=== PATIENT | male | born 1980 | race Caucasian/White ===

== ENCOUNTER 2017-05-01 00:01 | Emergency (ER) | payer SELFPAY ==
[~2017-05-01] VITALS: Ht 170.2 cm; Wt 86.0 kg
[~2017-05-01 00:01] MED LIST: BUPR-175 PO
[2017-05-01 00:08] VITALS: BP 130/82; PULSE 123; RESP 16; TEMP 99.3; O2SAT 96
[2017-05-01 00:21] VITALS: BP 130/82; PULSE 102; RESP 16; O2SAT 98
[2017-05-01] MEDS ORDERED: GABA300C5 PO (00:25)
[2017-05-01] MEDS ORDERED: REME30TA PO (00:25)
[2017-05-01] MEDS ORDERED: IBUP-232 PO (00:25)
--- NOTE | 2017-05-01 01:43 | RADRPT ---
EXAM DATE/TIME: 05/01/2017 01:15 [facility] COMPARISON: No previous studies available for comparison. INDICATIONS : Left ankle pain. MEDICAL HISTORY : None. SURGICAL HISTORY : ORIF left ankle. ENCOUNTER: Initial ACUITY: 2 days PAIN SCORE: 8/10 LOCATION: Left ankle. FINDINGS: Screw and pin are present in the medial malleolus. Lateral fibular plate is in place. The hardware appears intact. Osseous structures are in normal alignment. Ankle mortise is intact. No significan t soft tissue swelling. CONCLUSION: No acute findings. No fracture seen. Westley Briones MD on May 01, 2017 at 1:40 Board Certified Radiologist. This report was verified electronically.
[2017-05-01] MEDS ORDERED: IBUP800T23 PO (01:45)
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
[2017-05-01] MEDS ORDERED: IBUPROFEN 600 MG TAB PO ONE (02:15)
[2017-05-01 02:21] VITALS: BP 147/77
== END 2017-05-01 02:23 | disposition home or self-care (01) ==
LOC: PHED 00:01 → PHEFT 02:23
DX: S93.402A Sprain of unspecified ligament of left ankle, initial encounter (principal); X50.0XXA Overexertion from strenuous movement or load, initial encounter; Y93.9 Activity, unspecified; Y92.9 Unspecified place or not applicable
CPT/HCPCS: 73610; 99283; E0113

== ENCOUNTER 2017-05-02 16:01 | Inpatient (IN) | payer SELFPAY ==
[~2017-05-02] VITALS: Ht 170.2 cm; Wt 76.2 kg
[~2017-05-02 16:01] MED LIST changes: -BUPR-175 PO; +GABA300C5 PO; +IBUP-232 PO; +IBUP800T23 PO; +REME30TA PO
[2017-05-02 16:02] VITALS: BP 155/86; PULSE 128; RESP 20; TEMP 98.3; O2SAT 98
--- NOTE | 2017-05-02 16:06 | PD ---
Physical Exam Date Seen by Provider: May 02, 2017 Time Seen by Provider: 16:05 Narrative 36 yo male that presents to the ED for evaluation of left ankle pain with swelling. Happened a few days ago. Was here for this. Pain is not improving and swelling worsening. Pain is 8/10. he is concerned about infection. No trauma. Vitals are stable in triage. Awaiting bed placement. Data Data Last Documented VS Vital Signs Date Time Temp Pulse Resp B/P Pulse Ox O2 Delivery O2 Flow Rate FiO2 05/02/17 16:02 98.3 128 20 155/86 98 Room Air [facility] Medical Record Reviewed: Yes Supervised Visit with JA: No Gurdeep Lopez May 02, 2017 16:06
[2017-05-02 16:13] VITALS: BP 137/83; PULSE 105; RESP 16; TEMP 98.5; O2SAT 97
--- NOTE | 2017-05-02 16:25 | PD ---
HPI Chief Complaint: Skin Problem Time Seen by Provider: 16:25 Travel History International Travel<30 days: No Contact w/Intl Traveler<30days: No Traveled to known affect area: No History of Present Illness HPI 36 year old male presents to the emergency department for evaluation of left ankle pain that started on Sunday, 4 days ago. Patient was seen in the emergency department yesterday is diagnosed ankle sprain. He states the symptoms and erythema have been worsening. Patient reports the home, no documented fevers. Patient at first he denies any IV drug use. However, upon further questioning, he does admit to injecting methamphetamine. He states the last time was 5 days ago. However, he does not state that he injected his ankle. He does report history of surgery to the left ankle by orthopedist. He denies any issues since then. Patient states he can barely move the ankle due to extreme pain. He reports that he is currently on Remeron and gabapentin. No chest or shortness breath. No abdominal pain. No nausea, vomiting, diarrhea. PFSH Past Medical History Anxiety: Yes Depression: Yes Cancer: No Cardiovascular Problems: No Diabetes: No Diminished Hearing: No Endocrine: No Glaucoma: No Genitourinary: No Hepatitis: No Hiatal Hernia: No Hypertension: No Immune Disorder: No Implanted Vascular Access Dvce: No Musculoskeletal: No Neurologic: No Psychiatric: No Reproductive: No Respiratory: No Thyroid Disease: No Influenza Vaccination: No Past Surgical History Pacemaker: No Other Surgery: Yes (LT ANKLE) Social History Alcohol Use: Yes (OCCASIONALLY) Tobacco Use: No (CHEWING TOBACCO FORMERLY) Substance Use: No Allergies-Medications (Allergen,Severity, Reaction): Coded Allergies: Cat Dander (Verified Allergy, Severe, WHEEZING ITCHING, 05/02/17) Dog Dander (Verified Allergy, Unknown, 05/02/17) Reported Meds & Prescriptions Reported Meds & Active Scripts Active Ibuprofen 800 Mg Tab 800 Mg PO Q8H PRN Reported Remeron (Mirtazapine) 30 Mg Tab 30 Mg PO HS Gabapentin 300 Mg Cap 300 Mg PO BID Review of Systems Except as stated in HPI: all other systems reviewed are Neg Physical Exam Narrative GENERAL: Well-nourished, well-developed male patient, afebrile. SKIN: Focused skin assessment warm/dry. Patient has erythema, warmth over HEAD: Normocephalic. Atraumatic. EYES: No scleral icterus. No injection or drainage. NECK: Supple, trachea midline. No JVD or lymphadenopathy. CARDIOVASCULAR: Regular rate and rhythm without murmurs, gallops, or rubs. RESPIRATORY: Breath sounds equal bilaterally. No accessory muscle use. Lung sound are clear to auscultation throughout. GASTROINTESTINAL: Abdomen soft, non-tender, nondistended. MUSCULOSKELETAL: No cyanosis. Patient has 2-3+ edema over left ankle with diffuse erythema, warmth over left lateral ankle. He has extremely reduced ROM of left ankle and is barely able to flex or extend left ankle. Patient has scar noted to left lateral and medial ankle. Left pedal pulse 2+. BACK: Nontender without obvious deformity. No CVA tenderness. Data Data Last Documented VS Vital Signs Date Time Temp Pulse Resp B/P Pulse Ox O2 Delivery O2 Flow Rate FiO2 05/02/17 18:00 113 16 141/86 98 Room Air 05/02/17 16:13 98.5 Orders Iv Access Insert/Monitor (05/02/17 16:25) Act Partial Throm Time (Ptt) (05/02/17 16:25) Prothrombin Time / Inr (Pt) (05/02/17 16:25) Complete Blood Count With Diff (05/02/17 16:25) Basic Metabolic Panel (Bmp) (05/02/17 16:25) C-Reactive Protein (Crp) (05/02/17 16:25) Westergren Sedimentation Rate (05/02/17 16:25) Lactic Acid Sepsis Protocol (05/02/17 16:26) Blood Culture (05/02/17 16:32) Vancomycin Inj (Vancomycin Inj) (05/02/17 16:45) Piperacil-Tazo 4.5 Gm Premix (Zosyn 4.5 (05/02/17 16:45) Sodium Chlor 0.9% 1000 Ml Inj (Ns 1000 M (05/02/17 16:45) Hydromorphone Pf Inj (Dilaudid Pf Inj) (05/02/17 17:00) Ondansetron Inj (Zofran Inj) (05/02/17 17:00) Diphenhydramine Inj (Benadryl Inj) (05/02/17 18:15) Ct Ankle W Iv Contrast (05/02/17 ) Labs Laboratory Tests Test 05/02/17 16:45 White Blood Count 29.0 TH/MM3 Red Blood Count 5.46 MIL/MM3 Hemoglobin 14.6 GM/DL Hematocrit 44.9 % Mean Corpuscular Volume 82.3 FL Mean Corpuscular Hemoglobin 26.8 PG Mean Corpuscular Hemoglobin 32.6 % Concent Red Cell Distribution Width 14.9 % Platelet Count 471 TH/MM3 Mean Platelet Volume 7.7 FL Neutrophils (%) (Auto) 88.0 % Lymphocytes (%) (Auto) 2.4 % Monocytes (%) (Auto) 9.3 % Eosinophils (%) (Auto) 0.1 % Basophils (%) (Auto) 0.2 % Neutrophils # (Auto) 25.6 TH/MM3 Lymphocytes # (Auto) 0.7 TH/MM3 Monocytes # (Auto) 2.7 TH/MM3 Eosinophils # (Auto) 0.0 TH/MM3 Basophils # (Auto) 0.0 TH/MM3 CBC Comment AUTO DIFF Differential Comment AUTO DIFF CONFIRMED Platelet Estimate NORMAL Platelet Morphology Comment NORMAL Erythrocyte Sedimentation Rate 48 mm/hr Prothrombin Time 12.6 SEC Prothromb Time International 1.1 RATIO Ratio Activated Partial 34.5 SEC Thromboplast Time Sodium Level 135 MEQ/L Potassium Level 4.4 MEQ/L Chloride Level 100 MEQ/L Carbon Dioxide Level 29.6 MEQ/L Anion Gap 5 MEQ/L Blood Urea Nitrogen 10 MG/DL Creatinine 1.19 MG/DL Random Glucose 117 MG/DL Lactic Acid Level 1.8 mmol/L Calcium Level 9.2 MG/DL C-Reactive Protein 34.70 MG/DL [facility] Medical Decision Making Medical Screen Exam Complete: Yes Emergency Medical Condition: Yes Medical Record Reviewed: Yes Differential Diagnosis Septic joint versus cellulitis versus sepsis versus endocarditis Narrative Course 36 year old male with history of IVDU, last use 5 days ago, presents to the emergency department for evaluation of left ankle pain, swelling, erythema since Sunday. He has history of previous surgery. Physical is consistent with septic arthritis. CBC, BMP, PTT, PT/INR, SED rate, CRP, lactic acid, blood culture x3 are ordered and pending. Patient is given NS 1 L IV bolus, Zosyn 4.5 gm IV, Vancomycin 1 gm IV. MRI of the left ankle are ordered and pending. CBC shows leukocytosis 29.0, neutrophilia 88.0. BMP shows no acute abnormality. Lactic acid is 1.8. SED rate is 48. CRP is 34.70. PT is 12.6, INR 1.1, PTT 34.5. 1804 - I spoke with Dr. Rob, orthopedist salesperson floor coverings, who states MRI will not be helpful due to hardware in the ankle. He recommends CT scan of the ankle. He would like the patient to be admitted to medicine and Dr. Moreira consulted. 1817 - Dr. Zavala accepted admission. Sepsis Criteria SIRS Criteria (2 or more): Heart rate over 90, WBC > 55005, < 4000 or > 10% bands Sepsis Criteria (SIRS+source): Infect source susp/known Diagnosis Primary Impression: Septic joint Qualified Code: M00.9 - Septic arthritis of left ankle, due to unspecified organism Additional Impression: Sepsis Qualified Code: A41.9 - Sepsis, due to unspecified organism Admitting Information Admitting Physician Requests: Admit Kelle Fleming May 02, 2017 16:25
[2017-05-02] MEDS ORDERED: PIPERACIL-TAZO 4.5 GM PREMIX 100 ML IV ONE (16:45)
[2017-05-02] MEDS ORDERED: SODIUM CHLOR 0.9% 1000 ML INJ 1,000 ML IV ONE (16:45)
[2017-05-02] MEDS ORDERED: VANCOMYCIN INJ 1,000 MG in SODIUM CHLOR 0.9% 250 ML INJ 250 ML IV ONE (16:45)
[2017-05-02] MEDS ORDERED: HYDROmorphone HCL PF 1 MG/ML VIAL IV PUSH ONE (17:00)
[2017-05-02] MEDS ORDERED: ONDANSETRON HCL 4 MG/2 ML VIAL IV PUSH ONE (17:00)
--- NOTE | 2017-05-02 17:02 | PD ---
Data Data Last Documented VS Vital Signs Date Time Temp Pulse Resp B/P Pulse Ox O2 Delivery O2 Flow Rate FiO2 05/02/17 16:13 98.5 105 16 137/83 97 Room Air Orders Iv Access Insert/Monitor (05/02/17 16:25) Act Partial Throm Time (Ptt) (05/02/17 16:25) Prothrombin Time / Inr (Pt) (05/02/17 16:25) Complete Blood Count With Diff (05/02/17 16:25) Basic Metabolic Panel (Bmp) (05/02/17 16:25) C-Reactive Protein (Crp) (05/02/17 16:25) Westergren Sedimentation Rate (05/02/17 16:25) Lactic Acid Sepsis Protocol (05/02/17 16:26) Mri Joint Ankle W&W/O Contrast (05/02/17 ) Blood Culture (05/02/17 16:32) Vancomycin Inj (Vancomycin Inj) (05/02/17 16:45) Piperacil-Tazo 4.5 Gm Premix (Zosyn 4.5 (05/02/17 16:45) Sodium Chlor 0.9% 1000 Ml Inj (Ns 1000 M (05/02/17 16:45) Hydromorphone Pf Inj (Dilaudid Pf Inj) (05/02/17 17:00) Ondansetron Inj (Zofran Inj) (05/02/17 17:00) MDM Supervised Visit with JA: Yes Narrative Course The history, exam, and medical decision-making in the associated mid-level provider note were completed with my assistance. I reviewed and agree with the findings presented. I attest that I had a [id number] encounter with the patient on the same day, and personally performed and documented my assessment and findings in the medical record. *My assessment and Findings: 36-year-old man, active IV drug use, presents with painful swollen red left ankle. Suspicious forpossibly cellulitis but seems less likely. He has hardware in the ankle as well. No obvious murmurs. She is tachycardia tachypnea With low-grade fevers. We'll give IV antibiotics, IV fluids, MRI of the ankle. He'll need admission and likely orthopedic consultation. Terrell Holm MD May 02, 2017 17:01
[2017-05-02 17:14] LABS: AUTOMATED NEUTROPHIL # 25.6 TH/MM3 (1.8-7.7); BASOPHIL % 0.2 % (0.0-2.0); EOSINOPHIL % 0.1 % (0.0-4.0); HEMATOCRIT 44.9 % (39.0-51.0); LYMPH % 2.4 % (9.0-44.0); LYMPHOCYTE # 0.7 TH/MM3 (1.0-4.8); MEAN CELL VOLUME 82.3 FL (80.0-100.0); MEAN CORPUSCULAR HEMOGLOBIN 26.8 PG (27.0-34.0); MEAN CORPUSCULAR HGB CONC 32.6 % (32.0-36.0); MONO % 9.3 % (0.0-8.0); PLATELET COUNT 471 TH/MM3 (150-450); RED BLOOD COUNT 5.46 MIL/MM3 (4.50-5.90); RED CELL DISTRIBUTION WIDTH 14.9 % (11.6-17.2)
[2017-05-02 17:16] LABS: HEMO FLAGS AUTO DIFF
[2017-05-02 17:25] LABS: APTT (PATIENT) 34.5 SEC (24.3-30.1); INTERNATIONAL NORMALIZED RATIO 1.1 RATIO; PROTHROMBIN TIME - PATIENT 12.6 SEC (9.8-11.6)
[2017-05-02 17:38] LABS: ANION GAP 5 MEQ/L (5-15); BICARBONATE 29.6 MEQ/L (21.0-32.0); BLOOD UREA NITROGEN 10 MG/DL (7-18); CHLORIDE 100 MEQ/L (98-107); POTASSIUM 4.4 MEQ/L (3.5-5.1); SODIUM (NA) 135 MEQ/L (136-145)
[2017-05-02 17:55] LABS: SCAN/DIFF AUTO DIFF CONFIRMED
[2017-05-02 17:56] LABS: PLATELET ESTIMATE SMEAR NORMAL (NORMAL); PLATELET MORPHOLOGY NORMAL (NORMAL)
[2017-05-02 18:00] VITALS: BP 141/86; PULSE 113; RESP 16; O2SAT 98
[2017-05-02] MEDS ORDERED: diphenhydrAMINE HCL 50 MG/ML VIAL IV PUSH ONE (18:15)
[2017-05-02] MEDS ORDERED: SENNOSIDES 8.6 MG TAB PO PRN (18:30)
[2017-05-02] MEDS ORDERED: Vancomycin Consult Pharmacy 1 EA OTHER SCH (18:30)
[2017-05-02] MEDS ORDERED: MAGNESIUM HYDROXIDE SUSP 30 ML CUP PO PRN (18:30)
[2017-05-02] MEDS ORDERED: ONDANSETRON HCL 4 MG/2 ML VIAL IVP PRN (18:30)
[2017-05-02] MEDS ORDERED: BISACODYL 10 MG SUPP RECTAL PRN (18:30)
[2017-05-02] MEDS ORDERED: NALOXONE HCL 0.4 MG/ML AMP IV PRN (18:30)
[2017-05-02] MEDS ORDERED: LACTULOSE SYRUP 20 GM/30 ML CUP PO PRN (18:30)
[2017-05-02 19:00] VITALS: BP 127/71; PULSE 120; RESP 20; O2SAT 98
[2017-05-02] MEDS ORDERED: IOHEXOL 350 MG/ML 10 ML VIAL (for RAD DIAG) IV ONE (19:03)
--- NOTE | 2017-05-02 19:20 | RADRPT ---
EXAM DATE/TIME: 05/02/2017 18:55 [facility] COMPARISON: ANKLE LEFT COMPLETE ([id number]), May 01, 2017, 1:15. INDICATIONS : Swelling left ankle. Possible cellultis. IV CONTRAST: 100 cc Omnipaque 350 (iohexol) IV RADIATION DOSE: 10.38 CTDIvol (mGy) MEDICAL HISTORY : None SURGICAL HISTORY : Left ankle ENCOUNTER: Initial ACUITY: 4 - 6 days PAIN SCALE: 6/10 LOCATION: Left ankle TECHNIQUE: Volumetric scanning of the ankle was performed. Using automated exposure control and adjustment of t he mA and/or kV according to patient size, radiation dose was kept as low as reasonably achievable to obtain optimal diagnostic quality images. DICOM format image data is available electronically for review and comparison. FINDINGS: BONES: No evidence of acute fracture. Alignment is within normal limits. Postsurgical changes are noted wit h screw plate fixation device along the distal fibula. Their lack type screws in the medial malleolus . No destructive change is identified. JOINTS: Ankle mortise is intact. No evidence of joint narrowing or effusion. SOFT TISSUES: Muscles, tendons and neurovascular structures are grossly unremarkable. No evidence of mass, organize d fluid collection, or foreign body. There is diffuse soft tissue swelling. CONCLUSION: 1. Diffuse soft tissue swelling with no discrete focal abscess. 2. Remote postsurgical changes with no acute fracture. Demarcus Hickey MD on May 02, 2017 at 19:16 Board Certified Radiologist. This report was verified electronically.
[2017-05-02] MEDS ORDERED: VANCOMYCIN 1,000 MG/NS 250 ML IV ONE ×2 (20:00)
[2017-05-02] MEDS: SODIUM CHLOR 0.9% 1000 ML INJ 1,000 ML IV SCH (20:14)
[2017-05-02] MEDS: SODIUM CHLORIDE 0.9% FLUSH 10 ML FLUSH IV FLUSH SCH (20:37)
[2017-05-02] MEDS: DOCUSATE SODIUM 50 MG/SENNA 8.6 MG TAB PO SCH (20:37)
[2017-05-02] MEDS: KETOROLAC TROMETHAMINE 30 MG/ML (IVP) VIAL IV PUSH PRN (20:37)
[2017-05-02 23:04] VITALS: BP 140/81; PULSE 125; RESP 16; TEMP 99.3; O2SAT 98
[2017-05-02] MEDS: PIPERACIL-TAZO 3.375 GM PREMIX 50 ML IV SCH (23:05)
[2017-05-03] MEDS ORDERED: HYDROmorphone HCL PF 1 MG/ML VIAL IV PUSH PRN (01:30)
[2017-05-03] MEDS ORDERED: HYDROmorphone HCL PF 1 MG/ML VIAL IV PUSH ONE (01:30)
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
[2017-05-03] MEDS ORDERED: LORazepam 2 MG/ML VIAL IV PUSH ONE (01:45)
[2017-05-03 04:05] VITALS: BP 136/67; PULSE 127; RESP 16; TEMP 100.6; O2SAT 95
[2017-05-03] MEDS: SODIUM CHLOR 0.9% 1000 ML INJ 1,000 ML IV SCH ×2 (05:00→18:02)
[2017-05-03] MEDS: VANCOMYCIN INJ 1,500 MG in SODIUM CHLORID 0.9% 500 ML INJ 500 ML IV SCH ×2 (05:17→18:03)
[2017-05-03] MEDS: PIPERACIL-TAZO 3.375 GM PREMIX 50 ML IV SCH ×4 (05:17→22:43)
[2017-05-03] MEDS: LORazepam 2 MG/ML VIAL IV PUSH PRN ×3 (05:54→22:30)
[2017-05-03] MEDS ORDERED: POVIDONE IODINE 5% (ANTISEPSIS KIT) 4 APPLICATIONS EACH NARE PRN (07:15)
[2017-05-03] MEDS ORDERED: LACTATED RINGER'S 1000 ML IV PRN (07:15)
[2017-05-03] MEDS ORDERED: CHLORHEXIDINE GLUCONATE 2 % 1 PACK (2 CLOTHS) TOPICAL PRN (07:15)
[2017-05-03] MEDS ORDERED: SODIUM CHLORID 0.9% 500 ML IV PRN (07:15)
[2017-05-03] MEDS ORDERED: INSULIN HUMAN REGULAR 1,000 UNITS/10 ML VIAL SQ PRN (07:15)
[2017-05-03] MEDS ORDERED: METOPROLOL TARTRATE 25 MG TAB PO PRN (07:15)
[2017-05-03] MEDS ORDERED: DO NOT ADM ANY ANTICOAGULANT DRUGS PRN ×2 (07:15→13:45)
[2017-05-03 07:58] LABS: AUTOMATED NEUTROPHIL # 21.5 TH/MM3 (1.8-7.7); BASOPHIL # 0.1 TH/MM3 (0-0.2); BASOPHIL % 0.3 % (0.0-2.0); HEMATOCRIT 39.9 % (39.0-51.0); LYMPH % 2.5 % (9.0-44.0); LYMPHOCYTE # 0.6 TH/MM3 (1.0-4.8); MEAN CELL VOLUME 80.8 FL (80.0-100.0); MEAN CORPUSCULAR HEMOGLOBIN 26.8 PG (27.0-34.0); MEAN CORPUSCULAR HGB CONC 33.1 % (32.0-36.0); MONO % 9.9 % (0.0-8.0); NEUT % 87.3 % (16.0-70.0); PLATELET COUNT 461 TH/MM3 (150-450); RED BLOOD COUNT 4.94 MIL/MM3 (4.50-5.90); RED CELL DISTRIBUTION WIDTH 15.2 % (11.6-17.2); WHITE BLOOD COUNT 24.6 TH/MM3 (4.0-11.0)
[2017-05-03 08:00] VITALS: BP 139/74; PULSE 124; RESP 18; TEMP 99.4; O2SAT 95
[2017-05-03 08:00] LABS: HEMO FLAGS AUTO DIFF
[2017-05-03 08:15] LABS: BICARBONATE 28.7 MEQ/L (21.0-32.0); POTASSIUM 3.8 MEQ/L (3.5-5.1)
[2017-05-03] MEDS: SODIUM CHLORIDE 0.9% FLUSH 10 ML FLUSH IV FLUSH SCH ×2 (09:11→21:00)
[2017-05-03] MEDS: DOCUSATE SODIUM 50 MG/SENNA 8.6 MG TAB PO SCH ×2 (09:11→21:00)
[2017-05-03 09:25] LABS: BANDS 15 % (0-6); DOHLE BODIES PRESENT (NONE SEEN); METAMYELOCYTES 1 % (0-1); NEUTROPHIL # MANUAL DIFF 23.4 TH/MM3 (1.8-7.7); POLYS (SEG NEUTROPHILS) 79 % (16-70); WBC DIFF SAMPLE 100
[2017-05-03 09:26] LABS: PLATELET ESTIMATE SMEAR HIGH (NORMAL)
[2017-05-03 09:27] LABS: PLATELET MORPHOLOGY NORMAL (NORMAL)
[2017-05-03 09:28] LABS: SCAN/DIFF FINAL DIFF MANUAL
[2017-05-03] MEDS ORDERED: PHENYLEPH/NS 1000 MCG/10 ML SYR IV ONE (11:01)
[2017-05-03] MEDS ORDERED: PROPOFOL 200 MG/20 ML AMP IV ONE (11:01)
[2017-05-03] MEDS ORDERED: NEOSTIGMINE 3 MG/3 ML SYR IV ONE (11:01)
[2017-05-03] MEDS ORDERED: LACTATED RINGER'S 1000 ML INJ 1,000 ML IV ONE (11:01)
[2017-05-03] MEDS ORDERED: ONDANSETRON HCL 4 MG/2 ML VIAL IV PUSH ONE (11:01)
[2017-05-03] MEDS ORDERED: MIDAZOLAM HCL 2 MG/2 ML VIAL ONE (11:03)
[2017-05-03] MEDS ORDERED: FAMOTIDINE 20 MG/2 ML VIAL ONE (11:03)
[2017-05-03] MEDS ORDERED: GENTAMICIN SULFATE 80 MG/2 ML VIAL ONE (11:13)
[2017-05-03] MEDS ORDERED: ceFAZolin 2 GM PREMIX 50 ML ONE (11:13)
--- NOTE | 2017-05-03 11:19 | HHI.PR ---
Subjective Remarks Patient seen in pre-op holding. Going for surgery on left ankle. States that the ankle is painful. He also has occasional dyspnea. Denies chest pain, nausea , vomiting, diarrhea, constipation. Objective Vitals Vital Signs Date Time Temp Pulse Resp B/P Pulse Ox O2 Delivery O2 Flow Rate FiO2 05/03/17 08:00 99.4 124 18 139/74 95 05/03/17 04:05 100.6 127 16 136/67 95 05/02/17 23:04 99.3 125 16 140/81 98 05/02/17 19:00 120 25 05/02/17 19:00 120 20 127/71 98 Room Air 05/02/17 18:00 113 16 141/86 98 Room Air 05/02/17 16:13 98.5 105 16 137/83 97 Room Air 05/02/17 16:02 98.3 128 20 155/86 98 Room Air I/O 05/02/17 05/02/17 05/02/17 05/03/17 05/03/17 05/03/17 07:00 15:00 23:00 07:00 15:00 23:00 Intake Total 980 ml Output Total 475 ml Balance 505 ml Intake Oral 0 ml IV Total 980 ml Output Urine Total 475 ml # Bowel Movements 0 Result Diagram: 05/03/17 0642 05/03/17 0645 Imaging Last Impressions Lower Extremity CT 05/02/17 0000 Signed Impressions: Service Date/Time: Tuesday, May 02, 2017 18:55 - CONCLUSION: 1. Diffuse soft tissue swelling with no discrete focal abscess. 2. Remote postsurgical changes with no acute fracture. Demarcus Hickey MD Objective Remarks General: No acute distress. Heart: Regular rate and rhythm. No murmur. Lungs: Clear to auscultation bilaterally. No wheezes, rales, or rhonchi. Breathing is nonlabored. Abdomen: Soft, nontender, nondistended. Extremities: Left ankle with 2+ edema, significant erythema. Psych: Alert and oriented. Urinary Catheter: No Vascular Central Line Catheter: No A/P Problem List: (1) Sepsis ICD Code: A41.9 Status: Acute (2) Cellulitis of ankle ICD Code: L03.119 Status: Acute (3) Polysubstance abuse ICD Code: F19.10 Status: Chronic (4) IV drug abuse ICD Code: F19.10 Status: Chronic Assessment and Plan 1. Sepsis secondary to cellulitis: Continue antibiotics, IV fluids. 2. Left ankle cellulitis, possible septic joint: Appreciate orthopedic surgery recommendations. Going for surgical intervention today. Continue antibiotics. 3. Polysubstance abuse 4. DVT prophylaxis: Will need chemical prophylaxis postoperatively. Problem Qualifiers (1) Sepsis: Qualified Code: A41.9 - Sepsis, due to unspecified organism Ravi Zavala MD May 03, 2017 11:19
--- NOTE | 2017-05-03 12:41 | PD.OP ---
cc: Dillon Moreira MD Operative Report Date of Surgery: May 03, 2017 Preoperative Diagnosis: Left ankle infection Postoperative Diagnosis: Procedure: Irrigation and debridement of left tibia, irrigation debridement of left fibula , removal of deep hardware Anesthesia: Gen. Surgeon: Dillon Moreira Child And Family Counselor(s): CAMDEN Willams PA-C The surgical procedure was assisted by my physician evaluation assistant. My P.A. presence was necessary throughout this case for the manipulation and positioning of the surgical extremity. My P.A. was assisting me throughout the duration of this procedure. The skill set of a physician evaluation assistant was medically necessary to complete this procedure. During the surgical case the surgical nurse was working at the back table and the physician evaluation assistant was directly assisting me. Operation and Findings: Patient was seen and evaluated Preoperatively. He was found to have a left ankle infection. Informed consent was obtained and operative site was marked. He was brought to the operating room and placed on or table. He was given IV sedation and general anesthesia. Timeout procedure was performed. Patient is on scheduled antibiotics. Left leg was prepped with alcohol followed by Hibiclens and draped in usual sterile fashion. Procedure began with a 4 inch incision of the distal fibula. Subcutaneous tissue dissected with Bovie. An abscess was identified on the fibula. At this point attention was turned hardware removal. The screws were identified. Screws were now removed. The plate was now elevated. The fibula was now debrided. Curettes and rongeurs were used to thoroughly debride soft tissue and bone. Curettes were used to debride the screw holes. The wound was now thoroughly irrigated with sterile saline. Next attention was turned towards the distal tibia. A 3 inch incision was made over the medial distal tibia. Subcutaneous tissues dissected with Bovie. The hardware was identified. There was a small area of infection and possible around the hardware. The K wire was removed. The screw was also removed. Unfortunately the screw was broken. At this point the broken screw removal set was used to help remove the screw. The broken screw needed to be removed because it was likely involved in infection. The screws were difficult to remove. Eventually the screw was removed. Curettes were used to debride the bone of the tibia. Curettes and rongeurs were used to debride soft tissue and bone. Wound was thoroughly irrigated. This point attention was turned to closure. Subcutaneous tissues closed with 3-0 PDS and skin was closed with 3-0 nylon. Sterile dressings were applied. Patient placed into a well molded well- padded splint. His transferred to recovery in stable condition. Dillon Moreira MD May 03, 2017 12:40
[2017-05-03] MEDS ORDERED: Post-op Orders (for Pharmacy) MISC XX ONE (12:45)
[2017-05-03] MEDS ORDERED: SODIUM CHLORIDE 0.9% FLUSH 5 ML FLUSH IVF PRN (12:45)
[2017-05-03] MEDS ORDERED: fentaNYL CITRATE 250 MCG/5 ML AMP ONE (13:43)
[2017-05-03] MEDS ORDERED: *morphine SULFATE 8 MG/ML PERIprocedure ONLY ONE (14:19)
[2017-05-03] MEDS: KETOROLAC TROMETHAMINE 30 MG/ML (IVP) VIAL IV PUSH PRN (14:20)
--- NOTE | 2017-05-03 15:06 | RADRPT ---
EXAM DATE/TIME: 05/03/2017 12:29 [facility] COMPARISON: ANKLE LEFT COMPLETE ([id number]), May 01, 2017, 1:15. INDICATIONS : Hardware removal left ankle. MEDICAL HISTORY : None. SURGICAL HISTORY : ORIF left ankle. ENCOUNTER: Subsequent ACUITY: 4 - 6 days PAIN SCORE: Non-responsive. LOCATION: Left ankle. FINDINGS: A single view of the left ankle was performed. Previously placed screws and mesh measuring plate stab ilizing a bimalleolar fracture have been removed. Ankle mortise is well-preserved. CONCLUSION: Status post fixation hardware removal. Stable ankle alignment Yong Coppola MD on May 03, 2017 at 15:02 Board Certified Radiologist. This report was verified electronically.
[2017-05-03 16:00] VITALS: BP 107/66; PULSE 93; RESP 18; TEMP 98.4; O2SAT 96
[2017-05-03 19:55] VITALS: BP 117/55; PULSE 98; RESP 16; TEMP 97.4; O2SAT 97
[2017-05-03 20:16] VITALS: PULSE 124
[2017-05-03] MEDS ORDERED: IOHEXOL 350 MG/ML 10 ML VIAL (for RAD DIAG) IV ONE (20:49)
[2017-05-03] MEDS ORDERED: SODIUM CHLORIDE 0.9% FLUSH 5 ML FLUSH IVF SCH (21:00)
[2017-05-03] MEDS: MORPHINE SULFATE 4 MG/ML INJ IV PUSH PRN (21:20)
[2017-05-03 23:21] VITALS: BP 116/65; PULSE 108; RESP 16; TEMP 98.8; O2SAT 94
[2017-05-04] MEDS: SODIUM CHLOR 0.9% 1000 ML INJ 1,000 ML IV SCH ×3 (00:07→20:38)
[2017-05-04] MEDS: LORazepam 2 MG/ML VIAL IV PUSH PRN ×5 (03:18→22:35)
[2017-05-04 04:13] VITALS: BP 119/65; PULSE 125; RESP 16; TEMP 100.1; O2SAT 94
[2017-05-04] MEDS: MORPHINE SULFATE 4 MG/ML INJ IV PUSH PRN ×4 (04:15→20:37)
[2017-05-04] MEDS: PIPERACIL-TAZO 3.375 GM PREMIX 50 ML IV SCH ×2 (04:32→11:11)
[2017-05-04] MEDS ORDERED: PHARMACY ORDERED LAB ONE (05:45)
[2017-05-04] MEDS: VANCOMYCIN INJ 1,500 MG in SODIUM CHLORID 0.9% 500 ML INJ 500 ML IV SCH ×3 (06:00→22:37)
--- NOTE | 2017-05-04 07:11 | PD.ORT.PN ---
Subjective Subjective Remarks POD 1 s/p I&D with removal of HW left ankle states increased pain today. has not been out of bed Objective Vitals Vital Signs Date Time Temp Pulse Resp B/P Pulse Ox O2 Delivery O2 Flow Rate FiO2 05/04/17 04:13 100.1 125 16 119/65 94 05/03/17 23:21 98.8 108 16 116/65 94 05/03/17 21:35 18 05/03/17 20:16 124 05/03/17 19:55 97.4 98 16 117/55 97 05/03/17 16:00 98.4 93 18 107/66 96 05/03/17 14:30 98.4 111 16 157/86 99 Nasal Cannula 3 05/03/17 14:15 99 16 152/73 99 Nasal Cannula 3 05/03/17 14:00 110 16 104/81 99 Nasal Cannula 3 05/03/17 13:45 89 16 120/73 99 Nasal Cannula 3 05/03/17 13:33 98.2 87 15 140/76 99 Nasal Cannula 3 05/03/17 08:00 99.4 124 18 139/74 95 I/O 05/03/17 05/03/17 05/03/17 05/04/17 05/04/17 05/04/17 06:59 14:59 22:59 06:59 14:59 22:59 Intake Total 980 ml 2000 ml 480 ml 480 ml Output Total 475 ml 650 ml 0 ml 885 ml Balance 505 ml 1350 ml 480 ml -405 ml Intake Oral 0 ml 0 ml 480 ml 480 ml IV Total 980 ml 100 ml Other 1900 ml Output Urine Total 475 ml 600 ml 0 ml 885 ml Estimated Blood Loss 50 ml # Bowel Movements 0 0 0 0 Result Diagram: 05/03/17 0642 05/03/17 0645 Objective Remarks LLE: +short leg splint. intact. NVI. Assessment & Plan Assessment and Plan 1) Left Ankle HW infection s/p I&D with VIKAS - POD 1 -NWB -maintain splint -elevate -will plan to remove splint early next week to check drain and incision -will monitor cultures and ID to tailor Abx -will require IV Abx Leonid Vivas May 04, 2017 07:11
--- NOTE | 2017-05-04 07:19 | MB ---
cc: REYMUNDO LAU DATE OF CONSULTATION: 05/03/2017 REASON FOR CONSULTATION Left ankle infection. HISTORY OF PRESENT ILLNESS Suly is a 36-year-old male who is known to me from previous left ankle fracture. He was treated with open reduction, internal fixation of the ankle approximately six years ago. He presented to the emergency room with left ankle pain and swelling. He has a history of IV drug use. He has noticed increasing pain, swelling and redness of the ankle and foot. He is currently awake and alert on the 4th floor. His only complaint is his ankle. Pain is worse with movement. He is having difficulty ambulating. PAST MEDICAL HISTORY ILLNESSES None. SURGERIES 1. ORIF left ankle. 2. ORIF left arm. ALLERGIES Cats and dogs. No known drug allergies. FAMILY HISTORY Noncontributory. His grandmother has diabetes. SOCIAL HISTORY Patient uses chewing tobacco. He drinks alcohol. He uses cocaine, Dilaudid and Xanax. REVIEW OF SYSTEMS The patient denies headache, visual changes, neck pain, chest pain, shortness of breath, abdominal pain, nausea, vomiting or recent weight loss. He complains of left ankle pain. PHYSICAL EXAMINATION GENERAL: The patient is a 36-year-old male who is awake and alert, in no acute distress. VITAL SIGNS: Temperature 100.1, pulse 125, respirations 16, blood pressure 119/65. O2 sat is 94% on room air. HEAD: The patient is normocephalic. Pupils are equal. NECK: Soft, nontender. ABDOMEN: Soft, nontender, nondistended. EXTREMITIES: Examination of bilateral upper extremities reveals no pain with shoulder, elbow or wrist motion. Skin is intact. Radial pulses are palpable. Sensation is intact in all fingers. Examination of left leg reveals no pain with hip or knee motion. He has moderate swelling of his ankle. There is erythema and fluctuance along the lateral foot and ankle. Dorsalis pedis pulse is palpable. He has mild pain with ankle range of motion. Examination of right leg reveals no pain with hip, knee or ankle motion. Skin is intact. Dorsalis pedis pulse is palpable. Sensation is intact. IMPRESSION Left ankle and foot infection. PLAN The treatment options were discussed with the patient. At this point I would recommend irrigation and debridement of left ankle with possible removal of hardware. The risks of surgery include bleeding, infection, injuries to arteries, nerves and blood vessels, nonunion, malunion, osteomyelitis, fracture of bone, need for further surgery, as well as medical complications including blood clot, stroke, heart attack and . All questions were answered. I will plan on surgery today. A mid-level provider in my office, nurse practitioner or PA, may see this patient on a follow-up basis and continue to implement the objective of this plan including: Starting or adjusting medications, injections of muscle, tendon, bursa or joints, cast application, orthotic or brace application, physical therapy, further radiographic studies including x-ray, MRI, CT, ultrasounds or bone scan, vascular studies, neurologic studies, or other specialist consultations, and proceeding with surgical management as appropriate. MD ALIRIO Moore/CARI /6:49 AM /7:13 AM
[2017-05-04 08:00] VITALS: BP 130/68; PULSE 126; RESP 22; TEMP 99.1; O2SAT 92
[2017-05-04] MEDS: SODIUM CHLORIDE 0.9% FLUSH 10 ML FLUSH IV FLUSH SCH ×2 (08:05→20:38)
[2017-05-04] MEDS: DOCUSATE SODIUM 50 MG/SENNA 8.6 MG TAB PO SCH ×2 (08:05→20:38)
[2017-05-04 09:26] LABS: AUTOMATED NEUTROPHIL # 23.5 TH/MM3 (1.8-7.7); BASOPHIL # 0.1 TH/MM3 (0-0.2); BASOPHIL % 0.4 % (0.0-2.0); LYMPH % 4.8 % (9.0-44.0); LYMPHOCYTE # 1.3 TH/MM3 (1.0-4.8); MEAN CELL VOLUME 81.2 FL (80.0-100.0); MEAN CORPUSCULAR HEMOGLOBIN 26.2 PG (27.0-34.0); MEAN CORPUSCULAR HGB CONC 32.3 % (32.0-36.0); MONO % 9.9 % (0.0-8.0); NEUT % 84.9 % (16.0-70.0); PLATELET COUNT 473 TH/MM3 (150-450); RED BLOOD COUNT 4.56 MIL/MM3 (4.50-5.90); RED CELL DISTRIBUTION WIDTH 15.3 % (11.6-17.2); WHITE BLOOD COUNT 27.6 TH/MM3 (4.0-11.0)
[2017-05-04 09:32] LABS: HEMO FLAGS AUTO DIFF
--- NOTE | 2017-05-04 09:32 | RADRPT ---
EXAM DATE/TIME: 05/03/2017 20:31 [facility] COMPARISON: CT ANKLE LEFT W CONTRAST, May 02, 2017, 18:55. INDICATIONS : Leg infection. Rule out compartment syndrome left leg. IV CONTRAST: 100 cc Omnipaque 350 (iohexol) IV RADIATION DOSE: 14.23 CTDIvol (mGy) MEDICAL HISTORY : None SURGICAL HISTORY : left ankle repair with hardaware/hardware removal 05/03/17 ENCOUNTER: Subsequent ACUITY: 1 day PAIN SCALE: 5/10 LOCATION: Left leg TECHNIQUE: Volumetric scanning was performed using a multi-row detector CT scanner. The data was post processed with a variety of visualization algorithms including full volume maximum intensity projection, multi -planar sliding thin slab reformation, curved planar reformation, and surface rendering techniques. Using automated exposure control and adjustment of the mA and/or kV according to patient size, radiat ion dose was kept as low as reasonably achievable to obtain optimal diagnostic quality images. DICO M format image data is available electronically for review and comparison. FINDINGS: AORTA: Abdominal aorta is normal in caliber without significant plaque or flow-limiting stenosis. VISCERAL ARTERIES: Single bilateral renal arteries which are widely patent. Celiac, SMA, and KAYLIN are widely patent. RIGHT LEG: INFLOW: No iliac inflow stenosis. Common femoral artery is patent. OUTFLOW: Profunda femoris and SFA are widely patent. Popliteal artery is patent. RUNOFF: Evaluation is limited by venous contamination. There is a three-vessel runoff to the mid to distal ca lf. The anterior tibial artery is markedly diminutive in caliber and likely occluded in the distal ca lf. Similarly, the peroneal artery is likely occluded in the distal calf. The posterior tibial artery does appear to extend to the plantar arch. LEFT LEG: INFLOW: No iliac inflow stenosis. Common femoral artery is patent. OUTFLOW: Profunda is patent. SFA is patent. Popliteal artery is patent. RUNOFF: There is a three-vessel runoff to the distal calf. The anterior tibial artery appears occluded in the distal calf. The peroneal artery is significantly diminutive in caliber and there is not visualized beyond the distal calf. The posterior tibial artery does extend to the plantar arch. Incidentally, there is venous contamination in the calves bilaterally with diminished flow in superfi cial veins on the left compared to the right. GENERAL FINDINGS: Visualized lung bases demonstrates somewhat nodular airspace disease in the left lung base as well as the extreme right middle lobe. Visualization of the abdominal viscera is limited due to arterial pha se technique. The spleen is enlarged measuring up to 14 cm in length. There is somewhat heterogeneous density of the liver which also appears enlarged without evidence for intra-right ductal dilatation or gross focal mass. Layering density in the gallbladder likely reflects sludge. Otherwise GB appears unremarkable by CT. Adrenal glands and pancreas are within normal limits. Kidneys demonstrate symmet rical enhancement without evidence for radiopaque renal calculi or hydronephrosis. No significant humphrey al mass. The bowel appears unremarkable without evidence for obstruction. Trace amount of free fluid in the pelvis Bladder is mildly distended but otherwise unremarkable. Prostate and seminal vesicles are within norm al limits. Postsurgical features are noted in the right ankle with interval removal of orthopedic hardware from the distal fibula and tibia. There is a surgical drain in place. Regional subcutaneous emphysema and extensive soft tissue swelling extending to the distal calf primarily along the lateral compartment. CONCLUSION: 1. Extensive soft tissue swelling and postsurgical changes in the left ankle from recent hardware rem oval. 2. No significant aortic occlusive disease, inflow or outflow stenosis. 3. Limited three-vessel runoff to the mid to distal calf bilaterally with dominant posterior tibial a rtery runoff to the plantar arch. Although evaluation is compromised by venous contamination, the ove rall runoff does not appear significantly different on the left in comparison to the right. This does not support diagnosis of severe compartment syndrome. There is less prominent venous contamination i n the left calf in comparison to the right which does support some degree of increased compartment pr essure. However, please note that compartment syndrome cannot be reliably diagnosed in the distal ext remities with CTA exam. 4. Mild splenomegaly and diffusely heterogeneous hepatic enhancement which may reflect early cirrhosi s. 5. Nodular airspace disease primarily in the left lung base and extreme right middle lobe. Clinical c orrelation is recommended. Further evaluation may be performed with CT of the chest as indicated. Jb Thompson MD on May 04, 2017 at 7:51 Board Certified Radiologist. This report was verified electronically.
[2017-05-04 09:53] LABS: BICARBONATE 26.5 MEQ/L (21.0-32.0)
[2017-05-04 10:55] LABS: BANDS 16 % (0-6); NEUTROPHIL # MANUAL DIFF 23.7 TH/MM3 (1.8-7.7); PLATELET ESTIMATE SMEAR HIGH (NORMAL); PLATELET MORPHOLOGY NORMAL (NORMAL); POLYS (SEG NEUTROPHILS) 70 % (16-70); SCAN/DIFF FINAL DIFF MANUAL; WBC DIFF SAMPLE 100
[2017-05-04] MEDS: ACETAMINOPHEN/HYDROcodone 325 MG/10 MG TAB PO PRN ×3 (11:11→22:34)
--- NOTE | 2017-05-04 11:52 | HHI.PR ---
Subjective Remarks Follow-up cellulitis, bacteremia. The patient is having significant pain in the left ankle following surgery. Also reports an episode of substernal chest tightness this morning that has resolved. He states that it felt "like I have to cough real hard a few times". He has been using the incentive spirometer intermittently. Objective Vitals Vital Signs Date Time Temp Pulse Resp B/P Pulse Ox O2 Delivery O2 Flow Rate FiO2 05/04/17 08:00 99.1 126 22 130/68 92 05/04/17 04:13 100.1 125 16 119/65 94 05/03/17 23:21 98.8 108 16 116/65 94 05/03/17 21:35 18 05/03/17 20:16 124 05/03/17 19:55 97.4 98 16 117/55 97 05/03/17 16:00 98.4 93 18 107/66 96 05/03/17 14:30 98.4 111 16 157/86 99 Nasal Cannula 3 05/03/17 14:15 99 16 152/73 99 Nasal Cannula 3 05/03/17 14:00 110 16 104/81 99 Nasal Cannula 3 05/03/17 13:45 89 16 120/73 99 Nasal Cannula 3 05/03/17 13:33 98.2 87 15 140/76 99 Nasal Cannula 3 I/O 05/03/17 05/03/17 05/03/17 05/04/17 05/04/17 05/04/17 07:00 15:00 23:00 07:00 15:00 23:00 Intake Total 980 ml 2000 ml 480 ml 2006 ml Output Total 475 ml 650 ml 0 ml 885 ml Balance 505 ml 1350 ml 480 ml 1121 ml Intake Oral 0 ml 0 ml 480 ml 480 ml IV Total 980 ml 100 ml 1526 ml Other 1900 ml Output Urine Total 475 ml 600 ml 0 ml 885 ml Estimated Blood Loss 50 ml # Bowel Movements 0 0 0 0 Result Diagram: 05/04/17 0615 05/04/1715 Imaging Last Impressions Aorta w/Runoff CTA 05/03/17 0000 Signed Impressions: Service Date/Time: April 20:31 - CONCLUSION: 1. Extensive soft tissue swelling and postsurgical changes in the left ankle from recent hardware removal. 2. No significant aortic occlusive disease, inflow or outflow stenosis. 3. Limited three-vessel runoff to the mid to distal calf bilaterally with dominant posterior tibial artery runoff to the plantar arch. Although evaluation is compromised by venous contamination, the overall runoff does not appear significantly different on the left in comparison to the right. This does not support diagnosis of severe compartment syndrome. There is less prominent venous contamination in the left calf in comparison to the right which does support some degree of increased compartment pressure. However, please note that compartment syndrome cannot be reliably diagnosed in the distal extremities with CTA exam. 4. Mild splenomegaly and diffusely heterogeneous hepatic enhancement which may reflect early cirrhosis. 5. Nodular airspace disease primarily in the left lung base and extreme right middle lobe. Clinical correlation is recommended. Further evaluation may be performed with CT of the chest as indicated. Jb Thompson MD Ankle X-Ray 05/03/17 0000 Signed Impressions: Service Date/Time: April 12:29 - CONCLUSION: Status post fixation hardware removal. Stable ankle alignment Yong Coppola MD Lower Extremity CT 05/02/17 0000 Signed Impressions: Service Date/Time: Tuesday, May 02, 2017 18:55 - CONCLUSION: 1. Diffuse soft tissue swelling with no discrete focal abscess. 2. Remote postsurgical changes with no acute fracture. Demarcus Hickey MD Objective Remarks General: No acute distress. Heart: Regular rate and rhythm. No murmur. Lungs: Clear to auscultation bilaterally. No wheezes, rales, or rhonchi. Breathing is nonlabored. Abdomen: Soft, nontender, nondistended. Extremities: Left ankle with 2+ edema, significant erythema. Psych: Alert and oriented. Procedures 05/03/17 irrigation and debridement of left tibia, irrigation and debridement of left fibula, removal of deep hardware Urinary Catheter: No Vascular Central Line Catheter: No A/P Problem List: (1) Sepsis ICD Code: A41.9 Status: Acute (2) Cellulitis of ankle ICD Code: L03.119 Status: Acute (3) Polysubstance abuse ICD Code: F19.10 Status: Chronic (4) IV drug abuse ICD Code: F19.10 Status: Chronic Assessment and Plan 1. Sepsis secondary to cellulitis: Continue antibiotics, IV fluids. WBCs are increasing. Consult infectious disease. 2. Left ankle cellulitis, possible septic joint: Appreciate orthopedic surgery recommendations. Status post irrigation and debridement with removal of deep hardware. Continue antibiotics. 3. Polysubstance abuse 4. DVT prophylaxis: Will need chemical prophylaxis postoperatively. 5. Chest pain: Patient had one episode of chest discomfort this morning. Will check cardiac enzymes and EKG. 6. Bacteremia: Preliminary culture results showing MRSA. Repeat blood cultures. Continue antibiotics. Infectious disease consult. Problem Qualifiers (1) Sepsis: Qualified Code: A41.9 - Sepsis, due to unspecified organism Ravi Zavala MD May 04, 2017 11:52
[2017-05-04 12:00] VITALS: BP 141/72; PULSE 114; RESP 20; TEMP 100; O2SAT 96
[2017-05-04 14:26] LABS: CREATINE KINASE 201 U/L (39-308)
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
[2017-05-04 16:00] VITALS: BP 131/77; PULSE 110; RESP 18; TEMP 99.2; O2SAT 95
--- NOTE | 2017-05-04 18:12 | EKG ---
Date Performed: 05/04/2017 Time Performed: 12:38:58 PTAGE: 36 years EKG: Sinus tachycardia with sinus arrhythmia. Possible lateral infarct - age undetermined Possib le anterior infarct - age undetermined Tall R V1/V2 probably reflect the infarct Inferior T wave david ges are nonspecific Abnormal ECG COMPARED TO PRIOR ELECTROCARDIOGRAM, Abnormal R wave progression is present. Clinical correlation is suggested as this could be due to erroneous lead placement. PREVIOUS TRACING : 08/16/2011 18.16 DOCTOR: lGen Kramer Interpretating Date/Time 05/04/2017 18:11:25
[2017-05-04 20:00] VITALS: BP 149/76; PULSE 109; RESP 18; TEMP 99.6; O2SAT 95
[2017-05-05] VITALS (8 sets, daily range): BP systolic 127–155; BP diastolic 59–86; PULSE 91–119; RESP 18–22; TEMP 98.5–101.6; O2SAT 94–97
[2017-05-05] MEDS: MORPHINE SULFATE 4 MG/ML INJ IV PUSH PRN ×5 (01:03→20:15)
[2017-05-05] MEDS: ACETAMINOPHEN 325 MG TAB PO PRN (01:16)
[2017-05-05] MEDS: ACETAMINOPHEN/HYDROcodone 325 MG/10 MG TAB PO PRN ×5 (05:00→22:07)
[2017-05-05] MEDS ORDERED: PHARMACY ORDERED LAB ONE (05:45)
[2017-05-05] MEDS: VANCOMYCIN INJ 1,500 MG in SODIUM CHLORID 0.9% 500 ML INJ 500 ML IV SCH (05:51)
[2017-05-05 06:07] LABS: VANCOMYCIN TROUGH 12.6 MCG/ML (5.0-10.0)
[2017-05-05 06:27] LABS: AUTOMATED NEUTROPHIL # 23.3 TH/MM3 (1.8-7.7); BASOPHIL # 0.1 TH/MM3 (0-0.2); BASOPHIL % 0.3 % (0.0-2.0); EOSINOPHIL # 0.1 TH/MM3 (0-0.4); EOSINOPHIL % 0.4 % (0.0-4.0); HEMATOCRIT 34.7 % (39.0-51.0); LYMPH % 5.5 % (9.0-44.0); LYMPHOCYTE # 1.6 TH/MM3 (1.0-4.8); MEAN CELL VOLUME 79.3 FL (80.0-100.0); MEAN CORPUSCULAR HEMOGLOBIN 26.7 PG (27.0-34.0); MEAN CORPUSCULAR HGB CONC 33.6 % (32.0-36.0); MONO % 11.1 % (0.0-8.0); NEUT % 82.7 % (16.0-70.0); PLATELET COUNT 484 TH/MM3 (150-450); RED BLOOD COUNT 4.37 MIL/MM3 (4.50-5.90); RED CELL DISTRIBUTION WIDTH 15.8 % (11.6-17.2); WHITE BLOOD COUNT 28.2 TH/MM3 (4.0-11.0)
[2017-05-05] MEDS: SODIUM CHLOR 0.9% 1000 ML INJ 1,000 ML IV SCH ×2 (06:32→18:16)
[2017-05-05 07:29] LABS: HEMO FLAGS AUTO DIFF
[2017-05-05] MEDS: DOCUSATE SODIUM 50 MG/SENNA 8.6 MG TAB PO SCH ×2 (08:21→20:14)
[2017-05-05] MEDS: LORazepam 2 MG/ML VIAL IV PUSH PRN ×3 (08:22→22:46)
[2017-05-05] MEDS: SODIUM CHLORIDE 0.9% FLUSH 10 ML FLUSH IV FLUSH SCH ×2 (08:22→20:15)
[2017-05-05 10:36] LABS: BANDS 14 % (0-6); CORRECTED NUCLEATED RBC 1 /100 WBC (0-0); EOSINOPHILS 1 % (0-4); MYELOCYTES 2 % (0-0); NEUTROPHIL # MANUAL DIFF 23.7 TH/MM3 (1.8-7.7); PLATELET ESTIMATE SMEAR HIGH (NORMAL); PLATELET MORPHOLOGY NORMAL (NORMAL); POLYS (SEG NEUTROPHILS) 68 % (16-70); WBC DIFF SAMPLE 100
[2017-05-05 10:37] LABS: SCAN/DIFF FINAL DIFF MANUAL
--- NOTE | 2017-05-05 10:42 | HHI.PR ---
Subjective Remarks Follow-up left ankle infection. The patient states that he continues to have significant pain in his left ankle. Also still having some mild chest discomfort. Objective Vitals Vital Signs Date Time Temp Pulse Resp B/P Pulse Ox O2 Delivery O2 Flow Rate FiO2 05/05/17 08:00 98.6 94 20 127/77 96 05/05/17 08:00 Room Air 05/05/17 06:31 20 05/05/17 04:49 98.8 109 22 142/81 95 05/05/17 04:00 Room Air 05/05/17 03:16 119 05/05/17 02:17 20 05/05/17 01:18 148/86 05/05/17 00:00 Room Air 05/05/17 00:00 101.6 114 18 155/78 95 05/04/17 20:00 99.6 109 18 149/76 95 05/04/17 16:00 Room Air 05/04/17 16:00 99.2 110 18 131/77 95 05/04/17 12:00 Room Air 05/04/17 12:00 100.0 114 20 141/72 96 I/O 05/04/17 05/04/17 05/04/17 05/05/17 05/05/17 05/05/17 07:00 15:00 23:00 07:00 15:00 23:00 Intake Total 2006 ml 2337 ml 720 ml 2306 ml Output Total 885 ml 725 ml 700 ml 1200 ml Balance 1121 ml 1612 ml 20 ml 1106 ml Intake Oral 480 ml 0 ml 720 ml 650 ml IV Total 1526 ml 2337 ml 1656 ml Output Urine Total 885 ml 725 ml 700 ml 1200 ml # Bowel Movements 0 0 0 0 Result Diagram: 05/05/17 0525 05/05/17 0520 Imaging Last Impressions Aorta w/Runoff CTA 05/03/17 0000 Signed Impressions: Service Date/Time: April 20:31 - CONCLUSION: 1. Extensive soft tissue swelling and postsurgical changes in the left ankle from recent hardware removal. 2. No significant aortic occlusive disease, inflow or outflow stenosis. 3. Limited three-vessel runoff to the mid to distal calf bilaterally with dominant posterior tibial artery runoff to the plantar arch. Although evaluation is compromised by venous contamination, the overall runoff does not appear significantly different on the left in comparison to the right. This does not support diagnosis of severe compartment syndrome. There is less prominent venous contamination in the left calf in comparison to the right which does support some degree of increased compartment pressure. However, please note that compartment syndrome cannot be reliably diagnosed in the distal extremities with CTA exam. 4. Mild splenomegaly and diffusely heterogeneous hepatic enhancement which may reflect early cirrhosis. 5. Nodular airspace disease primarily in the left lung base and extreme right middle lobe. Clinical correlation is recommended. Further evaluation may be performed with CT of the chest as indicated. Jb Thompson MD Ankle X-Ray 05/03/17 0000 Signed Impressions: Service Date/Time: April 12:29 - CONCLUSION: Status post fixation hardware removal. Stable ankle alignment Yong Coppola MD Lower Extremity CT 05/02/17 0000 Signed Impressions: Service Date/Time: Tuesday, May 02, 2017 18:55 - CONCLUSION: 1. Diffuse soft tissue swelling with no discrete focal abscess. 2. Remote postsurgical changes with no acute fracture. Demarcus Hickey MD Objective Remarks General: No acute distress. Heart: Tachycardic. No murmur. Lungs: Clear to auscultation bilaterally. No wheezes, rales, or rhonchi. Breathing is nonlabored. Abdomen: Soft, nontender, nondistended. Extremities: Left ankle heavily bandaged. Psych: Alert and oriented. Procedures 05/03/17 irrigation and debridement of left tibia, irrigation and debridement of left fibula, removal of deep hardware Urinary Catheter: No Vascular Central Line Catheter: No A/P Problem List: (1) Sepsis ICD Code: A41.9 Status: Acute (2) Cellulitis of ankle ICD Code: L03.119 Status: Acute (3) Polysubstance abuse ICD Code: F19.10 Status: Chronic (4) IV drug abuse ICD Code: F19.10 Status: Chronic Assessment and Plan 1. Sepsis secondary to cellulitis: Continue antibiotics, IV fluids. WBCs are increasing. Consult infectious disease. 2. Left ankle cellulitis, possible septic joint: Appreciate orthopedic surgery recommendations. Status post irrigation and debridement with removal of deep hardware. Continue antibiotics. 3. Polysubstance abuse 4. DVT prophylaxis: Heparin. 5. Chest pain: Intermittent substernal chest discomfort. EKG and cardiac enzymes were negative yesterday. 6. Bacteremia: Culture growing MRSA. Repeat blood cultures are pending. Continue vancomycin. Appreciate infectious disease recommendations. Problem Qualifiers (1) Sepsis: Qualified Code: A41.9 - Sepsis, due to unspecified organism Ravi Zavala MD May 05, 2017 10:42
--- NOTE | 2017-05-05 11:24 | ECHRPT ---
Indication: vegetations CONCLUSIONS Normal left ventricular size. Mild concentric left ventricular hypertrophy. No regional wall motion abnormalities are present. The left ventricular systolic function is normal with an estimated ejection fraction in the range of 55-60%. Trace mitral valve regurgitation. The aortic valve is not well visualized. No aortic valve stenosis. No aortic valve regurgitation. There is trace tricuspid valve regurgitation. The pulmonary valve is not well visualized. The inferior vena cava was not well visualized. BP: / HR: Rhythm: MEASUREMENTS (Male / Female) Normal Values Technical Quality:Fair 2D ECHO LV Diastolic Diameter PLAX 5.7 cm 4.2 - 5.9 / 3.9 - 5.3 cm LV Systolic Diameter PLAX 4.6 cm IVS Diastolic Thickness 1.3 cm 0.6 - 1.0 / 0.6 - 0.9 cm LVPW Diastolic Thickness 1.2 cm 0.6 - 1.0 / 0.6 - 0.9 cm LV Relative Wall Thickness 0.4 RV Internal Dim ED PLAX 2.9 cm FINDINGS LEFT VENTRICLE Normal left ventricular size. Mild concentric left ventricular hypertrophy. No regional wall motion abnormalities are present. The left ventricular systolic function is normal with an estimated ejection fraction in the range of 55-60%. RIGHT VENTRICLE Normal right ventricular size and systolic function. LEFT ATRIUM The left atrial size is normal. RIGHT ATRIUM The right atrial size is normal. ATRIAL SEPTUM Normal atrial septal thickness without atrial level shunting by limited color doppler interrogation. AORTA The aortic root and proximal ascending aorta are normal in size on limited imaging. MITRAL VALVE Structurally normal mitral valve. Trace mitral valve regurgitation. AORTIC VALVE The aortic valve is not well visualized. No aortic valve stenosis. No aortic valve regurgitation. TRICUSPID VALVE Structurally normal tricuspid valve. There is trace tricuspid valve regurgitation. PULMONARY VALVE The pulmonary valve is not well visualized. VESSELS The inferior vena cava was not well visualized. PERICARDIUM No pericardial effusion. Glen Kramer MD (Electronically Signed) Final Date:05 May 2017 11:23
[2017-05-05] MEDS: HEPARIN SODIUM - SQ 10,000 UNITS/ML VIAL SQ SCH ×2 (11:44→20:14)
[2017-05-05] MEDS: VANCOMYCIN INJ 1,750 MG in SODIUM CHLORID 0.9% 500 ML INJ 500 ML IV SCH ×2 (13:54→22:07)
--- NOTE | 2017-05-05 15:44 | PD.ORT.PN ---
Subjective Subjective Remarks Patient c/o LLE pain. Denies any fever, chills or sweats. Objective Vitals Vital Signs Date Time Temp Pulse Resp B/P Pulse Ox O2 Delivery O2 Flow Rate FiO2 05/05/17 12:00 98.5 95 20 141/75 94 05/05/17 08:00 98.6 94 20 127/77 96 05/05/17 08:00 Room Air 05/05/17 08:00 91 05/05/17 06:31 20 05/05/17 04:49 98.8 109 22 142/81 95 05/05/17 04:00 Room Air 05/05/17 03:16 119 05/05/17 02:17 20 05/05/17 01:18 148/86 05/05/17 00:00 Room Air 05/05/17 00:00 101.6 114 18 155/78 95 05/04/17 20:00 99.6 109 18 149/76 95 05/04/17 16:00 Room Air 05/04/17 16:00 99.2 110 18 131/77 95 I/O 05/04/17 05/04/17 05/04/17 05/05/17 05/05/17 05/05/17 07:00 15:00 23:00 07:00 15:00 23:00 Intake Total 2006 ml 2337 ml 720 ml 2306 ml 1351 ml Output Total 885 ml 725 ml 700 ml 1200 ml 1800 ml Balance 1121 ml 1612 ml 20 ml 1106 ml -449 ml Intake Oral 480 ml 0 ml 720 ml 650 ml 240 ml IV Total 1526 ml 2337 ml 1656 ml 1111 ml Output Urine Total 885 ml 725 ml 700 ml 1200 ml 1800 ml # Bowel Movements 0 0 0 0 1 Result Diagram: 05/05/17 0525 05/05/17 0520 Objective Remarks LLE: +short leg splint. intact. NVI. Assessment & Plan Assessment and Plan 1) Left Ankle HW infection s/p I&D with [facility]KAS - POD 2 -NWB -maintain splint -elevate -will plan to remove splint early next week to check drain and incision -wound cultures - S. aureus MRSA -continue IV Abx per ID -monitor Jordan Ayala May 05, 2017 15:44
--- NOTE | 2017-05-05 18:54 | HHI.IDPN ---
Subjective Subjective Remarks more + blood clx co RLE pain, asking for pain medx afebrile + mild peuritic chest pain + some cough denies hemoptysis 2D echo negative, trace tricuspid regurge Antibiotics vancomycin Allergies: Coded Allergies: Cat Dander (Verified Allergy, Severe, WHEEZING ITCHING, 05/02/17) Dog Dander (Verified Allergy, Unknown, 05/02/17) *MDRO Multi-Drug Resistant Organism (Verified Adverse Reaction, Unknown, MRSA, 05/04/17) MRSA (blood) - 05/02/17 Objective . Vital Signs Date Time Temp Pulse Resp B/P Pulse Ox O2 Delivery O2 Flow Rate FiO2 05/05/17 16:00 Room Air 05/05/17 16:00 98.7 94 20 142/71 96 05/05/17 12:00 98.5 95 20 141/75 94 05/05/17 08:00 98.6 94 20 127/77 96 05/05/17 08:00 Room Air 05/05/17 08:00 91 05/05/17 06:31 20 05/05/17 04:49 98.8 109 22 142/81 95 05/05/17 04:00 Room Air 05/05/17 03:16 119 05/05/17 02:17 20 05/05/17 01:18 148/86 05/05/17 00:00 Room Air 05/05/17 00:00 101.6 114 18 155/78 95 05/04/17 20:00 99.6 109 18 149/76 95 05/04/17 05/04/17 05/05/17 15:00 23:00 07:00 Intake Total 2337 ml 720 ml 2306 ml Output Total 725 ml 700 ml 1200 ml Balance 1612 ml 20 ml 1106 ml Intake Oral 0 ml 720 ml 650 ml IV Total 2337 ml 1656 ml Output Urine Total 725 ml 700 ml 1200 ml # Bowel Movements 0 0 0 . Laboratory Tests Test 05/04/17 05/05/17 06:15 05:25 White Blood Count 27.6 TH/MM3 28.2 TH/MM3 Red Blood Count 4.56 MIL/MM3 4.37 MIL/MM3 Hemoglobin 12.0 GM/DL 11.7 GM/DL Hematocrit 37.0 % 34.7 % Mean Corpuscular Volume 81.2 FL 79.3 FL Mean Corpuscular Hemoglobin 26.2 PG 26.7 PG Mean Corpuscular Hemoglobin 32.3 % 33.6 % Concent Red Cell Distribution Width 15.3 % 15.8 % Platelet Count 473 TH/MM3 484 TH/MM3 Mean Platelet Volume 7.7 FL 7.1 FL Neutrophils (%) (Auto) 84.9 % 82.7 % Lymphocytes (%) (Auto) 4.8 % 5.5 % Monocytes (%) (Auto) 9.9 % 11.1 % Eosinophils (%) (Auto) 0.0 % 0.4 % Basophils (%) (Auto) 0.4 % 0.3 % Neutrophils # (Auto) 23.5 TH/MM3 23.3 TH/MM3 Lymphocytes # (Auto) 1.3 TH/MM3 1.6 TH/MM3 Monocytes # (Auto) 2.7 TH/MM3 3.1 TH/MM3 Eosinophils # (Auto) 0.0 TH/MM3 0.1 TH/MM3 Basophils # (Auto) 0.1 TH/MM3 0.1 TH/MM3 CBC Comment AUTO DIFF AUTO DIFF Differential Total Cells 100 100 Counted Neutrophils % (Manual) 70 % 68 % Band Neutrophils % 16 % 14 % Lymphocytes % 2 % 8 % Monocytes % 12 % 7 % Neutrophils # (Manual) 23.7 TH/MM3 23.7 TH/MM3 Differential Comment FINAL DIFF FINAL DIFF MANUAL MANUAL Platelet Estimate HIGH HIGH Platelet Morphology Comment NORMAL NORMAL Red Cell Morphology Comment NORMAL NORMAL Eosinophils % 1 % Myelocytes 2 % Nucleated Red Blood Cells 1 /100 WBC Laboratory Tests Test 05/04/17 05/04/17 05/05/17 06:15 13:40 05:20 Sodium Level 136 MEQ/L Potassium Level 4.0 MEQ/L Chloride Level 100 MEQ/L Carbon Dioxide Level 26.5 MEQ/L Anion Gap 10 MEQ/L Blood Urea Nitrogen 18 MG/DL Creatinine 1.28 MG/DL 0.97 MG/DL Estimat Glomerular Filtration 64 ML/MIN 88 ML/MIN Rate Random Glucose 71 MG/DL Calcium Level 8.3 MG/DL Total Creatine Kinase 201 U/L Creatine Kinase MB 1.0 NG/ML Troponin I 0.04 NG/ML Microbiology Date/Time Procedure Status Source Growth 05/03/17 11:42 Gram Stain - Final Complete Fluid Other 05/03/17 11:42 Body Fluid Culture - Final Complete S. Aureus Mrsa 05/03/17 11:42 Acid Fast Stain - Final Resulted Fluid Other NO ACID FAST BACILLI SEEN 05/03/17 11:42 Mycobacterial Culture Resulted Fluid Other Pending 05/03/17 11:42 Fungal Smear - Final Resulted Fluid Other NO FUNGAL ELEMENTS SEEN. 05/03/17 11:42 Fungal Culture Resulted Fluid Other Pending 05/03/17 11:42 Gram Stain - Final Complete Wound Ankle 05/03/17 11:42 Wound Culture - Final Complete S. Aureus Mrsa 05/03/17 11:42 Acid Fast Stain - Final Resulted Wound Ankle NO ACID FAST BACILLI SEEN 05/03/17 11:42 Mycobacterial Culture Resulted Wound Ankle Pending 05/03/17 11:42 Fungal Smear - Final Resulted Wound Ankle NO FUNGAL ELEMENTS SEEN. 05/03/17 11:42 Fungal Culture Resulted Wound Ankle Pending 05/04/17 13:40 Aerobic Blood Culture - Preliminary Resulted Blood Peripheral Gram Positive Cocci 05/04/17 13:40 Anaerobic Blood Culture - Preliminary Resulted Blood Peripheral NO GROWTH IN 1 DAY 05/04/17 13:53 Aerobic Blood Culture - Preliminary Resulted Blood Peripheral Gram Positive Cocci 05/04/17 13:53 Anaerobic Blood Culture - Preliminary Resulted Blood Peripheral NO GROWTH IN 1 DAY Imaging Last Impressions Aorta w/Runoff CTA 05/03/17 0000 Signed Impressions: Service Date/Time: April 20:31 - CONCLUSION: 1. Extensive soft tissue swelling and postsurgical changes in the left ankle from recent hardware removal. 2. No significant aortic occlusive disease, inflow or outflow stenosis. 3. Limited three-vessel runoff to the mid to distal calf bilaterally with dominant posterior tibial artery runoff to the plantar arch. Although evaluation is compromised by venous contamination, the overall runoff does not appear significantly different on the left in comparison to the right. This does not support diagnosis of severe compartment syndrome. There is less prominent venous contamination in the left calf in comparison to the right which does support some degree of increased compartment pressure. However, please note that compartment syndrome cannot be reliably diagnosed in the distal extremities with CTA exam. 4. Mild splenomegaly and diffusely heterogeneous hepatic enhancement which may reflect early cirrhosis. 5. Nodular airspace disease primarily in the left lung base and extreme right middle lobe. Clinical correlation is recommended. Further evaluation may be performed with CT of the chest as indicated. Jb Thompson MD Ankle X-Ray 05/03/17 0000 Signed Impressions: Service Date/Time: April 12:29 - CONCLUSION: Status post fixation hardware removal. Stable ankle alignment Yong Coppola MD Lower Extremity CT 05/02/17 0000 Signed Impressions: Service Date/Time: Tuesday, May 02, 2017 18:55 - CONCLUSION: 1. Diffuse soft tissue swelling with no discrete focal abscess. 2. Remote postsurgical changes with no acute fracture. Demarcus Hickey MD Physical Exam CONSTITUTIONAL/GENERAL: This is an adequately nourished patient, in no apparent distress. TUBES/LINES/DRAINS: SKIN: No jaundice, rashes, or lesions. Skin temperature appropriate. Not diaphoretic. EYES: Pupils equal and round and reactive. conjuntivae normal ENT: Hearing grossly normal. CARDIOVASCULAR: Regular rate and rhythm without murmurs, gallops, or rubs. No JVD. Peripheral pulses symmetric. RESPIRATORY/CHEST: Symmetric, unlabored respirations. Clear to auscultation. Breath sounds equal bilaterally. No wheezes, rales, or rhonchi. GASTROINTESTINAL: Abdomen soft, non-tender, nondistended. No hepato-splenomegaly , or palpable masses. MUSCULOSKELETAL: Extremities without clubbing, cyanosis, or edema. LLE with dressing, brace in pace Visulised toes free of neurovascular deficits No ascending cellulitis or lymphangitits no LAD No mottling or clubbing. NEUROLOGICAL: Awake and alert. Non focal PSYCHIATRIC: calm cooperative Assessment & Plan Remarks High grade MRSA bacteremia ? tricuspid valve endocarditis Nodular airspace disease cw septic emboli, likleyu pt has tricuspid endocarditis persistent bacteremia Infected LLE tib/fib, MRSA hardware; sp removal of all hardwaer IVDU cont vancomycin: keep trough 15-20 - cardiology consult repeat blood clx untill final anticipate longterm IV abx Johanna Cooper MD May 05, 2017 18:53
[2017-05-06] VITALS (8 sets, daily range): BP systolic 129–143; BP diastolic 69–77; PULSE 84–104; RESP 18; TEMP 98.2–99.2; O2SAT 95–100
[2017-05-06] MEDS: MORPHINE SULFATE 4 MG/ML INJ IV PUSH PRN ×6 (00:11→20:50)
[2017-05-06] MEDS: SODIUM CHLOR 0.9% 1000 ML INJ 1,000 ML IV SCH ×2 (02:06→14:32)
[2017-05-06] MEDS: ACETAMINOPHEN/HYDROcodone 325 MG/10 MG TAB PO PRN ×6 (02:07→22:23)
[2017-05-06] MEDS: LORazepam 2 MG/ML VIAL IV PUSH PRN ×5 (02:52→20:49)
[2017-05-06] MEDS: VANCOMYCIN INJ 1,750 MG in SODIUM CHLORID 0.9% 500 ML INJ 500 ML IV SCH ×2 (06:07→14:33)
[2017-05-06] MEDS: SODIUM CHLORIDE 0.9% FLUSH 10 ML FLUSH IV FLUSH SCH ×2 (08:15→20:50)
[2017-05-06] MEDS: HEPARIN SODIUM - SQ 10,000 UNITS/ML VIAL SQ SCH ×2 (08:16→20:50)
[2017-05-06] MEDS: DOCUSATE SODIUM 50 MG/SENNA 8.6 MG TAB PO SCH ×2 (08:18→20:50)
[2017-05-06 08:28] LABS: BASOPHIL # 0.1 TH/MM3 (0-0.2); BASOPHIL % 0.3 % (0.0-2.0); EOSINOPHIL # 0.3 TH/MM3 (0-0.4); HEMATOCRIT 35.9 % (39.0-51.0); LYMPH % 4.9 % (9.0-44.0); LYMPHOCYTE # 1.4 TH/MM3 (1.0-4.8); MEAN CELL VOLUME 79.3 FL (80.0-100.0); MEAN CORPUSCULAR HGB CONC 32.8 % (32.0-36.0); MONO % 10.8 % (0.0-8.0); PLATELET COUNT 462 TH/MM3 (150-450); RED BLOOD COUNT 4.53 MIL/MM3 (4.50-5.90); RED CELL DISTRIBUTION WIDTH 15.6 % (11.6-17.2); WHITE BLOOD COUNT 27.7 TH/MM3 (4.0-11.0)
[2017-05-06 08:33] LABS: HEMO FLAGS AUTO DIFF
[2017-05-06 09:02] LABS: BICARBONATE 23.8 MEQ/L (21.0-32.0)
[2017-05-06 09:03] LABS: POTASSIUM 4.9 MEQ/L (3.5-5.1)
[2017-05-06 10:27] LABS: BANDS 18 % (0-6); METAMYELOCYTES 4 % (0-1); MYELOCYTES 1 % (0-0); NEUTROPHIL # MANUAL DIFF 24.1 TH/MM3 (1.8-7.7); POLYS (SEG NEUTROPHILS) 64 % (16-70); WBC DIFF SAMPLE 100
[2017-05-06 10:28] LABS: PLATELET ESTIMATE SMEAR HIGH (NORMAL); PLATELET MORPHOLOGY NORMAL (NORMAL); SCAN/DIFF FINAL DIFF MANUAL
--- NOTE | 2017-05-06 11:36 | HHI.PR ---
Subjective Remarks Follow up foot infection, bacteremia. Patient complaining of significant left ankle pain. Still with intermittent chest discomfort, worse with certain movements. Objective Vitals Vital Signs Date Time Temp Pulse Resp B/P Pulse Ox O2 Delivery O2 Flow Rate FiO2 05/06/17 08:00 99.2 92 18 135/73 96 05/06/17 08:00 Room Air 05/06/17 04:00 Room Air 05/06/17 04:00 98.8 98 18 138/69 95 05/06/17 00:00 Room Air 05/06/17 00:00 98.6 92 18 129/77 96 05/05/17 20:00 Room Air 05/05/17 20:00 101 05/05/17 20:00 99.2 93 18 128/59 97 05/05/17 16:00 Room Air 05/05/17 16:00 98.7 94 20 142/71 96 05/05/17 12:00 98.5 95 20 141/75 94 I/O 05/05/17 05/05/17 05/05/17 05/06/17 05/06/17 05/06/17 07:00 15:00 23:00 07:00 15:00 23:00 Intake Total 2306 ml 1351 ml 1645 ml 1436 ml Output Total 1200 ml 1800 ml 1250 ml 1100 ml Balance 1106 ml -449 ml 395 ml 336 ml Intake Oral 650 ml 240 ml 360 ml 480 ml IV Total 1656 ml 1111 ml 1285 ml 956 ml Output Urine Total 1200 ml 1800 ml 1250 ml 1100 ml # Bowel Movements 0 1 1 0 Result Diagram: 05/06/17 0740 05/06/17 0740 Imaging Last Impressions Aorta w/Runoff CTA 05/03/17 0000 Signed Impressions: Service Date/Time: April 20:31 - CONCLUSION: 1. Extensive soft tissue swelling and postsurgical changes in the left ankle from recent hardware removal. 2. No significant aortic occlusive disease, inflow or outflow stenosis. 3. Limited three-vessel runoff to the mid to distal calf bilaterally with dominant posterior tibial artery runoff to the plantar arch. Although evaluation is compromised by venous contamination, the overall runoff does not appear significantly different on the left in comparison to the right. This does not support diagnosis of severe compartment syndrome. There is less prominent venous contamination in the left calf in comparison to the right which does support some degree of increased compartment pressure. However, please note that compartment syndrome cannot be reliably diagnosed in the distal extremities with CTA exam. 4. Mild splenomegaly and diffusely heterogeneous hepatic enhancement which may reflect early cirrhosis. 5. Nodular airspace disease primarily in the left lung base and extreme right middle lobe. Clinical correlation is recommended. Further evaluation may be performed with CT of the chest as indicated. Jb Thompson MD Ankle X-Ray 05/03/17 0000 Signed Impressions: Service Date/Time: April 12:29 - CONCLUSION: Status post fixation hardware removal. Stable ankle alignment Yong Coppola MD Lower Extremity CT 05/02/17 0000 Signed Impressions: Service Date/Time: Tuesday, May 02, 2017 18:55 - CONCLUSION: 1. Diffuse soft tissue swelling with no discrete focal abscess. 2. Remote postsurgical changes with no acute fracture. Demarcus Hickey MD Objective Remarks General: No acute distress. Heart: Tachycardic. No murmur. Lungs: Clear to auscultation bilaterally. No wheezes, rales, or rhonchi. Breathing is nonlabored. Abdomen: Soft, nontender, nondistended. Extremities: Left ankle heavily bandaged. Psych: Alert and oriented. Procedures 05/03/17 irrigation and debridement of left tibia, irrigation and debridement of left fibula, removal of deep hardware Urinary Catheter: No Vascular Central Line Catheter: No A/P Problem List: (1) Sepsis ICD Code: A41.9 Status: Acute (2) Cellulitis of ankle ICD Code: L03.119 Status: Acute (3) Polysubstance abuse ICD Code: F19.10 Status: Chronic (4) IV drug abuse ICD Code: F19.10 Status: Chronic Assessment and Plan 1. Sepsis secondary to cellulitis: Continue antibiotics, IV fluids. WBCs are increasing. Consult infectious disease. 2. Left ankle cellulitis, possible septic joint: Appreciate orthopedic surgery recommendations. Status post irrigation and debridement with removal of deep hardware. Continue antibiotics. 3. Polysubstance abuse 4. DVT prophylaxis: Heparin. 5. Chest pain: Intermittent substernal chest discomfort. EKG and cardiac enzymes were negative yesterday. 6. Bacteremia: Culture growing MRSA. Repeat blood cultures are negative so far. Continue vancomycin. Appreciate infectious disease recommendations. Cardiology consulted for MARQUEZ. Problem Qualifiers (1) Sepsis: Qualified Code: A41.9 - Sepsis, due to unspecified organism Ravi Zavala MD May 06, 2017 11:36
[2017-05-06] MEDS ORDERED: PHARMACY ORDERED LAB ONE (13:45)
[2017-05-06] MEDS: VANCOMYCIN INJ 2,000 MG in SODIUM CHLORID 0.9% 500 ML INJ 500 ML IV SCH (22:22)
[2017-05-07] VITALS: BP 157/70; PULSE 100; RESP 20; TEMP 98.5; O2SAT 96
[2017-05-07] MEDS: MORPHINE SULFATE 4 MG/ML INJ IV PUSH PRN ×5 (00:26→21:24)
[2017-05-07] MEDS: LORazepam 2 MG/ML VIAL IV PUSH PRN ×4 (00:27→13:08)
[2017-05-07] MEDS: ACETAMINOPHEN/HYDROcodone 325 MG/10 MG TAB PO PRN ×2 (02:16→06:25)
[2017-05-07 04:00] VITALS: BP 134/74; PULSE 101; RESP 18; TEMP 98.8; O2SAT 97
[2017-05-07] MEDS: SODIUM CHLOR 0.9% 1000 ML INJ 1,000 ML IV SCH ×2 (04:20→09:06)
[2017-05-07] MEDS: VANCOMYCIN INJ 2,000 MG in SODIUM CHLORID 0.9% 500 ML INJ 500 ML IV SCH ×2 (05:47→20:00)
--- NOTE | 2017-05-07 06:22 | MB ---
cc: C[place] M.D. DATE OF CONSULTATION 05/06/2017 REASON FOR CONSULTATION Evaluation for a MARQUEZ. ATTENDING PHYSICIAN Suly Vasquez is a 36-year-old man who I am asked to do a MARQUEZ on. He has a history of intravenous drug use. He stopped about a year ago, went through [facility]' rehab program. Due to problems with a female friend, he reused IV drugs, he said last about a week ago. He comes in now he has MRSA bacteremia and left ankle septic arthritis. I am now being asked to perform a MARQUEZ. He has had a surface echo Doppler study interpreted by Dr. Kramer. There was trace tricuspid regurgitation. Pulmonic valves were not well visualized. Aortic valve is not well visualized. There was trace mitral regurgitation. There is mild LVH with normal left ventricular size and normal left ventricular function. The patient has no loose teeth. He has no difficulty swallowing. He has had no problems previously with anesthesia. CURRENT MEDICATIONS IV Vancomycin. PAST MEDICAL HISTORY Unremarkable. PAST SURGICAL HISTORY 1. Left ankle surgery in 2009. 2. Right upper extremity surgery in 2007. ALLERGIES Cat and dog dander. FAMILY HISTORY Negative. SOCIAL HISTORY Chews tobacco. Last used IV cocaine one week ago. Used to use IV Dilaudid, not recently. PHYSICAL EXAMINATION GENERAL: Physical exam reveals a muscular young man in no acute distress. VITAL SIGNS: Currently afebrile. Vital signs are charted. HEENT: Exam unremarkable. NECK: No JVD. CHEST: Clear to auscultation. CARDIAC EXAM: S1 and S2. Regular rate and rhythm with a 2/6 systolic ejection murmur. ABDOMEN: Soft. EXTREMITIES: No Osler's nodes or Janeway lesions. EKG From May 04 showed She has a sinus rhythm, abnormal R-wave progression out laterally. This could be lead placement. Blood cultures are growing MRSA. IMPRESSION MRSA bacteremia, markedly increased risk of possible endocarditis particularly of the tricuspid valve. PLAN Informed consent has been obtained for a MARQUEZ. This will be performed tomorrow morning. MD DA Posadas/LYNDSEY /4:00 PM /6:17 AM
[2017-05-07] MEDS ORDERED: oxyCODONE/ACETAMINOPHEN 10 MG/325 MG TAB PO PRN (07:00)
--- NOTE | 2017-05-07 07:06 | PD.ORT.PN ---
Subjective Subjective Remarks POD 4 s/p I&D with removal of HW left ankle states pain is still severe. reports that splint and drain were removed and has been in soft dressings. going for MARQUEZ today. Objective Vitals Vital Signs Date Time Temp Pulse Resp B/P Pulse Ox O2 Delivery O2 Flow Rate FiO2 05/07/17 04:00 98.8 101 18 134/74 97 05/07/17 04:00 Room Air 05/07/17 00:00 98.5 100 20 157/70 96 05/07/17 00:00 Room Air 05/06/17 20:20 84 05/06/17 20:00 Room Air 05/06/17 20:00 98.6 104 18 132/77 96 05/06/17 16:15 98.2 94 18 143/71 96 05/06/17 16:00 Room Air 05/06/17 12:19 98.3 88 18 132/75 100 05/06/17 12:00 Room Air 05/06/17 09:00 102 05/06/17 08:00 99.2 92 18 135/73 96 05/06/17 08:00 Room Air I/O 05/06/17 05/06/17 05/06/17 05/07/17 05/07/17 05/07/17 07:00 15:00 23:00 07:00 15:00 23:00 Intake Total 1436 ml 1994 ml 1077 ml 1535 ml Output Total 1100 ml 2050 ml Balance 336 ml 1994 ml 1077 ml -515 ml Intake Oral 480 ml 960 ml 480 ml IV Total 956 ml 1034 ml 1077 ml 1055 ml Output Urine Total 1100 ml 2050 ml # Voids 7 # Bowel Movements 0 1 0 Result Diagram: 05/06/17 0740 05/06/17 0740 Objective Remarks LLE: no splint present. soft dressings. dressings with drainage medial and lateral. purulent drainage present from superior medial incision. +swelling and blisters present of foot. Assessment & Plan Assessment and Plan 1) Left Ankle HW infection s/p I&D with VIKAS - POD 4 -NWB -will begin daily dressing changes of wounds -elevate -will place in fracture boot -wound cultures - S. aureus MRSA -continue IV Abx per ID -monitor -if drainage does not improve, may require additional I&D of ankle -will order MRI of left ankle to evaluate for any potential abscess formation Leonid Vivas May 07, 2017 07:05
[2017-05-07 08:00] VITALS: BP 143/78; PULSE 104; RESP 20; TEMP 98.3; O2SAT 95
[2017-05-07 08:11] LABS: HEMATOCRIT 35.7 % (39.0-51.0); MEAN CELL VOLUME 78.7 FL (80.0-100.0); MEAN CORPUSCULAR HEMOGLOBIN 26.6 PG (27.0-34.0); MEAN CORPUSCULAR HGB CONC 33.8 % (32.0-36.0); PLATELET COUNT 561 TH/MM3 (150-450); RED BLOOD COUNT 4.53 MIL/MM3 (4.50-5.90); RED CELL DISTRIBUTION WIDTH 15.5 % (11.6-17.2); WHITE BLOOD COUNT 26.8 TH/MM3 (4.0-11.0)
[2017-05-07 08:17] LABS: HEMO FLAGS AUTO DIFF
[2017-05-07 08:48] LABS: BICARBONATE 23.4 MEQ/L (21.0-32.0); POTASSIUM 3.5 MEQ/L (3.5-5.1)
[2017-05-07] MEDS: SODIUM CHLORIDE 0.9% FLUSH 10 ML FLUSH IV FLUSH SCH ×2 (08:52→21:23)
[2017-05-07 08:54] LABS: BANDS 9 % (0-6); CORRECTED NUCLEATED RBC 4 /100 WBC (0-0); METAMYELOCYTES 2 % (0-1); MYELOCYTES 4 % (0-0); NEUTROPHIL # MANUAL DIFF 22.2 TH/MM3 (1.8-7.7); POLYS (SEG NEUTROPHILS) 68 % (16-70); WBC DIFF SAMPLE 100
[2017-05-07 08:55] LABS: PLATELET ESTIMATE SMEAR HIGH (NORMAL); PLATELET MORPHOLOGY NORMAL (NORMAL); SCAN/DIFF FINAL DIFF MANUAL
[2017-05-07] MEDS: DOCUSATE SODIUM 50 MG/SENNA 8.6 MG TAB PO SCH ×2 (09:00→21:00)
[2017-05-07] MEDS: HEPARIN SODIUM - SQ 10,000 UNITS/ML VIAL SQ SCH ×2 (11:23→21:22)
[2017-05-07 12:00] VITALS: BP 145/76; PULSE 114; RESP 20; TEMP 99.4; O2SAT 94
--- NOTE | 2017-05-07 13:31 | HHI.PR ---
Subjective Remarks Patient complains of persistent left ankle pain. No new complaints otherwise. No fevers or chills. MARQUEZ reportedly negative. Objective Vitals Vital Signs Date Time Temp Pulse Resp B/P Pulse Ox O2 Delivery O2 Flow Rate FiO2 05/07/17 08:00 98.3 104 20 143/78 95 05/07/17 07:00 95 Room Air 05/07/17 04:00 98.8 101 18 134/74 97 05/07/17 04:00 Room Air 05/07/17 00:00 98.5 100 20 157/70 96 05/07/17 00:00 Room Air 05/06/17 20:20 84 05/06/17 20:00 Room Air 05/06/17 20:00 98.6 104 18 132/77 96 05/06/17 16:15 98.2 94 18 143/71 96 05/06/17 16:00 Room Air I/O 05/06/17 05/06/17 05/06/17 05/07/17 05/07/17 05/07/17 07:00 15:00 23:00 07:00 15:00 23:00 Intake Total 1436 ml 1994 ml 1317 ml 1535 ml Output Total 1100 ml 1050 ml 2050 ml Balance 336 ml 1994 ml 267 ml -515 ml Intake Oral 480 ml 960 ml 240 ml 480 ml IV Total 956 ml 1034 ml 1077 ml 1055 ml Output Urine Total 1100 ml 1050 ml 2050 ml # Voids 7 # Bowel Movements 0 1 0 0 Result Diagram: 05/07/17 0735 05/07/17 0735 Imaging Last Impressions Aorta w/Runoff CTA 05/03/17 0000 Signed Impressions: Service Date/Time: April 20:31 - CONCLUSION: 1. Extensive soft tissue swelling and postsurgical changes in the left ankle from recent hardware removal. 2. No significant aortic occlusive disease, inflow or outflow stenosis. 3. Limited three-vessel runoff to the mid to distal calf bilaterally with dominant posterior tibial artery runoff to the plantar arch. Although evaluation is compromised by venous contamination, the overall runoff does not appear significantly different on the left in comparison to the right. This does not support diagnosis of severe compartment syndrome. There is less prominent venous contamination in the left calf in comparison to the right which does support some degree of increased compartment pressure. However, please note that compartment syndrome cannot be reliably diagnosed in the distal extremities with CTA exam. 4. Mild splenomegaly and diffusely heterogeneous hepatic enhancement which may reflect early cirrhosis. 5. Nodular airspace disease primarily in the left lung base and extreme right middle lobe. Clinical correlation is recommended. Further evaluation may be performed with CT of the chest as indicated. Jb Thompson MD Ankle X-Ray 05/03/17 0000 Signed Impressions: Service Date/Time: April 12:29 - CONCLUSION: Status post fixation hardware removal. Stable ankle alignment Yong Coppola MD Lower Extremity CT 05/02/17 0000 Signed Impressions: Service Date/Time: Tuesday, May 02, 2017 18:55 - CONCLUSION: 1. Diffuse soft tissue swelling with no discrete focal abscess. 2. Remote postsurgical changes with no acute fracture. Demarcus Hickey MD Objective Remarks GENERAL: This is a well-nourished, well-developed patient, in no apparent distress. CARDIOVASCULAR: Normal rate and regular rhythm without murmurs, gallops, or rubs. RESPIRATORY: Good respiratory efforts. Breath sounds equal and clear to auscultation bilaterally. GASTROINTESTINAL: Abdomen soft, non-tender, non-distended. Normal active bowel sounds MUSCULOSKELETAL: Postoperative shoe on the left lower extremity. Neurovascularly intact at the toes. NEURO: Alert & Oriented x4 to person, place, time, situation. Moves all ext x4 PSYCH: Appropriate mood and affect. Procedures 05/03/17 irrigation and debridement of left tibia, irrigation and debridement of left fibula, removal of deep hardware A/P Problem List: (1) Sepsis ICD Code: A41.9 Status: Acute (2) Cellulitis of ankle ICD Code: L03.119 Status: Acute (3) Polysubstance abuse ICD Code: F19.10 Status: Chronic (4) IV drug abuse ICD Code: F19.10 Status: Chronic Assessment and Plan 36-year-old male with Sepsis secondary to cellulitis/high-grade MRSA bacteremia: Continue antibiotics , IV fluids. Infectious disease following. Continue vancomycin. If blood cultures negative at 72 hours, PICC line will be placed. Per Infectious disease , anticipate prolonged course of about 6 weeks of IV antibiotics. MARQUEZ negative. Left ankle cellulitis, possible septic joint: Appreciate orthopedic surgery recommendations. Status post irrigation and debridement with removal of deep hardware. Continue antibiotics. Polysubstance abuse: Patient counseled. Cautious with pain medications. Will not escalate. DVT prophylaxis: Heparin. Problem Qualifiers (1) Sepsis: Qualified Code: A41.9 - Sepsis, due to unspecified organism Cal Tipton MD May 07, 2017 13:30
[2017-05-07] MEDS ORDERED: PHARMACY ORDERED LAB ONE (13:45)
--- NOTE | 2017-05-07 14:01 | ECHRPT ---
Indication: endocarditis CONCLUSIONS No evidence of endocarditis BP: / HR: Rhythm: Technical Quality:Good Medications Complications There were no complications prior to, during or in recovery from the transesophag eal echocardiogram.. Proc. Components FINDINGS LEFT VENTRICLE Normal left ventricular size and wall thickness. The left ventricular systolic function is normal wi th an estimated ejection fraction in the range of 60-65%. Left ventricular diastolic function parameters a re normal. RIGHT VENTRICLE Normal right ventricular size and systolic function. LEFT ATRIUM The left atrial size is normal. RIGHT ATRIUM The right atrial size is normal. ATRIAL APPENDAGES Left atrial appendage not well visualized. Left atrial appendage not well visualized. Normal left atrial appendage size with no evidence of thrombus formation. ATRIAL SEPTUM Normal atrial septal thickness without atrial level shunting by limited color doppler interrogation. AORTA The aortic root and proximal ascending aorta are normal in size on limited imaging. MITRAL VALVE Structurally normal mitral valve. Trace mitral valve regurgitation. AORTIC VALVE Trileaflet aortic valve. No aortic valve stenosis or regurgitation. TRICUSPID VALVE No pulmonary valve regurgitation or stenosis. VESSELS The inferior vena cava is normal in size. PULMONARY VALVE No pulmonary valve regurgitation or stenosis. PERICADIUM No pericardial effusion. Main Johnston MD (Electronically Signed) Final Date:07 May 2017 14:00
[2017-05-07 16:00] VITALS: BP 142/73; PULSE 114; RESP 24; TEMP 98.8; O2SAT 97
--- NOTE | 2017-05-07 16:32 | HHI.IDPN ---
Subjective Subjective Remarks repeat blood clx are negative MARQUEZ is negative co L LE pain, asks for pain medx Antibiotics vancomycin Allergies: Coded Allergies: Cat Dander (Verified Allergy, Severe, WHEEZING ITCHING, 05/02/17) Dog Dander (Verified Allergy, Unknown, 05/02/17) *MDRO Multi-Drug Resistant Organism (Verified Adverse Reaction, Unknown, MRSA, 05/04/17) MRSA (blood) - 05/02/17 Objective . Vital Signs Date Time Temp Pulse Resp B/P Pulse Ox O2 Delivery O2 Flow Rate FiO2 05/07/17 12:00 99.4 114 20 145/76 94 05/07/17 08:00 98.3 104 20 143/78 95 05/07/17 07:00 95 Room Air 05/07/17 04:00 98.8 101 18 134/74 97 05/07/17 04:00 Room Air 05/07/17 00:00 98.5 100 20 157/70 96 05/07/17 00:00 Room Air 05/06/17 20:20 84 05/06/17 20:00 Room Air 05/06/17 20:00 98.6 104 18 132/77 96 05/06/17 05/06/17 05/07/17 15:00 23:00 07:00 Intake Total 1994 ml 1317 ml 1535 ml Output Total 1050 ml 2050 ml Balance 1994 ml 267 ml -515 ml Intake Oral 960 ml 240 ml 480 ml IV Total 1034 ml 1077 ml 1055 ml Output Urine Total 1050 ml 2050 ml # Voids 7 # Bowel Movements 1 0 0 . Laboratory Tests Test 05/06/17 05/07/17 07:40 07:35 White Blood Count 27.7 TH/MM3 26.8 TH/MM3 Red Blood Count 4.53 MIL/MM3 4.53 MIL/MM3 Hemoglobin 11.8 GM/DL 12.0 GM/DL Hematocrit 35.9 % 35.7 % Mean Corpuscular Volume 79.3 FL 78.7 FL Mean Corpuscular Hemoglobin 26.0 PG 26.6 PG Mean Corpuscular Hemoglobin 32.8 % 33.8 % Concent Red Cell Distribution Width 15.6 % 15.5 % Platelet Count 462 TH/MM3 561 TH/MM3 Mean Platelet Volume 6.8 FL 7.0 FL Neutrophils (%) (Auto) 83.0 % % Lymphocytes (%) (Auto) 4.9 % % Monocytes (%) (Auto) 10.8 % % Eosinophils (%) (Auto) 1.0 % % Basophils (%) (Auto) 0.3 % % Neutrophils # (Auto) 23.0 TH/MM3 TH/MM3 Lymphocytes # (Auto) 1.4 TH/MM3 TH/MM3 Monocytes # (Auto) 3.0 TH/MM3 TH/MM3 Eosinophils # (Auto) 0.3 TH/MM3 TH/MM3 Basophils # (Auto) 0.1 TH/MM3 TH/MM3 CBC Comment AUTO DIFF AUTO DIFF Differential Total Cells 100 100 Counted Neutrophils % (Manual) 64 % 68 % Band Neutrophils % 18 % 9 % Lymphocytes % 2 % 10 % Monocytes % 11 % 7 % Neutrophils # (Manual) 24.1 TH/MM3 22.2 TH/MM3 Metamyelocytes 4 % 2 % Myelocytes 1 % 4 % Differential Comment FINAL DIFF FINAL DIFF MANUAL MANUAL Platelet Estimate HIGH HIGH Platelet Morphology Comment NORMAL NORMAL Red Cell Morphology Comment NORMAL Nucleated Red Blood Cells 4 /100 WBC Laboratory Tests Test 05/06/17 05/07/17 07:40 07:35 Sodium Level 131 MEQ/L 132 MEQ/L Potassium Level 4.9 MEQ/L 3.5 MEQ/L Chloride Level 99 MEQ/L 101 MEQ/L Carbon Dioxide Level 23.8 MEQ/L 23.4 MEQ/L Anion Gap 8 MEQ/L 8 MEQ/L Blood Urea Nitrogen 13 MG/DL 11 MG/DL Creatinine 0.87 MG/DL 0.80 MG/DL Estimat Glomerular Filtration 99 ML/MIN 109 ML/MIN Rate Random Glucose 86 MG/DL 100 MG/DL Calcium Level 7.9 MG/DL 8.1 MG/DL Microbiology Date/Time Procedure Status Source Growth 05/05/17 20:15 Aerobic Blood Culture - Preliminary Resulted Blood Peripheral NO GROWTH IN 2 DAYS 05/05/17 20:15 Anaerobic Blood Culture - Preliminary Resulted Blood Peripheral NO GROWTH IN 2 DAYS 05/05/17 20:30 Aerobic Blood Culture - Preliminary Resulted Blood Peripheral NO GROWTH IN 2 DAYS 05/05/17 20:30 Anaerobic Blood Culture - Preliminary Resulted Blood Peripheral NO GROWTH IN 2 DAYS Imaging Last Impressions Aorta w/Runoff CTA 05/03/17 0000 Signed Impressions: Service Date/Time: April 20:31 - CONCLUSION: 1. Extensive soft tissue swelling and postsurgical changes in the left ankle from recent hardware removal. 2. No significant aortic occlusive disease, inflow or outflow stenosis. 3. Limited three-vessel runoff to the mid to distal calf bilaterally with dominant posterior tibial artery runoff to the plantar arch. Although evaluation is compromised by venous contamination, the overall runoff does not appear significantly different on the left in comparison to the right. This does not support diagnosis of severe compartment syndrome. There is less prominent venous contamination in the left calf in comparison to the right which does support some degree of increased compartment pressure. However, please note that compartment syndrome cannot be reliably diagnosed in the distal extremities with CTA exam. 4. Mild splenomegaly and diffusely heterogeneous hepatic enhancement which may reflect early cirrhosis. 5. Nodular airspace disease primarily in the left lung base and extreme right middle lobe. Clinical correlation is recommended. Further evaluation may be performed with CT of the chest as indicated. Jb Thompson MD Ankle X-Ray 05/03/17 0000 Signed Impressions: Service Date/Time: April 12:29 - CONCLUSION: Status post fixation hardware removal. Stable ankle alignment Yong Coppola MD Lower Extremity CT 05/02/17 0000 Signed Impressions: Service Date/Time: Tuesday, May 02, 2017 18:55 - CONCLUSION: 1. Diffuse soft tissue swelling with no discrete focal abscess. 2. Remote postsurgical changes with no acute fracture. Demarcus Hickey MD Physical Exam CONSTITUTIONAL/GENERAL: This is an adequately nourished patient, in no apparent distress. TUBES/LINES/DRAINS: SKIN: No jaundice, rashes, or lesions. Skin temperature appropriate. Not diaphoretic. EYES: Pupils equal and round and reactive. conjuntivae normal ENT: Hearing grossly normal. CARDIOVASCULAR: Regular rate and rhythm without murmurs, gallops, or rubs. No JVD. Peripheral pulses symmetric. RESPIRATORY/CHEST: Symmetric, unlabored respirations. Clear to auscultation. Breath sounds equal bilaterally. GASTROINTESTINAL: Abdomen soft, non-tender, nondistended. No hepato-splenomegaly , or palpable masses. MUSCULOSKELETAL: Extremities without clubbing, cyanosis, or edema. LLE with dressing, brace in pace Visulised toes free of neurovascular deficits No ascending cellulitis or lymphangitits no LAD No mottling or clubbing. NEUROLOGICAL: Awake and alert. Non focal PSYCHIATRIC: calm cooperative Assessment & Plan Remarks High grade MRSA bacteremia no e/o endocarditis on MARQUEZ Nodular airspace disease cw septic emboli, likleyu pt has tricuspid endocarditis persistent bacteremia - most recent blood clx remains negative - requires very high vancomycin dose (6 gm/d) to achieve the required trough level) Infected LLE tib/fib, MRSA hardware; sp removal of all hardwaer IVDU cont vancomycin: keep trough 15-20 fu blood clx untill final - Pt can get a PICC line if blood clx remain negative @ 72 hrs anticipate half-way IV abx (6 wks from the last positive) dw pharmacist Johanna Cooper MD May 07, 2017 16:32
[2017-05-07] MEDS: oxyCODONE/ACETAMINOPHEN 10 MG/325 MG TAB PO PRN ×2 (17:47→23:49)
[2017-05-07 20:00] VITALS: BP 142/82; PULSE 110; PULSE 112; RESP 20; TEMP 99.8; O2SAT 97
[2017-05-07] MEDS ORDERED: GADODIAMIDE PF 287 MG/ML 5 ML VIAL (for RAD MRI) IV ONE (21:21)
--- NOTE | 2017-05-07 22:34 | RADRPT ---
EXAM DATE/TIME: 05/07/2017 20:32 [facility] COMPARISON: ANKLE LEFT COMPLETE ([id number]), May 01, 2017, 1:15. ANKLE LEFT (1 VW), May 03, 2017, 12:29. INDICATIONS : Infection. Post left ankle hardware removal, and fall today. CONTRAST: 15 cc Omniscan (gadodiamide) IV MEDICAL HISTORY : None. SURGICAL HISTORY : Right arm. Left ankle. ENCOUNTER: Subsequent ACUITY: 1 week PAIN SCORE: 10/10 LOCATION: Left ankle TECHNIQUE: Multiplanar, multisequence MRI examination was performed without contrast and after the intravenous a dministration of gadolinium. FINDINGS: Patient is recently postop for hardware removal (lateral fibular plate and medial malleolar pin/screw s). There is diffuse soft tissue swelling about the medial lateral aspect of the ankle which demonstrates some heterogeneous enhancement. There is an area that does not enhance which is located inferior to the tip of the lateral malleolus and has irregular shape, measuring 3.6 x 1.8 cm, suggestive of soft tissue abscess or cellulitis. No definite signal abnormality seen in the distal fibula other than f ocal areas of field distortion artifact at the site of removed screws. There is abnormal signal in the medial ankle involving both soft tissue and marrow of the metaphysis of the distal tibia which measures 2.4 cm in width and 2.5 cm in superior-inferior extent. There is enhancement within both the osseous and soft tissue components suggesting osteomyelitis with contiguo us soft tissue involvement. This is located superior to the field distortion artifact of the course of the hardware. There is heterogeneous signal in the marrow of the talus and calcaneus which does demonstrate some sc attered areas of enhancement. The enhancement pattern is nonspecific and could be due to increased f low from regional increased blood flow. CONCLUSION: 1. Abnormal appearance to the medial metaphysis of the tibia with focal area of abnormal enhancing si gnal in continuity with the subcutaneous soft tissues characteristic of osteomyelitis and cellulitis. 2. Abnormal nonenhancing abnormality in the lateral ankle inferior to the lateral malleolus a without extension into the bone and with diffuse irregular enhancement around the periphery suggesting a lat eral soft tissue abscess. Westley Briones MD on May 07, 2017 at 22:22 Board Certified Radiologist. This report was verified electronically.
[2017-05-07] MEDS: ACETAMINOPHEN 325 MG TAB PO PRN (23:49)
[2017-05-08] VITALS (7 sets, daily range): BP systolic 128–141; BP diastolic 70–76; PULSE 68–114; RESP 17–20; TEMP 98.1–101.4; O2SAT 95–98
[2017-05-08] MEDS: MORPHINE SULFATE 4 MG/ML INJ IV PUSH PRN ×4 (01:25→22:05)
[2017-05-08] MEDS: VANCOMYCIN INJ 2,000 MG in SODIUM CHLORID 0.9% 500 ML INJ 500 ML IV SCH ×3 (04:46→22:04)
[2017-05-08] MEDS: LORazepam 2 MG/ML VIAL IV PUSH PRN ×4 (06:24→22:11)
[2017-05-08] MEDS: oxyCODONE/ACETAMINOPHEN 10 MG/325 MG TAB PO PRN ×3 (06:24→19:02)
[2017-05-08 07:02] LABS: HEMATOCRIT 40.4 % (39.0-51.0); MEAN CELL VOLUME 79.5 FL (80.0-100.0); MEAN CORPUSCULAR HEMOGLOBIN 26.5 PG (27.0-34.0); MEAN CORPUSCULAR HGB CONC 33.3 % (32.0-36.0); PLATELET COUNT 575 TH/MM3 (150-450); RED BLOOD COUNT 5.08 MIL/MM3 (4.50-5.90); RED CELL DISTRIBUTION WIDTH 15.6 % (11.6-17.2); WHITE BLOOD COUNT 30.5 TH/MM3 (4.0-11.0)
[2017-05-08 07:04] LABS: REVIEW FLAG FINAL
[2017-05-08 07:44] LABS: BICARBONATE 25.1 MEQ/L (21.0-32.0); POTASSIUM 4.5 MEQ/L (3.5-5.1)
[2017-05-08] MEDS: SODIUM CHLORIDE 0.9% FLUSH 10 ML FLUSH IV FLUSH SCH ×2 (09:00→22:10)
[2017-05-08] MEDS: HEPARIN SODIUM - SQ 10,000 UNITS/ML VIAL SQ SCH ×2 (10:01→21:00)
[2017-05-08] MEDS: DOCUSATE SODIUM 50 MG/SENNA 8.6 MG TAB PO SCH ×2 (10:01→21:00)
--- NOTE | 2017-05-08 11:20 | HHI.PR ---
Subjective Remarks Tmax overnight 101.4. Patient still complaining of left ankle pain. No shortness of breath. Objective Vitals Vital Signs Date Time Temp Pulse Resp B/P Pulse Ox O2 Delivery O2 Flow Rate FiO2 05/08/17 11:00 Room Air 05/08/17 08:00 99.0 99 20 128/71 97 05/08/17 04:00 98.3 98 18 141/75 98 05/08/17 04:00 Room Air 05/08/17 00:00 101.4 114 20 139/72 95 05/08/17 00:00 Room Air 05/07/17 20:00 112 05/07/17 20:00 Room Air 05/07/17 20:00 99.8 110 20 142/82 97 05/07/17 16:00 98.8 114 24 142/73 97 05/07/17 12:00 99.4 114 20 145/76 94 I/O 05/07/17 05/07/17 05/07/17 05/08/17 05/08/17 05/08/17 07:00 15:00 23:00 07:00 15:00 23:00 Intake Total 1535 ml 0 ml 381 ml 480 ml Output Total 2050 ml 1200 ml 1200 ml 1000 ml Balance -515 ml -1200 ml -819 ml -520 ml Intake Oral 480 ml 0 ml 240 ml 480 ml IV Total 1055 ml 141 ml Output Urine Total 2050 ml 1200 ml 1200 ml 1000 ml # Bowel Movements 0 0 1 Result Diagram: 05/08/17 0608 05/08/17 0608 Objective Remarks GENERAL: This is a well-nourished, well-developed patient, in no apparent distress. CARDIOVASCULAR: Normal rate and regular rhythm without murmurs, gallops, or rubs. RESPIRATORY: Good respiratory efforts. Breath sounds equal and clear to auscultation bilaterally. GASTROINTESTINAL: Abdomen soft, non-tender, non-distended. Normal active bowel sounds MUSCULOSKELETAL: Postoperative dressing on the left lower extremity/ankle/foot. Neurovascularly intact at the toes. NEURO: Alert & Oriented x4 to person, place, time, situation. Moves all ext x4 PSYCH: Appropriate mood and affect. Procedures 05/03/17 irrigation and debridement of left tibia, irrigation and debridement of left fibula, removal of deep hardware A/P Problem List: (1) Sepsis ICD Code: A41.9 Status: Acute (2) Cellulitis of ankle ICD Code: L03.119 Status: Acute (3) Polysubstance abuse ICD Code: F19.10 Status: Chronic (4) IV drug abuse ICD Code: F19.10 Status: Chronic Assessment and Plan 36-year-old male with Sepsis secondary to cellulitis/high-grade MRSA bacteremia: Continue antibiotics , IV fluids. Infectious disease following. Continue vancomycin. If blood cultures negative at 72 hours, PICC line will be placed. Per Infectious disease , anticipate prolonged course of about 6 weeks of IV antibiotics. MARQUEZ negative. - Still having fevers today. Continue to monitor for now and consider PICC tomorrow. Left ankle cellulitis, possible septic joint: Appreciate orthopedic surgery recommendations. Status post irrigation and debridement with removal of deep hardware. Continue antibiotics. Polysubstance abuse: Patient counseled. Cautious with pain medications. Will not escalate pain meds. DVT prophylaxis: Heparin. Problem Qualifiers (1) Sepsis: Qualified Code: A41.9 - Sepsis, due to unspecified organism Cal Tipton MD May 08, 2017 11:20
[2017-05-08] MEDS ORDERED: PHARMACY ORDERED LAB ONE ×2 (13:45→19:45)
--- NOTE | 2017-05-08 15:57 | HHI.IDPN ---
Subjective Subjective Remarks pt cont to co pain L ankle + drainage + low grade temnps WBC up to 30K Antibiotics vancomycin Allergies: Coded Allergies: Cat Dander (Verified Allergy, Severe, WHEEZING ITCHING, 05/02/17) Dog Dander (Verified Allergy, Unknown, 05/02/17) *MDRO Multi-Drug Resistant Organism (Verified Adverse Reaction, Unknown, MRSA, 05/04/17) MRSA (blood) - 05/02/17 Objective . Vital Signs Date Time Temp Pulse Resp B/P Pulse Ox O2 Delivery O2 Flow Rate FiO2 05/08/17 12:00 98.1 109 20 138/70 98 05/08/17 11:00 Room Air 05/08/17 08:00 99.0 99 20 128/71 97 05/08/17 04:00 98.3 98 18 141/75 98 05/08/17 04:00 Room Air 05/08/17 00:00 101.4 114 20 139/72 95 05/08/17 00:00 Room Air 05/07/17 20:00 112 05/07/17 20:00 Room Air 05/07/17 20:00 99.8 110 20 142/82 97 05/07/17 16:00 98.8 114 24 142/73 97 05/07/17 05/07/17 05/08/17 15:00 23:00 07:00 Intake Total 0 ml 381 ml 480 ml Output Total 1200 ml 1200 ml 1000 ml Balance -1200 ml -819 ml -520 ml Intake Oral 0 ml 240 ml 480 ml IV Total 141 ml Output Urine Total 1200 ml 1200 ml 1000 ml # Bowel Movements 0 1 . Laboratory Tests Test 05/07/17 05/08/17 07:35 06:08 White Blood Count 26.8 TH/MM3 30.5 TH/MM3 Red Blood Count 4.53 MIL/MM3 5.08 MIL/MM3 Hemoglobin 12.0 GM/DL 13.4 GM/DL Hematocrit 35.7 % 40.4 % Mean Corpuscular Volume 78.7 FL 79.5 FL Mean Corpuscular Hemoglobin 26.6 PG 26.5 PG Mean Corpuscular Hemoglobin 33.8 % 33.3 % Concent Red Cell Distribution Width 15.5 % 15.6 % Platelet Count 561 TH/MM3 575 TH/MM3 Mean Platelet Volume 7.0 FL 7.2 FL Neutrophils (%) (Auto) % Lymphocytes (%) (Auto) % Monocytes (%) (Auto) % Eosinophils (%) (Auto) % Basophils (%) (Auto) % Neutrophils # (Auto) TH/MM3 Lymphocytes # (Auto) TH/MM3 Monocytes # (Auto) TH/MM3 Eosinophils # (Auto) TH/MM3 Basophils # (Auto) TH/MM3 CBC Comment AUTO DIFF Differential Total Cells 100 Counted Neutrophils % (Manual) 68 % Band Neutrophils % 9 % Lymphocytes % 10 % Monocytes % 7 % Neutrophils # (Manual) 22.2 TH/MM3 Metamyelocytes 2 % Myelocytes 4 % Nucleated Red Blood Cells 4 /100 WBC Differential Comment FINAL DIFF MANUAL Platelet Estimate HIGH Platelet Morphology Comment NORMAL Laboratory Tests Test 05/07/17 05/08/17 07:35 06:08 Sodium Level 132 MEQ/L 135 MEQ/L Potassium Level 3.5 MEQ/L 4.5 MEQ/L Chloride Level 101 MEQ/L 103 MEQ/L Carbon Dioxide Level 23.4 MEQ/L 25.1 MEQ/L Anion Gap 8 MEQ/L 7 MEQ/L Blood Urea Nitrogen 11 MG/DL 11 MG/DL Creatinine 0.80 MG/DL 1.01 MG/DL Estimat Glomerular Filtration 109 ML/MIN 84 ML/MIN Rate Random Glucose 100 MG/DL 79 MG/DL Calcium Level 8.1 MG/DL 8.4 MG/DL Microbiology Date/Time Procedure Status Source Growth 05/05/17 20:15 Aerobic Blood Culture - Preliminary Resulted Blood Peripheral NO GROWTH IN 3 DAYS 05/05/17 20:15 Anaerobic Blood Culture - Preliminary Resulted Blood Peripheral NO GROWTH IN 3 DAYS 05/05/17 20:30 Aerobic Blood Culture - Preliminary Resulted Blood Peripheral NO GROWTH IN 3 DAYS 05/05/17 20:30 Anaerobic Blood Culture - Preliminary Resulted Blood Peripheral NO GROWTH IN 3 DAYS Imaging Last Impressions Ankle MRI 05/07/17 0000 Signed Impressions: Service Date/Time: Sunday, May 07, 2017 20:32 - CONCLUSION: 1. Abnormal appearance to the medial metaphysis of the tibia with focal area of abnormal enhancing signal in continuity with the subcutaneous soft tissues characteristic of osteomyelitis and cellulitis. 2. Abnormal nonenhancing abnormality in the lateral ankle inferior to the lateral malleolus a without extension into the bone and with diffuse irregular enhancement around the periphery suggesting a lateral soft tissue abscess. Westley Briones MD Aorta w/Runoff CTA 05/03/17 0000 Signed Impressions: Service Date/Time: April 20:31 - CONCLUSION: 1. Extensive soft tissue swelling and postsurgical changes in the left ankle from recent hardware removal. 2. No significant aortic occlusive disease, inflow or outflow stenosis. 3. Limited three-vessel runoff to the mid to distal calf bilaterally with dominant posterior tibial artery runoff to the plantar arch. Although evaluation is compromised by venous contamination, the overall runoff does not appear significantly different on the left in comparison to the right. This does not support diagnosis of severe compartment syndrome. There is less prominent venous contamination in the left calf in comparison to the right which does support some degree of increased compartment pressure. However, please note that compartment syndrome cannot be reliably diagnosed in the distal extremities with CTA exam. 4. Mild splenomegaly and diffusely heterogeneous hepatic enhancement which may reflect early cirrhosis. 5. Nodular airspace disease primarily in the left lung base and extreme right middle lobe. Clinical correlation is recommended. Further evaluation may be performed with CT of the chest as indicated. Jb Thompson MD Ankle X-Ray 05/03/17 0000 Signed Impressions: Service Date/Time: April 12:29 - CONCLUSION: Status post fixation hardware removal. Stable ankle alignment Yong Coppola MD Lower Extremity CT 05/02/17 0000 Signed Impressions: Service Date/Time: Tuesday, May 02, 2017 18:55 - CONCLUSION: 1. Diffuse soft tissue swelling with no discrete focal abscess. 2. Remote postsurgical changes with no acute fracture. Demarcus Hickey MD Physical Exam CONSTITUTIONAL/GENERAL: This is an adequately nourished patient, in no apparent distress. TUBES/LINES/DRAINS: SKIN: No jaundice, rashes, or lesions. Skin temperature appropriate. Not diaphoretic. EYES: Pupils equal and round and reactive. conjuntivae normal ENT: Hearing grossly normal. CARDIOVASCULAR: Regular rate and rhythm without murmurs, gallops, or rubs. No JVD. Peripheral pulses symmetric. RESPIRATORY/CHEST: Symmetric, unlabored respirations. Clear to auscultation. Breath sounds equal bilaterally. GASTROINTESTINAL: Abdomen soft, non-tender, nondistended. No hepato-splenomegaly , or palpable masses. MUSCULOSKELETAL: Extremities without clubbing, cyanosis, or edema. L ankle with macerated incisions and draining purulent bloody odorless drainage + fluctuance present foot edematous, tener to palpation No ascending cellulitis or lymphangitits no LAD No mottling or clubbing. NEUROLOGICAL: Awake and alert. Non focal PSYCHIATRIC: calm cooperative Assessment & Plan Remarks High grade MRSA bacteremia no e/o endocarditis on MARQUEZ Nodular airspace disease cw septic emboli, joyaleyu pt has tricuspid endocarditis persistent bacteremia - most recent blood clx remains negative - requires very high vancomycin dose (6 gm/d) to achieve the required trough level) Infected LLE tib/fib, MRSA hardware; sp removal of all hardwaer _ ongoing infection , with abscess - + osteo present IVDU Leukocytosis - that s likely 2/2 ucontrolled L LE inxt Pt needs to go OR for formal debridement cont vancomycin: keep trough 15-20 fu blood clx untill final - Pt can get a PICC line if blood clx remain negative @ 72 hrs 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
--- NOTE | 2017-05-08 17:30 | PD.ORT.PN ---
Subjective Subjective Remarks Patient c/o LLE pain. Intermittent sharp pain to right sided ribs. Denies any fever, chills, CP or SOB. Family at bedside. Objective Vitals Vital Signs Date Time Temp Pulse Resp B/P Pulse Ox O2 Delivery O2 Flow Rate FiO2 05/08/17 12:00 98.1 109 20 138/70 98 05/08/17 11:00 Room Air 05/08/17 08:00 99.0 99 20 128/71 97 05/08/17 04:00 98.3 98 18 141/75 98 05/08/17 04:00 Room Air 05/08/17 00:00 101.4 114 20 139/72 95 05/08/17 00:00 Room Air 05/07/17 20:00 112 05/07/17 20:00 Room Air 05/07/17 20:00 99.8 110 20 142/82 97 I/O 05/07/17 05/07/17 05/07/17 05/08/17 05/08/17 05/08/17 07:00 15:00 23:00 07:00 15:00 23:00 Intake Total 1535 ml 0 ml 381 ml 480 ml Output Total 2050 ml 1200 ml 1200 ml 1000 ml Balance -515 ml -1200 ml -819 ml -520 ml Intake Oral 480 ml 0 ml 240 ml 480 ml IV Total 1055 ml 141 ml Output Urine Total 2050 ml 1200 ml 1200 ml 1000 ml # Bowel Movements 0 0 1 Result Diagram: 05/08/17 0608 05/08/17 0608 Objective Remarks LLE: soft dressings dressing was changed +swelling and blisters present of foot calves soft negative Antionette's NVI Assessment & Plan Assessment and Plan 1) Left Ankle HW infection s/p I&D with VIKAS - POD 5 -NWB -will begin daily dressing changes of wounds -elevate -will place in fracture boot -wound cultures - S. aureus MRSA -continue IV Abx per ID -monitor -if drainage does not improve, may require additional I&D of ankle -MRI of ankle suggest a lateral soft tissue abscess. Jordan Ayala May 08, 2017 17:30
[2017-05-09] VITALS (7 sets, daily range): BP systolic 123–140; BP diastolic 63–85; PULSE 73–114; RESP 17–20; TEMP 97.9–98.7; O2SAT 94–97
[2017-05-09] MEDS: oxyCODONE/ACETAMINOPHEN 10 MG/325 MG TAB PO PRN ×4 (00:43→19:10)
[2017-05-09] MEDS: VANCOMYCIN INJ 2,000 MG in SODIUM CHLORID 0.9% 500 ML INJ 500 ML IV SCH ×3 (03:59→22:13)
[2017-05-09] MEDS: MORPHINE SULFATE 4 MG/ML INJ IV PUSH PRN ×4 (03:59→22:12)
[2017-05-09] MEDS: SODIUM CHLORIDE 0.9% FLUSH 10 ML FLUSH IV FLUSH PRN (04:00)
[2017-05-09] MEDS: LORazepam 2 MG/ML VIAL IV PUSH PRN (04:06)
--- NOTE | 2017-05-09 07:17 | PD.ORT.PN ---
Subjective Subjective Remarks POD 6 s/p I&D with removal of HW left ankle states pain is still severe. reports that boot was removed after MRI. Objective Vitals Vital Signs Date Time Temp Pulse Resp B/P Pulse Ox O2 Delivery O2 Flow Rate FiO2 05/09/17 04:00 98.5 88 17 133/63 96 05/09/17 00:00 98.7 98 18 140/75 96 05/08/17 20:07 68 05/08/17 20:00 98.7 92 17 130/76 97 05/08/17 20:00 Room Air 05/08/17 16:00 98.6 95 20 139/74 96 05/08/17 12:00 98.1 109 20 138/70 98 05/08/17 11:00 Room Air 05/08/17 08:00 99.0 99 20 128/71 97 I/O 05/08/17 05/08/17 05/08/17 05/09/17 05/09/17 05/09/17 07:00 15:00 23:00 07:00 15:00 23:00 Intake Total 480 ml 600 ml Output Total 1000 ml 1100 ml 700 ml 1250 ml Balance -520 ml -500 ml -700 ml -1250 ml Intake Oral 480 ml 600 ml Output Urine Total 1000 ml 1100 ml 700 ml 1250 ml # Bowel Movements 1 0 Result Diagram: 05/08/17 0608 05/08/17 0608 Objective Remarks LLE: soft dressings dressing was changed +swelling and blisters present of foot calves soft negative Antionette's NVI Assessment & Plan Assessment and Plan 1) Left Ankle HW infection s/p I&D with VIKAS - POD 6 -NWB -will begin daily dressing changes of wounds -elevate -will place in fracture boot -wound cultures - S. aureus MRSA -continue IV Abx per ID -monitor -if drainage does not improve, may require additional I&D of ankle -MRI of ankle suggest a lateral soft tissue abscess. -npo -sign consents -surgery this AM for repeat I&D Leonid Vivas May 09, 2017 07:17
[2017-05-09] MEDS: SODIUM CHLORIDE 0.9% FLUSH 10 ML FLUSH IV FLUSH SCH ×2 (09:00→22:14)
[2017-05-09] MEDS: DOCUSATE SODIUM 50 MG/SENNA 8.6 MG TAB PO SCH ×2 (09:00→21:00)
[2017-05-09] MEDS: HEPARIN SODIUM - SQ 10,000 UNITS/ML VIAL SQ SCH ×3 (09:00→22:16)
[2017-05-09 09:14] LABS: HEMATOCRIT 38.4 % (39.0-51.0); MEAN CELL VOLUME 78.8 FL (80.0-100.0); MEAN CORPUSCULAR HEMOGLOBIN 25.5 PG (27.0-34.0); MEAN CORPUSCULAR HGB CONC 32.4 % (32.0-36.0); PLATELET COUNT 714 TH/MM3 (150-450); RED BLOOD COUNT 4.88 MIL/MM3 (4.50-5.90); RED CELL DISTRIBUTION WIDTH 15.5 % (11.6-17.2); REVIEW FLAG FINAL; WHITE BLOOD COUNT 25.4 TH/MM3 (4.0-11.0)
[2017-05-09 09:36] LABS: BICARBONATE 22.7 MEQ/L (21.0-32.0)
[2017-05-09] MEDS ORDERED: GENTAMICIN SULFATE 80 MG/2 ML VIAL ONE (10:03)
[2017-05-09] MEDS ORDERED: CLINDAMYCIN PHOS 600 MG/4 ML VIAL ONE (10:31)
[2017-05-09] MEDS ORDERED: KETAMINE HCL 500 MG/5 ML VIAL ONE (10:49)
--- NOTE | 2017-05-09 11:20 | HHI.PR ---
Subjective Remarks Repeat MRI of the foot show lateral soft tissue abscess. Patient is seen postop. He underwent irrigation and debridement of left fibula, irrigation debridement of left tibia and ankle, application wound VAC. He is comfortable currently. Objective Vitals Vital Signs Date Time Temp Pulse Resp B/P Pulse Ox O2 Delivery O2 Flow Rate FiO2 05/09/17 09:09 Room Air 05/09/17 08:00 98.0 81 20 123/73 96 05/09/17 04:00 98.5 88 17 133/63 96 05/09/17 00:00 98.7 98 18 140/75 96 05/08/17 20:07 68 05/08/17 20:00 98.7 92 17 130/76 97 05/08/17 20:00 Room Air 05/08/17 16:00 98.6 95 20 139/74 96 05/08/17 12:00 98.1 109 20 138/70 98 I/O 05/08/17 05/08/17 05/08/17 05/09/17 05/09/17 05/09/17 07:00 15:00 23:00 07:00 15:00 23:00 Intake Total 480 ml 600 ml Output Total 1000 ml 1100 ml 700 ml 1250 ml Balance -520 ml -500 ml -700 ml -1250 ml Intake Oral 480 ml 600 ml Output Urine Total 1000 ml 1100 ml 700 ml 1250 ml # Bowel Movements 1 0 Result Diagram: 05/09/17 0730 05/09/17 0730 Objective Remarks GENERAL: This is a well-nourished, well-developed patient, in no apparent distress. CARDIOVASCULAR: Normal rate and regular rhythm without murmurs, gallops, or rubs. RESPIRATORY: Good respiratory efforts. Breath sounds equal and clear to auscultation bilaterally. GASTROINTESTINAL: Abdomen soft, non-tender, non-distended. Normal active bowel sounds MUSCULOSKELETAL: Postoperative dressing on the left lower extremity/ankle/foot. Wound VAC in place. Neurovascularly intact at the toes. NEURO: Alert & Oriented x4 to person, place, time, situation. Moves all ext x4 PSYCH: Appropriate mood and affect. Procedures 05/03/17 irrigation and debridement of left tibia, irrigation and debridement of left fibula, removal of deep hardware A/P Problem List: (1) Sepsis ICD Code: A41.9 Status: Acute (2) Cellulitis of ankle ICD Code: L03.119 Status: Acute (3) Polysubstance abuse ICD Code: F19.10 Status: Chronic (4) IV drug abuse ICD Code: F19.10 Status: Chronic Assessment and Plan 36-year-old male with Sepsis secondary to cellulitis/high-grade MRSA bacteremia: Continue antibiotics , IV fluids. Infectious disease following. Continue vancomycin. If blood cultures negative at 72 hours, PICC line will be placed. Per Infectious disease , anticipate prolonged course of about 6 weeks of IV antibiotics. MARQUEZ negative. -Persistent left ankle infection. Status post repeat irrigation and debridement of left fibula, irrigation debridement of left tibia and ankle, application wound VAC dressing on 05/09/17 Left ankle cellulitis, possible septic joint: Appreciate orthopedic surgery recommendations. Status post irrigation and debridement with removal of deep hardware. Continue antibiotics. Repeat irrigation and debridement and wound VAC application on 05/09/17 Polysubstance abuse: Patient counseled. Cautious with pain medications. DVT prophylaxis: Heparin. Problem Qualifiers (1) Sepsis: Qualified Code: A41.9 - Sepsis, due to unspecified organism Cal Tipton MD May 09, 2017 11:20
--- NOTE | 2017-05-09 11:23 | HHI.PR ---
cc: Dillon Moreira MD Immediate Post Op Note Procedure Date: May 09, 2017 Pre Op Diagnosis: Left ankle infection of tibia and fibula Post Op Diagnosis: Surgeon: Dillon Moreira Construction Specialist(s): CAMDEN Willams PA-C The surgical procedure was assisted by my physician quality control assistant. My P.A. presence was necessary throughout this case for the manipulation and positioning of the surgical extremity. My P.A. was assisting me throughout the duration of this procedure. The skill set of a physician quality control assistant was medically necessary to complete this procedure. During the surgical case the surgical physician assistant was working at the back table and the physician quality control assistant was directly assisting me. Procedure: Irrigation and debridement of left fibula, irrigation debridement of left tibia and ankle, application wound VAC dressing Anesthesia: General Patient to: PACU Patient Condition: Good Dillon Moreira MD May 09, 2017 11:23
[2017-05-09] MEDS ORDERED: *morphine SULFATE 8 MG/ML PERIprocedure ONLY ONE ×3 (12:00→12:27)
[2017-05-09] MEDS ORDERED: fentaNYL CITRATE 250 MCG/5 ML AMP ONE (12:06)
[2017-05-09] MEDS ORDERED: MORPHINE SULFATE 4 MG/ML INJ ONE (12:07)
--- NOTE | 2017-05-09 12:10 | MP ---
cc: DILLON LAU DATE OF SURGERY: 05/09/2017 PREOPERATIVE DIAGNOSIS Left ankle, tibia, and fibula infection. POSTOPERATIVE DIAGNOSIS Left ankle, tibia, and fibula infection. SURGEON Dillon Lau MD ASSISTANTS Leonid Vivas PA-C, and Palomo Trimble PA-C The surgical procedure was assisted by my physician health care legal assistant. My P.A. presence was necessary throughout this case for the manipulation and positioning of the surgical extremity. My P.A. was assisting me throughout the duration of this procedure. The skill set of a physician health care legal assistant was medically necessary to complete this procedure. During the surgical case the surgical services tech was working at the back table and the physician health care legal assistant was directly assisting me. PROCEDURE 1. Irrigation and debridement of left ankle. 2. Irrigation and debridement of left tibia osteomyelitis. 3. Irrigation and debridement of left tibia osteomyelitis. ESTIMATED BLOOD LOSS 100 cc. ANESTHESIA General. DETAILS OF PROCEDURE Suly is a 36-year-old male who is known to me from previous ankle surgery for open reduction, internal fixation. The patient has a history of IV drug abuse. He presented with an infection of left ankle. Informed consent was confirmed and the operative site was marked. He was brought into the operating room and placed on the operating table. He had previous irrigation and debridement of left ankle last week. He is on scheduled antibiotics. The left leg was prepped with alcohol followed by Hibiclens and draped in the usual sterile fashion. The procedure began with the lateral ankle incision. The sutures were removed. There was significant purulent drainage present. At this point attention was turned to debridement of the fibula. Curets and rongeurs were used to debride soft tissue and bone. Curets were used to thoroughly debride the previous screw holes of the fibula. An additional incision was made along the sinus tarsi. There was further abscess in this area. There was also abscess reaching around near the Achilles tendon. Loculations of the abscess were debrided manually. Curets and rongeurs were used to debride the abscess. The wound was now thoroughly irrigated. Overall the wound was clean at this time. Next, attention was turned to the medial wound. The medial incision was opened. Skin, subcutaneous tissue and fascia were sharply debrided. The bone was debrided with curets. There appeared to be some continued infection around the medial malleolus. After thorough debridement of soft tissue and bone the wound was thoroughly irrigated with sterile saline. At this point the medial wound was closed with 3-0 PDS and 3-0 nylon. The lateral skin was in relatively poor condition from the chronic infection. A wound VAC dressing was now placed over the lateral wound. The dressing was sealed appropriately. Sterile dressings were applied. The patient was transferred to Recovery in stable condition. MD ALIRIO Moore/CARI /11:30 AM /11:51 AM
[2017-05-09] MEDS ORDERED: *diphenhydrAMINE HCL 50 MG/ML VIAL PERIprocedural Use ONLY ONE (12:27)
[2017-05-09] MEDS ORDERED: *HYDROmorphone PF 1 MG VIAL PERIprocedural Use ONLY ONE (12:42)
[2017-05-09] MEDS: KETOROLAC TROMETHAMINE 60 MG/2 ML (IM) VIAL IM SCH ×2 (14:39→17:29)
[2017-05-09] MEDS ORDERED: PROPOFOL 200 MG/20 ML AMP IV ONE (14:59)
[2017-05-09] MEDS ORDERED: PHENYLEPH/NS 1000 MCG/10 ML SYR IV ONE (14:59)
[2017-05-09] MEDS ORDERED: ONDANSETRON HCL 4 MG/2 ML VIAL IV PUSH ONE (14:59)
[2017-05-09] MEDS ORDERED: DO NOT ADM ANY ANTICOAGULANT DRUGS PRN (16:00)
[2017-05-10] VITALS (7 sets, daily range): BP systolic 114–128; BP diastolic 57–70; PULSE 75–89; RESP 12–18; TEMP 98.1–98.4; O2SAT 96–99
[2017-05-10] MEDS: KETOROLAC TROMETHAMINE 60 MG/2 ML (IM) VIAL IM SCH ×2 (00:08→06:48)
[2017-05-10] MEDS: oxyCODONE/ACETAMINOPHEN 10 MG/325 MG TAB PO PRN ×4 (01:26→16:39)
[2017-05-10] MEDS: LORazepam 2 MG/ML VIAL IV PUSH PRN ×3 (01:32→13:27)
[2017-05-10] MEDS: VANCOMYCIN INJ 2,000 MG in SODIUM CHLORID 0.9% 500 ML INJ 500 ML IV SCH ×3 (04:28→21:11)
[2017-05-10] MEDS: MORPHINE SULFATE 4 MG/ML INJ IV PUSH PRN ×4 (04:29→23:22)
[2017-05-10 07:50] LABS: HEMATOCRIT 35.1 % (39.0-51.0); MEAN CORPUSCULAR HEMOGLOBIN 26.1 PG (27.0-34.0); MEAN CORPUSCULAR HGB CONC 33.1 % (32.0-36.0); PLATELET COUNT 757 TH/MM3 (150-450); RED BLOOD COUNT 4.45 MIL/MM3 (4.50-5.90); RED CELL DISTRIBUTION WIDTH 15.4 % (11.6-17.2); REVIEW FLAG FINAL; WHITE BLOOD COUNT 20.1 TH/MM3 (4.0-11.0)
[2017-05-10] MEDS: DOCUSATE SODIUM 50 MG/SENNA 8.6 MG TAB PO SCH ×2 (08:03→21:00)
[2017-05-10] MEDS: SODIUM CHLORIDE 0.9% FLUSH 10 ML FLUSH IV FLUSH SCH ×2 (08:03→21:11)
[2017-05-10] MEDS: HEPARIN SODIUM - SQ 10,000 UNITS/ML VIAL SQ SCH ×2 (08:03→21:12)
--- NOTE | 2017-05-10 10:04 | HHI.PR ---
Addendum to Inpatient Note Additional Information Pt was seen and examined full note to follow Johanna Cooper MD May 10, 2017 10:04
--- NOTE | 2017-05-10 11:56 | HHI.PR ---
Subjective Remarks Patient reports he is feeling okay. Left ankle is less painful. No fevers or chills. Objective Vitals Vital Signs Date Time Temp Pulse Resp B/P Pulse Ox O2 Delivery O2 Flow Rate FiO2 05/10/17 08:00 98.2 75 16 124/70 96 05/10/17 08:00 Room Air 05/10/17 08:00 80 05/10/17 07:37 98 21 05/10/17 04:10 98.1 75 18 128/67 98 05/10/17 00:17 98.4 78 12 118/63 98 05/09/17 20:00 83 05/09/17 20:00 98.0 84 18 128/69 96 05/09/17 20:00 Room Air 05/09/17 16:00 98.3 97 20 130/69 97 05/09/17 13:19 97.9 114 20 130/85 94 05/09/17 12:45 98.0 104 22 158/94 96 Room Air 05/09/17 12:30 106 22 146/89 96 Room Air 05/09/17 12:15 105 19 144/84 94 Room Air 05/09/17 12:00 107 22 140/86 95 Room Air I/O 05/09/17 05/09/17 05/09/17 05/10/17 05/10/17 05/10/17 07:00 15:00 23:00 07:00 15:00 23:00 Intake Total 1315 ml Output Total 1250 ml 775 ml 200 ml 350 ml Balance -1250 ml 540 ml -200 ml -350 ml Intake Oral 315 ml IV Total 500 ml Other 500 ml Output Urine Total 1250 ml 700 ml 200 ml 350 ml Estimated Blood Loss 75 ml # Voids 0 # Bowel Movements 0 0 Result Diagram: 05/10/17 0724 05/09/17 0730 Imaging Last Impressions Ankle MRI 05/07/17 0000 Signed Impressions: Service Date/Time: Sunday, May 07, 2017 20:32 - CONCLUSION: 1. Abnormal appearance to the medial metaphysis of the tibia with focal area of abnormal enhancing signal in continuity with the subcutaneous soft tissues characteristic of osteomyelitis and cellulitis. 2. Abnormal nonenhancing abnormality in the lateral ankle inferior to the lateral malleolus a without extension into the bone and with diffuse irregular enhancement around the periphery suggesting a lateral soft tissue abscess. Westley Briones MD Aorta w/Runoff CTA 05/03/17 0000 Signed Impressions: Service Date/Time: April 20:31 - CONCLUSION: 1. Extensive soft tissue swelling and postsurgical changes in the left ankle from recent hardware removal. 2. No significant aortic occlusive disease, inflow or outflow stenosis. 3. Limited three-vessel runoff to the mid to distal calf bilaterally with dominant posterior tibial artery runoff to the plantar arch. Although evaluation is compromised by venous contamination, the overall runoff does not appear significantly different on the left in comparison to the right. This does not support diagnosis of severe compartment syndrome. There is less prominent venous contamination in the left calf in comparison to the right which does support some degree of increased compartment pressure. However, please note that compartment syndrome cannot be reliably diagnosed in the distal extremities with CTA exam. 4. Mild splenomegaly and diffusely heterogeneous hepatic enhancement which may reflect early cirrhosis. 5. Nodular airspace disease primarily in the left lung base and extreme right middle lobe. Clinical correlation is recommended. Further evaluation may be performed with CT of the chest as indicated. Jb Thompson MD Ankle X-Ray 05/03/17 0000 Signed Impressions: Service Date/Time: April 12:29 - CONCLUSION: Status post fixation hardware removal. Stable ankle alignment Yong Coppola MD Lower Extremity CT 05/02/17 0000 Signed Impressions: Service Date/Time: Tuesday, May 02, 2017 18:55 - CONCLUSION: 1. Diffuse soft tissue swelling with no discrete focal abscess. 2. Remote postsurgical changes with no acute fracture. Demarcus Hickey MD Objective Remarks GENERAL: This is a well-nourished, well-developed patient, in no apparent distress. CARDIOVASCULAR: Normal rate and regular rhythm without murmurs, gallops, or rubs. RESPIRATORY: Good respiratory efforts. Breath sounds equal and clear to auscultation bilaterally. GASTROINTESTINAL: Abdomen soft, non-tender, non-distended. Normal active bowel sounds MUSCULOSKELETAL: Postoperative dressing on the left lower extremity/ankle/foot. Wound VAC in place. Neurovascularly intact at the toes. NEURO: Alert & Oriented x4 to person, place, time, situation. Moves all ext x4 PSYCH: Appropriate mood and affect. Procedures 05/03/17 irrigation and debridement of left tibia, irrigation and debridement of left fibula, removal of deep hardware A/P Problem List: (1) Sepsis ICD Code: A41.9 Status: Acute (2) Cellulitis of ankle ICD Code: L03.119 Status: Acute (3) Polysubstance abuse ICD Code: F19.10 Status: Chronic (4) IV drug abuse ICD Code: F19.10 Status: Chronic Assessment and Plan 36-year-old male with Sepsis secondary to cellulitis/high-grade MRSA bacteremia: Continue antibiotics , IV fluids. Infectious disease following. Continue vancomycin. If blood cultures negative at 72 hours, PICC line will be placed. Per Infectious disease , anticipate prolonged course of about 6 weeks of IV antibiotics. MARQUEZ negative. -Persistent left ankle infection. Status post repeat irrigation and debridement of left fibula, irrigation debridement of left tibia and ankle, application wound VAC dressing on 05/09/17 - Okay to get PICC per ID. Anticipate at least 6 weeks of IV antibiotics, probably Telavancin Follow repeat intraoperative cultures. Left ankle cellulitis, possible septic joint: Appreciate orthopedic surgery recommendations. Status post irrigation and debridement with removal of deep hardware. Continue antibiotics. Repeat irrigation and debridement and wound VAC application on 05/09/17 Polysubstance abuse: Patient counseled. Cautious with pain medications. DVT prophylaxis: Heparin. Problem Qualifiers (1) Sepsis: Qualified Code: A41.9 - Sepsis, due to unspecified organism Cal Tipton MD May 10, 2017 11:56
--- NOTE | 2017-05-10 13:01 | HHI.IDPN ---
Subjective Subjective Remarks doing better nop fever sp I+D WBC down Antibiotics vancomycin Allergies: Coded Allergies: Cat Dander (Verified Allergy, Severe, WHEEZING ITCHING, 05/02/17) Dog Dander (Verified Allergy, Unknown, 05/02/17) *MDRO Multi-Drug Resistant Organism (Verified Adverse Reaction, Unknown, MRSA, 05/04/17) MRSA (blood) - 05/02/17 Objective . Vital Signs Date Time Temp Pulse Resp B/P Pulse Ox O2 Delivery O2 Flow Rate FiO2 05/10/17 12:00 98.2 89 16 114/65 99 05/10/17 08:00 98.2 75 16 124/70 96 05/10/17 08:00 Room Air 05/10/17 08:00 80 05/10/17 07:37 98 21 05/10/17 04:10 98.1 75 18 128/67 98 05/10/17 00:17 98.4 78 12 118/63 98 05/09/17 20:00 83 05/09/17 20:00 98.0 84 18 128/69 96 05/09/17 20:00 Room Air 05/09/17 16:00 98.3 97 20 130/69 97 05/09/17 13:19 97.9 114 20 130/85 94 05/09/17 05/09/17 05/10/17 15:00 23:00 07:00 Intake Total 1315 ml Output Total 775 ml 200 ml 350 ml Balance 540 ml -200 ml -350 ml Intake Oral 315 ml IV Total 500 ml Other 500 ml Output Urine Total 700 ml 200 ml 350 ml Estimated Blood Loss 75 ml # Voids 0 # Bowel Movements 0 0 . Laboratory Tests Test 05/09/17 05/10/17 07:30 07:24 White Blood Count 25.4 TH/MM3 20.1 TH/MM3 Red Blood Count 4.88 MIL/MM3 4.45 MIL/MM3 Hemoglobin 12.5 GM/DL 11.6 GM/DL Hematocrit 38.4 % 35.1 % Mean Corpuscular Volume 78.8 FL 79.0 FL Mean Corpuscular Hemoglobin 25.5 PG 26.1 PG Mean Corpuscular Hemoglobin 32.4 % 33.1 % Concent Red Cell Distribution Width 15.5 % 15.4 % Platelet Count 714 TH/MM3 757 TH/MM3 Mean Platelet Volume 6.7 FL 6.6 FL Laboratory Tests Test 05/09/17 07:30 Sodium Level 133 MEQ/L Potassium Level 4.0 MEQ/L Chloride Level 100 MEQ/L Carbon Dioxide Level 22.7 MEQ/L Anion Gap 10 MEQ/L Blood Urea Nitrogen 13 MG/DL Creatinine 0.80 MG/DL Estimat Glomerular Filtration 109 ML/MIN Rate Random Glucose 82 MG/DL Calcium Level 8.6 MG/DL Imaging Last Impressions Ankle MRI 05/07/17 0000 Signed Impressions: Service Date/Time: Sunday, May 07, 2017 20:32 - CONCLUSION: 1. Abnormal appearance to the medial metaphysis of the tibia with focal area of abnormal enhancing signal in continuity with the subcutaneous soft tissues characteristic of osteomyelitis and cellulitis. 2. Abnormal nonenhancing abnormality in the lateral ankle inferior to the lateral malleolus a without extension into the bone and with diffuse irregular enhancement around the periphery suggesting a lateral soft tissue abscess. Westley Briones MD Aorta w/Runoff CTA 05/03/17 0000 Signed Impressions: Service Date/Time: April 20:31 - CONCLUSION: 1. Extensive soft tissue swelling and postsurgical changes in the left ankle from recent hardware removal. 2. No significant aortic occlusive disease, inflow or outflow stenosis. 3. Limited three-vessel runoff to the mid to distal calf bilaterally with dominant posterior tibial artery runoff to the plantar arch. Although evaluation is compromised by venous contamination, the overall runoff does not appear significantly different on the left in comparison to the right. This does not support diagnosis of severe compartment syndrome. There is less prominent venous contamination in the left calf in comparison to the right which does support some degree of increased compartment pressure. However, please note that compartment syndrome cannot be reliably diagnosed in the distal extremities with CTA exam. 4. Mild splenomegaly and diffusely heterogeneous hepatic enhancement which may reflect early cirrhosis. 5. Nodular airspace disease primarily in the left lung base and extreme right middle lobe. Clinical correlation is recommended. Further evaluation may be performed with CT of the chest as indicated. Jb Thompson MD Ankle X-Ray 05/03/17 0000 Signed Impressions: Service Date/Time: April 12:29 - CONCLUSION: Status post fixation hardware removal. Stable ankle alignment Yong Coppola MD Lower Extremity CT 05/02/17 0000 Signed Impressions: Service Date/Time: Tuesday, May 02, 2017 18:55 - CONCLUSION: 1. Diffuse soft tissue swelling with no discrete focal abscess. 2. Remote postsurgical changes with no acute fracture. Demarcus Hickey MD Physical Exam CONSTITUTIONAL/GENERAL: This is an adequately nourished patient, in no apparent distress. TUBES/LINES/DRAINS: SKIN: No jaundice, rashes, or lesions. Skin temperature appropriate. Not diaphoretic. EYES: Pupils equal and round and reactive. conjuntivae normal CARDIOVASCULAR: Regular rate and rhythm without murmurs, gallops, or rubs. No JVD. Peripheral pulses symmetric. RESPIRATORY/CHEST: Symmetric, unlabored respirations. Clear to auscultation. Breath sounds equal bilaterally. GASTROINTESTINAL: Abdomen soft, non-tender, nondistended. No hepato-splenomegaly , or palpable masses. MUSCULOSKELETAL: Extremities without clubbing, cyanosis, or edema. L LE with VAC in place, serosang drainage no ascending cellulitis or lymphangitis No mottling or clubbing. NEUROLOGICAL: Awake and alert. Non focal PSYCHIATRIC: calm cooperative Assessment & Plan Remarks High grade MRSA bacteremia no e/o endocarditis on MARQUEZ Nodular airspace disease cw septic emboli, likleyu pt has tricuspid endocarditis persistent bacteremia - most recent blood clx remains negative - requires very high vancomycin dose (6 gm/d) to achieve the required trough level) sp repeat debridement Infected LLE tib/fib, MRSA hardware; sp removal of all hardwaer _ ongoing infection , with abscess - + osteo present IVDU Leukocytosis - that s likely 2/2 ucontrolled L LE inxt; improving cont vancomycin: keep trough 15-20 fu blood clx untill final OK to get a PICC line anticipate assistant terminal manager IV abx (6 wks from the last positive); will likely dc on televancin 10 mg/kg rechk cultures intraoperatively Johanna Cooper MD May 10, 2017 13:01
[2017-05-11] MEDS: oxyCODONE/ACETAMINOPHEN 10 MG/325 MG TAB PO PRN ×4 (02:37→21:02)
[2017-05-11 04:00] VITALS: BP 120/70; PULSE 72; RESP 16; TEMP 98.1; O2SAT 97
[2017-05-11] MEDS: VANCOMYCIN INJ 2,000 MG in SODIUM CHLORID 0.9% 500 ML INJ 500 ML IV SCH ×3 (04:04→19:40)
[2017-05-11] MEDS: MORPHINE SULFATE 4 MG/ML INJ IV PUSH PRN ×3 (06:15→18:45)
--- NOTE | 2017-05-11 07:21 | PD.ORT.PN ---
Subjective Subjective Remarks POD 2 s/p I&D with vac application left ankle doing well. pain relatively controlled Objective Vitals Vital Signs Date Time Temp Pulse Resp B/P Pulse Ox O2 Delivery O2 Flow Rate FiO2 05/11/17 04:00 98.1 72 16 120/70 97 05/10/17 20:00 78 05/10/17 20:00 Room Air 05/10/17 20:00 98.1 81 16 125/68 98 05/10/17 16:07 Room Air 05/10/17 16:00 98.3 89 16 124/57 98 05/10/17 12:00 98.2 89 16 114/65 99 05/10/17 12:00 Room Air 05/10/17 08:00 98.2 75 16 124/70 96 05/10/17 08:00 Room Air 05/10/17 08:00 80 05/10/17 07:37 98 21 I/O 05/10/17 05/10/17 05/10/17 05/11/17 05/11/17 05/11/17 07:00 15:00 23:00 07:00 15:00 23:00 Intake Total 860 ml 60 ml 1789 ml Output Total 350 ml 925 ml 725 ml 1600 ml Balance -350 ml -65 ml -665 ml 189 ml Intake Oral 360 ml 60 ml 1249 ml IV Total 500 ml 540 ml Output Urine Total 350 ml 925 ml 725 ml 1600 ml # Bowel Movements 1 2 0 Result Diagram: 05/10/17 0724 05/09/17 0730 Objective Remarks LLE: dressings clean and dry. intact. +_ vac with good seal. NVI Assessment & Plan Assessment and Plan 1) Left Ankle HW infection s/p I&D with VIKAS - POD 8 2) Left Ankle I&D with Vac Application - POD 2 -NWB -maintain dressings and vac -vac at Intermittent:100mmH:1 -npo after MN sunday and plan for potential I&D and vac change sunday Leonid Vivas May 11, 2017 07:21
[2017-05-11] MEDS: SODIUM CHLORIDE 0.9% FLUSH 10 ML FLUSH IV FLUSH SCH ×2 (07:50→21:00)
[2017-05-11] MEDS: HEPARIN SODIUM - SQ 10,000 UNITS/ML VIAL SQ SCH ×2 (07:50→21:02)
[2017-05-11] MEDS: DOCUSATE SODIUM 50 MG/SENNA 8.6 MG TAB PO SCH ×2 (07:50→21:02)
[2017-05-11 07:59] VITALS: PULSE 73
[2017-05-11 08:00] VITALS: BP 118/59; PULSE 82; RESP 20; TEMP 98.1; O2SAT 96
--- NOTE | 2017-05-11 10:03 | HHI.PR ---
Subjective Remarks Patient still reports pain on the left ankle. Feels better with some positions. No fevers or chills. Orthopedics planning for repeat I&D and wound VAC dressing change on Sunday. Objective Vitals Vital Signs Date Time Temp Pulse Resp B/P Pulse Ox O2 Delivery O2 Flow Rate FiO2 05/11/17 08:00 98.1 82 20 118/59 96 05/11/17 04:00 98.1 72 16 120/70 97 05/10/17 20:00 78 05/10/17 20:00 Room Air 05/10/17 20:00 98.1 81 16 125/68 98 05/10/17 16:07 Room Air 05/10/17 16:00 98.3 89 16 124/57 98 05/10/17 12:00 98.2 89 16 114/65 99 05/10/17 12:00 Room Air I/O 05/10/17 05/10/17 05/10/17 05/11/17 05/11/17 05/11/17 07:00 15:00 23:00 07:00 15:00 23:00 Intake Total 860 ml 60 ml 1789 ml Output Total 350 ml 925 ml 725 ml 1600 ml Balance -350 ml -65 ml -665 ml 189 ml Intake Oral 360 ml 60 ml 1249 ml IV Total 500 ml 540 ml Output Urine Total 350 ml 925 ml 725 ml 1600 ml # Bowel Movements 1 2 0 Result Diagram: 05/10/17 0724 05/11/17 0835 Objective Remarks GENERAL: This is a well-nourished, well-developed patient, in no apparent distress. CARDIOVASCULAR: Normal rate and regular rhythm without murmurs, gallops, or rubs. RESPIRATORY: Good respiratory efforts. Breath sounds equal and clear to auscultation bilaterally. GASTROINTESTINAL: Abdomen soft, non-tender, non-distended. Normal active bowel sounds MUSCULOSKELETAL: Postoperative dressing on the left lower extremity/ankle/foot. Wound VAC in place. Neurovascularly intact at the toes. NEURO: Alert & Oriented x4 to person, place, time, situation. Moves all ext x4 PSYCH: Appropriate mood and affect. Procedures 05/03/17 irrigation and debridement of left tibia, irrigation and debridement of left fibula, removal of deep hardware A/P Problem List: (1) Sepsis ICD Code: A41.9 Status: Acute (2) Cellulitis of ankle ICD Code: L03.119 Status: Acute (3) Polysubstance abuse ICD Code: F19.10 Status: Chronic (4) IV drug abuse ICD Code: F19.10 Status: Chronic Assessment and Plan 36-year-old male with Sepsis secondary to cellulitis/high-grade MRSA bacteremia: Continue antibiotics , IV fluids. Infectious disease following. Continue vancomycin. If blood cultures negative at 72 hours, PICC line will be placed. Per Infectious disease , anticipate prolonged course of about 6 weeks of IV antibiotics. MARQUEZ negative. -Persistent left ankle infection. Status post repeat irrigation and debridement of left fibula, irrigation debridement of left tibia and ankle, application wound VAC dressing on 05/09/17 -We will order a PICC line today Anticipate at least 6 weeks of IV antibiotics, probably Telavancin per infectious disease. Follow repeat intraoperative cultures. Left ankle cellulitis, possible septic joint: Appreciate orthopedic surgery recommendations. Status post irrigation and debridement with removal of deep hardware. Continue antibiotics. Repeat irrigation and debridement and wound VAC application on 05/09/17. Orthopedics planning for repeat I&D and wound VAC dressing change on Sunday. Polysubstance abuse: Patient counseled. Cautious with pain medications. DVT prophylaxis: Heparin. Problem Qualifiers (1) Sepsis: Qualified Code: A41.9 - Sepsis, due to unspecified organism Cal Tipton MD May 11, 2017 10:03
[2017-05-11 12:00] VITALS: BP 121/61; PULSE 75; RESP 20; TEMP 98; O2SAT 97
[2017-05-11 16:00] VITALS: BP 122/68; PULSE 91; RESP 20; TEMP 98; O2SAT 98
--- NOTE | 2017-05-11 18:35 | RADRPT ---
EXAM DATE/TIME: 05/11/2017 18:17 [facility] COMPARISON: No previous studies available for comparison. INDICATIONS : Post PICC placement. MEDICAL HISTORY : None. SURGICAL HISTORY : ORIF left ankle. ENCOUNTER: Initial ACUITY: 1 day PAIN SCORE: 0/10 LOCATION: Bilateral chest FINDINGS: PICC line is in good position. Lungs are clear. The heart and pulmonary vascularity are normal. The portion of the bony skeleton visualized is unremarkable. CONCLUSION: PICC line in good position. Jack Schreiber MD FACR on May 11, 2017 at 18:33 Board Certified Radiologist. This report was verified electronically.
[2017-05-11] MEDS ORDERED: PHARMACY ORDERED LAB ONE (19:45)
[2017-05-11 20:00] VITALS: BP 144/64; PULSE 84; PULSE 95; RESP 18; TEMP 98.7; O2SAT 97
[2017-05-11] MEDS ORDERED: SODIUM CHLORIDE 0.9% FLUSH 10 ML FLUSH IV FLUSH PRN (20:15)
[2017-05-12] VITALS (7 sets, daily range): BP systolic 121–139; BP diastolic 60–74; PULSE 68–87; RESP 16–18; TEMP 98.1–98.7; O2SAT 97–99
[2017-05-12] MEDS: MORPHINE SULFATE 4 MG/ML INJ IV PUSH PRN ×4 (00:06→18:16)
[2017-05-12] MEDS: oxyCODONE/ACETAMINOPHEN 10 MG/325 MG TAB PO PRN ×4 (02:58→21:59)
[2017-05-12] MEDS: VANCOMYCIN INJ 1,750 MG in SODIUM CHLORID 0.9% 500 ML INJ 500 ML IV SCH ×3 (04:11→20:19)
[2017-05-12 04:33] LABS: HEMATOCRIT 35.4 % (39.0-51.0); MEAN CELL VOLUME 79.4 FL (80.0-100.0); MEAN CORPUSCULAR HEMOGLOBIN 25.7 PG (27.0-34.0); MEAN CORPUSCULAR HGB CONC 32.4 % (32.0-36.0); PLATELET COUNT 952 TH/MM3 (150-450); RED BLOOD COUNT 4.46 MIL/MM3 (4.50-5.90); RED CELL DISTRIBUTION WIDTH 15.5 % (11.6-17.2); REVIEW FLAG FINAL; WHITE BLOOD COUNT 19.4 TH/MM3 (4.0-11.0)
[2017-05-12] MEDS: SODIUM CHLORIDE 0.9% FLUSH 10 ML FLUSH IV FLUSH SCH ×3 (07:32→20:21)
[2017-05-12] MEDS: HEPARIN SODIUM - SQ 10,000 UNITS/ML VIAL SQ SCH ×2 (07:33→20:22)
[2017-05-12] MEDS: DOCUSATE SODIUM 50 MG/SENNA 8.6 MG TAB PO SCH ×2 (07:37→20:21)
--- NOTE | 2017-05-12 12:13 | HHI.PR ---
Subjective Remarks Patient reports is feeling okay. Afebrile overnight. Still having some pain involving the left ankle. Objective Vitals Vital Signs Date Time Temp Pulse Resp B/P Pulse Ox O2 Delivery O2 Flow Rate FiO2 05/12/17 08:06 98.3 77 17 123/65 97 05/12/17 08:02 68 05/12/17 07:30 Room Air 05/12/17 04:00 98.7 79 16 139/70 97 05/12/17 04:00 Room Air 05/12/17 00:00 Room Air 05/12/17 00:00 98.5 84 16 130/67 97 05/11/17 20:00 98.7 95 18 144/64 97 05/11/17 20:00 84 05/11/17 20:00 Room Air 05/11/17 16:00 98.0 91 20 122/68 98 05/11/17 16:00 Room Air 05/11/17 14:53 Room Air I/O 05/11/17 05/11/17 05/11/17 05/12/17 05/12/17 05/12/17 07:00 15:00 23:00 07:00 15:00 23:00 Intake Total 1789 ml 480 ml 400 ml 180 ml Output Total 1600 ml 2000 ml 600 ml 1275 ml Balance 189 ml -1520 ml -200 ml -1095 ml Intake Oral 1249 ml 480 ml 400 ml 180 ml IV Total 540 ml Output Urine Total 1600 ml 2000 ml 600 ml 1275 ml # Bowel Movements 0 0 1 2 Result Diagram: 05/12/17 0415 05/11/17 0835 Objective Remarks GENERAL: This is a well-nourished, well-developed patient, in no apparent distress. CARDIOVASCULAR: Normal rate and regular rhythm without murmurs, gallops, or rubs. RESPIRATORY: Good respiratory efforts. Breath sounds equal and clear to auscultation bilaterally. GASTROINTESTINAL: Abdomen soft, non-tender, non-distended. Normal active bowel sounds MUSCULOSKELETAL: Postoperative dressing on the left lower extremity/ankle/foot. Wound VAC in place. Neurovascularly intact at the toes. NEURO: Alert & Oriented x4 to person, place, time, situation. Moves all ext x4 PSYCH: Appropriate mood and affect. Procedures 05/03/17 irrigation and debridement of left tibia, irrigation and debridement of left fibula, removal of deep hardware A/P Problem List: (1) Sepsis ICD Code: A41.9 Status: Acute (2) Cellulitis of ankle ICD Code: L03.119 Status: Acute (3) Polysubstance abuse ICD Code: F19.10 Status: Chronic (4) IV drug abuse ICD Code: F19.10 Status: Chronic Assessment and Plan 36-year-old male with Sepsis secondary to cellulitis/high-grade MRSA bacteremia: Continue antibiotics , IV fluids. Infectious disease following. Continue vancomycin. If blood cultures negative at 72 hours, PICC line will be placed. Per Infectious disease , anticipate prolonged course of about 6 weeks of IV antibiotics. MARQUEZ negative. -Persistent left ankle infection. Status post repeat irrigation and debridement of left fibula, irrigation debridement of left tibia and ankle, application wound VAC dressing on 05/09/17 - PICC line ordered. Anticipate at least 6 weeks of IV antibiotics, probably Telavancin per infectious disease. Follow repeat intraoperative cultures. Left ankle cellulitis, possible septic joint: Appreciate orthopedic surgery recommendations. Status post irrigation and debridement with removal of deep hardware. Continue antibiotics. Repeat irrigation and debridement and wound VAC application on 05/09/17. Orthopedics planning for repeat I&D and wound VAC dressing change on Sunday. Polysubstance abuse: Patient counseled. Cautious with pain medications. We'll need to wean him off narcotics DVT prophylaxis: Heparin. Problem Qualifiers (1) Sepsis: Qualified Code: A41.9 - Sepsis, due to unspecified organism Cal Tipton MD May 12, 2017 12:13
[2017-05-12] MEDS ORDERED: PHARMACY ORDERED LAB ONE (19:45)
[2017-05-12] MEDS: MIRTAZAPINE 15 MG TAB PO SCH (20:21)
[2017-05-13] VITALS (7 sets, daily range): BP systolic 100–133; BP diastolic 53–64; PULSE 69–87; RESP 18–20; TEMP 97.8–98.6; O2SAT 97–98
[2017-05-13] MEDS: MORPHINE SULFATE 4 MG/ML INJ IV PUSH PRN ×4 (00:55→20:25)
[2017-05-13] MEDS: oxyCODONE/ACETAMINOPHEN 10 MG/325 MG TAB PO PRN ×4 (04:33→23:04)
[2017-05-13] MEDS: VANCOMYCIN INJ 1,750 MG in SODIUM CHLORID 0.9% 500 ML INJ 500 ML IV SCH ×3 (04:36→20:24)
[2017-05-13 05:02] LABS: HEMATOCRIT 36.3 % (39.0-51.0); MEAN CELL VOLUME 78.6 FL (80.0-100.0); MEAN CORPUSCULAR HEMOGLOBIN 26.7 PG (27.0-34.0); MEAN CORPUSCULAR HGB CONC 33.9 % (32.0-36.0); PLATELET COUNT 1117 TH/MM3 (150-450); RED BLOOD COUNT 4.62 MIL/MM3 (4.50-5.90); RED CELL DISTRIBUTION WIDTH 15.5 % (11.6-17.2); REVIEW FLAG FINAL
[2017-05-13 05:25] LABS: BICARBONATE 26.9 MEQ/L (21.0-32.0); POTASSIUM 3.9 MEQ/L (3.5-5.1)
[2017-05-13] MEDS: HEPARIN SODIUM - SQ 10,000 UNITS/ML VIAL SQ SCH ×2 (08:19→20:25)
[2017-05-13] MEDS: SODIUM CHLORIDE 0.9% FLUSH 10 ML FLUSH IV FLUSH SCH ×3 (08:19→20:25)
[2017-05-13] MEDS: DOCUSATE SODIUM 50 MG/SENNA 8.6 MG TAB PO SCH ×2 (08:20→20:24)
--- NOTE | 2017-05-13 12:52 | HHI.PR ---
Subjective Remarks Follow up for cellulitis/septic joint/bacteremia. The patient reports continued left ankle pain, unchanged compared to previous days. Wound vac still with bloody output. Afebrile overnight. He is eating and drinking well. Bowel movements normal, reports 2 BMs yesterday. Objective Vitals Vital Signs Date Time Temp Pulse Resp B/P Pulse Ox O2 Delivery O2 Flow Rate FiO2 05/13/17 12:37 69 05/13/17 09:46 98.5 78 18 100/54 98 05/13/17 05:33 16 05/13/17 04:00 98.5 87 18 133/64 97 05/13/17 00:00 98.6 83 18 125/53 98 05/12/17 20:00 98.4 81 18 121/62 99 05/12/17 20:00 81 05/12/17 16:06 98.2 83 18 133/74 98 05/12/17 16:05 Room Air I/O 05/12/17 05/12/17 05/12/17 05/13/17 05/13/17 05/13/17 07:00 15:00 23:00 07:00 15:00 23:00 Intake Total 180 ml 360 ml 360 ml 360 ml 500 ml Output Total 1275 ml 1300 ml 400 ml 660 ml 200 ml Balance -1095 ml -940 ml -40 ml -300 ml 300 ml Intake Oral 180 ml 360 ml 360 ml 360 ml IV Total 500 ml Output Urine Total 1275 ml 1300 ml 400 ml 660 ml 200 ml # Bowel Movements 2 1 0 0 Result Diagram: 05/13/17 0445 05/13/17 0445 Imaging Last Impressions Chest X-Ray 05/11/17 0000 Signed Impressions: Service Date/Time: Thursday, May 11, 2017 18:17 - CONCLUSION: PICC line in good position. Jack Schreiber MD FACR Ankle MRI 05/07/17 0000 Signed Impressions: Service Date/Time: Sunday, May 07, 2017 20:32 - CONCLUSION: 1. Abnormal appearance to the medial metaphysis of the tibia with focal area of abnormal enhancing signal in continuity with the subcutaneous soft tissues characteristic of osteomyelitis and cellulitis. 2. Abnormal nonenhancing abnormality in the lateral ankle inferior to the lateral malleolus a without extension into the bone and with diffuse irregular enhancement around the periphery suggesting a lateral soft tissue abscess. Westley Briones MD Aorta w/Runoff CTA 05/03/17 0000 Signed Impressions: Service Date/Time: April 20:31 - CONCLUSION: 1. Extensive soft tissue swelling and postsurgical changes in the left ankle from recent hardware removal. 2. No significant aortic occlusive disease, inflow or outflow stenosis. 3. Limited three-vessel runoff to the mid to distal calf bilaterally with dominant posterior tibial artery runoff to the plantar arch. Although evaluation is compromised by venous contamination, the overall runoff does not appear significantly different on the left in comparison to the right. This does not support diagnosis of severe compartment syndrome. There is less prominent venous contamination in the left calf in comparison to the right which does support some degree of increased compartment pressure. However, please note that compartment syndrome cannot be reliably diagnosed in the distal extremities with CTA exam. 4. Mild splenomegaly and diffusely heterogeneous hepatic enhancement which may reflect early cirrhosis. 5. Nodular airspace disease primarily in the left lung base and extreme right middle lobe. Clinical correlation is recommended. Further evaluation may be performed with CT of the chest as indicated. Jb Thompson MD Ankle X-Ray 05/03/17 0000 Signed Impressions: Service Date/Time: April 12:29 - CONCLUSION: Status post fixation hardware removal. Stable ankle alignment Yong Coppola MD Lower Extremity CT 05/02/17 0000 Signed Impressions: Service Date/Time: Tuesday, May 02, 2017 18:55 - CONCLUSION: 1. Diffuse soft tissue swelling with no discrete focal abscess. 2. Remote postsurgical changes with no acute fracture. Demarcus Hickey MD Objective Remarks GENERAL: Well-nourished, well-developed middle aged male patient in NAD. SKIN: Warm and dry. No rash. HEENT: Normocephalic. Atraumatic. Pupils equal and round. Mucous membranes pink and moist. NECK: Supple. Trachea midline. CARDIOVASCULAR: Regular rate and rhythm. No murmur appreciated. RESPIRATORY: No accessory muscle use. Clear to auscultation. Breath sounds equal bilaterally. GASTROINTESTINAL: Abdomen soft, non-tender, nondistended. Normoactive bowel sounds x4. MUSCULOSKELETAL: No obvious deformities. Extremities without clubbing, cyanosis , or edema. Left ankle with wound vac in place, covered with postoperative dressing, CDI. Brisk capillary refill of left toes. NEUROLOGICAL: Awake and alert. No obvious cranial nerve deficits. Motor grossly within normal limits. Normal speech. PSYCHIATRIC: Appropriate mood and affect; insight and judgment normal. Procedures 05/03/17 irrigation and debridement of left tibia, irrigation and debridement of left fibula, removal of deep hardware Medications and IVs Current Medications Medications (Trade) Dose Ordered Sig/Dennis Route Start Time Stop Time Status Last Admin (NS Flush) 2 ml UNSCH PRN IV FLUSH 05/02/17 18:30 05/09/17 04:00 (NS Flush) 2 ml BID IV FLUSH 05/02/17 21:00 05/13/17 08:19 (Tylenol) 650 mg Q4H PRN PO 05/02/17 18:30 05/07/17 23:49 (Zofran Inj) 4 mg Q6H PRN IVP 05/02/17 18:30 05/12/17 00:50 (Narcan Inj) 0.4 mg UNSCH PRN IV 05/02/17 18:30 (Amarilis-Colace) 1 tab BID PO 05/02/17 21:00 05/13/17 08:20 (Milk Of Magnesia Liq) 30 ml Q12H PRN PO 05/02/17 18:30 (Senokot) 17.2 mg Q12H PRN PO 05/02/17 18:30 (Dulcolax Supp) 10 mg DAILY PRN RECTAL 05/02/17 18:30 Lactulose 30 ml 30 ml DAILY PRN PO 05/02/17 18:30 (Vancomycin Consult Pharmacy) 0 ml @ 0 mls/hr UNSCH OTHER 05/02/17 18:30 (Ativan Inj) 1 mg Q4H PRN IV PUSH 05/03/17 01:45 05/10/17 13:27 (Morphine Inj) 4 mg Q3H PRN IV PUSH 05/03/17 12:45 05/13/17 08:22 (Heparin Inj) 5,000 units Q12HR SQ 05/05/17 11:00 05/13/17 08:19 (Percocet 10-325 Mg) 1 tab Q6H PRN PO 05/07/17 17:00 05/13/17 11:12 (Remeron) 30 mg HS PO 05/12/17 21:00 05/12/17 20:21 (NS Flush) See Protocol DAILY IV FLUSH 05/12/17 09:00 05/12/17 07:32 (NS Flush) See Protocol UNSCH PRN IV FLUSH 05/11/17 20:15 (Heparin Central Flush) See Protocol DAILY IV FLUSH 05/12/17 09:00 05/13/17 08:19 (Heparin Central Flush) See Protocol UNSCH PRN IV FLUSH 05/11/17 20:15 05/12/17 06:19 Sodium Chloride UNSCH PRN IV FLUSH 05/11/17 20:15 05/12/17 06:19 (Vancomycin Inj/ NS 500 ml Inj) 517.5 ml @ 257.5 mls/ hr Q8H IV 05/12/17 04:00 05/13/17 11:13 Vascular Central Line Catheter: Yes Assessment to: Continue Date of Insertion: May 11, 2017 Line: PICC Side: Right A/P Problem List: (1) Sepsis ICD Code: A41.9 Status: Acute (2) Cellulitis of ankle ICD Code: L03.119 Status: Acute (3) Polysubstance abuse ICD Code: F19.10 Status: Chronic (4) IV drug abuse ICD Code: F19.10 Status: Chronic Assessment and Plan 36-year-old male with history of IVDU (injects into left arm only per patient), and left ankle surgery in 2009, presented to the ED 05/02/17 with 4 day history of LLE swelling/redness/pain. Sepsis secondary to cellulitis/high-grade MRSA bacteremia: Continue antibiotics with IV Vanco for now, IV fluids. Infectious disease following. Blood cultures negative x5days, PICC line placed on 05/11/17. Per Infectious disease, anticipate prolonged course of about 6 weeks of IV antibiotics. MARQUEZ negative. - PICC line placed 05/11/17. Anticipate at least 6 weeks of IV antibiotics, probably Telavancin per infectious disease. Left ankle cellulitis, suspected septic joint: Appreciate orthopedic surgery recommendations. Status post irrigation and debridement with removal of deep hardware. Continue antibiotics as above. Repeat irrigation and debridement and wound VAC application on 05/09/17. - Orthopedics planning for repeat I&D and wound VAC dressing change on Sunday. Polysubstance abuse: Patient counseled. Cautious with pain medications. Will need to wean him off narcotics DVT prophylaxis: Heparin. Discharge Planning Not yet ready for discharge. Going to OR tomorrow. Will need to arrange termite technician IV antibiotics prior to discharge. Problem Qualifiers (1) Sepsis: Qualified Code: A41.9 - Sepsis, due to unspecified organism Lucy Deluca PA-C May 13, 2017 12:52 pm
[2017-05-13] MEDS: MIRTAZAPINE 15 MG TAB PO SCH (20:24)
[2017-05-14] MEDS: MORPHINE SULFATE 4 MG/ML INJ IV PUSH PRN ×4 (02:16→22:43)
[2017-05-14 04:28] VITALS: BP 130/65; PULSE 79; RESP 20; TEMP 98.2; O2SAT 97
[2017-05-14] MEDS: VANCOMYCIN INJ 1,750 MG in SODIUM CHLORID 0.9% 500 ML INJ 500 ML IV SCH ×3 (05:03→22:48)
[2017-05-14] MEDS: oxyCODONE/ACETAMINOPHEN 10 MG/325 MG TAB PO PRN ×2 (05:31→14:04)
[2017-05-14 08:00] VITALS: BP 133/66; PULSE 77; RESP 18; TEMP 98.2; O2SAT 99
[2017-05-14] MEDS: DOCUSATE SODIUM 50 MG/SENNA 8.6 MG TAB PO SCH ×3 (08:35→23:08)
[2017-05-14] MEDS: SODIUM CHLORIDE 0.9% FLUSH 10 ML FLUSH IV FLUSH SCH ×3 (08:35→23:08)
[2017-05-14] MEDS: HEPARIN SODIUM - SQ 10,000 UNITS/ML VIAL SQ SCH ×2 (08:35→23:09)
[2017-05-14] MEDS ORDERED: GENTAMICIN SULFATE 80 MG/2 ML VIAL ONE (10:27)
[2017-05-14] MEDS ORDERED: ceFAZolin 2 GM PREMIX 50 ML ONE (10:27)
[2017-05-14] MEDS ORDERED: MIDAZOLAM HCL 2 MG/2 ML VIAL ONE (10:29)
[2017-05-14] MEDS ORDERED: ACETAMINOPHEN 1000 MG/100 ML VIAL IV ONE (10:29)
[2017-05-14 11:08] VITALS: PULSE 83
[2017-05-14] MEDS ORDERED: PROPOFOL 200 MG/20 ML AMP IV ONE (11:31)
[2017-05-14] MEDS ORDERED: ONDANSETRON HCL 4 MG/2 ML VIAL IV PUSH ONE (11:31)
--- NOTE | 2017-05-14 11:53 | PD.OP ---
cc: Dillon Moreira MD Operative Report Date of Surgery: May 14, 2017 Preoperative Diagnosis: Left ankle infection Postoperative Diagnosis: Procedure: Left ankle arthrotomy with irrigation and debridement of ankle and fibula, wound VAC application Anesthesia: Gen. Surgeon: Dillon Moreira Mixer Slagman(s): CAMDEN Willams PA-C The surgical procedure was assisted by my physician maintenance assistant. My P.A. presence was necessary throughout this case for the manipulation and positioning of the surgical extremity. My P.A. was assisting me throughout the duration of this procedure. The skill set of a physician maintenance assistant was medically necessary to complete this procedure. During the surgical case the rn neurosurgical was working at the back table and the physician maintenance assistant was directly assisting me. Operation and Findings: Suly is a 36-year-old male who is known to me from previous ankle surgery for open reduction, internal fixation. The patient has a history of IV drug abuse. He presented with an infection of left ankle. Informed consent was confirmed and the operative site was marked. He was brought into the operating room and placed on the operating table. He had previous irrigation and debridement of left ankle last week. He is on scheduled antibiotics. The left leg was prepped with alcohol followed by Hibiclens and draped in the usual sterile fashion. The procedure began with the lateral ankle incision. There was significant purulent drainage present. At this point attention was turned to debridement of the fibula. Curets and rongeurs were used to debride soft tissue and bone. Curets were used to thoroughly debride the previous screw holes of the fibula. An additional incision was made along the sinus tarsi. There was further abscess in this area. An arthrotomy was created. The ankle joint was thoroughly irrigated. Curets and rongeurs were used to debride the abscess. The wound was now thoroughly irrigated. Overall the wound was clean at this time. The lateral skin was in relatively poor condition from the chronic infection. A wound VAC dressing was now placed over the lateral wound. The dressing was sealed appropriately. Sterile dressings were applied. The patient was transferred to Recovery in stable condition. Dillon Moreira MD May 14, 2017 11:53
[2017-05-14] MEDS: LACTATED RINGER'S 1000 ML INJ 1,000 ML IV SCH ×2 (12:00→22:48)
[2017-05-14] MEDS ORDERED: DO NOT ADM ANY ANTICOAGULANT DRUGS PRN (12:07)
[2017-05-14] MEDS ORDERED: *morphine SULFATE 8 MG/ML PERIprocedure ONLY ONE ×3 (12:16→12:49)
[2017-05-14] MEDS ORDERED: fentaNYL CITRATE 250 MCG/5 ML AMP ONE (12:19)
[2017-05-14] MEDS ORDERED: *MEPERIDINE 25 MG INJ VIAL PERIprocedural Use ONLY ONE (12:27)
[2017-05-14] MEDS ORDERED: *HYDROmorphone PF 1 MG VIAL PERIprocedural Use ONLY ONE (13:00)
[2017-05-14 14:07] VITALS: BP 126/71; PULSE 77; RESP 18; TEMP 97.8; O2SAT 96
[2017-05-14 16:00] VITALS: BP 128/67; PULSE 86; RESP 18; TEMP 97.6; O2SAT 99
--- NOTE | 2017-05-14 16:10 | HHI.PR ---
Subjective Remarks The pt said he had increased pain in his leg following the procedure today. He said his appetite is better. He wanted to know how long he'd be in the hospital. Family at the bedside, their questions were answered. Objective Vitals Vital Signs Date Time Temp Pulse Resp B/P Pulse Ox O2 Delivery O2 Flow Rate FiO2 05/14/17 14:07 97.8 77 18 126/71 96 05/14/17 13:15 77 13 145/67 96 Room Air 05/14/17 13:00 91 12 142/73 97 Room Air 05/14/17 12:45 93 24 136/75 96 Room Air 05/14/17 12:30 86 19 139/76 96 Room Air 05/14/17 12:15 94 17 144/78 97 Room Air 05/14/17 12:11 98.4 105 12 137/76 100 Room Air 05/14/17 11:08 83 05/14/17 10:30 95 05/14/17 08:44 Room Air 05/14/17 08:00 98.2 77 18 133/66 99 05/14/17 04:28 98.2 79 20 130/65 97 05/14/17 00:00 Room Air 05/13/17 23:09 97.8 81 20 119/62 05/13/17 20:31 98.1 83 20 119/64 98 05/13/17 20:00 Room Air 05/13/17 17:09 98.3 80 18 107/59 98 I/O 05/13/17 05/13/17 05/13/17 05/14/17 05/14/17 05/14/17 07:00 15:00 23:00 07:00 15:00 23:00 Intake Total 360 ml 500 ml 1650 ml 57 ml 800 ml Output Total 660 ml 450 ml 350 ml 150 ml Balance -300 ml 50 ml 1300 ml 57 ml 650 ml Intake Oral 360 ml 1400 ml IV Total 500 ml 250 ml 57 ml Other 800 ml Output Urine Total 660 ml 450 ml 100 ml Drainage Total 350 ml Estimated Blood Loss 50 ml # Voids 1 # Bowel Movements 0 Result Diagram: 05/13/17 0445 05/13/17 0445 Imaging Last Impressions Chest X-Ray 05/11/17 0000 Signed Impressions: Service Date/Time: Thursday, May 11, 2017 18:17 - CONCLUSION: PICC line in good position. Jack Schreiber MD FACR Ankle MRI 05/07/17 0000 Signed Impressions: Service Date/Time: Sunday, May 07, 2017 20:32 - CONCLUSION: 1. Abnormal appearance to the medial metaphysis of the tibia with focal area of abnormal enhancing signal in continuity with the subcutaneous soft tissues characteristic of osteomyelitis and cellulitis. 2. Abnormal nonenhancing abnormality in the lateral ankle inferior to the lateral malleolus a without extension into the bone and with diffuse irregular enhancement around the periphery suggesting a lateral soft tissue abscess. Westley Briones MD Aorta w/Runoff CTA 05/03/17 Signed Impressions: Service Date/Time: April 20:31 - CONCLUSION: 1. Extensive soft tissue swelling and postsurgical changes in the left ankle from recent hardware removal. 2. No significant aortic occlusive disease, inflow or outflow stenosis. 3. Limited three-vessel runoff to the mid to distal calf bilaterally with dominant posterior tibial artery runoff to the plantar arch. Although evaluation is compromised by venous contamination, the overall runoff does not appear significantly different on the left in comparison to the right. This does not support diagnosis of severe compartment syndrome. There is less prominent venous contamination in the left calf in comparison to the right which does support some degree of increased compartment pressure. However, please note that compartment syndrome cannot be reliably diagnosed in the distal extremities with CTA exam. 4. Mild splenomegaly and diffusely heterogeneous hepatic enhancement which may reflect early cirrhosis. 5. Nodular airspace disease primarily in the left lung base and extreme right middle lobe. Clinical correlation is recommended. Further evaluation may be performed with CT of the chest as indicated. Jb Thompson MD Ankle X-Ray 05/03/17 0000 Signed Impressions: Service Date/Time: April 12:29 - CONCLUSION: Status post fixation hardware removal. Stable ankle alignment Yong Coppola MD Lower Extremity CT 05/02/17 0000 Signed Impressions: Service Date/Time: Tuesday, May 02, 2017 18:55 - CONCLUSION: 1. Diffuse soft tissue swelling with no discrete focal abscess. 2. Remote postsurgical changes with no acute fracture. Demarcus Hickey MD Objective Remarks GENERAL: Well-nourished, well-developed patient in NAD. SKIN: Warm and dry. No rash. HEENT: Normocephalic. Atraumatic. Pupils equal and round. Mucous membranes pink and moist. NECK: Supple. Trachea midline. CARDIOVASCULAR: Regular rate and rhythm. No murmur appreciated. RESPIRATORY: No accessory muscle use. Clear to auscultation. Breath sounds equal bilaterally. GASTROINTESTINAL: Abdomen soft, non-tender, nondistended. Normoactive bowel sounds x4. MUSCULOSKELETAL: No obvious deformities. Extremities without clubbing, cyanosis , or edema. Left ankle with wound vac in place, covered with postoperative dressing, CDI. Brisk capillary refill of left toes. NEUROLOGICAL: Awake and alert. No obvious cranial nerve deficits. Motor grossly within normal limits. Normal speech. PSYCHIATRIC: Appropriate mood and affect; insight and judgment normal. Procedures 05/03/17 irrigation and debridement of left tibia, irrigation and debridement of left fibula, removal of deep hardware Medications and IVs Current Medications Medications (Trade) Dose Ordered Sig/Dennis Route Start Time Stop Time Status Last Admin (NS Flush) 2 ml UNSCH PRN IV FLUSH 05/02/17 18:30 05/09/17 04:00 (NS Flush) 2 ml BID IV FLUSH 05/02/17 21:00 05/14/17 08:35 (Tylenol) 650 mg Q4H PRN PO 05/02/17 18:30 05/07/17 23:49 (Zofran Inj) 4 mg Q6H PRN IVP 05/02/17 18:30 05/12/17 00:50 (Narcan Inj) 0.4 mg UNSCH PRN IV 05/02/17 18:30 (Amarilis-Colace) 1 tab BID PO 05/02/17 21:00 05/13/17 08:20 (Milk Of Magnesia Liq) 30 ml Q12H PRN PO 05/02/17 18:30 (Senokot) 17.2 mg Q12H PRN PO 05/02/17 18:30 (Dulcolax Supp) 10 mg DAILY PRN RECTAL 05/02/17 18:30 Lactulose 30 ml 30 ml DAILY PRN PO 05/02/17 18:30 (Vancomycin Consult Pharmacy) 0 ml @ 0 mls/hr UNSCH OTHER 05/02/17 18:30 (Ativan Inj) 1 mg Q4H PRN IV PUSH 05/03/17 01:45 05/10/17 13:27 (Morphine Inj) 4 mg Q3H PRN IV PUSH 05/03/17 12:45 05/14/17 08:35 (Heparin Inj) 5,000 units Q12HR SQ 05/05/17 11:00 05/14/17 08:35 (Percocet 10-325 Mg) 1 tab Q6H PRN PO 05/07/17 17:00 05/14/17 14:04 (Remeron) 30 mg HS PO 05/12/17 21:00 05/13/17 20:24 (NS Flush) See Protocol DAILY IV FLUSH 05/12/17 09:00 05/14/17 08:35 (NS Flush) See Protocol UNSCH PRN IV FLUSH 05/11/17 20:15 (Heparin Central Flush) See Protocol DAILY IV FLUSH 05/12/17 09:00 05/14/17 08:34 (Heparin Central Flush) See Protocol UNSCH PRN IV FLUSH 05/11/17 20:15 05/12/17 06:19 Sodium Chloride UNSCH PRN IV FLUSH 05/11/17 20:15 05/12/17 06:19 Vancomycin HCl 1750 mg/Sodium Chloride 517.5 ml @ 257.5 mls/ hr Q8H IV 05/12/17 04:00 05/14/17 14:04 (Lr 1000 ml Inj) 1,000 ml @ 100 mls/hr Q10H IV 05/14/17 12:00 05/14/17 12:00 Miscellaneous Information ALL NURSING DEPARTME... UNSCH PRN .XX 05/14/17 12:07 05/15/17 12:06 Date of Insertion: May 11, 2017 Line: PICC Side: Right A/P Problem List: (1) Sepsis ICD Code: A41.9 Status: Acute (2) Cellulitis of ankle ICD Code: L03.119 Status: Acute (3) Polysubstance abuse ICD Code: F19.10 Status: Chronic (4) IV drug abuse ICD Code: F19.10 Status: Chronic Assessment and Plan 36-year-old male with history of IVDU (injects into left arm only per patient), and left ankle surgery in 2009, presented to the ED 05/02/17 with 4 day history of LLE swelling/redness/pain. Sepsis secondary to cellulitis/high-grade MRSA bacteremia Infectious disease following. Blood cultures negative x5days, PICC line placed on 05/11/17. MARQUEZ negative. - continue IV vancomycin. Anticipate at least 6 weeks of IV antibiotics, probably Telavancin per infectious disease. Left ankle cellulitis Suspected septic joint: Appreciate orthopedic surgery recommendations. Status post irrigation and debridement with removal of deep hardware. Repeat irrigation and debridement and wound VAC application on 05/09/17 and 05/14. - wound vac and dressing changes per orthopedics. - pain control with a bowel regimen. - antibiotics as above. Polysubstance abuse Patient counseled. - Cautious with pain medications. Will need to wean him off narcotics. Thrombocytosis Likely reactive. - monitor. DVT prophylaxis: Heparin. Discharge Planning Awaiting ortho and ID clearance Problem Qualifiers (1) Sepsis: Qualified Code: A41.9 - Sepsis, due to unspecified organism Demarcus Manuel DO May 14, 2017 16:10
[2017-05-14 20:00] VITALS: BP 126/77; PULSE 83; RESP 18; TEMP 98.3; O2SAT 99
[2017-05-14] MEDS: MIRTAZAPINE 15 MG TAB PO SCH (23:08)
[2017-05-15] VITALS (11 sets, daily range): BP systolic 123–131; BP diastolic 60–69; PULSE 66–86; RESP 18–20; TEMP 97.9–98.7; O2SAT 96–99
[2017-05-15] MEDS: MORPHINE SULFATE 4 MG/ML INJ IV PUSH PRN ×3 (02:27→13:52)
[2017-05-15] MEDS: VANCOMYCIN INJ 1,750 MG in SODIUM CHLORID 0.9% 500 ML INJ 500 ML IV SCH ×3 (05:27→20:37)
[2017-05-15] MEDS: oxyCODONE/ACETAMINOPHEN 10 MG/325 MG TAB PO PRN ×4 (05:28→20:38)
[2017-05-15 06:20] LABS: HEMATOCRIT 34.9 % (39.0-51.0); MEAN CELL VOLUME 78.7 FL (80.0-100.0); MEAN CORPUSCULAR HEMOGLOBIN 26.9 PG (27.0-34.0); MEAN CORPUSCULAR HGB CONC 34.1 % (32.0-36.0); PLATELET COUNT 1024 TH/MM3 (150-450); RED BLOOD COUNT 4.43 MIL/MM3 (4.50-5.90); RED CELL DISTRIBUTION WIDTH 15.9 % (11.6-17.2); REVIEW FLAG FINAL; WHITE BLOOD COUNT 8.8 TH/MM3 (4.0-11.0)
[2017-05-15 06:26] LABS: BICARBONATE 28.1 MEQ/L (21.0-32.0); MAGNESIUM 1.8 MG/DL (1.5-2.5); POTASSIUM 3.7 MEQ/L (3.5-5.1)
--- NOTE | 2017-05-15 07:39 | PD.ORT.PN ---
Subjective Subjective Remarks POD 1 s/p I&D with vac application left ankle doing well. pain increased. Objective Vitals Vital Signs Date Time Temp Pulse Resp B/P Pulse Ox O2 Delivery O2 Flow Rate FiO2 05/15/17 04:00 98.1 82 20 123/68 97 05/15/17 03:15 79 05/15/17 00:00 98.1 71 19 131/69 97 05/14/17 20:00 98.3 83 18 126/77 99 05/14/17 16:00 97.6 86 18 128/67 99 05/14/17 14:07 97.8 77 18 126/71 96 05/14/17 13:15 77 13 145/67 96 Room Air 05/14/17 13:00 91 12 142/73 97 Room Air 05/14/17 12:45 93 24 136/75 96 Room Air 05/14/17 12:30 86 19 139/76 96 Room Air 05/14/17 12:15 94 17 144/78 97 Room Air 05/14/17 12:11 98.4 105 12 137/76 100 Room Air 05/14/17 11:08 83 05/14/17 10:30 95 05/14/17 08:44 Room Air 05/14/17 08:00 98.2 77 18 133/66 99 I/O 05/14/17 05/14/17 05/14/17 05/15/17 05/15/17 05/15/17 07:00 15:00 23:00 07:00 15:00 23:00 Intake Total 57 ml 800 ml 930 ml 0 ml Output Total 550 ml 1300 ml 700 ml Balance 57 ml 250 ml -370 ml -700 ml Intake Oral 120 ml 0 ml IV Total 57 ml 810 ml Other 800 ml Output Urine Total 500 ml 1300 ml 700 ml Estimated Blood Loss 50 ml # Voids 1 # Bowel Movements 0 0 Result Diagram: 05/15/1752905/15/17 0530 Objective Remarks LLE: dressings clean and dry. intact. +_ vac with good seal. NVI Assessment & Plan Assessment and Plan 1) Left Ankle HW infection s/p I&D with VIKAS - POD 9 2) Repeat Left Ankle I&D with Vac Application - POD 1 -NWB -maintain dressings and vac -vac at Intermittent:100mmH:1 -plan for repeat I&D wed/. -consents on chart -will make NPO after MN depending on which day Vivienne decides to operate again. Leonid Vivas May 15, 2017 07:39
[2017-05-15] MEDS: LACTATED RINGER'S 1000 ML INJ 1,000 ML IV SCH ×2 (08:27→16:12)
[2017-05-15] MEDS: HEPARIN SODIUM - SQ 10,000 UNITS/ML VIAL SQ SCH ×2 (08:27→20:38)
[2017-05-15] MEDS: DOCUSATE SODIUM 50 MG/SENNA 8.6 MG TAB PO SCH ×2 (08:28→20:38)
[2017-05-15] MEDS: SODIUM CHLORIDE 0.9% FLUSH 10 ML FLUSH IV FLUSH SCH ×3 (08:28→20:38)
--- NOTE | 2017-05-15 14:11 | HHI.PR ---
Subjective Remarks The patient stated that he wanted to be discharged soon. He knows he has to stay for further surgery. He says his pain in his foot is currently a 10 out of 10. He just worked with physical therapy. Discussed with nursing at the bedside. Objective Vitals Vital Signs Date Time Temp Pulse Resp B/P Pulse Ox O2 Delivery O2 Flow Rate FiO2 05/15/17 13:58 98 05/15/17 11:55 97.9 86 18 127/64 97 05/15/17 08:38 66 05/15/17 08:38 Room Air 05/15/17 08:00 98.7 83 18 124/68 96 05/15/17 04:00 98.1 82 20 123/68 97 05/15/17 03:15 79 05/15/17 00:00 98.1 71 19 131/69 97 05/14/17 20:00 98.3 83 18 126/77 99 05/14/17 16:00 97.6 86 18 128/67 99 I/O 05/14/17 05/14/17 05/14/17 05/15/17 05/15/17 05/15/17 07:00 15:00 23:00 07:00 15:00 23:00 Intake Total 57 ml 800 ml 930 ml 0 ml Output Total 550 ml 1300 ml 700 ml Balance 57 ml 250 ml -370 ml -700 ml Intake Oral 120 ml 0 ml IV Total 57 ml 810 ml Other 800 ml Output Urine Total 500 ml 1300 ml 700 ml Estimated Blood Loss 50 ml # Voids 1 # Bowel Movements 0 0 Result Diagram: 05/15/17 0530 05/15/17 0530 Imaging Last Impressions Chest X-Ray 05/11/17 0000 Signed Impressions: Service Date/Time: Thursday, May 11, 2017 18:17 - CONCLUSION: PICC line in good position. Jack Schreiber MD FACR Ankle MRI 05/07/17 0000 Signed Impressions: Service Date/Time: Sunday, May 07, 2017 20:32 - CONCLUSION: 1. Abnormal appearance to the medial metaphysis of the tibia with focal area of abnormal enhancing signal in continuity with the subcutaneous soft tissues characteristic of osteomyelitis and cellulitis. 2. Abnormal nonenhancing abnormality in the lateral ankle inferior to the lateral malleolus a without extension into the bone and with diffuse irregular enhancement around the periphery suggesting a lateral soft tissue abscess. Westley Briones MD Aorta w/Runoff CTA 05/03/17 0000 Signed Impressions: Service Date/Time: April 20:31 - CONCLUSION: 1. Extensive soft tissue swelling and postsurgical changes in the left ankle from recent hardware removal. 2. No significant aortic occlusive disease, inflow or outflow stenosis. 3. Limited three-vessel runoff to the mid to distal calf bilaterally with dominant posterior tibial artery runoff to the plantar arch. Although evaluation is compromised by venous contamination, the overall runoff does not appear significantly different on the left in comparison to the right. This does not support diagnosis of severe compartment syndrome. There is less prominent venous contamination in the left calf in comparison to the right which does support some degree of increased compartment pressure. However, please note that compartment syndrome cannot be reliably diagnosed in the distal extremities with CTA exam. 4. Mild splenomegaly and diffusely heterogeneous hepatic enhancement which may reflect early cirrhosis. 5. Nodular airspace disease primarily in the left lung base and extreme right middle lobe. Clinical correlation is recommended. Further evaluation may be performed with CT of the chest as indicated. Jb Thompson MD Ankle X-Ray 05/03/17 0000 Signed Impressions: Service Date/Time: April 12:29 - CONCLUSION: Status post fixation hardware removal. Stable ankle alignment Yong Coppola MD Lower Extremity CT 05/02/17 0000 Signed Impressions: Service Date/Time: Tuesday, May 02, 2017 18:55 - CONCLUSION: 1. Diffuse soft tissue swelling with no discrete focal abscess. 2. Remote postsurgical changes with no acute fracture. Demarcus Hickey MD Objective Remarks GENERAL: Well-nourished, well-developed patient in NAD. SKIN: Warm and dry. No rash. HEENT: Normocephalic. Atraumatic. Pupils equal and round. Mucous membranes pink and moist. NECK: Supple. Trachea midline. CARDIOVASCULAR: Regular rate and rhythm. No murmur appreciated. RESPIRATORY: No accessory muscle use. Clear to auscultation. Breath sounds equal bilaterally. GASTROINTESTINAL: Abdomen soft, non-tender, nondistended. Normoactive bowel sounds x4. MUSCULOSKELETAL: No obvious deformities. Extremities without clubbing, cyanosis , or edema. Left ankle with wound vac in place, covered with postoperative dressing, CDI. Brisk capillary refill of left toes. NEUROLOGICAL: Awake and alert. No obvious cranial nerve deficits. Motor grossly within normal limits. Normal speech. PSYCHIATRIC: Appropriate mood and affect; insight and judgment normal. Procedures 05/03/17 irrigation and debridement of left tibia, irrigation and debridement of left fibula, removal of deep hardware Medications and IVs Current Medications Medications (Trade) Dose Ordered Sig/Dennis Route Start Time Stop Time Status Last Admin (NS Flush) 2 ml UNSCH PRN IV FLUSH 05/02/17 18:30 05/09/17 04:00 (NS Flush) 2 ml BID IV FLUSH 05/02/17 21:00 05/15/17 08:28 (Tylenol) 650 mg Q4H PRN PO 05/02/17 18:30 05/07/17 23:49 (Zofran Inj) 4 mg Q6H PRN IVP 05/02/17 18:30 05/12/17 00:50 (Narcan Inj) 0.4 mg UNSCH PRN IV 05/02/17 18:30 (Amarilis-Colace) 1 tab BID PO 05/02/17 21:00 05/15/17 08:28 (Milk Of Magnesia Liq) 30 ml Q12H PRN PO 05/02/17 18:30 (Senokot) 17.2 mg Q12H PRN PO 05/02/17 18:30 (Dulcolax Supp) 10 mg DAILY PRN RECTAL 05/02/17 18:30 Lactulose 30 ml 30 ml DAILY PRN PO 05/02/17 18:30 (Vancomycin Consult Pharmacy) 0 ml @ 0 mls/hr UNSCH OTHER 05/02/17 18:30 (Ativan Inj) 1 mg Q4H PRN IV PUSH 05/03/17 01:45 05/10/17 13:27 (Heparin Inj) 5,000 units Q12HR SQ 05/05/17 11:00 05/15/17 08:27 (Remeron) 30 mg HS PO 05/12/17 21:00 05/14/17 23:08 (NS Flush) See Protocol DAILY IV FLUSH 05/12/17 09:00 05/15/17 08:28 (NS Flush) See Protocol UNSCH PRN IV FLUSH 05/11/17 20:15 (Heparin Central Flush) See Protocol DAILY IV FLUSH 05/12/17 09:00 05/15/17 08:28 (Heparin Central Flush) See Protocol UNSCH PRN IV FLUSH 05/11/17 20:15 05/12/17 06:19 Sodium Chloride UNSCH PRN IV FLUSH 05/11/17 20:15 05/12/17 06:19 Vancomycin HCl 1750 mg/Sodium Chloride 517.5 ml @ 257.5 mls/ hr Q8H IV 05/12/17 04:00 05/15/17 12:32 (Lr 1000 ml Inj) 1,000 ml @ 100 mls/hr Q10H IV 05/14/17 12:00 05/14/17 22:48 (Percocet 10-325 Mg) 1 tab Q4HR PRN PO 05/15/17 09:30 05/15/17 11:22 (Morphine Inj) 4 mg Q4H PRN IV PUSH 05/15/17 16:45 UNV Date of Insertion: May 11, 2017 Line: PICC Side: Right A/P Problem List: (1) Sepsis ICD Code: A41.9 Status: Acute (2) Cellulitis of ankle ICD Code: L03.119 Status: Acute (3) Polysubstance abuse ICD Code: F19.10 Status: Chronic (4) IV drug abuse ICD Code: F19.10 Status: Chronic Assessment and Plan 36-year-old male with history of IVDU (injects into left arm only per patient), and left ankle surgery in 2009, presented to the ED 05/02/17 with 4 day history of LLE swelling/redness/pain. Sepsis secondary to cellulitis/high-grade MRSA bacteremia Infectious disease following. Blood cultures negative x5days, PICC line placed on 05/11/17. MARQUEZ negative. - continue IV vancomycin. Anticipate at least 6 weeks of IV antibiotics, probably Telavancin per infectious disease. Left ankle cellulitis Suspected septic joint: Appreciate orthopedic surgery recommendations. Status post irrigation and debridement with removal of deep hardware. Repeat irrigation and debridement and wound VAC application on 05/09/17 and 05/14. - wound vac and dressing changes per orthopedics. Further washout planned in the next few days. - pain control with a bowel regimen. - antibiotics as above. Polysubstance abuse Patient counseled. - Cautious with pain medications. Will need to wean him off narcotics. Thrombocytosis Likely reactive. - monitor. Improving. DVT prophylaxis: Heparin. Discharge Planning Awaiting ortho and ID clearance Problem Qualifiers (1) Sepsis: Qualified Code: A41.9 - Sepsis, due to unspecified organism Demarcus Manuel DO May 15, 2017 14:11
[2017-05-15] MEDS: MORPHINE SULFATE 8 MG/ML INJ IV PUSH PRN ×2 (18:28→22:40)
[2017-05-15] MEDS: MIRTAZAPINE 15 MG TAB PO SCH (20:38)
[2017-05-15] MEDS: SODIUM CHLORIDE 0.9% FLUSH 10 ML FLUSH IV FLUSH PRN (22:41)
[2017-05-16] VITALS (8 sets, daily range): BP systolic 116–142; BP diastolic 63–81; PULSE 60–92; RESP 16–19; TEMP 97.2–98.3; O2SAT 97–99
[2017-05-16] MEDS: oxyCODONE/ACETAMINOPHEN 10 MG/325 MG TAB PO PRN ×5 (00:38→20:45)
[2017-05-16] MEDS: VANCOMYCIN INJ 1,750 MG in SODIUM CHLORID 0.9% 500 ML INJ 500 ML IV SCH ×3 (02:52→20:44)
[2017-05-16] MEDS: LACTATED RINGER'S 1000 ML INJ 1,000 ML IV SCH ×5 (02:52→20:46)
[2017-05-16] MEDS: MORPHINE SULFATE 8 MG/ML INJ IV PUSH PRN ×5 (02:53→22:56)
--- NOTE | 2017-05-16 06:47 | PD.ORT.PN ---
Subjective Subjective Remarks POD 2 s/p I&D with vac application left ankle doing well. pain increased. Objective Vitals Vital Signs Date Time Temp Pulse Resp B/P Pulse Ox O2 Delivery O2 Flow Rate FiO2 05/16/17 00:00 98.3 78 16 129/72 97 05/15/17 20:15 Room Air 05/15/17 20:00 Room Air 05/15/17 20:00 98.2 74 18 126/66 99 05/15/17 19:56 81 05/15/17 17:36 98 21 05/15/17 16:00 98.0 75 18 123/60 98 05/15/17 13:58 98 05/15/17 11:55 97.9 86 18 127/64 97 05/15/17 08:38 66 05/15/17 08:38 Room Air 05/15/17 08:00 98.7 83 18 124/68 96 I/O 05/15/17 05/15/17 05/15/17 05/16/17 05/16/17 05/16/17 07:00 15:00 23:00 07:00 15:00 23:00 Intake Total 0 ml 960 ml 4029 ml Output Total 700 ml 1500 ml 1100 ml Balance -700 ml -540 ml 2929 ml Intake Oral 0 ml 960 ml IV Total 4029 ml Output Urine Total 700 ml 1500 ml 1100 ml # Bowel Movements 0 0 Result Diagram: 05/15/17 0530 05/15/17 0530 Objective Remarks LLE: dressings clean and dry. intact. +_ vac with good seal. NVI Assessment & Plan Assessment and Plan 1) Left Ankle HW infection s/p I&D with VIKSA - POD 10 2) Repeat Left Ankle I&D with Vac Application - POD 2 -NWB -maintain dressings and vac -vac at Intermittent:100mmH:1 -plan for repeat I&D sun/. -consents on chart -NPO -sugery this morning for I&D and vac change Leonid Vivas May 16, 2017 06:47
[2017-05-16] MEDS ORDERED: POVIDONE IODINE 5% (ANTISEPSIS KIT) 4 APPLICATIONS EACH NARE PRN (07:00)
[2017-05-16] MEDS ORDERED: CHLORHEXIDINE GLUCONATE 2 % 1 PACK (2 CLOTHS) TOPICAL PRN (07:00)
[2017-05-16] MEDS ORDERED: SODIUM CHLORID 0.9% 500 ML IV PRN (07:00)
[2017-05-16] MEDS ORDERED: LACTATED RINGER'S 1000 ML IV PRN (07:00)
[2017-05-16] MEDS ORDERED: INSULIN HUMAN REGULAR 1,000 UNITS/10 ML VIAL SQ PRN (07:00)
[2017-05-16] MEDS ORDERED: METOPROLOL TARTRATE 25 MG TAB PO PRN (07:00)
[2017-05-16] MEDS: SODIUM CHLORIDE 0.9% FLUSH 10 ML FLUSH IV FLUSH PRN ×2 (07:24→22:57)
[2017-05-16] MEDS: DOCUSATE SODIUM 50 MG/SENNA 8.6 MG TAB PO SCH ×2 (08:31→20:45)
[2017-05-16] MEDS: HEPARIN SODIUM - SQ 10,000 UNITS/ML VIAL SQ SCH ×2 (08:33→20:45)
[2017-05-16] MEDS: SODIUM CHLORIDE 0.9% FLUSH 10 ML FLUSH IV FLUSH SCH ×3 (09:00→20:47)
[2017-05-16] MEDS ORDERED: FAMOTIDINE 20 MG/2 ML VIAL ONE (09:20)
[2017-05-16] MEDS ORDERED: MIDAZOLAM HCL 2 MG/2 ML VIAL ONE (09:20)
[2017-05-16] MEDS ORDERED: ceFAZolin 2 GM PREMIX 50 ML ONE (09:21)
[2017-05-16] MEDS ORDERED: GENTAMICIN SULFATE 80 MG/2 ML VIAL ONE (09:21)
--- NOTE | 2017-05-16 10:25 | PD.OP ---
cc: Dillon Moreira MD Operative Report Date of Surgery: May 16, 2017 Preoperative Diagnosis: Left ankle infection Postoperative Diagnosis: Procedure: Left ankle arthrotomy and irrigation and debridement, closure of wound, application wound VAC dressing Anesthesia: Gen. Surgeon: Dillon Moreira Client Services Associate(s): CAMDEN Willams PA-C The surgical procedure was assisted by my physician diet assistant. My P.A. presence was necessary throughout this case for the manipulation and positioning of the surgical extremity. My P.A. was assisting me throughout the duration of this procedure. The skill set of a physician diet assistant was medically necessary to complete this procedure. During the surgical case the surgical nurse was working at the back table and the physician diet assistant was directly assisting me. Operation and Findings: Suly is a 36-year-old male who is known to me from previous ankle surgery for treatment of ankle infection. The patient has a history of IV drug abuse which likely contributed to his infection. Informed consent was confirmed and the operative site was marked. He was brought into the operating room and placed on the operating table. He had previous irrigation and debridement of left ankle and is on scheduled antibiotics. The left leg was prepped with alcohol followed by Hibiclens and draped in the usual sterile fashion. The procedure began with the lateral ankle incision. There was minimal purulent drainage present today. At this point attention was turned to debridement of the fibula. Curets and rongeurs were used to debride soft tissue and bone. Curets were used to thoroughly debride the previous screw holes of the fibula. An arthrotomy was opened and the ankle joint was thoroughly irrigated. Curets and rongeurs were used to debride the abscess. The wound was now thoroughly irrigated. Overall the wound was clean at this time. The lateral skin was in relatively poor condition from the chronic infection. Attention was now turned towards wound closure. The majority of the wound was closable. 6 cm of wound was closed. A combination of retention suture and vertical mattress sutures were utilized. The central portion of the wound was not completely closable. Next attention was turned to VAC dressing. A wound VAC dressing was now placed over the lateral wound. The dressing was sealed appropriately. Sterile dressings were applied. Needle and sponge counts were correct. The patient was transferred to Recovery in stable condition. Dillon Moreira MD May 16, 2017 10:25
[2017-05-16] MEDS ORDERED: fentaNYL CITRATE 250 MCG/5 ML AMP ONE (11:18)
[2017-05-16] MEDS ORDERED: *morphine SULFATE 8 MG/ML PERIprocedure ONLY ONE ×2 (11:24→11:36)
[2017-05-16] MEDS ORDERED: ONDANSETRON HCL 4 MG/2 ML VIAL IV PUSH ONE (11:40)
[2017-05-16] MEDS ORDERED: PROPOFOL 200 MG/20 ML AMP IV ONE (11:40)
--- NOTE | 2017-05-16 12:28 | HHI.PR ---
Subjective Remarks The patient just came back from another washout. He had significant pain in his left foot. He also mentioned that he has a rash around his left buttocks and left lower back. He says it is quite itchy. Objective Vitals Vital Signs Date Time Temp Pulse Resp B/P Pulse Ox O2 Delivery O2 Flow Rate FiO2 05/16/17 11:45 98 16 141/72 98 Room Air 05/16/17 11:30 86 16 143/83 99 Room Air 05/16/17 11:15 96 16 138/81 98 Room Air 05/16/17 11:12 97.7 100 16 136/83 100 05/16/17 10:42 21 05/16/17 08:10 60 05/16/17 08:10 Room Air 05/16/17 08:10 60 05/16/17 06:00 98.3 71 16 116/63 97 05/16/17 00:00 98.3 78 16 129/72 97 05/15/17 20:15 Room Air 05/15/17 20:00 Room Air 05/15/17 20:00 98.2 74 18 126/66 99 05/15/17 19:56 81 05/15/17 17:36 98 21 05/15/17 16:00 98.0 75 18 123/60 98 05/15/17 13:58 98 I/O 05/15/17 05/15/17 05/15/17 05/16/17 05/16/17 05/16/17 07:00 15:00 23:00 07:00 15:00 23:00 Intake Total 0 ml 960 ml 4029 ml 422 ml 100 ml Output Total 700 ml 1500 ml 1100 ml 800 ml 200 ml Balance -700 ml -540 ml 2929 ml -378 ml -100 ml Intake Oral 0 ml 960 ml 422 ml IV Total 4029 ml 100 ml Output Urine Total 700 ml 1500 ml 1100 ml 800 ml 200 ml # Voids 1 # Bowel Movements 0 0 0 Result Diagram: 05/15/1730 05/15/17 0530 Imaging Last Impressions Chest X-Ray 05/11/17 0000 Signed Impressions: Service Date/Time: Thursday, May 11, 2017 18:17 - CONCLUSION: PICC line in good position. Jack Schreiber MD FACR Ankle MRI 05/07/17 0000 Signed Impressions: Service Date/Time: Sunday, May 07, 2017 20:32 - CONCLUSION: 1. Abnormal appearance to the medial metaphysis of the tibia with focal area of abnormal enhancing signal in continuity with the subcutaneous soft tissues characteristic of osteomyelitis and cellulitis. 2. Abnormal nonenhancing abnormality in the lateral ankle inferior to the lateral malleolus a without extension into the bone and with diffuse irregular enhancement around the periphery suggesting a lateral soft tissue abscess. Westley Briones MD Aorta w/Runoff CTA 05/03/17 0000 Signed Impressions: Service Date/Time: April 20:31 - CONCLUSION: 1. Extensive soft tissue swelling and postsurgical changes in the left ankle from recent hardware removal. 2. No significant aortic occlusive disease, inflow or outflow stenosis. 3. Limited three-vessel runoff to the mid to distal calf bilaterally with dominant posterior tibial artery runoff to the plantar arch. Although evaluation is compromised by venous contamination, the overall runoff does not appear significantly different on the left in comparison to the right. This does not support diagnosis of severe compartment syndrome. There is less prominent venous contamination in the left calf in comparison to the right which does support some degree of increased compartment pressure. However, please note that compartment syndrome cannot be reliably diagnosed in the distal extremities with CTA exam. 4. Mild splenomegaly and diffusely heterogeneous hepatic enhancement which may reflect early cirrhosis. 5. Nodular airspace disease primarily in the left lung base and extreme right middle lobe. Clinical correlation is recommended. Further evaluation may be performed with CT of the chest as indicated. Jb Thompson MD Ankle X-Ray 05/03/17 0000 Signed Impressions: Service Date/Time: April 12:29 - CONCLUSION: Status post fixation hardware removal. Stable ankle alignment Yong Coppola MD Lower Extremity CT 05/02/17 0000 Signed Impressions: Service Date/Time: Tuesday, May 02, 2017 18:55 - CONCLUSION: 1. Diffuse soft tissue swelling with no discrete focal abscess. 2. Remote postsurgical changes with no acute fracture. Demarcus Hickey MD Objective Remarks GENERAL: Well-nourished, well-developed patient in NAD. SKIN: Warm and dry. Irritated area along left lower back. HEENT: Normocephalic. Atraumatic. Pupils equal and round. Mucous membranes pink and moist. NECK: Supple. Trachea midline. CARDIOVASCULAR: Regular rate and rhythm. No murmur appreciated. RESPIRATORY: No accessory muscle use. Clear to auscultation. Breath sounds equal bilaterally. GASTROINTESTINAL: Abdomen soft, non-tender, nondistended. Normoactive bowel sounds x4. MUSCULOSKELETAL: No obvious deformities. Extremities without clubbing, cyanosis , or edema. Left ankle with wound vac in place, covered with postoperative dressing, CDI. Brisk capillary refill of left toes. NEUROLOGICAL: Awake and alert. No obvious cranial nerve deficits. Motor grossly within normal limits. Normal speech. PSYCHIATRIC: Appropriate mood and affect; insight and judgment normal. Procedures 05/03/17 irrigation and debridement of left tibia, irrigation and debridement of left fibula, removal of deep hardware Medications and IVs Current Medications Medications (Trade) Dose Ordered Sig/Dennis Route Start Time Stop Time Status Last Admin (NS Flush) 2 ml UNSCH PRN IV FLUSH 05/02/17 18:30 05/16/17 07:24 (NS Flush) 2 ml BID IV FLUSH 05/02/17 21:00 05/16/17 09:00 (Tylenol) 650 mg Q4H PRN PO 05/02/17 18:30 05/07/17 23:49 (Zofran Inj) 4 mg Q6H PRN IVP 05/02/17 18:30 05/12/17 00:50 (Narcan Inj) 0.4 mg UNSCH PRN IV 05/02/17 18:30 (Amarilis-Colace) 1 tab BID PO 05/02/17 21:00 05/15/17 20:38 (Milk Of Magnesia Liq) 30 ml Q12H PRN PO 05/02/17 18:30 (Senokot) 17.2 mg Q12H PRN PO 05/02/17 18:30 (Dulcolax Supp) 10 mg DAILY PRN RECTAL 05/02/17 18:30 Lactulose 30 ml 30 ml DAILY PRN PO 05/02/17 18:30 (Vancomycin Consult Pharmacy) 0 ml @ 0 mls/hr UNSCH OTHER 05/02/17 18:30 (Ativan Inj) 1 mg Q4H PRN IV PUSH 05/03/17 01:45 05/10/17 13:27 (Heparin Inj) 5,000 units Q12HR SQ 05/05/17 11:00 05/15/17 20:38 (Remeron) 30 mg HS PO 05/12/17 21:00 05/15/17 20:38 (NS Flush) See Protocol DAILY IV FLUSH 05/12/17 09:00 05/16/17 09:00 (NS Flush) See Protocol UNSCH PRN IV FLUSH 05/11/17 20:15 (Heparin Central Flush) See Protocol DAILY IV FLUSH 05/12/17 09:00 05/16/17 09:00 (Heparin Central Flush) See Protocol UNSCH PRN IV FLUSH 05/11/17 20:15 05/12/17 06:19 Sodium Chloride UNSCH PRN IV FLUSH 05/11/17 20:15 05/16/17 02:52 Vancomycin HCl 1750 mg/Sodium Chloride 517.5 ml @ 257.5 mls/ hr Q8H IV 05/12/17 04:00 05/16/17 02:52 (Lr 1000 ml Inj) 1,000 ml @ 100 mls/hr Q10H IV 05/14/17 12:00 05/16/17 02:52 (Percocet 10-325 Mg) 1 tab Q4HR PRN PO 05/15/17 09:30 05/16/17 05:18 Morphine Sulfate 4 mg 4 mg Q4H PRN IV PUSH 05/15/17 16:45 05/16/17 07:23 Lactated Ringer's 1,000 ml @ 30 mls/hr Q24H PRN IV 05/16/17 07:00 05/19/17 06:59 Sodium Chloride 500 ml @ 30 mls/hr [id number] PRN IV 05/16/17 07:00 05/19/17 06:59 (Lr 1000 ml Inj) 1,000 ml @ 100 mls/hr Q10H IV 05/16/17 10:18 Miscellaneous Information SPECIFIC LAB TO BE DRAWN:VANCOMYCIN TROUGH DATE TO... ONCE ONCE .XX 05/17/17 03:45 05/17/17 03:46 Date of Insertion: May 11, 2017 Line: PICC Side: Right A/P Problem List: (1) Sepsis ICD Code: A41.9 Status: Acute (2) Cellulitis of ankle ICD Code: L03.119 Status: Acute (3) Polysubstance abuse ICD Code: F19.10 Status: Chronic (4) IV drug abuse ICD Code: F19.10 Status: Chronic Assessment and Plan 36-year-old male with history of IVDU (injects into left arm only per patient), and left ankle surgery in 2009, presented to the ED 05/02/17 with 4 day history of LLE swelling/redness/pain. Sepsis secondary to cellulitis/high-grade MRSA bacteremia Infectious disease following. Blood cultures negative x5days, PICC line placed on 05/11/17. MARQUEZ negative. - continue IV vancomycin. Anticipate at least 6 weeks of IV antibiotics, probably Telavancin per infectious disease. Left ankle cellulitis Suspected septic joint: Appreciate orthopedic surgery recommendations. Status post irrigation and debridement with removal of deep hardware. Repeat irrigation and debridement and wound VAC application on 05/09/17, 05/14 and 05/16. - wound vac and dressing changes per orthopedics. - pain control with a bowel regimen. - antibiotics as above. Polysubstance abuse Patient counseled. - Cautious with pain medications. Will need to wean him off narcotics. Thrombocytosis Likely reactive. - monitor. Improving. Rash Area of irritation on left lower back. - Benadryl. - lotion as needed. DVT prophylaxis: Heparin. Discharge Planning Awaiting ortho and ID clearance Problem Qualifiers (1) Sepsis: Qualified Code: A41.9 - Sepsis, due to unspecified organism Demarcus Manuel DO May 16, 2017 12:28
[2017-05-16] MEDS ORDERED: diphenhydrAMINE HCL 50 MG CAP PO ONE (13:45)
[2017-05-16] MEDS: diphenhydrAMINE HCL 25 MG CAP PO PRN (16:39)
[2017-05-16] MEDS: MIRTAZAPINE 15 MG TAB PO SCH (20:45)
[2017-05-17] VITALS: BP 123/72; PULSE 80; RESP 18; TEMP 98.4; O2SAT 98
[2017-05-17] MEDS: oxyCODONE/ACETAMINOPHEN 10 MG/325 MG TAB PO PRN ×5 (00:59→19:11)
[2017-05-17] MEDS ORDERED: PHARMACY ORDERED LAB ONE (03:45)
[2017-05-17] MEDS: VANCOMYCIN INJ 1,750 MG in SODIUM CHLORID 0.9% 500 ML INJ 500 ML IV SCH (03:51)
[2017-05-17] MEDS: diphenhydrAMINE HCL 25 MG CAP PO PRN (03:55)
[2017-05-17] MEDS: MORPHINE SULFATE 8 MG/ML INJ IV PUSH PRN ×5 (03:56→21:39)
[2017-05-17 04:00] VITALS: BP 125/67; PULSE 82; RESP 18; TEMP 98.3; O2SAT 96
[2017-05-17] MEDS: LACTATED RINGER'S 1000 ML INJ 1,000 ML IV SCH ×4 (04:08→21:37)
[2017-05-17 08:00] VITALS: BP 123/61; PULSE 92; RESP 18; TEMP 98; O2SAT 97
[2017-05-17] MEDS: SODIUM CHLORIDE 0.9% FLUSH 10 ML FLUSH IV FLUSH SCH ×3 (09:00→21:38)
[2017-05-17] MEDS: HEPARIN SODIUM - SQ 10,000 UNITS/ML VIAL SQ SCH ×2 (09:02→21:00)
[2017-05-17] MEDS: DOCUSATE SODIUM 50 MG/SENNA 8.6 MG TAB PO SCH ×2 (09:02→21:00)
--- NOTE | 2017-05-17 09:10 | PD.ORT.PN ---
Subjective Subjective Remarks Pain controlled with no new complaints Objective Vitals Vital Signs Date Time Temp Pulse Resp B/P Pulse Ox O2 Delivery O2 Flow Rate FiO2 05/17/17 04:00 98.3 82 18 125/67 96 05/17/17 00:00 98.4 80 18 123/72 98 05/16/17 20:56 Room Air 05/16/17 20:00 Room Air 05/16/17 20:00 98.0 92 18 135/71 99 05/16/17 18:51 65 05/16/17 16:15 99 21 05/16/17 16:00 97.9 88 18 125/68 99 05/16/17 12:25 97.2 85 19 142/81 99 05/16/17 11:45 98 16 141/72 98 Room Air 05/16/17 11:30 86 16 143/83 99 Room Air 05/16/17 11:15 96 16 138/81 98 Room Air 05/16/17 11:12 97.7 100 16 136/83 100 05/16/17 10:42 21 I/O 05/16/17 05/16/17 05/16/17 05/17/17 05/17/17 05/17/17 07:00 15:00 23:00 07:00 15:00 23:00 Intake Total 422 ml 820 ml 1484 ml 360 ml Output Total 800 ml 1000 ml 2625 ml 625 ml Balance -378 ml -180 ml -1141 ml -265 ml Intake Oral 422 ml 720 ml 240 ml 360 ml IV Total 100 ml 1244 ml Output Urine Total 800 ml 1000 ml 2625 ml 625 ml # Voids 1 # Bowel Movements 0 0 0 0 Result Diagram: 05/15/17 0530 05/17/17 0409 Objective Remarks Left lower extremity: Clean dry dressings intact. Wound VAC in place with good seal. Intact sensation in all toes. Good capillary refills Assessment & Plan Assessment and Plan 1) Left Ankle HW infection s/p I&D with VIKAS - POD 11 2) Repeat Left Ankle I&D with Vac Application - POD 1 -NWB -maintain dressings and vac -vac at Intermittent:100mmH:1 -Continue antibiotics We'll plan on bedside removal of wound VAC. Dressings of Xeroform 4 x 4's and Cisco wrap will be needed bedside Sunday morning. If incision continues to look good and healing well we will plan on discharge after Sunday if antibiotics are arranged Demarcus Trimble Jr. May 17, 2017 09:10
--- NOTE | 2017-05-17 09:30 | HHI.PR ---
Subjective Remarks The patient says that his itching is better. He does state that his toes on left foot what cold overnight and was wondering about that. He describes a tingling sensation in the toes. He said he hasn't had a bowel movement in about 4 days. He has been having difficulty sleeping. Objective Vitals Vital Signs Date Time Temp Pulse Resp B/P Pulse Ox O2 Delivery O2 Flow Rate FiO2 05/17/17 08:00 98.0 92 18 123/61 97 05/17/17 04:00 98.3 82 18 125/67 96 05/17/17 00:00 98.4 80 18 123/72 98 05/16/17 20:56 Room Air 05/16/17 20:00 Room Air 05/16/17 20:00 98.0 92 18 135/71 99 05/16/17 18:51 65 05/16/17 16:15 99 21 05/16/17 16:00 97.9 88 18 125/68 99 05/16/17 12:25 97.2 85 19 142/81 99 05/16/17 11:45 98 16 141/72 98 Room Air 05/16/17 11:30 86 16 143/83 99 Room Air 05/16/17 11:15 96 16 138/81 98 Room Air 05/16/17 11:12 97.7 100 16 136/83 100 05/16/17 10:42 21 I/O 05/16/17 05/16/17 05/16/17 05/17/17 05/17/17 05/17/17 07:00 15:00 23:00 07:00 15:00 23:00 Intake Total 422 ml 820 ml 1484 ml 360 ml Output Total 800 ml 1000 ml 2625 ml 625 ml Balance -378 ml -180 ml -1141 ml -265 ml Intake Oral 422 ml 720 ml 240 ml 360 ml IV Total 100 ml 1244 ml Output Urine Total 800 ml 1000 ml 2625 ml 625 ml # Voids 1 # Bowel Movements 0 0 0 0 Result Diagram: 05/15/17 0530 05/17/17 0409 Imaging Last Impressions Chest X-Ray 05/11/17 0000 Signed Impressions: Service Date/Time: Thursday, May 11, 2017 18:17 - CONCLUSION: PICC line in good position. Jack Schreiber MD FACR Ankle MRI 05/07/17 Signed Impressions: Service Date/Time: Sunday, May 07, 2017 20:32 - CONCLUSION: 1. Abnormal appearance to the medial metaphysis of the tibia with focal area of abnormal enhancing signal in continuity with the subcutaneous soft tissues characteristic of osteomyelitis and cellulitis. 2. Abnormal nonenhancing abnormality in the lateral ankle inferior to the lateral malleolus a without extension into the bone and with diffuse irregular enhancement around the periphery suggesting a lateral soft tissue abscess. Westley Briones MD Aorta w/Runoff CTA 05/03/17 Signed Impressions: Service Date/Time: April 20:31 - CONCLUSION: 1. Extensive soft tissue swelling and postsurgical changes in the left ankle from recent hardware removal. 2. No significant aortic occlusive disease, inflow or outflow stenosis. 3. Limited three-vessel runoff to the mid to distal calf bilaterally with dominant posterior tibial artery runoff to the plantar arch. Although evaluation is compromised by venous contamination, the overall runoff does not appear significantly different on the left in comparison to the right. This does not support diagnosis of severe compartment syndrome. There is less prominent venous contamination in the left calf in comparison to the right which does support some degree of increased compartment pressure. However, please note that compartment syndrome cannot be reliably diagnosed in the distal extremities with CTA exam. 4. Mild splenomegaly and diffusely heterogeneous hepatic enhancement which may reflect early cirrhosis. 5. Nodular airspace disease primarily in the left lung base and extreme right middle lobe. Clinical correlation is recommended. Further evaluation may be performed with CT of the chest as indicated. Jb Thompson MD Ankle X-Ray 05/03/17 Signed Impressions: Service Date/Time: April 12:29 - CONCLUSION: Status post fixation hardware removal. Stable ankle alignment Yong Coppola MD Lower Extremity CT 05/02/17 0000 Signed Impressions: Service Date/Time: Tuesday, May 02, 2017 18:55 - CONCLUSION: 1. Diffuse soft tissue swelling with no discrete focal abscess. 2. Remote postsurgical changes with no acute fracture. Demarcus Hickey MD Objective Remarks GENERAL: Well-nourished, well-developed patient in NAD. SKIN: Warm and dry. Irritated area along left lower back. HEENT: Normocephalic. Atraumatic. Pupils equal and round. Mucous membranes pink and moist. NECK: Supple. Trachea midline. CARDIOVASCULAR: Regular rate and rhythm. No murmur appreciated. RESPIRATORY: No accessory muscle use. Clear to auscultation. Breath sounds equal bilaterally. GASTROINTESTINAL: Abdomen soft, non-tender, nondistended. Normoactive bowel sounds x4. MUSCULOSKELETAL: No obvious deformities. Extremities without clubbing, cyanosis , or edema. Left ankle with wound vac in place, covered with postoperative dressing, CDI. Normal capillary refill of left toes. NEUROLOGICAL: Awake and alert. No obvious cranial nerve deficits. Motor grossly within normal limits. Normal speech. PSYCHIATRIC: Appropriate mood and affect; insight and judgment normal. Procedures 05/03/17 irrigation and debridement of left tibia, irrigation and debridement of left fibula, removal of deep hardware Medications and IVs Current Medications Medications (Trade) Dose Ordered Sig/Dennis Route Start Time Stop Time Status Last Admin (NS Flush) 2 ml UNSCH PRN IV FLUSH 05/02/17 18:30 05/16/17 22:57 (NS Flush) 2 ml BID IV FLUSH 05/02/17 21:00 05/17/17 09:00 (Tylenol) 650 mg Q4H PRN PO 05/02/17 18:30 05/07/17 23:49 (Zofran Inj) 4 mg Q6H PRN IVP 05/02/17 18:30 05/12/17 00:50 (Narcan Inj) 0.4 mg UNSCH PRN IV 05/02/17 18:30 (Amarilis-Colace) 1 tab BID PO 05/02/17 21:00 05/17/17 09:02 (Milk Of Magnesia Liq) 30 ml Q12H PRN PO 05/02/17 18:30 (Senokot) 17.2 mg Q12H PRN PO 05/02/17 18:30 (Dulcolax Supp) 10 mg DAILY PRN RECTAL 05/02/17 18:30 Lactulose 30 ml 30 ml DAILY PRN PO 05/02/17 18:30 (Vancomycin Consult Pharmacy) 0 ml @ 0 mls/hr UNSCH OTHER 05/02/17 18:30 (Ativan Inj) 1 mg Q4H PRN IV PUSH 05/03/17 01:45 05/10/17 13:27 (Heparin Inj) 5,000 units Q12HR SQ 05/05/17 11:00 05/17/17 09:02 (Remeron) 30 mg HS PO 05/12/17 21:00 05/16/17 20:45 (NS Flush) See Protocol DAILY IV FLUSH 05/12/17 09:00 05/17/17 09:00 (NS Flush) See Protocol UNSCH PRN IV FLUSH 05/11/17 20:15 (Heparin Central Flush) See Protocol DAILY IV FLUSH 05/12/17 09:00 05/17/17 09:02 (Heparin Central Flush) See Protocol UNSCH PRN IV FLUSH 05/11/17 20:15 05/12/17 06:19 Sodium Chloride UNSCH PRN IV FLUSH 05/11/17 20:15 05/16/17 02:52 Vancomycin HCl 1750 mg/Sodium Chloride 517.5 ml @ 257.5 mls/ hr Q8H IV 05/12/17 04:00 05/17/17 03:51 (Lr 1000 ml Inj) 1,000 ml @ 100 mls/hr Q10H IV 05/14/17 12:00 05/17/17 09:11 (Percocet 10-325 Mg) 1 tab Q4HR PRN PO 05/15/17 09:30 05/17/17 06:30 Morphine Sulfate 4 mg 4 mg Q4H PRN IV PUSH 05/15/17 16:45 05/17/17 09:02 Lactated Ringer's 1,000 ml @ 30 mls/hr Q24H PRN IV 05/16/17 07:00 05/19/17 06:59 Sodium Chloride 500 ml @ 30 mls/hr [id number] PRN IV 05/16/17 07:00 05/19/17 06:59 (Lr 1000 ml Inj) 1,000 ml @ 100 mls/hr Q10H IV 05/16/17 10:18 05/16/17 20:18 (Benadryl) 25 mg Q6H PRN PO 05/16/17 12:30 05/17/17 03:55 Date of Insertion: May 11, 2017 Line: PICC Side: Right A/P Problem List: (1) Sepsis ICD Code: A41.9 Status: Acute (2) Cellulitis of ankle ICD Code: L03.119 Status: Acute (3) Polysubstance abuse ICD Code: F19.10 Status: Chronic (4) IV drug abuse ICD Code: F19.10 Status: Chronic Assessment and Plan 36-year-old male with history of IVDU (injects into left arm only per patient), and left ankle surgery in 2009, presented to the ED 05/02/17 with 4 day history of LLE swelling/redness/pain. Sepsis secondary to cellulitis/high-grade MRSA bacteremia Infectious disease following. Blood cultures negative x5days, PICC line placed on 05/11/17. MARQUEZ negative. - continue IV vancomycin. Anticipate at least 6 weeks of IV antibiotics, probably Telavancin per infectious disease. Left ankle cellulitis Suspected septic joint: Appreciate orthopedic surgery recommendations. Status post irrigation and debridement with removal of deep hardware. Repeat irrigation and debridement and wound VAC application on 05/09/17, 05/14 and 05/16. - wound vac and dressing changes per orthopedics. - pain control with a bowel regimen. Add Miralax. - antibiotics as above. Polysubstance abuse Patient counseled. - Cautious with pain medications. Will need to wean him off narcotics as tolerated. Thrombocytosis Likely reactive. - monitor. Improving. Rash Area of irritation on left lower back. - Benadryl. - lotion as needed. Improved. Insomnia Situational. - trial of temazepam. DVT prophylaxis: Heparin. Discharge Planning Awaiting ortho and ID clearance Problem Qualifiers (1) Sepsis: Qualified Code: A41.9 - Sepsis, due to unspecified organism Demarcus Manuel DO May 17, 2017 09:30
[2017-05-17] MEDS: POLYETHYLENE GLYCOL 17 GM PKG PO SCH (11:07)
[2017-05-17 12:00] VITALS: BP 119/59; PULSE 93; RESP 18; TEMP 98.6; O2SAT 98
[2017-05-17 16:00] VITALS: BP 112/62; PULSE 82; RESP 18; TEMP 98.1; O2SAT 99
[2017-05-17] MEDS: VANCOMYCIN INJ 1,250 MG in SODIUM CHLOR 0.9% 250 ML INJ 250 ML IV SCH (17:27)
[2017-05-17 20:00] VITALS: BP 125/62; PULSE 106; PULSE 83; PULSE 97; RESP 18; TEMP 98.1; O2SAT 98
[2017-05-17] MEDS: MIRTAZAPINE 15 MG TAB PO SCH (21:38)
[2017-05-17] MEDS: TEMAZEPAM 15 MG CAP PO PRN (21:43)
[2017-05-18] VITALS (9 sets, daily range): BP systolic 110–132; BP diastolic 57–71; PULSE 54–104; RESP 18–20; TEMP 97.9–98.7; O2SAT 95–99
[2017-05-18] MEDS: VANCOMYCIN INJ 1,250 MG in SODIUM CHLOR 0.9% 250 ML INJ 250 ML IV SCH ×3 (01:14→16:28)
[2017-05-18] MEDS: oxyCODONE/ACETAMINOPHEN 10 MG/325 MG TAB PO PRN ×5 (01:14→21:37)
[2017-05-18] MEDS: LACTATED RINGER'S 1000 ML INJ 1,000 ML IV SCH ×4 (02:18→16:00)
[2017-05-18] MEDS: MORPHINE SULFATE 8 MG/ML INJ IV PUSH PRN ×5 (03:02→23:38)
--- NOTE | 2017-05-18 07:45 | PD.ORT.PN ---
Subjective Subjective Remarks POD 2 s/p I&D with vac application and wound closure left ankle doing well. pain controlled. out of bed with walker Objective Vitals Vital Signs Date Time Temp Pulse Resp B/P Pulse Ox O2 Delivery O2 Flow Rate FiO2 05/18/17 04:00 98.0 89 18 117/62 99 05/18/17 00:00 98.7 95 20 132/69 99 05/17/17 20:00 97 05/17/17 20:00 98.1 83 18 125/62 98 05/17/17 20:00 106 05/17/17 20:00 Room Air 05/17/17 16:00 98.1 82 18 112/62 99 05/17/17 12:07 21.00 05/17/17 12:00 98.6 93 18 119/59 98 05/17/17 08:00 Room Air 05/17/17 08:00 98.0 92 18 123/61 97 I/O 05/17/17 05/17/17 05/17/17 05/18/17 05/18/17 05/18/17 07:00 15:00 23:00 07:00 15:00 23:00 Intake Total 360 ml 720 ml 500 ml 850 ml Output Total 625 ml 900 ml 625 ml 625 ml Balance -265 ml -180 ml -125 ml 225 ml Intake Oral 360 ml 720 ml 240 ml 240 ml IV Total 260 ml 610 ml Output Urine Total 625 ml 900 ml 625 ml 625 ml # Bowel Movements 0 2 0 0 Result Diagram: 05/15/17 0530 05/17/17 0409 Objective Remarks Left lower extremity: Clean dry dressings intact. Wound VAC in place with good seal. Intact sensation in all toes. Good capillary refills Assessment & Plan Assessment and Plan 1) Left Ankle HW infection s/p I&D with VIKAS - POD 12 2) Repeat Left Ankle I&D with incisional Vac Application and wound closure - POD 2 -NWB -maintain dressings and vac -vac at Intermittent:100mmH:1 -Continue antibiotics We'll plan on bedside removal of wound VAC. Dressings of Xeroform 4 x 4's and Cisco wrap will be needed bedside Sunday morning. If incision continues to look good and healing well we will plan on discharge after Sunday if antibiotics are arranged Leonid Vivas May 18, 2017 07:45
[2017-05-18] MEDS: SODIUM CHLORIDE 0.9% FLUSH 10 ML FLUSH IV FLUSH SCH ×3 (09:00→19:30)
[2017-05-18] MEDS: POLYETHYLENE GLYCOL 17 GM PKG PO SCH (09:00)
[2017-05-18] MEDS: DOCUSATE SODIUM 50 MG/SENNA 8.6 MG TAB PO SCH ×2 (09:13→19:30)
[2017-05-18] MEDS: HEPARIN SODIUM - SQ 10,000 UNITS/ML VIAL SQ SCH ×2 (09:13→19:30)
--- NOTE | 2017-05-18 16:41 | HHI.PR ---
Subjective Remarks The patient said his lower back was itching and bothering him. He has not been putting his lotion on. He says his left foot is hurting him quite a bit but he has been ambulating. He was wondering if any further intervention was gonna be needed before Sunday. He said he has had a bowel movement. Discussed with nursing. Objective Vitals Vital Signs Date Time Temp Pulse Resp B/P Pulse Ox O2 Delivery O2 Flow Rate FiO2 05/18/17 12:00 97.9 104 18 110/57 98 05/18/17 09:00 54 05/18/17 08:27 95 05/18/17 08:00 Room Air 05/18/17 08:00 98.4 89 18 117/71 98 05/18/17 04:00 98.0 89 18 117/62 99 05/18/17 00:00 98.7 95 20 132/69 99 05/17/17 20:00 97 05/17/17 20:00 98.1 83 18 125/62 98 05/17/17 20:00 106 05/17/17 20:00 Room Air I/O 05/17/17 05/17/17 05/17/17 05/18/17 05/18/17 05/18/17 06:59 14:59 22:59 06:59 14:59 22:59 Intake Total 360 ml 720 ml 500 ml 850 ml Output Total 625 ml 900 ml 625 ml 625 ml Balance -265 ml -180 ml -125 ml 225 ml Intake Oral 360 ml 720 ml 240 ml 240 ml IV Total 260 ml 610 ml Output Urine Total 625 ml 900 ml 625 ml 625 ml # Bowel Movements 0 2 0 0 Result Diagram: 05/15/17 0530 05/17/17 0409 Imaging Last Impressions Chest X-Ray 05/11/17 0000 Signed Impressions: Service Date/Time: Thursday, May 11, 2017 18:17 - CONCLUSION: PICC line in good position. Jack Schreiber MD FACR Ankle MRI 05/07/17 0000 Signed Impressions: Service Date/Time: Sunday, May 07, 2017 20:32 - CONCLUSION: 1. Abnormal appearance to the medial metaphysis of the tibia with focal area of abnormal enhancing signal in continuity with the subcutaneous soft tissues characteristic of osteomyelitis and cellulitis. 2. Abnormal nonenhancing abnormality in the lateral ankle inferior to the lateral malleolus a without extension into the bone and with diffuse irregular enhancement around the periphery suggesting a lateral soft tissue abscess. Westley Briones MD Aorta w/Runoff CTA 05/03/17 0000 Signed Impressions: Service Date/Time: April 20:31 - CONCLUSION: 1. Extensive soft tissue swelling and postsurgical changes in the left ankle from recent hardware removal. 2. No significant aortic occlusive disease, inflow or outflow stenosis. 3. Limited three-vessel runoff to the mid to distal calf bilaterally with dominant posterior tibial artery runoff to the plantar arch. Although evaluation is compromised by venous contamination, the overall runoff does not appear significantly different on the left in comparison to the right. This does not support diagnosis of severe compartment syndrome. There is less prominent venous contamination in the left calf in comparison to the right which does support some degree of increased compartment pressure. However, please note that compartment syndrome cannot be reliably diagnosed in the distal extremities with CTA exam. 4. Mild splenomegaly and diffusely heterogeneous hepatic enhancement which may reflect early cirrhosis. 5. Nodular airspace disease primarily in the left lung base and extreme right middle lobe. Clinical correlation is recommended. Further evaluation may be performed with CT of the chest as indicated. Jb Thompson MD Ankle X-Ray 05/03/17 0000 Signed Impressions: Service Date/Time: April 12:29 - CONCLUSION: Status post fixation hardware removal. Stable ankle alignment Yong Coppola MD Lower Extremity CT 05/02/17 0000 Signed Impressions: Service Date/Time: Tuesday, May 02, 2017 18:55 - CONCLUSION: 1. Diffuse soft tissue swelling with no discrete focal abscess. 2. Remote postsurgical changes with no acute fracture. Demarcus Hickey MD Objective Remarks GENERAL: Well-nourished, well-developed patient in NAD. SKIN: Warm and dry. Irritated dry area along left lower back. HEENT: Normocephalic. Atraumatic. Pupils equal and round. Mucous membranes pink and moist. NECK: Supple. Trachea midline. CARDIOVASCULAR: Regular rate and rhythm. No murmur appreciated. RESPIRATORY: No accessory muscle use. Clear to auscultation. Breath sounds equal bilaterally. GASTROINTESTINAL: Abdomen soft, non-tender, nondistended. Normoactive bowel sounds x4. MUSCULOSKELETAL: No obvious deformities. Extremities without clubbing, cyanosis , or edema. Left ankle with wound vac in place, covered with postoperative dressing, CDI. Normal capillary refill of left toes. NEUROLOGICAL: Awake and alert. No obvious cranial nerve deficits. Motor grossly within normal limits. Normal speech. PSYCHIATRIC: Appropriate mood and affect; insight and judgment normal. Procedures 05/03/17 irrigation and debridement of left tibia, irrigation and debridement of left fibula, removal of deep hardware Medications and IVs Current Medications Medications (Trade) Dose Ordered Sig/Dennis Route Start Time Stop Time Status Last Admin (NS Flush) 2 ml UNSCH PRN IV FLUSH 05/02/17 18:30 05/16/17 22:57 (NS Flush) 2 ml BID IV FLUSH 05/02/17 21:00 05/18/17 09:00 (Tylenol) 650 mg Q4H PRN PO 05/02/17 18:30 05/07/17 23:49 (Zofran Inj) 4 mg Q6H PRN IVP 05/02/17 18:30 05/12/17 00:50 (Narcan Inj) 0.4 mg UNSCH PRN IV 05/02/17 18:30 (Amarilis-Colace) 1 tab BID PO 05/02/17 21:00 05/18/17 09:13 (Milk Of Magnesia Liq) 30 ml Q12H PRN PO 05/02/17 18:30 (Senokot) 17.2 mg Q12H PRN PO 05/02/17 18:30 (Dulcolax Supp) 10 mg DAILY PRN RECTAL 05/02/17 18:30 Lactulose 30 ml 30 ml DAILY PRN PO 05/02/17 18:30 (Vancomycin Consult Pharmacy) 0 ml @ 0 mls/hr UNSCH OTHER 05/02/17 18:30 (Heparin Inj) 5,000 units Q12HR SQ 05/05/17 11:00 05/18/17 09:13 (Remeron) 30 mg HS PO 05/12/17 21:00 05/17/17 21:38 (NS Flush) See Protocol DAILY IV FLUSH 05/12/17 09:00 05/18/17 09:14 (NS Flush) See Protocol UNSCH PRN IV FLUSH 05/11/17 20:15 (Heparin Central Flush) See Protocol DAILY IV FLUSH 05/12/17 09:00 05/18/17 09:14 (Heparin Central Flush) See Protocol UNSCH PRN IV FLUSH 05/11/17 20:15 05/12/17 06:19 Sodium Chloride UNSCH PRN IV FLUSH 05/11/17 20:15 05/16/17 02:52 (Lr 1000 ml Inj) 1,000 ml @ 100 mls/hr Q10H IV 05/14/17 12:00 05/17/17 21:37 (Percocet 10-325 Mg) 1 tab Q4HR PRN PO 05/15/17 09:30 05/18/17 11:53 Morphine Sulfate 4 mg 4 mg Q4H PRN IV PUSH 05/15/17 16:45 05/18/17 14:29 Lactated Ringer's 1,000 ml @ 30 mls/hr Q24H PRN IV 05/16/17 07:00 05/19/17 06:59 Sodium Chloride 500 ml @ 30 mls/hr [id number] PRN IV 05/16/17 07:00 05/19/17 06:59 (Lr 1000 ml Inj) 1,000 ml @ 100 mls/hr Q10H IV 05/16/17 10:18 05/18/17 11:53 (Benadryl) 25 mg Q6H PRN PO 05/16/17 12:30 05/17/17 03:55 (Miralax) 17 gm DAILY PO 05/17/17 09:45 05/17/17 11:07 Temazepam 15 mg 15 mg HS PRN PO 05/17/17 09:30 05/17/17 21:43 (Vancomycin Inj/ NS 250 ml Inj) 262.5 ml @ 250 mls/hr Q8H IV 05/17/17 18:00 05/18/17 16:28 Miscellaneous Information SPECIFIC LAB TO BE DRAWN:VANCOMYCIN TROUGH DATE TO... ONCE ONCE .XX 05/19/17 01:45 05/19/17 01:46 Date of Insertion: May 11, 2017 Line: PICC Side: Right A/P Problem List: (1) Sepsis ICD Code: A41.9 Status: Acute (2) Cellulitis of ankle ICD Code: L03.119 Status: Acute (3) Polysubstance abuse ICD Code: F19.10 Status: Chronic (4) IV drug abuse ICD Code: F19.10 Status: Chronic Assessment and Plan 36-year-old male with history of IVDU (injects into left arm only per patient), and left ankle surgery in 2009, presented to the ED 05/02/17 with 4 day history of LLE swelling/redness/pain. Sepsis secondary to cellulitis/high-grade MRSA bacteremia Infectious disease following. Blood cultures negative x5days, PICC line placed on 05/11/17. MARQUEZ negative. - continue IV vancomycin. Anticipate at least 6 weeks of IV antibiotics, probably Telavancin per infectious disease. Left ankle cellulitis Suspected septic joint: Appreciate orthopedic surgery recommendations. Status post irrigation and debridement with removal of deep hardware. Repeat irrigation and debridement and wound VAC application on 05/09/17, 05/14 and 05/16. - wound vac and dressing changes per orthopedics. - pain control with a bowel regimen. Add Miralax as needed. - antibiotics as above. Polysubstance abuse Patient counseled. - Cautious with pain medications. Will need to wean him off narcotics as tolerated. Thrombocytosis Likely reactive. - monitor. Improving. Rash Area of irritation on left lower back. Appears to be a dry area. - Benadryl. - Start Lac-Hydrin. Insomnia Situational. - trial of temazepam. DVT prophylaxis: Heparin. Discharge Planning Awaiting ortho and ID clearance Problem Qualifiers (1) Sepsis: Qualified Code: A41.9 - Sepsis, due to unspecified organism Demarcus Manuel DO May 18, 2017 16:41
[2017-05-18] MEDS: MIRTAZAPINE 15 MG TAB PO SCH (19:30)
[2017-05-18] MEDS: LACTIC ACID (AMMONIUM LACTATE) 12% LOTION 225 GM BTL TOPICAL SCH (21:11)
[2017-05-18] MEDS: TEMAZEPAM 15 MG CAP PO PRN (21:37)
[2017-05-19] VITALS: BP 124/69; PULSE 88; RESP 20; TEMP 99.2; O2SAT 98
[2017-05-19] MEDS ORDERED: PHARMACY ORDERED LAB ONE (01:45)
[2017-05-19] MEDS: VANCOMYCIN INJ 1,250 MG in SODIUM CHLOR 0.9% 250 ML INJ 250 ML IV SCH ×3 (01:53→17:48)
[2017-05-19] MEDS: oxyCODONE/ACETAMINOPHEN 10 MG/325 MG TAB PO PRN ×5 (01:54→21:58)
[2017-05-19] MEDS: MORPHINE SULFATE 8 MG/ML INJ IV PUSH PRN ×4 (04:20→19:40)
[2017-05-19 04:36] LABS: AUTOMATED NEUTROPHIL # 4.6 TH/MM3 (1.8-7.7); BASOPHIL # 0.2 TH/MM3 (0-0.2); BASOPHIL % 3.1 % (0.0-2.0); EOSINOPHIL # 0.3 TH/MM3 (0-0.4); EOSINOPHIL % 3.3 % (0.0-4.0); HEMATOCRIT 35.5 % (39.0-51.0); HEMO FLAGS DIFF FINAL; LYMPH % 22.6 % (9.0-44.0); LYMPHOCYTE # 1.7 TH/MM3 (1.0-4.8); MEAN CELL VOLUME 80.1 FL (80.0-100.0); MEAN CORPUSCULAR HEMOGLOBIN 27.7 PG (27.0-34.0); MEAN CORPUSCULAR HGB CONC 34.6 % (32.0-36.0); MONO % 11.8 % (0.0-8.0); NEUT % 59.2 % (16.0-70.0); PLATELET COUNT 694 TH/MM3 (150-450); RED BLOOD COUNT 4.43 MIL/MM3 (4.50-5.90); RED CELL DISTRIBUTION WIDTH 15.6 % (11.6-17.2); WHITE BLOOD COUNT 7.7 TH/MM3 (4.0-11.0)
[2017-05-19 06:05] VITALS: BP 127/66; PULSE 75; RESP 18; TEMP 97.9; O2SAT 98
[2017-05-19 08:00] VITALS: BP 100/62; PULSE 75; RESP 16; TEMP 98.2; O2SAT 97
[2017-05-19] MEDS: LACTIC ACID (AMMONIUM LACTATE) 12% LOTION 225 GM BTL TOPICAL SCH ×2 (09:00→22:01)
[2017-05-19] MEDS: POLYETHYLENE GLYCOL 17 GM PKG PO SCH (09:00)
[2017-05-19] MEDS: SODIUM CHLORIDE 0.9% FLUSH 10 ML FLUSH IV FLUSH SCH ×3 (09:00→19:41)
[2017-05-19] MEDS: HEPARIN SODIUM - SQ 10,000 UNITS/ML VIAL SQ SCH ×2 (10:08→19:41)
[2017-05-19] MEDS: DOCUSATE SODIUM 50 MG/SENNA 8.6 MG TAB PO SCH ×2 (10:09→19:41)
--- NOTE | 2017-05-19 11:26 | HHI.PR ---
Subjective Remarks The patient was resting comfortably in bed. He said he still had dry skin along his lower back. He said he believes his left foot is a little bit smaller. He has been sleeping better. He is trying to eat. He does complain of some rib pain when breathing deeply. Objective Vitals Vital Signs Date Time Temp Pulse Resp B/P Pulse Ox O2 Delivery O2 Flow Rate FiO2 05/19/17 08:00 98.2 75 16 100/62 97 05/19/17 06:05 97.9 75 18 127/66 98 05/19/17 04:00 Room Air 05/19/17 00:00 99.2 88 20 124/69 98 05/19/17 00:00 Room Air 05/18/17 23:43 18 05/18/17 20:00 98.1 84 20 128/59 98 05/18/17 20:00 Room Air 05/18/17 17:36 98 21 05/18/17 16:00 98.1 82 18 121/59 98 05/18/17 12:00 97.9 104 18 110/57 98 I/O 05/18/17 05/18/17 05/18/17 05/19/17 05/19/17 05/19/17 07:00 15:00 23:00 07:00 15:00 23:00 Intake Total 850 ml 720 ml 992 ml Output Total 625 ml 600 ml 450 ml 250 ml Balance 225 ml 120 ml 542 ml -250 ml Intake Oral 240 ml 720 ml IV Total 610 ml 992 ml Output Urine Total 625 ml 600 ml 450 ml 250 ml # Bowel Movements 0 1 Result Diagram: 05/19/17 0425 05/19/17 0425 Imaging Last Impressions Chest X-Ray 05/11/17 0000 Signed Impressions: Service Date/Time: Thursday, May 11, 2017 18:17 - CONCLUSION: PICC line in good position. Jack Schreiber MD FACR Ankle MRI 05/07/17 0000 Signed Impressions: Service Date/Time: Sunday, May 07, 2017 20:32 - CONCLUSION: 1. Abnormal appearance to the medial metaphysis of the tibia with focal area of abnormal enhancing signal in continuity with the subcutaneous soft tissues characteristic of osteomyelitis and cellulitis. 2. Abnormal nonenhancing abnormality in the lateral ankle inferior to the lateral malleolus a without extension into the bone and with diffuse irregular enhancement around the periphery suggesting a lateral soft tissue abscess. Westley Briones MD Aorta w/Runoff CTA 05/03/17 0000 Signed Impressions: Service Date/Time: April 20:31 - CONCLUSION: 1. Extensive soft tissue swelling and postsurgical changes in the left ankle from recent hardware removal. 2. No significant aortic occlusive disease, inflow or outflow stenosis. 3. Limited three-vessel runoff to the mid to distal calf bilaterally with dominant posterior tibial artery runoff to the plantar arch. Although evaluation is compromised by venous contamination, the overall runoff does not appear significantly different on the left in comparison to the right. This does not support diagnosis of severe compartment syndrome. There is less prominent venous contamination in the left calf in comparison to the right which does support some degree of increased compartment pressure. However, please note that compartment syndrome cannot be reliably diagnosed in the distal extremities with CTA exam. 4. Mild splenomegaly and diffusely heterogeneous hepatic enhancement which may reflect early cirrhosis. 5. Nodular airspace disease primarily in the left lung base and extreme right middle lobe. Clinical correlation is recommended. Further evaluation may be performed with CT of the chest as indicated. Jb Thompson MD Ankle X-Ray 05/03/17 0000 Signed Impressions: Service Date/Time: April 12:29 - CONCLUSION: Status post fixation hardware removal. Stable ankle alignment Yong Coppola MD Lower Extremity CT 05/02/17 0000 Signed Impressions: Service Date/Time: Tuesday, May 02, 2017 18:55 - CONCLUSION: 1. Diffuse soft tissue swelling with no discrete focal abscess. 2. Remote postsurgical changes with no acute fracture. Demarcus Hickey MD Objective Remarks GENERAL: Well-nourished, well-developed patient in NAD. SKIN: Warm and dry. Irritated dry area along left lower back. HEENT: Normocephalic. Atraumatic. Pupils equal and round. Mucous membranes pink and moist. NECK: Supple. Trachea midline. CARDIOVASCULAR: Regular rate and rhythm. No murmur appreciated. RESPIRATORY: No accessory muscle use. Clear to auscultation. Breath sounds equal bilaterally. GASTROINTESTINAL: Abdomen soft, non-tender, nondistended. Normoactive bowel sounds x4. MUSCULOSKELETAL: Right lateral ribs slightly tender to palpation. Extremities without clubbing, cyanosis, or edema. Left ankle with wound vac in place, covered with postoperative dressing, CDI. Normal capillary refill of left toes. NEUROLOGICAL: Awake and alert. No obvious cranial nerve deficits. Motor grossly within normal limits. Normal speech. PSYCHIATRIC: Appropriate mood and affect; insight and judgment normal. Procedures 05/03/17 irrigation and debridement of left tibia, irrigation and debridement of left fibula, removal of deep hardware Medications and IVs Current Medications Medications (Trade) Dose Ordered Sig/Dennis Route Start Time Stop Time Status Last Admin (NS Flush) 2 ml UNSCH PRN IV FLUSH 05/02/17 18:30 05/16/17 22:57 (NS Flush) 2 ml BID IV FLUSH 05/02/17 21:00 05/19/17 09:00 (Tylenol) 650 mg Q4H PRN PO 05/02/17 18:30 05/07/17 23:49 (Zofran Inj) 4 mg Q6H PRN IVP 05/02/17 18:30 05/12/17 00:50 (Narcan Inj) 0.4 mg UNSCH PRN IV 05/02/17 18:30 (Amarilis-Colace) 1 tab BID PO 05/02/17 21:00 05/19/17 10:09 (Milk Of Magnesia Liq) 30 ml Q12H PRN PO 05/02/17 18:30 (Senokot) 17.2 mg Q12H PRN PO 05/02/17 18:30 (Dulcolax Supp) 10 mg DAILY PRN RECTAL 05/02/17 18:30 Lactulose 30 ml 30 ml DAILY PRN PO 05/02/17 18:30 (Vancomycin Consult Pharmacy) 0 ml @ 0 mls/hr UNSCH OTHER 05/02/17 18:30 (Heparin Inj) 5,000 units Q12HR SQ 05/05/17 11:00 05/19/17 10:08 (Remeron) 30 mg HS PO 05/12/17 21:00 05/18/17 19:30 (NS Flush) See Protocol DAILY IV FLUSH 05/12/17 09:00 05/19/17 09:00 (NS Flush) See Protocol UNSCH PRN IV FLUSH 05/11/17 20:15 (Heparin Central Flush) See Protocol DAILY IV FLUSH 05/12/17 09:00 05/19/17 10:08 (Heparin Central Flush) See Protocol UNSCH PRN IV FLUSH 05/11/17 20:15 05/12/17 06:19 (NS Flush) UNSCH PRN IV FLUSH 05/11/17 20:15 05/16/17 02:52 (Percocet 10-325 Mg) 1 tab Q4HR PRN PO 05/15/17 09:30 05/19/17 06:37 (Morphine Inj) 4 mg Q4H PRN IV PUSH 05/15/17 16:45 05/19/17 10:08 (Benadryl) 25 mg Q6H PRN PO 05/16/17 12:30 05/17/17 03:55 (Miralax) 17 gm DAILY PO 05/17/17 09:45 05/17/17 11:07 Temazepam 15 mg 15 mg HS PRN PO 05/17/17 09:30 05/18/17 21:37 (Vancomycin Inj/ NS 250 ml Inj) 262.5 ml @ 250 mls/hr Q8H IV 05/17/17 18:00 05/19/17 10:07 (Lac-Hydrin 12% Lotion) 1 applic BID TOPICAL 05/18/17 21:00 05/19/17 09:00 Miscellaneous Information SPECIFIC LAB TO BE ASH... ONCE ONCE .XX 05/20/17 01:45 05/20/17 01:46 Date of Insertion: May 11, 2017 Line: PICC Side: Right A/P Problem List: (1) Sepsis ICD Code: A41.9 Status: Acute (2) Cellulitis of ankle ICD Code: L03.119 Status: Acute (3) Polysubstance abuse ICD Code: F19.10 Status: Chronic (4) IV drug abuse ICD Code: F19.10 Status: Chronic Assessment and Plan 36-year-old male with history of IVDU (injects into left arm only per patient), and left ankle surgery in 2009, presented to the ED 05/02/17 with 4 day history of LLE swelling/redness/pain. Sepsis secondary to cellulitis/high-grade MRSA bacteremia Infectious disease following. Blood cultures negative x5days, PICC line placed on 05/11/17. MARQUEZ negative. - continue IV vancomycin. Anticipate at least 6 weeks of IV antibiotics, probably Telavancin per infectious disease. Left ankle cellulitis Suspected septic joint: Appreciate orthopedic surgery recommendations. Status post irrigation and debridement with removal of deep hardware. Repeat irrigation and debridement and wound VAC application on 05/09/17, 05/14 and 05/16. - wound vac and dressing changes per orthopedics. - pain control with a bowel regimen. Add Miralax as needed. - antibiotics as above. Polysubstance abuse Patient counseled. - Cautious with pain medications. Will need to wean him off narcotics as tolerated. Thrombocytosis Likely reactive. - monitor. Improving. Rash Area of irritation on left lower back. Appears to be a dry area. - Benadryl. - Start Lac-Hydrin. Insomnia Situational. - trial of temazepam. Improved. Right rib pain Worse with deep breaths. Reproducible on exam. - check a CXR. - IS. DVT prophylaxis: Heparin. Discharge Planning Awaiting ortho and ID clearance Problem Qualifiers (1) Sepsis: Qualified Code: A41.9 - Sepsis, due to unspecified organism Demarcus Manuel DO May 19, 2017 11:26
[2017-05-19 12:00] VITALS: BP 119/62; PULSE 83; RESP 16; TEMP 98.1; O2SAT 97
--- NOTE | 2017-05-19 12:09 | RADRPT ---
EXAM DATE/TIME: 05/19/2017 11:37 [facility] COMPARISON: CHEST SINGLE AP, May 11, 2017, 18:17. INDICATIONS : Shortness of breath. MEDICAL HISTORY : None. SURGICAL HISTORY : ORIF left ankle. ENCOUNTER: Initial ACUITY: 2 days PAIN SCORE: 0/10 LOCATION: Bilateral chest FINDINGS: A single view of the chest demonstrates the lungs to be symmetrically aerated without evidence of mas s, infiltrate or effusion. The cardiomediastinal contours are unremarkable. Osseous structures are intact. Right upper sternal PICC line is in stable position. CONCLUSION: No acute disease. Yong Coppola MD on May 19, 2017 at 12:07 Board Certified Radiologist. This report was verified electronically.
[2017-05-19 16:00] VITALS: BP 119/75; PULSE 89; RESP 16; TEMP 98.2; O2SAT 98
[2017-05-19] MEDS: MIRTAZAPINE 15 MG TAB PO SCH (19:41)
[2017-05-19 21:21] VITALS: BP 131/63; PULSE 77; RESP 20; TEMP 97.9; O2SAT 100
[2017-05-19] MEDS: TEMAZEPAM 15 MG CAP PO PRN (21:58)
[2017-05-20] VITALS (8 sets, daily range): BP systolic 98–123; BP diastolic 55–69; PULSE 72–92; RESP 19–20; TEMP 97.8–98.9; O2SAT 97–100
[2017-05-20] MEDS: MORPHINE SULFATE 8 MG/ML INJ IV PUSH PRN ×6 (00:07→22:17)
[2017-05-20] MEDS ORDERED: PHARMACY ORDERED LAB ONE (01:45)
[2017-05-20] MEDS: oxyCODONE/ACETAMINOPHEN 10 MG/325 MG TAB PO PRN ×5 (01:55→19:59)
[2017-05-20] MEDS: VANCOMYCIN INJ 1,250 MG in SODIUM CHLOR 0.9% 250 ML INJ 250 ML IV SCH ×2 (01:56→09:04)
[2017-05-20] MEDS: POLYETHYLENE GLYCOL 17 GM PKG PO SCH (09:05)
[2017-05-20] MEDS: HEPARIN SODIUM - SQ 10,000 UNITS/ML VIAL SQ SCH ×2 (09:05→20:00)
[2017-05-20] MEDS: SODIUM CHLORIDE 0.9% FLUSH 10 ML FLUSH IV FLUSH SCH ×3 (09:05→20:00)
[2017-05-20] MEDS: DOCUSATE SODIUM 50 MG/SENNA 8.6 MG TAB PO SCH ×2 (09:06→20:00)
[2017-05-20] MEDS: LACTIC ACID (AMMONIUM LACTATE) 12% LOTION 225 GM BTL TOPICAL SCH ×2 (09:06→20:00)
--- NOTE | 2017-05-20 09:37 | HHI.PR ---
Subjective Remarks The patient said that he still had a little bit of pain in his right rib area when he breathes deep. He has not been coughing. He says that the antibiotics make the food taste weird. No acute complaints at this time. Objective Vitals Vital Signs Date Time Temp Pulse Resp B/P Pulse Ox O2 Delivery O2 Flow Rate FiO2 05/20/17 08:00 98.3 77 20 105/57 98 05/20/17 05:36 Room Air 05/20/17 04:38 98.1 80 20 98/55 100 05/20/17 02:01 98.9 72 19 121/69 100 05/20/17 01:02 Room Air 05/19/17 21:54 21 05/19/17 21:21 97.9 77 20 131/63 100 05/19/17 20:35 Room Air 05/19/17 16:00 98.2 89 16 119/75 98 05/19/17 12:00 98.1 83 16 119/62 97 I/O 05/19/17 05/19/17 05/19/17 05/20/17 05/20/17 05/20/17 07:00 15:00 23:00 07:00 15:00 23:00 Intake Total 720 ml 319 ml 259 ml Output Total 250 ml 400 ml 230 ml Balance -250 ml 320 ml 319 ml 29 ml Intake Oral 720 ml IV Total 319 ml 259 ml Output Urine Total 250 ml 400 ml 230 ml # Bowel Movements 1 Result Diagram: 05/19/17 0425 05/20/17 0405 Imaging Last Impressions Chest X-Ray 05/19/17 0000 Signed Impressions: Service Date/Time: Friday, May 19, 2017 11:37 - CONCLUSION: No acute disease. Yong Coppola MD Ankle MRI 05/07/17 0000 Signed Impressions: Service Date/Time: Sunday, May 07, 2017 20:32 - CONCLUSION: 1. Abnormal appearance to the medial metaphysis of the tibia with focal area of abnormal enhancing signal in continuity with the subcutaneous soft tissues characteristic of osteomyelitis and cellulitis. 2. Abnormal nonenhancing abnormality in the lateral ankle inferior to the lateral malleolus a without extension into the bone and with diffuse irregular enhancement around the periphery suggesting a lateral soft tissue abscess. Westley Briones MD Aorta w/Runoff CTA 05/03/17 0000 Signed Impressions: Service Date/Time: April 20:31 - CONCLUSION: 1. Extensive soft tissue swelling and postsurgical changes in the left ankle from recent hardware removal. 2. No significant aortic occlusive disease, inflow or outflow stenosis. 3. Limited three-vessel runoff to the mid to distal calf bilaterally with dominant posterior tibial artery runoff to the plantar arch. Although evaluation is compromised by venous contamination, the overall runoff does not appear significantly different on the left in comparison to the right. This does not support diagnosis of severe compartment syndrome. There is less prominent venous contamination in the left calf in comparison to the right which does support some degree of increased compartment pressure. However, please note that compartment syndrome cannot be reliably diagnosed in the distal extremities with CTA exam. 4. Mild splenomegaly and diffusely heterogeneous hepatic enhancement which may reflect early cirrhosis. 5. Nodular airspace disease primarily in the left lung base and extreme right middle lobe. Clinical correlation is recommended. Further evaluation may be performed with CT of the chest as indicated. Jb Thompson MD Ankle X-Ray 05/03/17 0000 Signed Impressions: Service Date/Time: April 12:29 - CONCLUSION: Status post fixation hardware removal. Stable ankle alignment Yong Coppola MD Lower Extremity CT 05/02/17 0000 Signed Impressions: Service Date/Time: Tuesday, May 02, 2017 18:55 - CONCLUSION: 1. Diffuse soft tissue swelling with no discrete focal abscess. 2. Remote postsurgical changes with no acute fracture. Demarcus Hickey MD Objective Remarks GENERAL: Well-nourished, well-developed patient in NAD. SKIN: Warm and dry. Irritated dry area along left lower back. HEENT: Normocephalic. Atraumatic. Pupils equal and round. Mucous membranes pink and moist. NECK: Supple. Trachea midline. CARDIOVASCULAR: Regular rate and rhythm. No murmur appreciated. RESPIRATORY: No accessory muscle use. Clear to auscultation. Breath sounds equal bilaterally. GASTROINTESTINAL: Abdomen soft, non-tender, nondistended. Normoactive bowel sounds x4. MUSCULOSKELETAL: Right lateral ribs slightly tender to palpation. Extremities without clubbing, cyanosis, or edema. Left ankle with wound vac in place, covered with postoperative dressing, CDI. Normal capillary refill of left toes. NEUROLOGICAL: Awake and alert. No obvious cranial nerve deficits. Motor grossly within normal limits. Normal speech. PSYCHIATRIC: Appropriate mood and affect; insight and judgment normal. Procedures 05/03/17 irrigation and debridement of left tibia, irrigation and debridement of left fibula, removal of deep hardware Medications and IVs Current Medications Medications (Trade) Dose Ordered Sig/Dennis Route Start Time Stop Time Status Last Admin (NS Flush) 2 ml UNSCH PRN IV FLUSH 05/02/17 18:30 05/16/17 22:57 (NS Flush) 2 ml BID IV FLUSH 05/02/17 21:00 05/20/17 09:05 (Tylenol) 650 mg Q4H PRN PO 05/02/17 18:30 05/07/17 23:49 (Zofran Inj) 4 mg Q6H PRN IVP 05/02/17 18:30 05/12/17 00:50 (Narcan Inj) 0.4 mg UNSCH PRN IV 05/02/17 18:30 (Amarilis-Colace) 1 tab BID PO 05/02/17 21:00 05/19/17 10:09 (Milk Of Magnesia Liq) 30 ml Q12H PRN PO 05/02/17 18:30 (Senokot) 17.2 mg Q12H PRN PO 05/02/17 18:30 (Dulcolax Supp) 10 mg DAILY PRN RECTAL 05/02/17 18:30 Lactulose 30 ml 30 ml DAILY PRN PO 05/02/17 18:30 (Vancomycin Consult Pharmacy) 0 ml @ 0 mls/hr UNSCH OTHER 05/02/17 18:30 (Heparin Inj) 5,000 units Q12HR SQ 05/05/17 11:00 05/20/17 09:05 (Remeron) 30 mg HS PO 05/12/17 21:00 05/19/17 19:41 (NS Flush) See Protocol DAILY IV FLUSH 05/12/17 09:00 05/20/17 09:05 (NS Flush) See Protocol UNSCH PRN IV FLUSH 05/11/17 20:15 (Heparin Central Flush) See Protocol DAILY IV FLUSH 05/12/17 09:00 05/20/17 09:05 (Heparin Central Flush) See Protocol UNSCH PRN IV FLUSH 05/11/17 20:15 05/12/17 06:19 (NS Flush) UNSCH PRN IV FLUSH 05/11/17 20:15 05/16/17 02:52 (Percocet 10-325 Mg) 1 tab Q4HR PRN PO 05/15/17 09:30 05/20/17 05:49 (Morphine Inj) 4 mg Q4H PRN IV PUSH 05/15/17 16:45 05/20/17 09:06 (Benadryl) 25 mg Q6H PRN PO 05/16/17 12:30 05/17/17 03:55 (Miralax) 17 gm DAILY PO 05/17/17 09:45 05/20/17 09:05 (Restoril) 15 mg HS PRN PO 05/17/17 09:30 05/19/17 21:58 Lactic Acid 1 applic 1 applic BID TOPICAL 05/18/17 21:00 05/20/17 09:06 (Vancomycin Inj/ NS 500 ml Inj) 515 ml @ 257.5 mls/ hr Q8H IV 05/20/17 17:00 Miscellaneous Information SPECIFIC LAB TO BE ASH... ONCE ONCE .XX 05/21/17 16:45 05/21/17 16:46 Date of Insertion: May 11, 2017 Line: PICC Side: Right A/P Problem List: (1) Sepsis ICD Code: A41.9 Status: Acute (2) Cellulitis of ankle ICD Code: L03.119 Status: Acute (3) Polysubstance abuse ICD Code: F19.10 Status: Chronic (4) IV drug abuse ICD Code: F19.10 Status: Chronic Assessment and Plan 36-year-old male with history of IVDU (injects into left arm only per patient), and left ankle surgery in 2009, presented to the ED 05/02/17 with 4 day history of LLE swelling/redness/pain. Sepsis secondary to cellulitis/high-grade MRSA bacteremia Infectious disease following. Blood cultures negative x5days, PICC line placed on 05/11/17. MARQUEZ negative. - continue IV vancomycin. Anticipate at least 6 weeks of IV antibiotics, probably Telavancin per infectious disease. Left ankle cellulitis Suspected septic joint: Appreciate orthopedic surgery recommendations. Status post irrigation and debridement with removal of deep hardware. Repeat irrigation and debridement and wound VAC application on 05/09/17, 05/14 and 05/16. - wound vac and dressing changes per orthopedics. - pain control with a bowel regimen. Add Miralax as needed. - antibiotics as above. Polysubstance abuse Patient counseled. - Cautious with pain medications. Will need to wean him off narcotics as tolerated. Thrombocytosis Likely reactive. - monitor. Improving. Rash Area of irritation on left lower back. Appears to be a dry area. - Benadryl. - Start Lac-Hydrin. Insomnia Situational. - trial of temazepam. Improved. Right rib pain Worse with deep breaths. Reproducible on exam. Chest x-ray unremarkable. Likely secondary to costochondritis. - IS. - Pain control as needed. DVT prophylaxis: Heparin. Discharge Planning Awaiting ortho and ID clearance Problem Qualifiers (1) Sepsis: Qualified Code: A41.9 - Sepsis, due to unspecified organism Demarcus Manuel DO May 20, 2017 09:36
[2017-05-20] MEDS: VANCOMYCIN 1,500 MG/NS 500 ML IV SCH ×2 (16:09)
[2017-05-20] MEDS: MIRTAZAPINE 15 MG TAB PO SCH (20:00)
[2017-05-20] MEDS: TEMAZEPAM 15 MG CAP PO PRN (22:16)
[2017-05-21] VITALS: BP 113/63; PULSE 98; RESP 21; TEMP 98.1; O2SAT 97
[2017-05-21] MEDS: VANCOMYCIN 1,500 MG/NS 500 ML IV SCH ×4 (00:10→08:39)
[2017-05-21] MEDS: oxyCODONE/ACETAMINOPHEN 10 MG/325 MG TAB PO PRN ×4 (00:10→12:58)
[2017-05-21] MEDS: MORPHINE SULFATE 8 MG/ML INJ IV PUSH PRN ×2 (02:27→06:07)
[2017-05-21 04:00] VITALS: BP 109/54; PULSE 89; RESP 18; TEMP 98.1; O2SAT 99
--- NOTE | 2017-05-21 07:03 | PD.ORT.PN ---
Subjective Subjective Remarks POD 5 s/p I&D with vac application and wound closure left ankle doing well. pain controlled. out of bed with walker Objective Vitals Vital Signs Date Time Temp Pulse Resp B/P Pulse Ox O2 Delivery O2 Flow Rate FiO2 05/21/17 04:10 Room Air 05/21/17 04:00 98.1 89 18 109/54 99 05/21/17 00:00 98.1 98 21 113/63 97 05/21/17 00:00 Room Air 05/20/17 21:19 Room Air 05/20/17 20:00 Room Air 05/20/17 20:00 97.8 86 20 104/60 97 05/20/17 17:01 97 21 05/20/17 16:00 98.0 92 20 123/59 98 05/20/17 12:00 98.0 92 20 123/66 97 05/20/17 10:03 97 21 05/20/17 09:17 Room Air 05/20/17 08:00 98.3 77 20 105/57 98 I/O 05/20/17 05/20/17 05/20/17 05/21/17 05/21/17 05/21/17 07:00 15:00 23:00 07:00 15:00 23:00 Intake Total 259 ml 960 ml 252 ml 515 ml Output Total 230 ml 950 ml 600 ml 300 ml Balance 29 ml 10 ml -348 ml 215 ml Intake Oral 960 ml IV Total 259 ml 252 ml 515 ml Output Urine Total 230 ml 950 ml 600 ml 300 ml # Bowel Movements 1 0 0 Result Diagram: 05/19/17 0425 05/21/17 0400 Objective Remarks Left lower extremity: Clean dry dressings intact. Wound VAC in place with good seal. Intact sensation in all toes. Good capillary refills. vac removed. incision visualized. clean and dry. [id number] area of wound at distal incision from traumatic skin. slight drainage. swelling decreased Assessment & Plan Assessment and Plan 1) Left Ankle HW infection s/p I&D with [facility] - POD 15 2) Repeat Left Ankle I&D with incisional Vac Application and wound closure - POD 5 -NWB -VAC DCd at bedside and dressing change performed -daily dressing changes with xeroform/4x4/YOAV -Infectious Disease and CM to arrange for home IV Abx -as soon as Abx are arranged, patient cleared for discharge -ortho cleared for discharge -f/u with [facility] or [facility] in 2 weeks Leonid Vivas May 21, 2017 07:03
--- NOTE | 2017-05-21 07:04 | HHI.FF ---
Face to Face Verification Diagnosis: (1) Septic joint Nursing Dressing Changes: Daily dressing change, Cisco wrap, 4x4s, Xeroform I have seen patient Suly Vasquez on 05/21/17. My clinical findings support the need for the requested home health care services because: Ltd mobility - disease progression I certify that my clinical findings support that this patient is homebound because: Post-op weakness Leonid Vivas May 21, 2017 07:04
[2017-05-21] MEDS ORDERED: WALKER/ADULT/FO1 MIS (07:05)
[2017-05-21] MEDS ORDERED: PERC10TA27 PO (07:05)
[2017-05-21 08:00] VITALS: BP 118/68; PULSE 81; RESP 18; TEMP 97.7; O2SAT 98
[2017-05-21] MEDS: HEPARIN SODIUM - SQ 10,000 UNITS/ML VIAL SQ SCH (08:38)
[2017-05-21] MEDS: LACTIC ACID (AMMONIUM LACTATE) 12% LOTION 225 GM BTL TOPICAL SCH (08:38)
[2017-05-21] MEDS: DOCUSATE SODIUM 50 MG/SENNA 8.6 MG TAB PO SCH (08:38)
[2017-05-21] MEDS: POLYETHYLENE GLYCOL 17 GM PKG PO SCH (08:38)
[2017-05-21] MEDS: SODIUM CHLORIDE 0.9% FLUSH 10 ML FLUSH IV FLUSH SCH ×2 (09:00→09:35)
--- NOTE | 2017-05-21 09:52 | HHI.PR ---
Subjective Remarks The patient was feeling well and looking forward to going home. He said the wound VAC was removed and was told that the wound was doing well. He says this infection was a real wake-up call. Discussed with nursing and case management. Objective Vitals Vital Signs Date Time Temp Pulse Resp B/P Pulse Ox O2 Delivery O2 Flow Rate FiO2 05/21/17 08:00 97.7 81 18 118/68 98 05/21/17 04:10 Room Air 05/21/17 04:00 98.1 89 18 109/54 99 05/21/17 00:00 98.1 98 21 113/63 97 05/21/17 00:00 Room Air 05/20/17 21:19 Room Air 05/20/17 20:00 Room Air 05/20/17 20:00 97.8 86 20 104/60 97 05/20/17 17:01 97 21 05/20/17 16:00 98.0 92 20 123/59 98 05/20/17 12:00 98.0 92 20 123/66 97 05/20/17 10:03 97 21 I/O 05/20/17 05/20/17 05/20/17 05/21/17 05/21/17 05/21/17 07:00 15:00 23:00 07:00 15:00 23:00 Intake Total 259 ml 960 ml 252 ml 515 ml Output Total 230 ml 950 ml 600 ml 300 ml Balance 29 ml 10 ml -348 ml 215 ml Intake Oral 960 ml IV Total 259 ml 252 ml 515 ml Output Urine Total 230 ml 950 ml 600 ml 300 ml # Bowel Movements 1 0 0 Result Diagram: 05/19/17 0425 05/21/17 0400 Imaging Last Impressions Chest X-Ray 05/19/17 0000 Signed Impressions: Service Date/Time: Friday, May 19, 2017 11:37 - CONCLUSION: No acute disease. Yong Coppola MD Ankle MRI 05/07/17 0000 Signed Impressions: Service Date/Time: Sunday, May 07, 2017 20:32 - CONCLUSION: 1. Abnormal appearance to the medial metaphysis of the tibia with focal area of abnormal enhancing signal in continuity with the subcutaneous soft tissues characteristic of osteomyelitis and cellulitis. 2. Abnormal nonenhancing abnormality in the lateral ankle inferior to the lateral malleolus a without extension into the bone and with diffuse irregular enhancement around the periphery suggesting a lateral soft tissue abscess. Westley Briones MD Aorta w/Runoff CTA 05/03/17 0000 Signed Impressions: Service Date/Time: April 20:31 - CONCLUSION: 1. Extensive soft tissue swelling and postsurgical changes in the left ankle from recent hardware removal. 2. No significant aortic occlusive disease, inflow or outflow stenosis. 3. Limited three-vessel runoff to the mid to distal calf bilaterally with dominant posterior tibial artery runoff to the plantar arch. Although evaluation is compromised by venous contamination, the overall runoff does not appear significantly different on the left in comparison to the right. This does not support diagnosis of severe compartment syndrome. There is less prominent venous contamination in the left calf in comparison to the right which does support some degree of increased compartment pressure. However, please note that compartment syndrome cannot be reliably diagnosed in the distal extremities with CTA exam. 4. Mild splenomegaly and diffusely heterogeneous hepatic enhancement which may reflect early cirrhosis. 5. Nodular airspace disease primarily in the left lung base and extreme right middle lobe. Clinical correlation is recommended. Further evaluation may be performed with CT of the chest as indicated. Jb Thompson MD Ankle X-Ray 05/03/17 0000 Signed Impressions: Service Date/Time: April 12:29 - CONCLUSION: Status post fixation hardware removal. Stable ankle alignment Yong Coppola MD Lower Extremity CT 05/02/17 0000 Signed Impressions: Service Date/Time: Tuesday, May 02, 2017 18:55 - CONCLUSION: 1. Diffuse soft tissue swelling with no discrete focal abscess. 2. Remote postsurgical changes with no acute fracture. Demarcus Hickey MD Objective Remarks GENERAL: Well-nourished, well-developed patient in NAD. SKIN: Warm and dry. Irritated dry area along left lower back. HEENT: Normocephalic. Atraumatic. Pupils equal and round. Mucous membranes pink and moist. NECK: Supple. Trachea midline. CARDIOVASCULAR: Regular rate and rhythm. No murmur appreciated. RESPIRATORY: No accessory muscle use. Clear to auscultation. Breath sounds equal bilaterally. GASTROINTESTINAL: Abdomen soft, non-tender, nondistended. Normoactive bowel sounds x4. MUSCULOSKELETAL: Right lateral ribs slightly tender to palpation. Extremities without clubbing, cyanosis, or edema. Left ankle with wound vac in place, covered with postoperative dressing, CDI. Normal capillary refill of left toes. NEUROLOGICAL: Awake and alert. No obvious cranial nerve deficits. Motor grossly within normal limits. Normal speech. PSYCHIATRIC: Appropriate mood and affect; insight and judgment normal. Procedures 05/03/17 irrigation and debridement of left tibia, irrigation and debridement of left fibula, removal of deep hardware Medications and IVs Current Medications Medications (Trade) Dose Ordered Sig/Dennis Route Start Time Stop Time Status Last Admin (NS Flush) 2 ml UNSCH PRN IV FLUSH 05/02/17 18:30 05/16/17 22:57 (NS Flush) 2 ml BID IV FLUSH 05/02/17 21:00 05/21/17 09:35 (Tylenol) 650 mg Q4H PRN PO 05/02/17 18:30 05/07/17 23:49 (Zofran Inj) 4 mg Q6H PRN IVP 05/02/17 18:30 05/12/17 00:50 (Narcan Inj) 0.4 mg UNSCH PRN IV 05/02/17 18:30 (Amarilis-Colace) 1 tab BID PO 05/02/17 21:00 05/21/17 08:38 (Milk Of Magnesia Liq) 30 ml Q12H PRN PO 05/02/17 18:30 (Senokot) 17.2 mg Q12H PRN PO 05/02/17 18:30 (Dulcolax Supp) 10 mg DAILY PRN RECTAL 05/02/17 18:30 Lactulose 30 ml 30 ml DAILY PRN PO 05/02/17 18:30 (Vancomycin Consult Pharmacy) 0 ml @ 0 mls/hr UNSCH OTHER 05/02/17 18:30 (Heparin Inj) 5,000 units Q12HR SQ 05/05/17 11:00 05/21/17 08:38 (Remeron) 30 mg HS PO 05/12/17 21:00 05/20/17 20:00 (NS Flush) See Protocol DAILY IV FLUSH 05/12/17 09:00 05/20/17 09:05 (NS Flush) See Protocol UNSCH PRN IV FLUSH 05/11/17 20:15 (Heparin Central Flush) See Protocol DAILY IV FLUSH 05/12/17 09:00 05/21/17 08:39 (Heparin Central Flush) See Protocol UNSCH PRN IV FLUSH 05/11/17 20:15 05/12/17 06:19 (NS Flush) UNSCH PRN IV FLUSH 05/11/17 20:15 05/16/17 02:52 (Percocet 10-325 Mg) 1 tab Q4HR PRN PO 05/15/17 09:30 05/21/17 08:41 (Morphine Inj) 4 mg Q4H PRN IV PUSH 05/15/17 16:45 05/21/17 06:07 (Benadryl) 25 mg Q6H PRN PO 05/16/17 12:30 05/17/17 03:55 (Miralax) 17 gm DAILY PO 05/17/17 09:45 05/20/17 09:05 (Restoril) 15 mg HS PRN PO 05/17/17 09:30 05/20/17 22:16 Lactic Acid 1 applic 1 applic BID TOPICAL 05/18/17 21:00 05/21/17 08:38 (Vancomycin Inj/ NS 500 ml Inj) 515 ml @ 257.5 mls/ hr Q8H IV 05/20/17 17:00 05/21/17 08:39 Miscellaneous Information SPECIFIC LAB TO BE ASH... ONCE ONCE .XX 05/21/17 16:45 05/21/17 16:46 Date of Insertion: May 11, 2017 Line: PICC Side: Right A/P Problem List: (1) Sepsis ICD Code: A41.9 Status: Acute (2) Cellulitis of ankle ICD Code: L03.119 Status: Acute (3) Polysubstance abuse ICD Code: F19.10 Status: Chronic (4) IV drug abuse ICD Code: F19.10 Status: Chronic Assessment and Plan 36-year-old male with history of IVDU (injects into left arm only per patient), and left ankle surgery in 2009, presented to the ED 05/02/17 with 4 day history of LLE swelling/redness/pain. Sepsis secondary to cellulitis/high-grade MRSA bacteremia Infectious disease following. Blood cultures negative. PICC line placed on . MARQUEZ negative. - continue IV vancomycin. Anticipate at least 6 weeks of IV antibiotics since last surgery per infectious disease. Left ankle cellulitis Suspected septic joint: Appreciate orthopedic surgery recommendations. Status post irrigation and debridement with removal of deep hardware. Repeat irrigation and debridement and wound VAC application on 05/09/17, 05/14 and 05/16. - wound vac discontinued. Dressings as ordered by orthopedics. - pain control with a bowel regimen. Added Miralax as needed. - antibiotics as above. Polysubstance abuse Patient counseled. - Cautious with pain medications. Will need to wean him off narcotics as tolerated. Thrombocytosis Likely reactive. - monitor. Improving. Rash Area of irritation on left lower back. Appears to be a dry area. - Benadryl. - Start Lac-Hydrin. Insomnia Situational. - trial of temazepam. Improved. Right rib pain Worse with deep breaths. Reproducible on exam. Chest x-ray unremarkable. Likely secondary to costochondritis. - IS. - Pain control as needed. DVT prophylaxis: Heparin. Discharge Planning The pt does not have insurance. Will discuss with ID about switching him over to once daily antibiotics so he may go to the infusion center. Otherwise the pt will need to stay in house for antibiotics completion. Problem Qualifiers (1) Sepsis: Qualified Code: A41.9 - Sepsis, due to unspecified organism Demarcus Manuel DO May 21, 2017 09:52
--- NOTE | 2017-05-21 10:52 | HHI.DCPOC ---
Discharge Care Plan Diagnosis: (1) Septic joint (2) Polysubstance abuse (3) Sepsis (4) Cellulitis of ankle (5) IV drug abuse Goals to Promote Your Health * To prevent worsening of your condition and complications * To maintain your health at the optimal level Directions to Meet Your Goals Take your medications as prescribed Follow your dietary instruction Follow activity as directed Keep your appointments as scheduled Take your immunizations and boosters as scheduled If your symptoms worsen call your PCP, if no PCP go to Urgent Care Center or Emergency Room Smoking is Dangerous to Your Health. Avoid second hand smoke Call the 24-hour hour crisis hotline for domestic abuse at Demarcus Manuel DO May 21, 2017 10:52
--- NOTE | 2017-05-21 11:02 | HHI.DS ---
Discharge Summary Admission Date May 02, 2017 at 18:20 Discharge Date: May 21, 2017 Admitting Diagnosis left ankle septic arthritis (1) Sepsis ICD Code: A41.9 Diagnosis: Principal (2) Cellulitis of ankle ICD Code: L03.119 Diagnosis: Principal (3) Polysubstance abuse ICD Code: F19.10 (4) IV drug abuse ICD Code: F19.10 (5) Septic joint ICD Code: M00.9 Diagnosis: Principal Procedures 05/03/17 irrigation and debridement of left tibia, irrigation and debridement of left fibula, removal of deep hardware Brief History - From Admission initial injury was 2009 sx - has metals inside all of a sudden, 4 days ago, swelling, redness , pain no fall 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 Injected to LUE most recently apart from above, denies any recent nausea/ vomiting/ diarrhea/ burning urination/ pain on urination denies hematemesis/ hematchezia/ melena denies chest pains/ shortness of breath CBC/BMP: 05/19/17 0425 05/21/17 0400 Significant Findings Laboratory Tests Test 05/19/17 05/19/17 05/20/17 01:55 04:25 04:05 Vancomycin Level Trough 12.5 MCG/ML (5.0-10.0) Red Blood Count 4.43 MIL/MM3 (4.50-5.90) Hemoglobin 12.3 GM/DL (13.0-17.0) Hematocrit 35.5 % (39.0-51.0) Platelet Count 694 TH/MM3 (150-450) Mean Platelet Volume 5.7 FL (7.0-11.0) Monocytes (%) (Auto) 11.8 % (0.0-8.0) Basophils (%) (Auto) 3.1 % (0.0-2.0) Estimat Glomerular Filtration 80 ML/MIN (>89) 83 ML/MIN (>89) Rate Imaging Last Impressions Chest X-Ray 05/19/17 0000 Signed Impressions: Service Date/Time: Friday, May 19, 2017 11:37 - CONCLUSION: No acute disease. Yong Coppola MD Ankle MRI 05/07/17 0000 Signed Impressions: Service Date/Time: Sunday, May 07, 2017 20:32 - CONCLUSION: 1. Abnormal appearance to the medial metaphysis of the tibia with focal area of abnormal enhancing signal in continuity with the subcutaneous soft tissues characteristic of osteomyelitis and cellulitis. 2. Abnormal nonenhancing abnormality in the lateral ankle inferior to the lateral malleolus a without extension into the bone and with diffuse irregular enhancement around the periphery suggesting a lateral soft tissue abscess. Westley Briones MD Aorta w/Runoff CTA 05/03/17 0000 Signed Impressions: Service Date/Time: April 20:31 - CONCLUSION: 1. Extensive soft tissue swelling and postsurgical changes in the left ankle from recent hardware removal. 2. No significant aortic occlusive disease, inflow or outflow stenosis. 3. Limited three-vessel runoff to the mid to distal calf bilaterally with dominant posterior tibial artery runoff to the plantar arch. Although evaluation is compromised by venous contamination, the overall runoff does not appear significantly different on the left in comparison to the right. This does not support diagnosis of severe compartment syndrome. There is less prominent venous contamination in the left calf in comparison to the right which does support some degree of increased compartment pressure. However, please note that compartment syndrome cannot be reliably diagnosed in the distal extremities with CTA exam. 4. Mild splenomegaly and diffusely heterogeneous hepatic enhancement which may reflect early cirrhosis. 5. Nodular airspace disease primarily in the left lung base and extreme right middle lobe. Clinical correlation is recommended. Further evaluation may be performed with CT of the chest as indicated. Jb Thompson MD Ankle X-Ray 05/03/17 0000 Signed Impressions: Service Date/Time: April 12:29 - CONCLUSION: Status post fixation hardware removal. Stable ankle alignment Yong Coppola MD Lower Extremity CT 05/02/17 0000 Signed Impressions: Service Date/Time: Tuesday, May 02, 2017 18:55 - CONCLUSION: 1. Diffuse soft tissue swelling with no discrete focal abscess. 2. Remote postsurgical changes with no acute fracture. Demarcus Hickey MD PE at Discharge GENERAL: Well-nourished, well-developed patient in NAD. SKIN: Warm and dry. Irritated dry area along left lower back. HEENT: Normocephalic. Atraumatic. Pupils equal and round. Mucous membranes pink and moist. NECK: Supple. Trachea midline. CARDIOVASCULAR: Regular rate and rhythm. No murmur appreciated. RESPIRATORY: No accessory muscle use. Clear to auscultation. Breath sounds equal bilaterally. GASTROINTESTINAL: Abdomen soft, non-tender, nondistended. Normoactive bowel sounds x4. MUSCULOSKELETAL: Right lateral ribs slightly tender to palpation. Extremities without clubbing, cyanosis, or edema. Left ankle with wound vac in place, covered with postoperative dressing, CDI. Normal capillary refill of left toes. NEUROLOGICAL: Awake and alert. No obvious cranial nerve deficits. Motor grossly within normal limits. Normal speech. PSYCHIATRIC: Appropriate mood and affect; insight and judgment normal. Hospital Course Septic joint/ Bacteremia The pt presented to the ED 05/02/17 with 4 day history of LLE swelling/redness/ pain. Suspected septic joint. The pt had several imaging studies done. MRI showed: Abnormal appearance to the medial metaphysis of the tibia with focal area of abnormal enhancing signal in continuity with the subcutaneous soft tissues characteristic of osteomyelitis and cellulitis; Abnormal nonenhancing abnormality in the lateral ankle inferior to the lateral malleolus without extension into the bone and with diffuse irregular enhancement around the periphery suggesting a lateral soft tissue abscess. Orthopedic surgery was consulted. Status post irrigation and debridement with removal of deep hardware. Repeat irrigation and debridement and wound VAC application on 05/09/17 , 05/14 and 05/16. Wound vac was removed on 05/21. He was found to have MRSA bacteremia. He was followed by infectious disease and was treated with vancomycin. MARQUEZ was negative for vegetation. Arrangements will be made to have the pt treated at the infusion center with once daily Televancin. He will be NWB on the extremity and will have daily dressing changes. Pt Condition on Discharge: Good Discharge Disposition: Discharge Home Discharge Time: > 30 minutes Discharge Instructions DIET: Follow Instructions for: As Tolerated, No Restrictions Activities you can perform: Non Weight Bearing Follow up Referrals: Orthopedics - 2 Weeks @ [facility] [place] with Dillon Palafox MD PCP Follow-up - 1 Week New Medications: Oxycodone-Acetaminophen (Percocet) 10-325 mg Tab 1 TAB PO Q4H PRN PAIN #60 Ref 0 TAB Telavancin Inj (Vibativ Inj) 750 Mg Inj 750 MG IV Q24H Infection Days 35 Ref 0 BAG Walker/Adult/Folding (Walker/Adult/Folding) 1 Mis Mis 1 EA .ROUTE DIRECTED #1 Ref 0 EA Continued Medications: Ibuprofen (Ibuprofen) 800 Mg Tab 800 MG PO Q8H PRN Pain/Inflammation #10 Ref 0 TAB Mirtazapine (Remeron) 30 Mg Tab 30 MG PO HS Depression Control #30 Ref 0 TAB Demarcus Manuel DO May 21, 2017 11:01 New Medications: Oxycodone-Acetaminophen (Percocet) 10-325 mg Tab 1 TAB PO Q4H PRN PAIN #60 Ref 0 TAB Walker/Adult/Folding (Walker/Adult/Folding) 1 Mis Mis 1 EA .ROUTE DIRECTED #1 Ref 0 EA Continued Medications: Gabapentin (Gabapentin) 300 Mg Cap 300 MG PO BID #60 Ref 0 CAP Ibuprofen (Ibuprofen) 800 Mg Tab 800 MG PO Q8H PRN Pain/Inflammation #10 Ref 0 TAB Mirtazapine (Remeron) 30 Mg Tab 30 MG PO HS Depression Control #30 Ref 0 TAB Demarcus Manuel DO May 21, 2017 11:01
[2017-05-21 12:00] VITALS: BP 107/62; PULSE 85; RESP 20; TEMP 97.9; O2SAT 98
[2017-05-21 14:08] VITALS: RESP 20
--- NOTE | 2017-05-21 15:19 | HHI.FF ---
Infusion Therapy Location of Infusion Therapy: Ambulatory Infusion Therapy Order Patient Information Patient Weight 76.2 kg Diagnosis: Diagnosis Infected L LE hardware MRSA Coded Allergies: Cat Dander (Verified Allergy, Severe, WHEEZING ITCHING, 05/02/17) Dog Dander (Verified Allergy, Unknown, 05/02/17) *MDRO Multi-Drug Resistant Organism (Verified Adverse Reaction, Unknown, MRSA, 05/04/17) MRSA (blood) - 05/02/17 Administer Medication Televancin 760 mg IV daily Start Treatment: May 21, 2017 Stop Treatment: Jun 25, 2017 Additional Information Venous access: PICC Line Additional Instructions [x] Peripheral flush and dressing changes per protocol [x] 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 [] May leave port accessed during therapy. [] May leave peripheral site accessed for duration of therapy. [x] If patient has SOB or respiratory distress, check oxygen saturation. If less than 90% or clinical signs of respiratory distress, administer oxygen at 2 L/min. via nasal cannula and notify physician. [x] Anaphylaxis/Reaction orders: * Stop infusion. * Keep IV line open with saline flush. * Notify physician. * Monitor vital signs every 15 minutes until symptoms resolve. * Check Oxygen saturation; Oxygen at 2 L/min. via nasal cannula if less than 90% or clinical signs of respiratory distress. * Administer diphenhydramine (Benadryl) 25 mg IV STAT, (unless patient has received as pre-med). May repeat once, if necessary. * Solu-Cortef 250 mg IVP over 30-60 seconds, use 100 mg vials for each dissolution. * Epinephrine (1mg/1 ml) 0.3 mg subcutaneously or IVP now with any signs of respiratory distress. * Check with physician for new additional pre-med orders if patient is re- challenged or re-treated. [x] May remove PICC line when treatment complete, after confirming with Physician. [x] If the patient is admitted to the hospital, the ED, or transferred via EVAC , complete transfer form including medication reconciliation order sheet. Laboratory Tests Weekly Labs: CBC w/diff, Creatinine (every 3 days) Johanna Cooper MD May 21, 2017 15:19
--- NOTE | 2017-05-21 15:31 | HHI.IDPN ---
Subjective Subjective Remarks doing better no fever Last I+D 1 week ago doing better Antibiotics vancomycin Allergies: Coded Allergies: Cat Dander (Verified Allergy, Severe, WHEEZING ITCHING, 05/02/17) Dog Dander (Verified Allergy, Unknown, 05/02/17) *MDRO Multi-Drug Resistant Organism (Verified Adverse Reaction, Unknown, MRSA, 05/04/17) MRSA (blood) - 05/02/17 Objective . Vital Signs Date Time Temp Pulse Resp B/P Pulse Ox O2 Delivery O2 Flow Rate FiO2 05/21/17 14:08 20 05/21/17 12:00 97.9 85 20 107/62 98 05/21/17 08:00 97.7 81 18 118/68 98 05/21/17 07:18 98 Room Air 05/21/17 04:10 Room Air 05/21/17 04:00 98.1 89 18 109/54 99 05/21/17 00:00 98.1 98 21 113/63 97 05/21/17 00:00 Room Air 05/20/17 21:19 Room Air 05/20/17 20:00 Room Air 05/20/17 20:00 97.8 86 20 104/60 97 05/20/17 17:01 97 21 05/20/17 16:00 98.0 92 20 123/59 98 05/20/17 05/20/17 05/21/17 15:00 23:00 07:00 Intake Total 960 ml 252 ml 515 ml Output Total 950 ml 600 ml 300 ml Balance 10 ml -348 ml 215 ml Intake Oral 960 ml IV Total 252 ml 515 ml Output Urine Total 950 ml 600 ml 300 ml # Bowel Movements 1 0 0 . Laboratory Tests Test 05/20/17 05/21/17 04:05 04:00 Creatinine 1.02 MG/DL 0.87 MG/DL Estimat Glomerular Filtration 83 ML/MIN 99 ML/MIN Rate Imaging Last Impressions Chest X-Ray 05/19/17 0000 Signed Impressions: Service Date/Time: Friday, May 19, 2017 11:37 - CONCLUSION: No acute disease. Yong Coppola MD Ankle MRI 05/07/17 0000 Signed Impressions: Service Date/Time: Sunday, May 07, 2017 20:32 - CONCLUSION: 1. Abnormal appearance to the medial metaphysis of the tibia with focal area of abnormal enhancing signal in continuity with the subcutaneous soft tissues characteristic of osteomyelitis and cellulitis. 2. Abnormal nonenhancing abnormality in the lateral ankle inferior to the lateral malleolus a without extension into the bone and with diffuse irregular enhancement around the periphery suggesting a lateral soft tissue abscess. Westley Briones MD Aorta w/Runoff CTA 05/03/17 0000 Signed Impressions: Service Date/Time: April 20:31 - CONCLUSION: 1. Extensive soft tissue swelling and postsurgical changes in the left ankle from recent hardware removal. 2. No significant aortic occlusive disease, inflow or outflow stenosis. 3. Limited three-vessel runoff to the mid to distal calf bilaterally with dominant posterior tibial artery runoff to the plantar arch. Although evaluation is compromised by venous contamination, the overall runoff does not appear significantly different on the left in comparison to the right. This does not support diagnosis of severe compartment syndrome. There is less prominent venous contamination in the left calf in comparison to the right which does support some degree of increased compartment pressure. However, please note that compartment syndrome cannot be reliably diagnosed in the distal extremities with CTA exam. 4. Mild splenomegaly and diffusely heterogeneous hepatic enhancement which may reflect early cirrhosis. 5. Nodular airspace disease primarily in the left lung base and extreme right middle lobe. Clinical correlation is recommended. Further evaluation may be performed with CT of the chest as indicated. Jb Thompson MD Ankle X-Ray 05/03/17 0000 Signed Impressions: Service Date/Time: April 12:29 - CONCLUSION: Status post fixation hardware removal. Stable ankle alignment Yong Coppola MD Lower Extremity CT 05/02/17 0000 Signed Impressions: Service Date/Time: Tuesday, May 02, 2017 18:55 - CONCLUSION: 1. Diffuse soft tissue swelling with no discrete focal abscess. 2. Remote postsurgical changes with no acute fracture. Demarcus Hickey MD Physical Exam CONSTITUTIONAL/GENERAL: This is an adequately nourished patient, in no apparent distress. TUBES/LINES/DRAINS:PICC line in place RUE - site looks OK SKIN: No jaundice, rashes, or lesions. Skin temperature appropriate. Not diaphoretic. EYES: Pupils equal and round and reactive. conjuntivae normal CARDIOVASCULAR: Regular rate and rhythm without murmurs, gallops, or rubs. No JVD. Peripheral pulses symmetric. RESPIRATORY/CHEST: Symmetric, unlabored respirations. Clear to auscultation. Breath sounds equal bilaterally. GASTROINTESTINAL: Abdomen soft, non-tender, nondistended. No hepato-splenomegaly , or palpable masses. MUSCULOSKELETAL: Extremities without clubbing, cyanosis, or edema. L LE with mild edema and minimal serous dc from lateral and medial imalelous incisions NEUROLOGICAL: Awake and alert. Non focal PSYCHIATRIC: calm cooperative Assessment & Plan Remarks High grade MRSA bacteremia 2/2 osteomyelitis infected hardware MRSA no e/o endocarditis on MARQUEZ Nodular airspace disease cw septic emboli, likleyu pt has tricuspid endocarditis persistent bacteremia, finally resolved - most recent blood clx clx from 05/05 are negative Infected LLE tib/fib, MRSA hardware; sp removal of all hardwaer _ ongoing infection , with abscess - + osteo present , last debridement on 05/16 IVDU Leukocytosis - resolved cont vancomycin: keep trough 15-20 OK to dc home on televancin 10 mg/kg x 6 wks from the last debridement monitoring parameters: creatinine every 72 hrs, CBC monitor closely for nephrotox dw pt dw case mngr dw Infusion center bill khan RN OPAT forms filled out Johanna Cooper MD May 21, 2017 15:31
[2017-05-21] MEDS ORDERED: EPIN1INJ21 SQ (15:32)
[2017-05-21] MEDS ORDERED: EPIN1INJ21 IV PUSH (15:32)
[2017-05-21] MEDS ORDERED: VIBA750I IV (15:32)
[2017-05-21] MEDS ORDERED: SOLU250I IV PUSH (15:32)
[2017-05-21] MEDS ORDERED: PHARMACY ORDERED LAB ONE (16:45)
== END 2017-05-21 16:30 | disposition home or self-care (01) | DRG 495 ==
LOC: NEPD 16:01 → NEDA 18:20 → N04A 20:21
PROVIDERS: ADMIT Hospitalist; ATTEND Hospitalist
PROC: 0QPH04Z Removal of Internal Fixation Device from Left Tibia, Open Approach (ICD-10-PCS; 2017-05-03)
PROC: 0JDP0ZZ Extraction of Left Lower Leg Subcutaneous Tissue and Fascia, Open Approach (ICD-10-PCS; 2017-05-03)
PROC: 0QPK04Z Removal of Internal Fixation Device from Left Fibula, Open Approach (ICD-10-PCS; principal; 2017-05-03 11:15)
PROC: B246ZZ4 Ultrasonography of Right and Left Heart, Transesophageal (ICD-10-PCS; 2017-05-07)
PROC: 0JDP0ZZ Extraction of Left Lower Leg Subcutaneous Tissue and Fascia, Open Approach (ICD-10-PCS; 2017-05-09)
PROC: 02HV33Z Insertion of Infusion Device into Superior Vena Cava, Percutaneous Approach (ICD-10-PCS; 2017-05-11)
PROC: 0JDP0ZZ Extraction of Left Lower Leg Subcutaneous Tissue and Fascia, Open Approach (ICD-10-PCS; 2017-05-14)
PROC: 0JDP0ZZ Extraction of Left Lower Leg Subcutaneous Tissue and Fascia, Open Approach (ICD-10-PCS; 2017-05-16)
DX: T84.623A Infection and inflammatory reaction due to internal fixation device of left tibia, initial encounter (principal); A41.02 Sepsis due to Methicillin resistant Staphylococcus aureus; I76 Septic arterial embolism; L03.116 Cellulitis of left lower limb; T84.117A Breakdown (mechanical) of internal fixation device of bone of left lower leg, initial encounter; F13.239 Sedative, hypnotic or anxiolytic dependence with withdrawal, unspecified; M86.8X6 Other osteomyelitis, lower leg; F32.9 Major depressive disorder, single episode, unspecified; M65.072 Abscess of tendon sheath, left ankle and foot; R05 Cough; D75.89 Other specified diseases of blood and blood-forming organs; R21 Rash and other nonspecific skin eruption; G47.01 Insomnia due to medical condition; M94.0 Chondrocostal junction syndrome [Tietze]; F14.10 Cocaine abuse, uncomplicated; F15.10 Other stimulant abuse, uncomplicated; F41.9 Anxiety disorder, unspecified; Y83.8 Other surgical procedures as the cause of abnormal reaction of the patient, or of later complication, without mention of misadventure at the time of the procedure; Z72.0 Tobacco use
CPT/HCPCS: 36569; 71010; 73701; 73723; 75635; 76000; 76937; 80048; 80202; 82550; 82552; 82565; 83605; 83735; 84484; 85007; 85025; 85027; 85610; 85652; 85730; 86140; 86403; 87015; 87040; 87070; 87102; 87116; 87147; 87149; 87176; 87186; 87205; 87206; 93005; 93308; 93312; 93320; 93325; 94150; 96365; 96367; 96375; A9579; J0131; J0690; J1170; J1200; J1580; J1642; J1644; J1885; J2060; J2175; J2250; J2270; J2370; J2405; J2543; J2710; J3010; J3370; J7030; J7040; J7050; J7120; L2114; Q0163; Q9967

== ENCOUNTER 2017-05-25 09:23 | Emergency (ER) | payer SELFPAY ==
[~2017-05-25] VITALS: Ht 170.2 cm; Wt 90.0 kg
[~2017-05-25 09:23] MED LIST changes: -GABA300C5 PO; -IBUP-232 PO; +PERC10TA27 PO; +VIBA750I IV; +WALKER/ADULT/FO1 MIS
[2017-05-25 09:27] VITALS: BP 117/80; PULSE 123; RESP 19; TEMP 98.2; O2SAT 97
[2017-05-25] MEDS ORDERED: SODIUM CHLOR 0.9% 1000 ML INJ 1,000 ML IV SCH (09:59)
[2017-05-25 10:00] VITALS: BP 123/82; PULSE 114; PULSE 99; RESP 16; RESP 18; O2SAT 100; O2SAT 96
[2017-05-25] MEDS ORDERED: SODIUM CHLORIDE 0.9% FLUSH 10 ML FLUSH IVF PRN (10:00)
[2017-05-25] MEDS ORDERED: HYDROmorphone HCL PF 1 MG/ML VIAL IV ONE (10:00)
[2017-05-25] MEDS ORDERED: PANTOPRAZOLE SODIUM 40 MG VIAL IVP ONE (10:00)
[2017-05-25] MEDS ORDERED: ONDANSETRON HCL 4 MG/2 ML VIAL IVP ONE (10:00)
[2017-05-25 10:03] VITALS: RESP 16; O2SAT 98
--- NOTE | 2017-05-25 10:09 | PD ---
HPI Chief Complaint: GI Complaint Time Seen by Provider: 09:48 Travel History International Travel<30 days: No Contact w/Intl Traveler<30days: No Traveled to known affect area: No History of Present Illness HPI This a 36 room male who was discharged from hospital 3 days ago after having treatment for infected left ankle hardware, who presents today with complaints of tachycardia and right sided pleuritic lower rib pain. The patient was seen at the wound clinic and sent here for evaluation. Patient also reports that he' s had blood in his stool over the last 3 days. The patient reports low-grade fever. He denies any chills. He denies any productive cough. He reports that the leg wound is healing however there is still's drainage noted from the posterior portion. PFSH Past Medical History Anxiety: Yes Depression: Yes Cancer: No Cardiovascular Problems: No Diabetes: No Diminished Hearing: No Endocrine: No Glaucoma: No Genitourinary: No Hepatitis: No Hiatal Hernia: No Hypertension: No Immune Disorder: No Implanted Vascular Access Dvce: No Musculoskeletal: Yes (LEFT TIB/FIB OSTEOMYELITIS 05/09/17) Neurologic: No Psychiatric: Yes Reproductive: No Respiratory: No Thyroid Disease: No Influenza Vaccination: No Past Surgical History Body Medical Devices: ORTHO- LLE Pacemaker: No Other Surgery: Yes (LEFT FIBULA/TIBIA IRRIGATION DEBRIDEMENT 05/09/17 JUDI) Social History Alcohol Use: Yes (OCCASIONALLY) Tobacco Use: No (CHEWING TOBACCO FORMERLY) Substance Use: Yes (IVDU) Allergies-Medications (Allergen,Severity, Reaction): Coded Allergies: Cat Dander (Verified Allergy, Severe, WHEEZING ITCHING, 05/25/17) Dog Dander (Verified Allergy, Unknown, 05/25/17) *MDRO Multi-Drug Resistant Organism (Verified Adverse Reaction, Unknown, MRSA, 05/25/17) MRSA (blood) - 05/02/17 Reported Meds & Prescriptions Reported Meds & Active Scripts Active Naproxen Sodium DS (Naproxen Sodium) 550 Mg Tab 550 Mg PO BID Vibativ Inj (Telavancin) 750 Mg Inj 750 Mg IV Q24H 35 Days Percocet (Oxycodone-Acetaminophen) 10-325 mg Tab 1 Tab PO Q4H PRN Review of Systems Except as stated in HPI: all other systems reviewed are Neg General / Constitutional: Positive: Fever (subjective low-grade), No: Chills HENT: No: Headaches, Vertigo, Neck Pain Cardiovascular: Positive: Chest Pain or Discomfort (right sided pleuritic lower rib), Tachycardia Respiratory: Positive: Pleuritic Pain (right lower rib), No: Cough, Shortness of Breath, Hemoptysis Gastrointestinal: Positive: Other (blood in his stool 3 days), No: Nausea, Vomiting, Diarrhea, Abdominal Pain Genitourinary: No: Dysuria, Incontinence Musculoskeletal: Positive: Edema, Pain (left ankle), No: Myalgias Neurologic: No: Weakness, Headache, Change in Mentation, Sensory Disturbance Physical Exam Narrative GENERAL: Well-developed well-nourished male in no acute rest her distress. SKIN: Focused skin assessment warm/dry. HEAD: Atraumatic. Normocephalic. EYES: No scleral icterus. No injection or drainage. ENT: No nasal bleeding or discharge. Mucous membranes pink and moist. NECK: Trachea midline. Supple. CARDIOVASCULAR: Tachycardic in the low 100s. No obvious murmur appreciated. RESPIRATORY: No accessory muscle use. Clear to auscultation. Breath sounds equal bilaterally. GASTROINTESTINAL: Abdomen soft, non-tender, nondistended. MUSCULOSKELETAL: No obvious deformities. Left ankle has Xeroform dressing. There is some serosanguineous drainage in the posterior ankle. This is not new according to the patient and his mother. He does have 1+ edema to his lower pretibial area on the left side. NEUROLOGICAL: Awake and slightly somnolent. No obvious cranial nerve deficits. Motor grossly within normal limits. Normal speech. Data Data Last Documented VS Vital Signs Date Time Temp Pulse Resp B/P Pulse Ox O2 Delivery O2 Flow Rate FiO2 05/25/17 10:35 86 22 122/74 96 Room Air 05/25/17 09:27 98.2 Orders Complete Blood Count With Diff (05/25/17 09:59) Comprehensive Metabolic Panel (05/25/17 09:59) Lipase (05/25/17 09:59) Prothrombin Time / Inr (Pt) (05/25/17 09:59) Act Partial Throm Time (Ptt) (05/25/17 09:59) Urinalysis - C+S If Indicated (05/25/17 09:59) Ecg Monitoring (05/25/17 09:59) Iv Access Insert/Monitor (05/25/17 09:59) Oximetry (05/25/17 09:59) Ondansetron Inj (Zofran Inj) (05/25/17 10:00) Pantoprazole Inj (Protonix Inj) (05/25/17 10:00) Sodium Chlor 0.9% 1000 Ml Inj (Ns 1000 M (05/25/17 09:59) Sodium Chloride 0.9% Flush (Ns Flush) (05/25/17 10:00) Hydromorphone Pf Inj (Dilaudid Pf Inj) (05/25/17 10:00) Electrocardiogram (05/25/17 09:59) D-Dimer (05/25/17 09:59) Chest, Single Ap (05/25/17 09:59) Drug Screen, Random Urine (05/25/17 09:59) Lactic Acid Sepsis Protocol (05/25/17 10:09) Ct Pulmonary Angiogram (05/25/17 11:20) Iohexol 350 Inj (Omnipaque 350 Inj) (05/25/17 12:46) Resp Incentive Spirometry (05/25/17 ) Labs Laboratory Tests Test 05/25/17 05/25/17 10:00 10:10 White Blood Count 8.2 TH/MM3 Red Blood Count 4.40 MIL/MM3 Hemoglobin 12.1 GM/DL Hematocrit 36.4 % Mean Corpuscular Volume 82.7 FL Mean Corpuscular Hemoglobin 27.4 PG Mean Corpuscular Hemoglobin 33.1 % Concent Red Cell Distribution Width 16.8 % Platelet Count 430 TH/MM3 Mean Platelet Volume 6.3 FL Neutrophils (%) (Auto) 65.5 % Lymphocytes (%) (Auto) 15.2 % Monocytes (%) (Auto) 10.6 % Eosinophils (%) (Auto) 7.3 % Basophils (%) (Auto) 1.4 % Neutrophils # (Auto) 5.4 TH/MM3 Lymphocytes # (Auto) 1.2 TH/MM3 Monocytes # (Auto) 0.9 TH/MM3 Eosinophils # (Auto) 0.6 TH/MM3 Basophils # (Auto) 0.1 TH/MM3 CBC Comment DIFF FINAL Differential Comment Prothrombin Time 16.8 SEC Prothromb Time International 1.5 RATIO Ratio Activated Partial 38.5 SEC Thromboplast Time D-Dimer Quantitative (PE/DVT) 2.22 MG/L FEU Sodium Level 137 MEQ/L Potassium Level 4.2 MEQ/L Chloride Level 101 MEQ/L Carbon Dioxide Level 26.2 MEQ/L Anion Gap 10 MEQ/L Blood Urea Nitrogen 12 MG/DL Creatinine 0.91 MG/DL Estimat Glomerular Filtration 94 ML/MIN Rate Random Glucose 111 MG/DL Calcium Level 9.4 MG/DL Total Bilirubin 0.2 MG/DL Aspartate Amino Transf 27 U/L (AST/SGOT) Alanine Aminotransferase 42 U/L (ALT/SGPT) Alkaline Phosphatase 93 U/L Total Protein 7.8 GM/DL Albumin 2.9 GM/DL Lipase 148 U/L Lactic Acid Level 1.3 mmol/L [facility] Medical Decision Making Medical Screen Exam Complete: Yes Emergency Medical Condition: Yes Interpretation(s) Last [address] Angiography 05/25/17 1120 Signed Impressions: Service Date/Time: Thursday, May 25, 2017 12:40 - CONCLUSION: 1. Study is limited by breathing motion artifact. 2. No pulmonary emboli appreciated. 3. Multiple small areas of nodularity scattered throughout both lungs. These are nonspecific in their appearance. These could be postinflammatory in nature. Current guidelines suggest a repeat CT of the thorax in 6-12 months. 4. Small right effusion with associated atelectasis. Westley Tovar Jr., MD Chest X-Ray 05/25/17 0959 Signed Impressions: Service Date/Time: Thursday, May 25, 2017 09:59 - CONCLUSION: Possible slight blunting of the right costophrenic sulcus could indicate trace right pleural fluid. Otherwise, no acute finding is identified. Sky Johnson MD Differential Diagnosis Symptomatic anemia versus pulmonary embolus versus sepsis versus metabolic arrangement Narrative Course 36-year-old male presents today from the wound care clinic because he was tachycardic. The patient was also having pleuritic left sided rib pain. The patient had no shortness of breath. Patient denied any fevers. 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 The patient's white blood cell count was normal. A d- dimer was ordered which was elevated above 2. A CT angiogram was ordered which showed no evidence of acute pulmonary embolus. There were some nonspecific scarring and nodular type findings. Recommendation was a repeat CT scan of the chest in 6-12 months to check for stability. There is also noted a small right pleural effusion with atelectasis. The patient has been very sedentary while in the hospital. I will prescribe him an incentive spirometer. He'll also be given a prescription for Naprosyn in addition to the medications he is currently taking. He is instructed to return for worsening symptoms. Repeat scan of the chest is recommended in 6-12 months to check for stability of his pulmonary findings. Diagnosis Primary Impression: small left pleural effusion Additional Impressions: Tachycardia healing left lower extremity wound nonspecific pulmonary nodularity Additional Instructions: Recommend repeat CAT scan of the chest in 6-12 months to check for any changes in your lungs. Use spirometer 2-3 times daily. Med/Other Pt SpecificInfo: Prescription(s) given Scripts Naproxen Sodium DS 550 Mg [id number] Mg PO BID #60 TAB Ref 0 Prov:Chidi Dial MD 05/25/17 Disposition: 01 DISCHARGE HOME Condition: Stable Chidi Dial MD May 25, 2017 10:09
[2017-05-25 10:15] VITALS: PULSE 96; RESP 16; O2SAT 100
--- NOTE | 2017-05-25 10:26 | RADRPT ---
EXAM DATE/TIME: 05/25/2017 09:59 [facility] COMPARISON: CTA RUNOFF W 3D RECON, May 03, 2017, 20:31. CHEST SINGLE AP, May 11, 2017, 18:17. CHEST SINGLE AP , May 19, 2017, 11:37. INDICATIONS : Right sided pain. MEDICAL HISTORY : None. SURGICAL HISTORY : None. ENCOUNTER: Initial ACUITY: 3 days PAIN SCORE: 1/10 LOCATION: Right medial lower chest. FINDINGS: Portable AP view of the chest demonstrates a normal-sized cardiac silhouette. There is questionable t race blunting of the right costophrenic angle. Otherwise, no effusion, consolidation, or pneumothorax is visualized. The bones and soft tissues demonstrate no acute abnormality. Right upper extremity PI CC distal tip is in the superior vena cava. CONCLUSION: Possible slight blunting of the right costophrenic sulcus could indicate trace right pleural fluid. O therwise, no acute finding is identified. Sky Johnson MD on May 25, 2017 at 10:22 Board Certified Radiologist. This report was verified electronically.
[2017-05-25 10:35] VITALS: BP 122/74; PULSE 86; RESP 22; O2SAT 96
[2017-05-25 10:38] LABS: AUTOMATED NEUTROPHIL # 5.4 TH/MM3 (1.8-7.7); BASOPHIL # 0.1 TH/MM3 (0-0.2); BASOPHIL % 1.4 % (0.0-2.0); EOSINOPHIL # 0.6 TH/MM3 (0-0.4); EOSINOPHIL % 7.3 % (0.0-4.0); HEMATOCRIT 36.4 % (39.0-51.0); HEMO FLAGS DIFF FINAL; LYMPH % 15.2 % (9.0-44.0); LYMPHOCYTE # 1.2 TH/MM3 (1.0-4.8); MEAN CELL VOLUME 82.7 FL (80.0-100.0); MEAN CORPUSCULAR HEMOGLOBIN 27.4 PG (27.0-34.0); MEAN CORPUSCULAR HGB CONC 33.1 % (32.0-36.0); MONO % 10.6 % (0.0-8.0); NEUT % 65.5 % (16.0-70.0); PLATELET COUNT 430 TH/MM3 (150-450); RED CELL DISTRIBUTION WIDTH 16.8 % (11.6-17.2); WHITE BLOOD COUNT 8.2 TH/MM3 (4.0-11.0)
[2017-05-25 10:52] LABS: ALT (GPT) 42 U/L (12-78); ANION GAP 10 MEQ/L (5-15); AST (GOT) 27 U/L (15-37); BICARBONATE 26.2 MEQ/L (21.0-32.0); BLOOD UREA NITROGEN 12 MG/DL (7-18); CHLORIDE 101 MEQ/L (98-107); GLOMERULAR FILTRATION RATE 94 ML/MIN (>89); POTASSIUM 4.2 MEQ/L (3.5-5.1); SODIUM (NA) 137 MEQ/L (136-145)
[2017-05-25 10:55] LABS: ALKALINE PHOSPHATASE 93 U/L (45-117); TOTAL BILIRUBIN ADULT 0.2 MG/DL (0.2-1.0)
[2017-05-25 10:57] LABS: APTT (PATIENT) 38.5 SEC (24.3-30.1); INTERNATIONAL NORMALIZED RATIO 1.5 RATIO; PROTHROMBIN TIME - PATIENT 16.8 SEC (9.8-11.6)
[2017-05-25] MEDS ORDERED: IOHEXOL 350 MG/ML 10 ML VIAL (for RAD DIAG) IV ONE (12:46)
--- NOTE | 2017-05-25 13:05 | RADRPT ---
EXAM DATE/TIME: 05/25/2017 12:40 [facility] COMPARISON: No previous studies available for comparison. INDICATIONS : Elevated heart rate and shortness of breath. IV CONTRAST: 60 cc Omnipaque 350 (iohexol) IV RADIATION DOSE: 23.30 CTDIvol (mGy) MEDICAL HISTORY : None SURGICAL HISTORY : None. ENCOUNTER: Initial ACUITY: 1 day PAIN SCALE: 0/10 LOCATION: chest TECHNIQUE: Volumetric scanning of the chest was performed using a pulmonary embolism protocol MIP images were re constructed. Using automated exposure control and adjustment of the mA and/or kV according to patien t size, radiation dose was kept as low as reasonably achievable to obtain optimal diagnostic quality images. DICOM format image data is available electronically for review and comparison. Follow-up recommendations for incidentally detected pulmonary nodules are based at a minimum on nodul e size and patient risk factors according to Fleischner Society Guidelines. FINDINGS: Breathing motion artifact degrades the exam somewhat. PULMONARY ARTERIES: No filling defects are seen in the pulmonary arteries through the segmental level. The third order an d smaller pulmonary arteries are limited in their evaluation due to the breathing motion artifact. LUNGS: There is passive atelectasis associated with a right pleural effusion. Multiple scattered areas of no dularity are seen throughout both lungs. These are all smoothly marginated and well circumscribed. Th ey are located as follows: 4 mm right lung apex, 10 mm right lung apex, 5 mm right lung apex, 3 mm ri ght upper lobe, 5 mm right middle lobe, 5 mm right middle lobe, a 4 mm right middle lobe, 8mm right m iddle lobe, 8mm left lower lobe, 6 mm left upper lobe. No dominant nodule. No worrisome nodule. PLEURAE: Small right pleural effusion. No effusion on the left. MEDIASTINUM: There is good visualization of the great vessels of the middle mediastinum. No evidence of mediastin al or hilar adenopathy/mass. MUSCULOSKELETAL: Within normal limits for patient age. MISCELLANEOUS: The visualized upper abdominal organs demonstrate no acute abnormality. CONCLUSION: 1. Study is limited by breathing motion artifact. 2. No pulmonary emboli appreciated. 3. Multiple small areas of nodularity scattered throughout both lungs. These are nonspecific in their appearance. These could be postinflammatory in nature. Current guidelines suggest a repeat CT of the thorax in 6-12 months. 4. Small right effusion with associated atelectasis. Westley Tovar Jr., MD on May 25, 2017 at 12:47 Board Certified Radiologist. This report was verified electronically.
[2017-05-25] MEDS ORDERED: NAPR550T3 PO (13:59)
--- NOTE | 2017-05-25 14:46 | EKG ---
Date Performed: 05/25/2017 Time Performed: 10:19:55 PTAGE: 36 years EKG: Sinus rhythm NORMAL ECG PREVIOUS TRACING : 05/04/2017 12.38 Compared to prior tracing no significant change DOCTOR: Delon Hutchison Interpretating Date/Time 05/25/2017 14:45:38
[2017-05-25 15:12] VITALS: BP 131/77
== END 2017-05-25 15:30 | disposition home or self-care (01) ==
LOC: NEPC 09:23
DX: J90 Pleural effusion, not elsewhere classified (principal); R00.0 Tachycardia, unspecified; S81.832A Puncture wound without foreign body, left lower leg, initial encounter; Y83.8 Other surgical procedures as the cause of abnormal reaction of the patient, or of later complication, without mention of misadventure at the time of the procedure
CPT/HCPCS: 71010; 71275; 80053; 83605; 83690; 85025; 85379; 85610; 85730; 93005; 96361; 96374; 96375; 99285; C9113; J1170; J2405; J7030; Q9967

== ENCOUNTER 2017-05-28 19:46 | Inpatient (IN) | payer SELFPAY ==
[~2017-05-28] VITALS: Ht 170.2 cm; Wt 72.7 kg
[~2017-05-28 19:46] MED LIST changes: -IBUP800T23 PO; +NAPR550T3 PO; -REME30TA PO; -WALKER/ADULT/FO1 MIS
[2017-05-28 19:48] VITALS: BP 120/58; PULSE 98; RESP 16; TEMP 98.9; O2SAT 97
[2017-05-28 20:17] VITALS: BP 117/63; PULSE 97; RESP 18; O2SAT 97
[2017-05-28] MEDS ORDERED: SODIUM CHLOR 0.9% 1000 ML INJ 1,000 ML IV ONE ×2 (20:32)
--- NOTE | 2017-05-28 20:38 | PD ---
HPI Chief Complaint: Pain: Acute or Chronic Time Seen by Provider: 20:25 Travel History International Travel<30 days: No Contact w/Intl Traveler<30days: No Traveled to known affect area: No History of Present Illness HPI This is a 36-year-old male who presents for evaluation of worsening pain and soft tissue swelling left lower extremity. The patient was initially admitted here on May 02 for septic arthritis of the left ankle. He underwent irrigation and debridement of the left tibia, irrigation and debridement of the left fibula, removal of the hardware on May 03 performed by orthopedic surgeon Dr. Moreira. Blood and wound cultures grew out staph aureus MRSA patient was receiving vancomycin during his hospitalization. The patient was discharged on May 21, The patient has been receiving IV televancin 10mg/kg through PICC line on a daily basis. Over the past 2 days he has had worsening pain and soft tissue swelling the left ankle and calf. He was seen by his orthopedic surgeon Dr. Moreira today and sent here reportedly for admission. The pain is throbbing pain, constant, worse when walking. He denies any fevers or chills at home. He has had some drainage from the lateral left ankle surgical wound. In addition the patient is complaining of thrush in his mouth for the past 3 days. Burning sensation with white growth on the tongue and oropharynx, worse when swallowing. PFSH Past Medical History Anxiety: Yes Depression: Yes Cancer: No Cardiovascular Problems: No Diabetes: No Diminished Hearing: No Endocrine: No Glaucoma: No Genitourinary: No Hepatitis: No Hiatal Hernia: No Hypertension: No Immune Disorder: No Implanted Vascular Access Dvce: Yes Musculoskeletal: Yes (LEFT TIB/FIB OSTEOMYELITIS 05/09/17) Neurologic: No Psychiatric: Yes Reproductive: No Respiratory: No Thyroid Disease: No Tetanus Vaccination: < 5 Years Influenza Vaccination: No Past Surgical History Body Medical Devices: ORTHO- LLE Pacemaker: No Other Surgery: Yes (LEFT FIBULA/TIBIA IRRIGATION DEBRIDEMENT 05/09/17 JUDI) Social History Alcohol Use: Yes (OCCASIONALLY) Tobacco Use: No (CHEWING TOBACCO FORMERLY) Substance Use: Yes (IVDU) Allergies-Medications (Allergen,Severity, Reaction): Coded Allergies: Cat Dander (Verified Allergy, Severe, WHEEZING ITCHING, 05/28/17) Dog Dander (Verified Allergy, Unknown, 05/28/17) *MDRO Multi-Drug Resistant Organism (Verified Adverse Reaction, Unknown, MRSA, 05/28/17) MRSA (blood) - 05/02/17 Reported Meds & Prescriptions Reported Meds & Active Scripts Active Naproxen Sodium DS (Naproxen Sodium) 550 Mg Tab 550 Mg PO BID Vibativ Inj (Telavancin) 750 Mg Inj 750 Mg IV Q24H 35 Days Percocet (Oxycodone-Acetaminophen) 10-325 mg Tab 1 Tab PO Q4H PRN Review of Systems Except as stated in HPI: all other systems reviewed are Neg Physical Exam Narrative GENERAL: Well-developed well-nourished male in no acute distress SKIN: Warm and dry. Erythema and edema noted to the left lower extremity/ankle joint region. Surgical wound noted to the lateral left ankle with sutures in place, some purulent drainage is noted. Some ulceration noted to the medial aspect of left ankle. HEAD: Atraumatic. Normocephalic. EYES: Pupils equal and round. No scleral icterus. No injection or drainage. ENT: No nasal bleeding or discharge. Mucous membranes pink and moist. Thrush noted on the tongue, posterior oropharynx. NECK: Trachea midline. No JVD. CARDIOVASCULAR: Regular rate and rhythm. No murmur appreciated. RESPIRATORY: No accessory muscle use. Clear to auscultation. Breath sounds equal bilaterally. GASTROINTESTINAL: Abdomen soft, non-tender, nondistended. Hepatic and splenic margins not palpable. MUSCULOSKELETAL: No obvious deformities. Skin as noted above with 2+ lower extremity pitting edema on the left leg. 2+ dorsalis pedis pulse. NEUROLOGICAL: Awake and alert. No obvious cranial nerve deficits. Motor grossly within normal limits. Normal speech. Data Data Last Documented VS Vital Signs Date Time Temp Pulse Resp B/P Pulse Ox O2 Delivery O2 Flow Rate FiO2 05/28/17 21:22 98 Room Air 05/28/17 20:17 97 18 117/63 05/28/17 19:48 98.9 Orders Complete Blood Count With Diff (05/28/17 20:32) Comprehensive Metabolic Panel (05/28/17 20:32) Lactic Acid Sepsis Protocol (05/28/17 20:32) Blood Culture (05/28/17 20:32) Ecg Monitoring (05/28/17 20:32) Iv Access Insert/Monitor (05/28/17 20:32) Oximetry (05/28/17 20:32) Oxygen Administration (05/28/17 20:32) Sodium Chlor 0.9% 1000 Ml Inj (Ns 1000 M (05/28/17 20:32) Sodium Chlor 0.9% 1000 Ml Inj (Ns 1000 M (05/28/17 20:32) Us Leg Venous Doppler (05/28/17 20:32) Nystatin Liq (Mycostatin Liq) (05/28/17 20:45) Morphine Inj (Morphine Inj) (05/28/17 20:45) Ondansetron Inj (Zofran Inj) (05/28/17 20:45) Consult Orthopedic (05/28/17 ) Npo After Midnight W/ Po Meds (05/29/17 Breakfast) (Hub Use Only)Inp Phy Cons/Ref (05/28/17 ) Vancomycin Inj (Vancomycin Inj) (05/28/17 22:00) Admit To Inpatient (05/28/17 ) Vital Signs (Adult) Q4H (05/28/17 22:01) Estate Administrator / Telemetry .CONTINUOUS (05/28/17 22:01) Sodium Chlor 0.9% 1000 Ml Inj (Ns 1000 M (05/28/17 22:01) Sodium Chloride 0.9% Flush (Ns Flush) (05/28/17 22:15) Sodium Chloride 0.9% Flush (Ns Flush) (05/29/17 09:00) Basic Metabolic Panel (Bmp) (05/29/17 06:00) Complete Blood Count With Diff (05/29/17 06:00) Case Management Consult (05/28/17 22:01) Naloxone Inj (Narcan Inj) (05/28/17 22:15) Inpatient Certification (05/28/17 ) Nystatin Liq (Mycostatin Liq) (05/29/17 09:00) Morphine Inj (Morphine Inj) (05/28/17 22:15) Vancomycin Consult Pharmacy (Vancomycin (05/28/17 22:15) Labs Laboratory Tests Test 05/28/17 20:50 White Blood Count 7.3 TH/MM3 Red Blood Count 3.99 MIL/MM3 Hemoglobin 10.6 GM/DL Hematocrit 32.8 % Mean Corpuscular Volume 82.3 FL Mean Corpuscular Hemoglobin 26.7 PG Mean Corpuscular Hemoglobin 32.4 % Concent Red Cell Distribution Width 16.6 % Platelet Count 394 TH/MM3 Mean Platelet Volume 6.4 FL Neutrophils (%) (Auto) 74.4 % Lymphocytes (%) (Auto) 12.6 % Monocytes (%) (Auto) 8.3 % Eosinophils (%) (Auto) 3.5 % Basophils (%) (Auto) 1.2 % Neutrophils # (Auto) 5.4 TH/MM3 Lymphocytes # (Auto) 0.9 TH/MM3 Monocytes # (Auto) 0.6 TH/MM3 Eosinophils # (Auto) 0.3 TH/MM3 Basophils # (Auto) 0.1 TH/MM3 CBC Comment DIFF FINAL Differential Comment Sodium Level 141 MEQ/L Potassium Level 3.8 MEQ/L Chloride Level 105 MEQ/L Carbon Dioxide Level 29.9 MEQ/L Anion Gap 6 MEQ/L Blood Urea Nitrogen 23 MG/DL Creatinine 1.78 MG/DL Estimat Glomerular Filtration 43 ML/MIN Rate Random Glucose 101 MG/DL Lactic Acid Level 1.2 mmol/L Calcium Level 9.3 MG/DL Total Bilirubin 0.3 MG/DL Aspartate Amino Transf 33 U/L (AST/SGOT) Alanine Aminotransferase 34 U/L (ALT/SGPT) Alkaline Phosphatase 75 U/L Total Protein 7.4 GM/DL Albumin 3.0 GM/DL [facility] Medical Decision Making Medical Screen Exam Complete: Yes Emergency Medical Condition: Yes Medical Record Reviewed: Yes Differential Diagnosis Septic arthritis, osteomyelitis, necrotizing fasciitis, postoperative wound infection, cellulitis, DVT, compartment syndrome Narrative Course This is a 36-year-old male who was recently admitted for an infection in the left ankle joint. He is receiving IV vancomycin during his hospitalization, currently receiving televancin through a PICC line is in outpatient. Over the past few days he's had worsening pain and soft tissue swelling to the left lower extremity. According to the patient he was seen by Dr. Moreira today and sent here for admission. I attempted to page Dr. Moreira however was placed in contact with Dr. Argueta the orthopedic surgeon line construction superintendent. He recommends nothing by mouth after midnight and consultation to Dr. Moreira. In addition the patient has thrush in the mouth. Nystagmus been ordered. Plans are basic lab work, ultrasound of the left lower extremity to rule out DVT. He'll be given IV fluids, morphine, Zofran. Ultrasound is negative. CMP reveals a GFR 43 which is a increase from his baseline. He was given 2 L of IV fluids on initial examination. IV vancomycin has been ordered. The patient will be admitted, discussed with Dr. Chauhan who is agreeable. Diagnosis Primary Impression: Cellulitis of ankle Additional Impressions: Acute kidney injury Oral thrush Admitting Information Admitting Physician Requests: Admit Andrew Burnett May 28, 2017 20:38
[2017-05-28] MEDS ORDERED: ONDANSETRON HCL 4 MG/2 ML VIAL IV PUSH ONE (20:45)
[2017-05-28] MEDS ORDERED: NYSTATIN SUSP 500,000 U/5 ML CUP SWISH-SWAL ONE (20:45)
[2017-05-28] MEDS ORDERED: MORPHINE SULFATE 4 MG/ML INJ IV PUSH ONE (20:45)
--- NOTE | 2017-05-28 21:12 | RADRPT ---
EXAM DATE/TIME: 05/28/2017 20:45 [facility] COMPARISON: No previous studies available for comparison. INDICATIONS : Left leg swelling. MEDICAL HISTORY : Depression. Anxiety. Alcohol use. Substance use. MRSA. SURGICAL HISTORY : Left fibula/tibia irrigation debridement. Right wrist ORIF. Left ankle ORIF. ENCOUNTER: Initial ACUITY: 1 day PAIN SCORE: 8/10 LOCATION: Left leg. TECHNIQUE: Venous ultrasound of the leg was performed from the inguinal ligament to the proximal calf. Real-ricky e, color Doppler and spectral tracing, compression and augmentation techniques were used. FINDINGS: There is normal compressibility of the deep venous system from the inguinal region to the proximal ca lf. No echogenic clot is seen in the lumen of the common femoral, femoral, popliteal, and posterior tibial veins. There is a normal response of the venous system to proximal and distal augmentation an d respiration. CONCLUSION: No DVT. An enlarged lymph nodes left groin. Hever Espino MD on May 28, 2017 at 21:10 Board Certified Radiologist. This report was verified electronically.
[2017-05-28 21:22] VITALS: O2SAT 98
[2017-05-28 21:32] LABS: AUTOMATED NEUTROPHIL # 5.4 TH/MM3 (1.8-7.7); BASOPHIL # 0.1 TH/MM3 (0-0.2); BASOPHIL % 1.2 % (0.0-2.0); EOSINOPHIL # 0.3 TH/MM3 (0-0.4); EOSINOPHIL % 3.5 % (0.0-4.0); HEMATOCRIT 32.8 % (39.0-51.0); HEMO FLAGS DIFF FINAL; LYMPH % 12.6 % (9.0-44.0); LYMPHOCYTE # 0.9 TH/MM3 (1.0-4.8); MEAN CELL VOLUME 82.3 FL (80.0-100.0); MEAN CORPUSCULAR HEMOGLOBIN 26.7 PG (27.0-34.0); MEAN CORPUSCULAR HGB CONC 32.4 % (32.0-36.0); MONO % 8.3 % (0.0-8.0); NEUT % 74.4 % (16.0-70.0); PLATELET COUNT 394 TH/MM3 (150-450); RED BLOOD COUNT 3.99 MIL/MM3 (4.50-5.90); RED CELL DISTRIBUTION WIDTH 16.6 % (11.6-17.2); WHITE BLOOD COUNT 7.3 TH/MM3 (4.0-11.0)
[2017-05-28 21:57] LABS: ANION GAP 6 MEQ/L (5-15); AST (GOT) 33 U/L (15-37); BICARBONATE 29.9 MEQ/L (21.0-32.0); BLOOD UREA NITROGEN 23 MG/DL (7-18); CHLORIDE 105 MEQ/L (98-107); GLOMERULAR FILTRATION RATE 43 ML/MIN (>89); POTASSIUM 3.8 MEQ/L (3.5-5.1); SODIUM (NA) 141 MEQ/L (136-145)
[2017-05-28 21:58] LABS: ALT (GPT) 34 U/L (12-78)
[2017-05-28] MEDS ORDERED: VANCOMYCIN INJ 1,000 MG in SODIUM CHLOR 0.9% 250 ML INJ 250 ML IV ONE (22:00)
[2017-05-28 22:01] LABS: ALKALINE PHOSPHATASE 75 U/L (45-117); TOTAL BILIRUBIN ADULT 0.3 MG/DL (0.2-1.0)
[2017-05-28] MEDS ORDERED: Vancomycin Consult Pharmacy 1 EA OTHER SCH (22:15)
[2017-05-28] MEDS ORDERED: NALOXONE HCL 0.4 MG/ML AMP IV PRN (22:15)
[2017-05-28] MEDS: SODIUM CHLOR 0.9% 1000 ML INJ 1,000 ML IV SCH (23:34)
[2017-05-29] VITALS (8 sets, daily range): BP systolic 96–129; BP diastolic 53–68; PULSE 91–107; RESP 15–20; TEMP 97.2–98.3; O2SAT 96–98
--- NOTE | 2017-05-29 03:51 | HHI.HP ---
HPI Service [facility] Primary Care Physician No Primary Care Physician Admission Diagnosis cellulitis left ankle, acute kidney injury, thrush Diagnoses: (1) Cellulitis of ankle Chief Complaint: worsening pain, swelling of left ankle Travel History International Travel<30 Days: No Contact w/Intl Traveler <30 Da: No Traveled to Known Affected Are: No History of Present Illness Written by Lizz Muro, acting as scribe for Dr. Chauhan on 05/29/17 at 03:51. The patient is seen in the CDU. He complains of worsening pain and swelling in the left lower extremity. Duration of symptoms was 2 days. He has failed outpatient IV antibiotic therapy with Televancin. During previous hospitalization, he had wound cultures and blood cultures positive for MRSA. Denies n/v/d, black stool, red streaks seen on toilet tissue but not jo bleeding He is also complaining of thrush in his mouth. s/p multiple left ankle I and D by Dr. Palafox for septic arthritis. He was d/c from the hospital on Televancin 05/21/17 Review of Systems Except as stated in HPI: all other systems reviewed are Neg Past Family Social History Past Medical History Denies . Past Surgical History Left ankle surgery in 24/08/2017 Right upper extremities surgery in 2007 for compound fracture - repair included screws and plates . Reported Medications Reported Meds & Active Scripts Active Naproxen Sodium DS (Naproxen Sodium) 550 Mg Tab 550 Mg PO BID Vibativ Inj (Telavancin) 750 Mg Inj 750 Mg IV Q24H 35 Days Percocet (Oxycodone-Acetaminophen) 10-325 mg Tab 1 Tab PO Q4H PRN . Allergies: Coded Allergies: Cat Dander (Verified Allergy, Severe, WHEEZING ITCHING, 05/28/17) Dog Dander (Verified Allergy, Unknown, 05/28/17) *MDRO Multi-Drug Resistant Organism (Verified Adverse Reaction, Unknown, MRSA, 05/28/17) MRSA (blood) - 05/02/17 Active Ordered Medications Current Medications Sodium Chloride 1,000 ml @ 1,000 mls/hr Q1H ONCE IV Last administered on 21:03; Start 05/28/17 at 20:32; Stop 05/28/17 at 21:31; Status DC Sodium Chloride (NS 1000 ml Inj) 1,000 ml @ 1,000 mls/hr Q1H ONCE IV Last administered on 05/28/17 21:03; Start 05/28/17 at 20:32; Stop 05/28/17 at 21:31 ; Status DC Nystatin (Mycostatin Liq) 5 ml ONCE ONCE SWISH-SWAL Last administered on 05/28 22:07; Start 05/28/17 at 20:45; Stop 05/28/17 at 20:46; Status DC Morphine Sulfate (Morphine Inj) 4 mg ONCE ONCE IV PUSH Last administered on 21:04; Start 05/28/17 at 20:45; Stop 05/28/17 at 20:46; Status DC Ondansetron HCl 4 mg 4 mg ONCE ONCE IV PUSH Last administered on 05/28/17 21: 04; Start 05/28/17 at 20:45; Stop 05/28/17 at 20:46; Status DC Vancomycin HCl 1000 mg/Sodium Chloride 250 ml @ 250 mls/hr ONCE ONCE IV Last administered on 05/28/17 23:34; Start 05/28/17 at 22:00; Stop 05/28/17 at 22:59 ; Status DC Sodium Chloride (NS 1000 ml Inj) 1,000 ml @ 100 mls/hr Q10H IV Last administered on 05/28/17 23:34; Start 05/28/17 at 22:01 Sodium Chloride (NS Flush) 2 ml UNSCH PRN IV FLUSH FLUSH AFTER USING IV ACCESS ; Start 05/28/17 at 22:15 Sodium Chloride (NS Flush) 2 ml BID IV FLUSH ; Start 05/29/17 at 09:00 Naloxone HCl (Narcan Inj) 0.4 mg UNSCH PRN IV SEE LABEL COMMENTS; Start at 22:15 Nystatin (Mycostatin Liq) 5 ml QID SWISH-SWAL ; Start 05/29/17 at 09:00 Morphine Sulfate 2 mg 2 mg Q3H PRN IV PUSH pain >5 Last administered on 04:08; Start 05/28/17 at 22:15 Pharmacy Profile Note (Vancomycin Consult Pharmacy) 0 ml @ 0 mls/hr UNSCH OTHER ; Start 05/28/17 at 22:15 Morphine Sulfate (Morphine Inj) 2 mg ONCE ONCE IV PUSH Last administered on t 05:16; Start 05/29/17 at 05:00; Stop 05/29/17 at 05:01; Status DC . Family History Grandmother with diabetes mellitus . Social History Tobacco: Chews tobacco Alcohol: Drinks alcohol on weekends Illicit drugs: Cocaine IV sometimes, IV Dilaudid, Xanax . Physical Exam Vital Signs Vital Signs Date Time Temp Pulse Resp B/P Pulse Ox O2 Delivery O2 Flow Rate FiO2 05/29/17 00:58 97.2 96 16 96/64 96 05/28/17 21:22 98 Room Air 05/28/17 21:22 98 Room Air 05/28/17 20:17 97 18 117/63 97 Room Air 05/28/17 19:48 98.9 98 16 120/58 97 Room Air Physical Exam GENERAL: This is a male patient, in no apparent distress. SKIN: No rashes, ecchymoses or lesions. Cool and dry. Left lower extremity with medial incision noted with some erythema and exudate. HEAD: Atraumatic. Normocephalic. EYES: No scleral icterus. No injection or drainage. ENT: Nose without bleeding, purulent drainage. Thrush noted in oral cavity. NECK: Trachea midline. No JVD or lymphadenopathy. CARDIOVASCULAR: Regular rate and rhythm without murmurs, gallops, or rubs. RESPIRATORY: Clear to auscultation. Breath sounds equal bilaterally. No wheezes , rales, or rhonchi. GASTROINTESTINAL: Abdomen soft, non-tender, nondistended. No guarding. MUSCULOSKELETAL: Extremities without clubbing, cyanosis, or edema. No calf tenderness. bilateral LE swelling and edema more so on the left 2+ NEUROLOGICAL: Awake and alert. Motor and sensory grossly within normal limits. Normal speech. . Laboratory Laboratory Tests Test 05/28/17 20:50 White Blood Count 7.3 Red Blood Count 3.99 Hemoglobin 10.6 Hematocrit 32.8 Mean Corpuscular Volume 82.3 Mean Corpuscular Hemoglobin 26.7 Mean Corpuscular Hemoglobin 32.4 Concent Red Cell Distribution Width 16.6 Platelet Count 394 Mean Platelet Volume 6.4 Neutrophils (%) (Auto) 74.4 Lymphocytes (%) (Auto) 12.6 Monocytes (%) (Auto) 8.3 Eosinophils (%) (Auto) 3.5 Basophils (%) (Auto) 1.2 Neutrophils # (Auto) 5.4 Lymphocytes # (Auto) 0.9 Monocytes # (Auto) 0.6 Eosinophils # (Auto) 0.3 Basophils # (Auto) 0.1 CBC Comment DIFF FINAL Differential Comment Sodium Level 141 Potassium Level 3.8 Chloride Level 105 Carbon Dioxide Level 29.9 Anion Gap 6 Blood Urea Nitrogen 23 Creatinine 1.78 Estimat Glomerular Filtration 43 Rate Random Glucose 101 Lactic Acid Level 1.2 Calcium Level 9.3 Total Bilirubin 0.3 Aspartate Amino Transf 33 (AST/SGOT) Alanine Aminotransferase 34 (ALT/SGPT) Alkaline Phosphatase 75 Total Protein 7.4 Albumin 3.0 Date/Time Procedure Status Source Growth 05/28/17 20:50 Aerobic Blood Culture Received Blood Peripheral Pending 05/28/17 20:50 Anaerobic Blood Culture Received Blood Peripheral Pending Result Diagram: 05/28/17204905/28/172049 Imaging Last Impressions Lower Extremity Ultrasound 05/28/172031 Signed Impressions: Service Date/Time: Sunday, May 28, 2017 20:45 - CONCLUSION: No DVT. An enlarged lymph nodes left groin. Hever Espino MD Assessment and Plan Problem List: (1) Cellulitis of ankle ICD Code: L03.119 Status: Acute (2) Oral thrush ICD Code: B37.0 Status: Acute (3) Acute renal failure (ARF) ICD Code: N17.9 Status: Acute Assessment and Plan Cellulitis of left ankle - NPO - Dr. Palafox consulted - IV Vancomycin with pharmacy consultation for assistance with therapeutic dosing and monitoring - Morphine 2 mg IV q3h PRN pain > 5 Oral Thrush - Nystatin swish and swallow QID Acute Renal failure - likely secondary to dehydration - BUN 23, creatinine 1.78, eGFR 43 - IVF hydration with NS at 100 cc/hr - recheck BMP in am and follow trends in renal indices - Avoid nephrotoxins DVT prophylaxis - to be initiated following likely surgery this a.m. This note was transcribed by jorge [Lizz Muro]. I, Dr. Denis Chauhan personally performed the history, physical exam, and medical decision making; and confirmed the accuracy of the information in the transcribed note. Authenticated by Dr. Denis Chauhan on 05/29/17 at 03:51. Discussed Condition With ER physician and patient . Physician Certification 2 Midnight Certification Type: Admission for Inpatient Services Order for Inpatient Services The services are ordered in accordance with Medicare regulations or non- Medicare payer requirements, as applicable. In the case of services not specified as inpatient-only, they are appropriately provided as inpatient services in accordance with the 2-midnight benchmark. Estimated LOS (days): 3 days is the estimated time the patient will need to remain in the hospital, assuming treatment plan goals are met and no additional complications. Post-Hospital Plan: Home Lizz Muro May 29, 2017 03:51 Denis Chauhan MD May 29, 2017 08:33
[2017-05-29] MEDS: MORPHINE SULFATE 4 MG/ML INJ IV PUSH PRN ×4 (04:08→23:24)
[2017-05-29] MEDS ORDERED: MORPHINE SULFATE 4 MG/ML INJ IV PUSH ONE (05:00)
--- NOTE | 2017-05-29 06:47 | PD.ORT.PN ---
Subjective Subjective Remarks Patient seen in office yesterday with ankle infection progressively worsening. advised to come to ED for medical admission. history of left ankle HW infection with serial I&Ds and IV Abx. Patient an IV drug user. reports increase in drainage and swelling last few days. pain increased. Objective Vitals Vital Signs Date Time Temp Pulse Resp B/P Pulse Ox O2 Delivery O2 Flow Rate FiO2 05/29/17 00:58 97.2 96 16 96/64 96 05/28/17 21:22 98 Room Air 05/28/17 21:22 98 Room Air 05/28/17 20:17 97 18 117/63 97 Room Air 05/28/17 19:48 98.9 98 16 120/58 97 Room Air Result Diagram: 05/28/17204905/28/172049 Imaging Last 24 hours Impressions Lower Extremity Ultrasound 05/28/172031 Signed Impressions: Service Date/Time: Sunday, May 28, 2017 20:45 - CONCLUSION: No DVT. An enlarged lymph nodes left groin. Hever Espino MD Objective Remarks LLE: +swelling of lower leg and ankle. 1+ pitting edema of calf. mild drainage from incisions. Assessment & Plan Assessment and Plan 1) Left Ankle Infection -regular diet -npo after MN -MRI of left ankle today to assess any abscess formation -will potentially go to OR for repeat I&D tomorrow pending MRI results -daily dressing changes with xeroform/4x4/YOAV Leonid Vivas May 29, 2017 06:47
[2017-05-29 07:24] LABS: BASOPHIL # 0.1 TH/MM3 (0-0.2); BASOPHIL % 1.3 % (0.0-2.0); EOSINOPHIL # 0.3 TH/MM3 (0-0.4); EOSINOPHIL % 5.4 % (0.0-4.0); HEMO FLAGS DIFF FINAL; LYMPH % 15.8 % (9.0-44.0); MEAN CELL VOLUME 82.3 FL (80.0-100.0); MEAN CORPUSCULAR HEMOGLOBIN 27.3 PG (27.0-34.0); MEAN CORPUSCULAR HGB CONC 33.2 % (32.0-36.0); MONO % 11.1 % (0.0-8.0); NEUT % 66.4 % (16.0-70.0); PLATELET COUNT 358 TH/MM3 (150-450); RED BLOOD COUNT 3.52 MIL/MM3 (4.50-5.90); RED CELL DISTRIBUTION WIDTH 16.6 % (11.6-17.2)
[2017-05-29 07:37] LABS: BICARBONATE 26.4 MEQ/L (21.0-32.0); POTASSIUM 4.1 MEQ/L (3.5-5.1)
[2017-05-29] MEDS: SODIUM CHLOR 0.9% 1000 ML INJ 1,000 ML IV SCH ×2 (08:01→18:31)
[2017-05-29] MEDS: NYSTATIN SUSP 500,000 U/5 ML CUP SWISH-SWAL SCH ×4 (08:09→21:00)
[2017-05-29] MEDS: SODIUM CHLORIDE 0.9% FLUSH 10 ML FLUSH IV FLUSH SCH ×2 (08:09→21:00)
--- NOTE | 2017-05-29 11:03 | HHI.PR ---
Subjective Remarks Follow-up for left ankle cellulitis/swelling. Patient had no complaints. Denied any pain. He remained afebrile. Objective Vitals Vital Signs Date Time Temp Pulse Resp B/P Pulse Ox O2 Delivery O2 Flow Rate FiO2 05/29/17 07:39 98.1 91 15 99/53 97 05/29/17 01:00 96 05/29/17 00:58 97.2 96 16 96/64 96 05/28/17 21:22 98 Room Air 05/28/17 21:22 98 Room Air 05/28/17 20:17 97 18 117/63 97 Room Air 05/28/17 19:48 98.9 98 16 120/58 97 Room Air Result Diagram: 05/29/17 0545 05/29/17 0545 Objective Remarks GENERAL: in NAD SKIN: left ankle wounds are dry, clean and intact. no erythema. + swelling and warmth to touch. NECK: Supple, trachea midline. No JVD or lymphadenopathy. CARDIOVASCULAR: Regular rate and rhythm without murmurs, gallops, or rubs. RESPIRATORY: Breath sounds equal bilaterally. No accessory muscle use. GASTROINTESTINAL: Abdomen soft, non-tender, nondistended. MUSCULOSKELETAL: Left ankle range of motion limited secondary to swelling and pain. Medications and IVs Current Medications Sodium Chloride 1,000 ml @ 1,000 mls/hr Q1H ONCE IV Last administered on 21:03; Start 05/28/17 at 20:32; Stop 05/28/17 at 21:31; Status DC Sodium Chloride (NS 1000 ml Inj) 1,000 ml @ 1,000 mls/hr Q1H ONCE IV Last administered on 05/28/17 21:03; Start 05/28/17 at 20:32; Stop 05/28/17 at 21:31 ; Status DC Nystatin (Mycostatin Liq) 5 ml ONCE ONCE SWISH-SWAL Last administered on 05/28 22:07; Start 05/28/17 at 20:45; Stop 05/28/17 at 20:46; Status DC Morphine Sulfate (Morphine Inj) 4 mg ONCE ONCE IV PUSH Last administered on 21:04; Start 05/28/17 at 20:45; Stop 05/28/17 at 20:46; Status DC Ondansetron HCl 4 mg 4 mg ONCE ONCE IV PUSH Last administered on 05/28/17 21: 04; Start 05/28/17 at 20:45; Stop 05/28/17 at 20:46; Status DC Vancomycin HCl 1000 mg/Sodium Chloride 250 ml @ 250 mls/hr ONCE ONCE IV Last administered on 05/28/17 23:34; Start 05/28/17 at 22:00; Stop 05/28/17 at 22:59 ; Status DC Sodium Chloride (NS 1000 ml Inj) 1,000 ml @ 100 mls/hr Q10H IV Last administered on 05/28/17 23:34; Start 05/28/17 at 22:01 Sodium Chloride (NS Flush) 2 ml UNSCH PRN IV FLUSH FLUSH AFTER USING IV ACCESS ; Start 05/28/17 at 22:15 Sodium Chloride (NS Flush) 2 ml BID IV FLUSH ; Start 05/29/17 at 09:00 Naloxone HCl (Narcan Inj) 0.4 mg UNSCH PRN IV SEE LABEL COMMENTS; Start at 22:15 Nystatin (Mycostatin Liq) 5 ml QID SWISH-SWAL Last administered on 05/29/17 08:09; Start 05/29/17 at 09:00 Morphine Sulfate 2 mg 2 mg Q3H PRN IV PUSH pain >5 Last administered on 08:11; Start 05/28/17 at 22:15 Pharmacy Profile Note (Vancomycin Consult Pharmacy) 0 ml @ 0 mls/hr UNSCH OTHER ; Start 05/28/17 at 22:15 Morphine Sulfate (Morphine Inj) 2 mg ONCE ONCE IV PUSH Last administered on 05:16; Start 05/29/17 at 05:00; Stop 05/29/17 at 05:01; Status DC Acetaminophen/ Hydrocodone Bitart ([place] 7.5-325 Mg) 1 tab Q4H PRN PO pain 1-5 ; Start 05/29/17 at 06:45 Acetaminophen/ Hydrocodone Bitart ([place] 10-325 Mg) 1 tab Q4H PRN PO pain 6-10 ; Start 05/29/17 at 06:45 Enoxaparin Sodium 40 mg 40 mg Q24H SQ ; Start 05/29/17 at 10:00 Vancomycin HCl/ Sodium Chloride (Vancomycin Inj/ NS 250 ml Inj) 262.5 ml @ 250 mls/hr Q12H IV ; Start 05/29/17 at 11:00 Miscellaneous Information SPECIFIC LAB TO BE DRAWN:VANCOMYCIN TROUGH DATE TO... ONCE ONCE .XX ; Start 05/30/17 at 10:45; Stop 05/30/17 at 10:46 A/P Problem List: (1) Cellulitis of ankle ICD Code: L03.119 Status: Acute (2) Oral thrush ICD Code: B37.0 Status: Acute (3) Acute renal failure (ARF) ICD Code: N17.9 Status: Acute Assessment and Plan Cellulitis of left ankle -Failed treatment with televancin treatment. -continue IV Vancomycin with pharmacy consultation for assistance with therapeutic dosing and monitoring - Morphine 2 mg IV q3h PRN pain > 5 -Orthopedics ready consulted. Will consult infectious disease. Oral Thrush - Nystatin swish and swallow QID Acute Renal failure - likely secondary to dehydration - BUN 23, creatinine 1.78, eGFR 43 - IVF hydration with NS at 100 cc/hr - Avoid nephrotoxins -Improving with IV fluids. Continue to monitor. Strict ins and outs. DVT prophylaxis - On Lovenox. Discharge Planning Patient failed treatment with IV antibiotics infusion so will require continued hospitalization. Judy Burk MD May 29, 2017 11:03
[2017-05-29] MEDS: ENOXAPARIN SODIUM 40 MG/0.4 ML SYRINGE SQ SCH (11:35)
[2017-05-29] MEDS: VANCOMYCIN INJ 1,250 MG in SODIUM CHLOR 0.9% 250 ML INJ 250 ML IV SCH ×2 (11:36→23:24)
--- NOTE | 2017-05-29 15:40 | PD.ID.CON ---
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 He required removal of hardware and multiple denbridements and was discharged on televancion Non compliance was reported by infusion clinic [facility] was suspecting that pt misused his PICC for IV drugs as well His creatinine went up on televancin and was 1.76 yday He was asent to ER from Dr Moreira's office over concerns for drainage and swelling a nd pain from his L foot Pt co persistent pain L ankle/foot, worse with weeight bearing , swelling , No fevers Also co thrush Review of Systems Ears, nose, mouth, throat: COMPLAINS OF: Oral lesions Cardiovascular: COMPLAINS OF: Lower Extremity Edema (L ankle) Musculoskeletal: COMPLAINS OF: Joint pain, Joint Swelling Except as stated in HPI: all other systems reviewed are Neg Past Family Social History Allergies: Coded Allergies: Cat Dander (Verified Allergy, Severe, WHEEZING ITCHING, 05/28/17) Dog Dander (Verified Allergy, Unknown, 05/28/17) *MDRO Multi-Drug Resistant Organism (Verified Adverse Reaction, Unknown, MRSA, 05/28/17) MRSA (blood) - 05/02/17 Active Ordered Medications Medications where reviewed in EMR Antibiotics Include: vancomycin Physical Exam Vital Signs Vital Signs Date Time Temp Pulse Resp B/P Pulse Ox O2 Delivery O2 Flow Rate FiO2 05/29/17 12:00 94 05/29/17 11:29 98.2 96 15 103/59 96 05/29/17 07:39 98.1 91 15 99/53 97 05/29/17 01:00 96 05/29/17 00:58 97.2 96 16 96/64 96 05/28/17 21:22 98 Room Air 05/28/17 21:22 98 Room Air 05/28/17 20:17 97 18 117/63 97 Room Air 05/28/17 19:48 98.9 98 16 120/58 97 Room Air Physical Exam CONSTITUTIONAL/GENERAL: This is an adequately nourished patient, in no apparent distress. TUBES/LINES/DRAINS: SKIN: No jaundice, rashes, or lesions. Ecchymoses on upper extremities. No wounds seen anteriorly. Skin temperature appropriate. Not diaphoretic. HEAD: Atraumatic. Normocephalic. EYES: Pupils equal and round and reactive. Extraocular motions intact. No scleral icterus. No injection or drainage. Fundi not examined. ENT: Hearing grossly normal. Nose without bleeding or purulent drainage. Oral mucosae with whitish lesions. cw thrush NECK: Trachea midline. Supple, nontender. No palpable thyroid enlargement or nodularity. CARDIOVASCULAR: Regular rate and rhythm without murmurs, gallops, or rubs. No JVD. Peripheral pulses symmetric. RESPIRATORY/CHEST: Symmetric, unlabored respirations. Clear to auscultation. Breath sounds equal bilaterally. No wheezes, rales, or rhonchi. GASTROINTESTINAL: Abdomen soft, non-tender, nondistended. No hepato-splenomegaly , or palpable masses. No guarding. Bowel sounds present. GENITOURINARY: Without palpable bladder distension. MUSCULOSKELETAL: Extremities without clubbing, cyanosis, L foot is edematous drainage of thickmodorless pus noted on ionner aspect of the ankle + some eryuthema + tedner to palpation Incisions are with small amount of serosus odorles sdrainage No mottling or clubbing. LYMPHATICS: No palpable cervical or supraclavicular adenopathy. NEUROLOGICAL: Awake and alert. Motor and sensory grossly within normal limits. Follows commands. Cognitively sharp. Moves all extremities. PSYCHIATRIC: No obvious anxiety/depression. no apparent hallucinations or other psychotic thought process. Laboratory Laboratory Tests Test 05/28/17 05/29/17 20:50 05:45 White Blood Count 7.3 6.0 Red Blood Count 3.99 3.52 Hemoglobin 10.6 9.6 Hematocrit 32.8 29.0 Mean Corpuscular Volume 82.3 82.3 Mean Corpuscular Hemoglobin 26.7 27.3 Mean Corpuscular Hemoglobin 32.4 33.2 Concent Red Cell Distribution Width 16.6 16.6 Platelet Count 394 358 Mean Platelet Volume 6.4 6.8 Neutrophils (%) (Auto) 74.4 66.4 Lymphocytes (%) (Auto) 12.6 15.8 Monocytes (%) (Auto) 8.3 11.1 Eosinophils (%) (Auto) 3.5 5.4 Basophils (%) (Auto) 1.2 1.3 Neutrophils # (Auto) 5.4 4.0 Lymphocytes # (Auto) 0.9 1.0 Monocytes # (Auto) 0.6 0.7 Eosinophils # (Auto) 0.3 0.3 Basophils # (Auto) 0.1 0.1 CBC Comment DIFF FINAL DIFF FINAL Differential Comment Sodium Level 141 144 Potassium Level 3.8 4.1 Chloride Level 105 111 Carbon Dioxide Level 29.9 26.4 Anion Gap 6 7 Blood Urea Nitrogen 23 19 Creatinine 1.78 1.61 Estimat Glomerular Filtration 43 49 Rate Random Glucose 101 74 Lactic Acid Level 1.2 Calcium Level 9.3 8.5 Total Bilirubin 0.3 Aspartate Amino Transf 33 (AST/SGOT) Alanine Aminotransferase 34 (ALT/SGPT) Alkaline Phosphatase 75 Total Protein 7.4 Albumin 3.0 Date/Time Procedure Status Source Growth 05/28/17 20:50 Aerobic Blood Culture - Preliminary Resulted Blood Peripheral NO GROWTH IN 1 DAY 05/28/17 20:50 Anaerobic Blood Culture - Preliminary Resulted Blood Peripheral NO GROWTH IN 1 DAY Result Diagram: 05/29/1745 05/29/1745 Imaging Last Impressions Lower Extremity Ultrasound 05/28/172031 Signed Impressions: Service Date/Time: Sunday, May 28, 2017 20:45 - CONCLUSION: No DVT. An enlarged lymph nodes left groin. 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
[2017-05-29] MEDS: ACETAMINOPHEN/HYDROcodone 325 MG/7.5 MG TAB PO PRN ×2 (16:59→21:04)
[2017-05-29] MEDS: FLUCONAZOLE 100 MG TAB PO SCH (16:59)
[2017-05-29] MEDS ORDERED: POLYETHYLENE GLYCOL 17 GM PKG PO ONE (18:00)
[2017-05-29] MEDS ORDERED: ALPRAZolam 0.25 MG TAB PO ONE (20:30)
[2017-05-29] MEDS ORDERED: TEMAZEPAM 15 MG CAP PO ONE (20:30)
[2017-05-30] VITALS (8 sets, daily range): BP systolic 103–127; BP diastolic 55–73; PULSE 64–108; RESP 16–21; TEMP 97.8–98.7; O2SAT 95–100
[2017-05-30] MEDS: ACETAMINOPHEN/HYDROcodone 325 MG/10 MG TAB PO PRN ×4 (02:08→21:58)
[2017-05-30] MEDS: SODIUM CHLOR 0.9% 1000 ML INJ 1,000 ML IV SCH ×3 (04:01→21:58)
[2017-05-30] MEDS: MORPHINE SULFATE 4 MG/ML INJ IV PUSH PRN ×3 (06:35→19:25)
[2017-05-30 08:00] LABS: HEMATOCRIT 28.3 % (39.0-51.0); MEAN CELL VOLUME 82.7 FL (80.0-100.0); MEAN CORPUSCULAR HEMOGLOBIN 27.2 PG (27.0-34.0); MEAN CORPUSCULAR HGB CONC 32.9 % (32.0-36.0); PLATELET COUNT 396 TH/MM3 (150-450); RED BLOOD COUNT 3.42 MIL/MM3 (4.50-5.90); RED CELL DISTRIBUTION WIDTH 16.7 % (11.6-17.2); REVIEW FLAG FINAL; WHITE BLOOD COUNT 5.8 TH/MM3 (4.0-11.0)
[2017-05-30 08:15] LABS: BICARBONATE 30.1 MEQ/L (21.0-32.0); POTASSIUM 3.8 MEQ/L (3.5-5.1)
--- NOTE | 2017-05-30 08:44 | HHI.PR ---
Subjective Remarks Follow up for left ankle cellulitis. The patient is sleeping upon my arrival, upon awakening he reports continued left ankle pain, rated 10/10. He reports feeling hot but no documented fevers overnight. Denies any chest pain or shortness of breath. Going for MRI this morning, and possible I&D by ortho today. Objective Vitals Vital Signs Date Time Temp Pulse Resp B/P Pulse Ox O2 Delivery O2 Flow Rate FiO2 05/30/17 07:10 18 05/30/17 04:02 88 05/30/17 03:24 98.7 88 17 103/62 98 05/30/17 03:10 18 05/30/17 00:15 97.8 102 19 125/73 97 05/30/17 00:07 102 05/29/17 22:53 18 05/29/17 20:57 106 05/29/17 20:22 97.8 107 20 129/68 96 05/29/17 15:59 98.3 91 16 108/60 98 05/29/17 12:00 94 05/29/17 11:29 98.2 96 15 103/59 96 I/O 05/29/17 05/29/17 05/29/17 05/30/17 05/30/17 05/30/17 07:00 15:00 23:00 07:00 15:00 23:00 Intake Total 1050 ml 500 ml Output Total 800 ml 450 ml Balance 1050 ml -300 ml -450 ml Intake Oral 500 ml IV Total 1050 ml Output Urine Total 800 ml 450 ml Result Diagram: 05/30/17 0651 05/30/17 0651 Imaging Last Impressions Lower Extremity Ultrasound 05/28/172031 Signed Impressions: Service Date/Time: Sunday, May 28, 2017 20:45 - CONCLUSION: No DVT. An enlarged lymph nodes left groin. Hever Espino MD Objective Remarks GENERAL: Well-nourished, well-developed middle aged male patient in [facility]. SKIN: Warm and dry. No rash. HEENT: Normocephalic. Atraumatic. Pupils equal and round. NECK: Supple. Trachea midline. CARDIOVASCULAR: Regular rate and rhythm. S1, S2 noted. No murmur appreciated. RESPIRATORY: No accessory muscle use. Clear to auscultation. Breath sounds equal bilaterally. GASTROINTESTINAL: Abdomen soft, non-tender, nondistended. Normoactive bowel sounds x4. MUSCULOSKELETAL: No obvious deformities. Left ankle wrapped in dressing, CDI, with surrounding edema/warmth, diffuse tenderness to palpation. NEUROLOGICAL: Awake and alert. No obvious cranial nerve deficits. Motor grossly within normal limits. Normal speech. PSYCHIATRIC: Appropriate mood and affect; insight and judgment normal. Medications and IVs Current Medications Medications (Trade) Dose Ordered Sig/Dennis Route Start Time Stop Time Status Last Admin (NS 1000 ml Inj) 1,000 ml @ 100 mls/hr Q10H IV 05/28/17 22:01 05/29/17 18:31 (NS Flush) 2 ml UNSCH PRN IV FLUSH 05/28/17 22:15 (NS Flush) 2 ml BID IV FLUSH 05/29/17 09:00 (Narcan Inj) 0.4 mg UNSCH PRN IV 05/28/17 22:15 (Mycostatin Liq) 5 ml QID SWISH-SWAL 05/29/17 09:00 05/29/17 21:00 Morphine Sulfate 2 mg 2 mg Q3H PRN IV PUSH 05/28/17 22:15 05/30/17 06:35 (Vancomycin Consult Pharmacy) 0 ml @ 0 mls/hr UNSCH OTHER 05/28/17 22:15 ([place] 7.5-325 Mg) 1 tab Q4H PRN PO 05/29/17 06:45 05/29/17 21:04 ([place] 10-325 Mg) 1 tab Q4H PRN PO 05/29/17 06:45 05/30/17 02:08 Enoxaparin Sodium 40 mg 40 mg Q24H SQ 05/29/17 10:00 05/29/17 11:35 (Vancomycin Inj/ NS 250 ml Inj) 262.5 ml @ 250 mls/hr Q12H IV 05/29/17 11:00 05/29/17 23:24 Miscellaneous Information SPECIFIC LAB TO BE DRAWN:VANCOMYCIN TROUGH DATE TO... ONCE ONCE .XX 05/30/17 10:45 05/30/17 10:46 (Diflucan) 100 mg DAILY PO 05/29/17 16:30 05/29/17 16:59 Vascular Central Line Catheter: Yes Assessment to: Continue Date of Insertion: May 11, 2017 Line: PICC Side: Right A/P Problem List: (1) Cellulitis of ankle ICD Code: L03.119 Status: Acute (2) Oral thrush ICD Code: B37.0 Status: Acute (3) Acute renal failure (ARF) ICD Code: N17.9 Status: Acute Assessment and Plan 36-year-old male with history of recent admission 05/02/17-05/21/17 for left ankle septic joint s/p removal of hardware and multiple I&Ds by Dr. Moreira, also diagnosed with MRSA bacteremia, discharged 05/21/17 with PICC on outpatient IV Televancin infusion; returns now after outpatient f/up with Dr. Moreira, sent back to the hospital for worsening infection. Left Ankle Cellulitis/Septic Joint/Osteomyelitis: Failed outpatient treatment with televancin. - continue IV Vancomycin with pharmacy consultation for assistance with therapeutic dosing and monitoring - Pain control with [place] prn and IV Morphine prn breakthrough pain - Orthopedics consulted, ordered MRI, may proceed with repeat I&D today depending on MRI results. - Consult infectious disease for assistance with antibiotics MRSA Bacteremia: received IV vanco on previous admission, discharged on IV televancin as above - Continue IV Vanco for now, monitor renal function - Infectious disease following, appreciate recommendations Oral Thrush - Nystatin swish and swallow QID Acute Kidney Injury: secondary to IV televancin. BUN 23, creatinine 1.78, eGFR 43 - Give IVF hydration with NS at 100 cc/hr - Avoid nephrotoxins - Monitor Strict ins and outs. - Improving with IV fluids, Cr 1.78 --> 1.39. Continue to monitor. IVDU: infusion clinic suspect patient misusing PICC for IVDU - limit narcotics - monitor closely DVT prophylaxis- Lovenox. Discharge Planning Patient failed outpatient treatment with IV antibiotic infusion so will require continued hospitalization. Lucy Deluca PA-C May 30, 2017 8:43 am
[2017-05-30] MEDS ORDERED: GADODIAMIDE PF 287 MG/ML 5 ML VIAL (for RAD MRI) IV ONE (08:49)
[2017-05-30] MEDS: SODIUM CHLORIDE 0.9% FLUSH 10 ML FLUSH IV FLUSH SCH ×2 (09:00→19:24)
[2017-05-30] MEDS: FLUCONAZOLE 100 MG TAB PO SCH (09:38)
[2017-05-30] MEDS: NYSTATIN SUSP 500,000 U/5 ML CUP SWISH-SWAL SCH ×4 (09:38→19:24)
[2017-05-30] MEDS: ENOXAPARIN SODIUM 40 MG/0.4 ML SYRINGE SQ SCH (09:39)
--- NOTE | 2017-05-30 10:12 | RADRPT ---
EXAM DATE/TIME: 05/30/2017 08:15 [facility] COMPARISON: ANKLE LEFT COMPLETE ([id number]), May 01, 2017, 1:15. CT ANKLE LEFT W CONTRAST, May 02, 2017, 18:55. MRI ANKLE LEFT W & W/O CONTRAST, May 07, 2017, 20:32. INDICATIONS : Abscess. CONTRAST: 15 cc Omniscan (gadodiamide) IV MEDICAL HISTORY : Hypertension. SURGICAL HISTORY : Left ankle surgery. ENCOUNTER: Initial ACUITY: 3 day PAIN SCORE: 4/10 LOCATION: Left ankle TECHNIQUE: Multiplanar, multisequence MRI examination was performed without contrast and after the intravenous a dministration of gadolinium. FINDINGS: Again, there is evidence of diffuse cellulitis surrounding the left ankle. Extensive marrow edema an d enhancement is noted involving the distal tibia, distal fibula, medial aspect of the talus and periph mario of the calcaneus. There is also marrow edema and enhancement involving the navicular bone and cuboid as wel l as portions of the cuneiforms. The findings are suspicious for diffuse osteomyelitis and cellulitis. W bello blood cell scan may be helpful for confirmation of osteomyelitis in this patient if clinically indicated. Deep soft tissue abscess collections are also noted and are relatively stable in size compared to the previous examina tion dated 05/07/17. Fluid collections are noted both medially and laterally adjacent to the calcaneus and medial distal tibia. Persistent cortical erosion is noted involving the medial aspect of the distal tibia. The visualized tendons are grossly normal. CONCLUSION: 1. Extensive marrow edema and enhancement involving the distal tibia, distal fibula, medial aspect o f the talus, periphery of the calcaneus, navicular, cuboid and portions of the cuneiforms suggesting osteomyelitis. White blood cell scan may be helpful for confirmation if clinically indicated. 2. Persistent cortical erosion involving the medial aspect of the distal tibia. 3. Deep soft tissue abscesses are stable and are noted adjacent to the cortical erosive changes of t he distal tibia medially as well as more inferiorly along the medial and lateral aspects of the calca neus. 4. Diffuse cellulitis. Raza Winkler MD on May 30, 2017 at 9:32 Board Certified Radiologist. This report was verified electronically.
[2017-05-30] MEDS ORDERED: PHARMACY ORDERED LAB ONE (10:45)
[2017-05-30] MEDS: VANCOMYCIN INJ 1,250 MG in SODIUM CHLOR 0.9% 250 ML INJ 250 ML IV SCH ×2 (12:02→22:27)
--- NOTE | 2017-05-30 19:19 | HHI.IDPN ---
Subjective Subjective Remarks Doing OK No fever Extensive marrow edema and enhancement involving the distal tibia, distal fibula, medial aspect of the talus, periphery of the calcaneus, navicular, cuboid and portions of the cuneiforms suggesting osteomyelitis. Antibiotics vancomycin fluconazole Allergies: Coded Allergies: Cat Dander (Verified Allergy, Severe, WHEEZING ITCHING, 05/28/17) Dog Dander (Verified Allergy, Unknown, 05/28/17) *MDRO Multi-Drug Resistant Organism (Verified Adverse Reaction, Unknown, MRSA, 05/28/17) MRSA (blood) - 05/02/17 Objective . Vital Signs Date Time Temp Pulse Resp B/P Pulse Ox O2 Delivery O2 Flow Rate FiO2 05/30/17 16:30 98.1 108 18 127/69 97 05/30/17 12:09 98.5 92 16 120/72 97 05/30/17 10:11 98.5 86 18 112/72 95 05/30/17 07:10 18 05/30/17 04:02 88 05/30/17 03:24 98.7 88 17 103/62 98 05/30/17 03:10 18 05/30/17 00:15 97.8 102 19 125/73 97 05/30/17 00:07 102 05/29/17 22:53 18 05/29/17 20:57 106 05/29/17 20:22 97.8 107 20 129/68 96 05/29/17 05/29/17 05/30/17 14:59 22:59 06:59 Intake Total 1050 ml 500 ml Output Total 1250 ml Balance 1050 ml -750 ml Intake Oral 500 ml IV Total 1050 ml Output Urine Total 1250 ml . Laboratory Tests Test 05/28/17 05/29/17 05/29/17 05/30/17 20:50 05:45 21:30 06:51 White Blood Count 7.3 TH/MM3 6.0 TH/MM3 5.8 TH/MM3 Red Blood Count 3.99 MIL/MM3 3.52 MIL/MM3 3.42 MIL/MM3 Hemoglobin 10.6 GM/DL 9.6 GM/DL 9.3 GM/DL Hematocrit 32.8 % 29.0 % 28.3 % Mean Corpuscular Volume 82.3 FL 82.3 FL 82.7 FL Mean Corpuscular Hemoglobin 26.7 PG 27.3 PG 27.2 PG Mean Corpuscular Hemoglobin 32.4 % 33.2 % 32.9 % Concent Red Cell Distribution Width 16.6 % 16.6 % 16.7 % Platelet Count 394 TH/MM3 358 TH/MM3 396 TH/MM3 Mean Platelet Volume 6.4 FL 6.8 FL 6.4 FL Neutrophils (%) (Auto) 74.4 % 66.4 % Lymphocytes (%) (Auto) 12.6 % 15.8 % Monocytes (%) (Auto) 8.3 % 11.1 % Eosinophils (%) (Auto) 3.5 % 5.4 % Basophils (%) (Auto) 1.2 % 1.3 % Neutrophils # (Auto) 5.4 TH/MM3 4.0 TH/MM3 Lymphocytes # (Auto) 0.9 TH/MM3 1.0 TH/MM3 Monocytes # (Auto) 0.6 TH/MM3 0.7 TH/MM3 Eosinophils # (Auto) 0.3 TH/MM3 0.3 TH/MM3 Basophils # (Auto) 0.1 TH/MM3 0.1 TH/MM3 CBC Comment DIFF FINAL DIFF FINAL Differential Comment Erythrocyte Sedimentation Rate 66 mm/hr Laboratory Tests Test 05/28/17 05/29/17 05/30/17 20:50 05:45 06:51 Sodium Level 141 MEQ/L 144 MEQ/L 143 MEQ/L Potassium Level 3.8 MEQ/L 4.1 MEQ/L 3.8 MEQ/L Chloride Level 105 MEQ/L 111 MEQ/L 108 MEQ/L Carbon Dioxide Level 29.9 MEQ/L 26.4 MEQ/L 30.1 MEQ/L Anion Gap 6 MEQ/L 7 MEQ/L 5 MEQ/L Blood Urea Nitrogen 23 MG/DL 19 MG/DL 14 MG/DL Creatinine 1.78 MG/DL 1.61 MG/DL 1.39 MG/DL Estimat Glomerular Filtration 43 ML/MIN 49 ML/MIN 58 ML/MIN Rate Random Glucose 101 MG/DL 74 MG/DL 79 MG/DL Lactic Acid Level 1.2 mmol/L Calcium Level 9.3 MG/DL 8.5 MG/DL 8.6 MG/DL Total Bilirubin 0.3 MG/DL Aspartate Amino Transf 33 U/L (AST/SGOT) Alanine Aminotransferase 34 U/L (ALT/SGPT) Alkaline Phosphatase 75 U/L Total Protein 7.4 GM/DL Albumin 3.0 GM/DL Microbiology Date/Time Procedure Status Source Growth 05/28/17 20:45 Aerobic Blood Culture - Preliminary Resulted Blood Peripheral NO GROWTH IN 2 DAYS 05/28/17 20:45 Anaerobic Blood Culture - Preliminary Resulted Blood Peripheral NO GROWTH IN 2 DAYS 05/28/17 20:50 Aerobic Blood Culture - Preliminary Resulted Blood Peripheral NO GROWTH IN 2 DAYS 05/28/17 20:50 Anaerobic Blood Culture - Preliminary Resulted Blood Peripheral NO GROWTH IN 2 DAYS Imaging Last Impressions Ankle MRI 05/30/17 0000 Signed Impressions: Service Date/Time: Tuesday, May 30, 2017 08:15 - CONCLUSION: 1. Extensive marrow edema and enhancement involving the distal tibia, distal fibula, medial aspect of the talus, periphery of the calcaneus, navicular, cuboid and portions of the cuneiforms suggesting osteomyelitis. White blood cell scan may be helpful for confirmation if clinically indicated. 2. Persistent cortical erosion involving the medial aspect of the distal tibia. 3. Deep soft tissue abscesses are stable and are noted adjacent to the cortical erosive changes of the distal tibia medially as well as more inferiorly along the medial and lateral aspects of the calcaneus. 4. Diffuse cellulitis. Raza Winkler MD Lower Extremity Ultrasound 05/28/172031 Signed Impressions: Service Date/Time: Sunday, May 28, 2017 20:45 - CONCLUSION: No DVT. An enlarged lymph nodes left groin. Hever Espino MD Physical Exam CONSTITUTIONAL/GENERAL: This is an adequately nourished patient, in no apparent distress. TUBES/LINES/DRAINS: SKIN: No jaundice, rashes, or lesions. Ecchymoses on upper extremities. No wounds seen anteriorly. Skin temperature appropriate. Not diaphoretic. HEAD: Atraumatic. Normocephalic. EYES: Pupils equal and round and reactive. Extraocular motions intact. No scleral icterus. No injection or drainage. Fundi not examined. ENT: Hearing grossly normal. Nose without bleeding or purulent drainage. Oral mucosae with whitish lesions. cw thrush NECK: Trachea midline. Supple, nontender. No palpable thyroid enlargement or nodularity. CARDIOVASCULAR: Regular rate and rhythm without murmurs, gallops, or rubs. No JVD. Peripheral pulses symmetric. RESPIRATORY/CHEST: Symmetric, unlabored respirations. Clear to auscultation. Breath sounds equal bilaterally. No wheezes, rales, or rhonchi. GASTROINTESTINAL: Abdomen soft, non-tender, nondistended. No hepato-splenomegaly , or palpable masses. No guarding. Bowel sounds present. GENITOURINARY: Without palpable bladder distension. MUSCULOSKELETAL: Extremities without clubbing, cyanosis, L foot is edematous drainage of thickmodorless pus noted on ionner aspect of the ankle + some eryuthema + tedner to palpation Incisions are with small amount of serosus odorles sdrainage No mottling or clubbing. LYMPHATICS: No palpable cervical or supraclavicular adenopathy. NEUROLOGICAL: Awake and alert. Motor and sensory grossly within normal limits. Follows commands. Cognitively sharp. Moves all extremities. PSYCHIATRIC: No obvious anxiety/depression. no apparent hallucinations or other psychotic thought process. Laboratory Laboratory Tests Test 05/28/17 05/29/17 20:50 05:45 White Blood Count 7.3 6.0 Red Blood Count 3.99 3.52 Hemoglobin 10.6 9.6 Hematocrit 32.8 29.0 Mean Corpuscular Volume 82.3 82.3 Mean Corpuscular Hemoglobin 26.7 27.3 Mean Corpuscular Hemoglobin 32.4 33.2 Concent Red Cell Distribution Width 16.6 16.6 Platelet Count 394 358 Mean Platelet Volume 6.4 6.8 Neutrophils (%) (Auto) 74.4 66.4 Lymphocytes (%) (Auto) 12.6 15.8 Monocytes (%) (Auto) 8.3 11.1 Eosinophils (%) (Auto) 3.5 5.4 Basophils (%) (Auto) 1.2 1.3 Neutrophils # (Auto) 5.4 4.0 Lymphocytes # (Auto) 0.9 1.0 Monocytes # (Auto) 0.6 0.7 Eosinophils # (Auto) 0.3 0.3 Basophils # (Auto) 0.1 0.1 CBC Comment DIFF FINAL DIFF FINAL Differential Comment Sodium Level 141 144 Potassium Level 3.8 4.1 Chloride Level 105 111 Carbon Dioxide Level 29.9 26.4 Anion Gap 6 7 Blood Urea Nitrogen 23 19 Creatinine 1.78 1.61 Estimat Glomerular Filtration 43 49 Rate Random Glucose 101 74 Lactic Acid Level 1.2 Calcium Level 9.3 8.5 Total Bilirubin 0.3 Aspartate Amino Transf 33 (AST/SGOT) Alanine Aminotransferase 34 (ALT/SGPT) Alkaline Phosphatase 75 Total Protein 7.4 Albumin 3.0 Date/Time Procedure Status Source Growth 05/28/17 20:50 Aerobic Blood Culture - Preliminary Resulted Blood Peripheral NO GROWTH IN 1 DAY 05/28/17 20:50 Anaerobic Blood Culture - Preliminary Resulted Blood Peripheral NO GROWTH IN 1 DAY Result Diagram: 05/29/17 0545 05/29/17 0545 Imaging Last Impressions Lower Extremity Ultrasound 05/28/172031 Signed Impressions: Service Date/Time: Sunday, May 28, 2017 20:45 - CONCLUSION: No DVT. An enlarged lymph nodes left groin. Hever Espino MD Assessment and Plan Assessment and Plan Assessment & Plan Remarks MRSA L ankle infected harware and osteo, sp removal of hardware and mult debridement s - treatment failure with on going osteo MRSA sepsis Failing treament GOLDIE on televancin oral thrush - agree with plan for further debridement - cont vancomycin for now, keep trough 15-20 - anticipate 6 weeks of post op vancomycin followed by months of oral abx - will not use televancin in the future - agree with plan for MRI diflucan for thrush x1 week chk ESR fu bl clx Johanna Cooper MD May 30, 2017 19:19
[2017-05-31 00:37] VITALS: BP 121/69; PULSE 74; RESP 18; TEMP 98.4; O2SAT 98
[2017-05-31] MEDS: MORPHINE SULFATE 4 MG/ML INJ IV PUSH PRN ×2 (01:06→07:39)
[2017-05-31 03:34] VITALS: BP 132/71; PULSE 95; RESP 18; TEMP 98.4; O2SAT 97
[2017-05-31] MEDS: ACETAMINOPHEN/HYDROcodone 325 MG/10 MG TAB PO PRN (03:52)
[2017-05-31 07:54] VITALS: BP 118/66; PULSE 87; RESP 14; TEMP 98.2; O2SAT 96
[2017-05-31] MEDS: NYSTATIN SUSP 500,000 U/5 ML CUP SWISH-SWAL SCH ×4 (09:00→20:51)
[2017-05-31] MEDS: FLUCONAZOLE 100 MG TAB PO SCH (09:00)
--- NOTE | 2017-05-31 09:12 | HHI.PR ---
Subjective Remarks Follow up for left ankle osteomyelitis/cellulitis, GOLDIE. Patient seen on the way to OR this morning. The patient reports continue left ankle pain, unrelieved by current pain medications. He reports subjective low grade fevers and diaphoresis , no documented fevers. Denies any chest pain or shortness of breath. Had BM yesterday. Denies any other medical complaints. Objective Vitals Vital Signs Date Time Temp Pulse Resp B/P Pulse Ox O2 Delivery O2 Flow Rate FiO2 05/31/17 08:18 8 05/31/17 07:54 98.2 87 14 118/66 96 05/31/17 05:07 18 05/31/17 03:34 98.4 95 18 132/71 97 05/31/17 00:37 98.4 74 18 121/69 98 05/30/17 20:16 98.0 64 21 115/55 100 05/30/17 16:30 98.1 108 18 127/69 97 05/30/17 12:09 98.5 92 16 120/72 97 05/30/17 10:11 98.5 86 18 112/72 95 I/O 05/30/17 05/30/17 05/30/17 05/31/17 05/31/17 05/31/17 07:00 15:00 23:00 07:00 15:00 23:00 Intake Total 1920 ml Output Total 450 ml 500 ml 1950 ml 1700 ml 825 ml Balance -450 ml -500 ml -30 ml -1700 ml -825 ml Intake Oral 720 ml IV Total 1200 ml Output Urine Total 450 ml 500 ml 1950 ml 1700 ml 825 ml # Bowel Movements 1 Result Diagram: 05/30/17 0651 05/30/17 0651 Imaging Last Impressions Ankle MRI 05/30/17 0000 Signed Impressions: Service Date/Time: Tuesday, May 30, 2017 08:15 - CONCLUSION: 1. Extensive marrow edema and enhancement involving the distal tibia, distal fibula, medial aspect of the talus, periphery of the calcaneus, navicular, cuboid and portions of the cuneiforms suggesting osteomyelitis. White blood cell scan may be helpful for confirmation if clinically indicated. 2. Persistent cortical erosion involving the medial aspect of the distal tibia. 3. Deep soft tissue abscesses are stable and are noted adjacent to the cortical erosive changes of the distal tibia medially as well as more inferiorly along the medial and lateral aspects of the calcaneus. 4. Diffuse cellulitis. Raza Winkler MD Lower Extremity Ultrasound 05/28/172031 Signed Impressions: Service Date/Time: Sunday, May 28, 2017 20:45 - CONCLUSION: No DVT. An enlarged lymph nodes left groin. Hever Espino MD Objective Remarks GENERAL: Well-nourished, well-developed middle aged male patient in [facility]. SKIN: Warm and dry. No rash. HEENT: Normocephalic. Atraumatic. Pupils equal and round. NECK: Supple. Trachea midline. CARDIOVASCULAR: Regular rate and rhythm. S1, S2 noted. No murmur appreciated. RESPIRATORY: No accessory muscle use. Clear to auscultation. Breath sounds equal bilaterally. GASTROINTESTINAL: Abdomen soft, non-tender, nondistended. Normoactive bowel sounds x4. MUSCULOSKELETAL: No obvious deformities. Left ankle wrapped in dressing, CDI, with surrounding edema/warmth, diffuse tenderness to palpation. NEUROLOGICAL: Awake and alert. No obvious cranial nerve deficits. Motor grossly within normal limits. Normal speech. PSYCHIATRIC: Appropriate mood and affect; insight and judgment normal. Medications and IVs Current Medications Medications (Trade) Dose Ordered Sig/Dennis Route Start Time Stop Time Status Last Admin (NS 1000 ml Inj) 1,000 ml @ 100 mls/hr Q10H IV 05/28/17 22:01 05/30/17 21:58 (NS Flush) 2 ml UNSCH PRN IV FLUSH 05/28/17 22:15 (NS Flush) 2 ml BID IV FLUSH 05/29/17 09:00 (Narcan Inj) 0.4 mg UNSCH PRN IV 05/28/17 22:15 (Mycostatin Liq) 5 ml QID SWISH-SWAL 05/29/17 09:00 05/30/17 19:24 Morphine Sulfate 2 mg 2 mg Q3H PRN IV PUSH 05/28/17 22:15 05/31/17 07:39 (Vancomycin Consult Pharmacy) 0 ml @ 0 mls/hr UNSCH OTHER 05/28/17 22:15 ([place] 7.5-325 Mg) 1 tab Q4H PRN PO 05/29/17 06:45 05/29/17 21:04 ([place] 10-325 Mg) 1 tab Q4H PRN PO 05/29/17 06:45 05/31/17 03:52 Enoxaparin Sodium 40 mg 40 mg Q24H SQ 05/29/17 10:00 05/30/17 09:39 (Vancomycin Inj/ NS 250 ml Inj) 262.5 ml @ 250 mls/hr Q12H IV 05/29/17 11:00 05/30/17 22:27 (Diflucan) 100 mg DAILY PO 05/29/17 16:30 05/30/17 09:38 Miscellaneous Information SPECIFIC LAB TO BE DRAWN:VANCOMYCIN TROUGH DATE TO... ONCE ONCE .XX 06/01/17 10:45 06/01/17 10:46 Date of Insertion: May 11, 2017 Line: PICC Side: Right A/P Problem List: (1) Cellulitis of ankle ICD Code: L03.119 Status: Acute (2) Oral thrush ICD Code: B37.0 Status: Acute (3) Acute renal failure (ARF) ICD Code: N17.9 Status: Acute Assessment and Plan 36-year-old male with history of recent admission 05/02/17-05/21/17 for left ankle septic joint s/p removal of hardware and multiple I&Ds by Dr. Palafox, also diagnosed with MRSA bacteremia, discharged 05/21/17 with PICC on outpatient IV Televancin infusion; returns now after outpatient f/up with Dr. Palafox, sent back to the hospital for worsening infection. Left Ankle Cellulitis/Septic Joint/Osteomyelitis: Failed outpatient treatment with televancin. - continue IV Vancomycin with pharmacy consultation for assistance with therapeutic dosing and monitoring - LLE MRI showed Extensive marrow edema suggesting osteomyelitis; deep soft tissue abscesses stable with cortical erosive changes; diffuse cellulitis. - Orthopedics consulted, pt going for repeat I&D today 05/31 - Consulted infectious disease for assistance with antibiotics - Changed pain meds from [place] to Percocet today, and increased IV morphine to 4mg prn breakthrough pain MRSA Bacteremia: received IV vanco on previous admission, discharged on IV televancin as above - Continue IV Vanco for now, monitor renal function - Infectious disease following, appreciate recommendations Oral Thrush - Nystatin swish and swallow QID - ID added Fluconazole 100mg daily Acute Kidney Injury: secondary to IV televancin. BUN 23, creatinine 1.78, eGFR 43 - Give IVF hydration with NS at 100 cc/hr - Avoid nephrotoxins - Monitor Strict ins and outs. - Improving with IV fluids, Cr 1.78 --> 1.39. Continue to monitor. IVDU: infusion clinic suspect patient misusing PICC for IVDU - limit narcotics - monitor closely DVT prophylaxis- Lovenox. Discharge Planning Going to OR today. Admitted to inpatient. Failed outpatient management. Lucy Deluca PA-C May 31, 2017 9:12 am
[2017-05-31] MEDS ORDERED: oxyCODONE/ACETAMINOPHEN 5 MG/325 MG TAB PO PRN (09:15)
[2017-05-31] MEDS ORDERED: GENTAMICIN SULFATE 80 MG/2 ML VIAL ONE (09:29)
[2017-05-31] MEDS ORDERED: FAMOTIDINE 20 MG/2 ML VIAL ONE (09:29)
[2017-05-31] MEDS ORDERED: ceFAZolin 2 GM PREMIX 50 ML ONE (09:29)
[2017-05-31] MEDS ORDERED: HYDROmorphone HCL PF 2 MG/ML VIAL ONE (09:29)
[2017-05-31] MEDS ORDERED: MIDAZOLAM HCL 2 MG/2 ML VIAL ONE (09:29)
[2017-05-31] MEDS: ENOXAPARIN SODIUM 40 MG/0.4 ML SYRINGE SQ SCH (10:00)
[2017-05-31] MEDS: SODIUM CHLOR 0.9% 1000 ML INJ 1,000 ML IV SCH ×2 (10:01→20:51)
[2017-05-31] MEDS ORDERED: diphenhydrAMINE HCL 50 MG/ML VIAL ONE (10:35)
--- NOTE | 2017-05-31 10:51 | PD.OP ---
cc: Dillon Moreira MD Operative Report Date of Surgery: May 31, 2017 Preoperative Diagnosis: Left foot and ankle infection Postoperative Diagnosis: Procedure: Irrigation and debridement of left tibia, left ankle arthrotomy with irrigation and debridement, irrigation and debridement of left foot abscess Anesthesia: Gen. Surgeon: Dillon Moreira Chemical Recovery Operator(s): CAMDEN Ulloa PA-C The surgical procedure was assisted by my physician information services assistant. My P.A. presence was necessary throughout this case for the manipulation and positioning of the surgical extremity. My P.A. was assisting me throughout the duration of this procedure. The skill set of a physician information services assistant was medically necessary to complete this procedure. During the surgical case the rn surgical was working at the back table and the physician information services assistant was directly assisting me. Operation and Findings: Patient is well-known to me from previous left foot and ankle infections. He has a history of IV drug use. He has been noncompliant with his antibiotic treatment as an outpatient. He has been skipping infusion therapy appointments as well as using his PICC line for drug use. I had a lengthy discussion with the patient preoperatively regarding the condition of his foot. Given the extensive infection and osteomyelitis he has significant risk of needing an amputation of his foot. Informed consent was obtained for repeat irrigation debridement. Operative site was marked. He was brought to operating room. He is on scheduled antibiotics. He was given IV sedation and general anesthesia. Timeout procedure was performed. Left leg was prepped with alcohol followed by Hibiclens and draped usual sterile fashion. Procedure began with a 4 inch incision of the medial aspect of the distal tibia. Previous scar and incision were utilized. There was purulent drainage around the tibia. Flaps were elevated. Curettes were used to debride bone. Cultures were obtained from the distal tibia. Soft tissue and bone were sharply debrided. Sterile saline was now used to thoroughly irrigate this wound. This incision was now closed with 3-0 PDS and 3-0 nylon. Next attention was turned to the left ankle. A 4 inch incision was made through previous incisions on the lateral aspect of the ankle. Full-thickness flaps were elevated. There was purulent drainage present. An arthrotomy was created. There was some cloudy fluid around the ankle joint and subtalar joint. The ankle joint was distracted. The joint was thoroughly irrigated with sterile saline. Skin subcutaneous tissue and fascia were sharply debrided with scalpel. Next attention was turned towards the left foot. A 2 inch incision was made over the medial aspect of the calcaneus. Subcutaneous tissues dissected bluntly. Thick purulent material was identified. The abscess was completely debrided. Curettes and rongeurs were used to debride soft tissue. The abscess tracked down beneath the Achilles tendon. Wound was now thoroughly irrigated. Incisions were closed with 3-0 PDS and 3-0 nylon. Sterile dressings were applied. Patient transferred to recovery room in stable condition. Dillon Moreira MD May 31, 2017 10:51
[2017-05-31] MEDS ORDERED: fentaNYL CITRATE 250 MCG/5 ML AMP ONE (10:58)
[2017-05-31] MEDS ORDERED: MORPHINE SULFATE 4 MG/ML INJ ONE (10:58)
[2017-05-31] MEDS: VANCOMYCIN INJ 1,250 MG in SODIUM CHLOR 0.9% 250 ML INJ 250 ML IV SCH ×2 (11:00→22:18)
[2017-05-31] MEDS ORDERED: *MEPERIDINE 25 MG INJ VIAL PERIprocedural Use ONLY ONE (11:06)
[2017-05-31] MEDS: LACTATED RINGER'S 1000 ML INJ 1,000 ML IV SCH ×2 (11:23→20:52)
[2017-05-31] MEDS ORDERED: DO NOT ADM ANY ANTICOAGULANT DRUGS PRN (11:30)
[2017-05-31] MEDS ORDERED: *morphine SULFATE 8 MG/ML PERIprocedure ONLY ONE ×2 (11:30→12:17)
[2017-05-31] MEDS: SODIUM CHLORIDE 0.9% FLUSH 10 ML FLUSH IV FLUSH SCH ×2 (11:36→20:51)
[2017-05-31] MEDS ORDERED: ONDANSETRON HCL 4 MG/2 ML VIAL IV PUSH ONE (12:00)
[2017-05-31] MEDS ORDERED: PROPOFOL 200 MG/20 ML AMP IV ONE (12:00)
[2017-05-31] MEDS: oxyCODONE/ACETAMINOPHEN 10 MG/325 MG TAB PO PRN ×2 (15:17→19:55)
[2017-05-31 16:31] VITALS: BP 109/68; PULSE 90; RESP 20; TEMP 98.6; O2SAT 96
[2017-05-31] MEDS: MORPHINE SULFATE 4 MG/ML INJ IV PRN ×2 (18:09→21:19)
[2017-05-31] MEDS: clonazePAM 0.5 MG TAB PO SCH (20:51)
[2017-05-31 21:01] VITALS: BP 119/67; PULSE 99; RESP 20; TEMP 98.8; O2SAT 97
[2017-06-01] MEDS: oxyCODONE/ACETAMINOPHEN 10 MG/325 MG TAB PO PRN ×5 (00:07→23:46)
[2017-06-01 00:57] VITALS: BP 112/57; PULSE 98; RESP 20; TEMP 98.2; O2SAT 97
[2017-06-01 05:07] LABS: AUTOMATED NEUTROPHIL # 4.7 TH/MM3 (1.8-7.7); BASOPHIL % 0.2 % (0.0-2.0); EOSINOPHIL # 0.4 TH/MM3 (0-0.4); EOSINOPHIL % 4.9 % (0.0-4.0); HEMATOCRIT 27.4 % (39.0-51.0); HEMO FLAGS DIFF FINAL; LYMPH % 16.4 % (9.0-44.0); LYMPHOCYTE # 1.2 TH/MM3 (1.0-4.8); MEAN CELL VOLUME 81.6 FL (80.0-100.0); MEAN CORPUSCULAR HEMOGLOBIN 26.9 PG (27.0-34.0); MEAN CORPUSCULAR HGB CONC 32.9 % (32.0-36.0); MONO % 13.2 % (0.0-8.0); NEUT % 65.3 % (16.0-70.0); PLATELET COUNT 479 TH/MM3 (150-450); RED BLOOD COUNT 3.36 MIL/MM3 (4.50-5.90); RED CELL DISTRIBUTION WIDTH 16.3 % (11.6-17.2); WHITE BLOOD COUNT 7.3 TH/MM3 (4.0-11.0)
[2017-06-01 05:21] LABS: BICARBONATE 32.1 MEQ/L (21.0-32.0); POTASSIUM 3.8 MEQ/L (3.5-5.1)
[2017-06-01 05:32] VITALS: BP 106/67; PULSE 90; RESP 20; TEMP 97.7; O2SAT 98
[2017-06-01] MEDS: MORPHINE SULFATE 4 MG/ML INJ IV PRN ×2 (06:26→10:14)
[2017-06-01] MEDS: SODIUM CHLOR 0.9% 1000 ML INJ 1,000 ML IV SCH ×2 (06:30→16:01)
[2017-06-01] MEDS: LACTATED RINGER'S 1000 ML INJ 1,000 ML IV SCH ×2 (06:31→16:43)
[2017-06-01 08:00] VITALS: BP 133/77; PULSE 90; RESP 18; TEMP 98.4; O2SAT 96
--- NOTE | 2017-06-01 08:21 | PD.ORT.PN ---
Subjective Subjective Remarks POD 1 s/p I&D with Abx bead placement - POD 1 -doing well. reports pain and swelling left ankle Objective Vitals Vital Signs Date Time Temp Pulse Resp B/P Pulse Ox O2 Delivery O2 Flow Rate FiO2 06/01/17 05:32 97.7 90 20 106/67 98 06/01/17 00:57 98.2 98 20 112/57 97 05/31/17 21:01 98.8 99 20 119/67 97 05/31/17 16:31 98.6 90 20 109/68 96 05/31/17 14:00 98.7 85 16 112/61 95 Room Air 05/31/17 13:00 86 14 106/60 99 Room Air 05/31/17 12:30 85 17 116/69 99 Room Air 05/31/17 12:00 88 15 117/65 99 Room Air 05/31/17 11:45 92 16 126/67 99 Room Air 05/31/17 11:30 95 17 160/79 99 Nasal Cannula 2 05/31/17 11:15 98 15 126/70 99 Nasal Cannula 2 05/31/17 11:00 96 14 142/73 99 Nasal Cannula 4 05/31/17 10:53 98.0 80 15 100/51 100 Nasal Cannula 4 I/O 05/31/17 05/31/17 05/31/17 06/01/17 06/01/17 06/01/17 06:59 14:59 22:59 06:59 14:59 22:59 Intake Total 950 ml 692 ml 965 ml Output Total 1700 ml 1495 ml 975 ml 500 ml Balance -1700 ml -545 ml -283 ml 465 ml IV Total 250 ml 692 ml 965 ml Other 700 ml Output Urine Total 1700 ml 1475 ml 975 ml 500 ml Estimated Blood Loss 20 ml # Voids 1 Result Diagram: 06/01/175 06/01/17434 Imaging Last 24 hours Impressions Lower Extremity Ultrasound 05/28/172031 Signed Impressions: Service Date/Time: Sunday, May 28, 2017 20:45 - CONCLUSION: No DVT. An enlarged lymph nodes left groin. Hever Espino MD Objective Remarks LLE: dressing clean and dry. intact. NVI Assessment & Plan Assessment and Plan 1) Left Ankle Infection -daily dressing changes with xeroform/4x4/YOAV beginning POD 2 -WBAT for transfers -elevate -IV Abx per infectious disease -patient is NOT SAFE FOR DISCHARGE HOME. patient needs to remain in hospital for 6 weeks to complete IV Abx therapy. history of IV drug use and misuse of picc line as well as noncompliance. Leonid Vivas Jun 01, 2017 08:21
[2017-06-01] MEDS: NYSTATIN SUSP 500,000 U/5 ML CUP SWISH-SWAL SCH ×4 (08:48→22:16)
[2017-06-01] MEDS: FLUCONAZOLE 100 MG TAB PO SCH (08:48)
[2017-06-01] MEDS: clonazePAM 0.5 MG TAB PO SCH ×2 (08:48→22:16)
[2017-06-01] MEDS: ENOXAPARIN SODIUM 40 MG/0.4 ML SYRINGE SQ SCH (08:49)
[2017-06-01] MEDS: SODIUM CHLORIDE 0.9% FLUSH 10 ML FLUSH IV FLUSH SCH ×2 (08:52→22:16)
[2017-06-01] MEDS ORDERED: PHARMACY ORDERED LAB ONE (10:45)
[2017-06-01 12:00] VITALS: BP 108/58; PULSE 93; RESP 19; TEMP 98.3; O2SAT 97
[2017-06-01] MEDS ORDERED: VANCOMYCIN 1,000 MG/NS 250 ML IV SCH ×2 (15:00)
[2017-06-01 16:00] VITALS: BP 119/56; PULSE 108; RESP 20; TEMP 98.8; O2SAT 98
[2017-06-01] MEDS ORDERED: SENNOSIDES 8.6 MG TAB PO PRN (16:30)
[2017-06-01] MEDS ORDERED: BISACODYL 10 MG SUPP RECTAL PRN (16:30)
[2017-06-01] MEDS: MAGNESIUM HYDROXIDE SUSP 30 ML CUP PO PRN (18:07)
[2017-06-01] MEDS: HYDROmorphone HCL PF 1 MG/ML VIAL IV PUSH PRN ×2 (18:08→22:15)
--- NOTE | 2017-06-01 18:36 | HHI.PR ---
Subjective Remarks Follow up for left ankle osteomyelitis/cellulitis, GOLDIE. Patient underwent I&D of left tibia, left ankle arthrotomy with I&D and I&D of left foot abscess on . Patient is currently doing well. He complains of suboptimal control of his pain. No fever or chills. Objective Vitals Vital Signs Date Time Temp Pulse Resp B/P Pulse Ox O2 Delivery O2 Flow Rate FiO2 06/01/17 16:00 98.8 108 20 119/56 98 06/01/17 12:00 98.3 93 19 108/58 97 06/01/17 08:00 98.4 90 18 133/77 96 06/01/17 05:32 97.7 90 20 106/67 98 06/01/17 00:57 98.2 98 20 112/57 97 05/31/17 21:01 98.8 99 20 119/67 97 I/O 05/31/17 05/31/17 05/31/17 06/01/17 06/01/17 06/01/17 07:00 15:00 23:00 07:00 15:00 23:00 Intake Total 950 ml 692 ml 965 ml Output Total 1700 ml 1495 ml 975 ml 500 ml Balance -1700 ml -545 ml -283 ml 465 ml IV Total 250 ml 692 ml 965 ml Other 700 ml Output Urine Total 1700 ml 1475 ml 975 ml 500 ml Estimated Blood Loss 20 ml # Voids 1 Result Diagram: 06/01/17 0435 06/01/17 0435 Imaging Last Impressions Ankle MRI 05/30/17 0000 Signed Impressions: Service Date/Time: Tuesday, May 30, 2017 08:15 - CONCLUSION: 1. Extensive marrow edema and enhancement involving the distal tibia, distal fibula, medial aspect of the talus, periphery of the calcaneus, navicular, cuboid and portions of the cuneiforms suggesting osteomyelitis. White blood cell scan may be helpful for confirmation if clinically indicated. 2. Persistent cortical erosion involving the medial aspect of the distal tibia. 3. Deep soft tissue abscesses are stable and are noted adjacent to the cortical erosive changes of the distal tibia medially as well as more inferiorly along the medial and lateral aspects of the calcaneus. 4. Diffuse cellulitis. Raza Winkler MD Lower Extremity Ultrasound 05/28/172031 Signed Impressions: Service Date/Time: Sunday, May 28, 2017 20:45 - CONCLUSION: No DVT. An enlarged lymph nodes left groin. Hever Espino MD Objective Remarks GENERAL: Alert, oriented 3, NAD. SKIN: Warm and dry. HEAD: Normocephalic. EYES: No scleral icterus. No injection or drainage. NECK: Supple, trachea midline. No JVD or lymphadenopathy. CARDIOVASCULAR: Regular rate and rhythm without murmurs, gallops, or rubs. RESPIRATORY: Breath sounds equal bilaterally. No accessory muscle use. GASTROINTESTINAL: Abdomen soft, non-tender, nondistended. MUSCULOSKELETAL: No cyanosis, or edema. Status post left lower extremity I&D. BACK: Nontender without obvious deformity. No CVA tenderness. Procedures 05/31/2017 Irrigation and debridement of left tibia, left ankle arthrotomy with irrigation and debridement, irrigation and debridement of left foot abscess Date of Insertion: May 11, 2017 Line: PICC Side: Right A/P Problem List: (1) Cellulitis of ankle ICD Code: L03.119 Status: Acute (2) Oral thrush ICD Code: B37.0 Status: Acute (3) Acute renal failure (ARF) ICD Code: N17.9 Status: Acute Assessment and Plan 36-year-old male with history of recent admission 05/02/17-05/21/17 for left ankle septic joint s/p removal of hardware and multiple I&Ds by Dr. Palafox, also diagnosed with MRSA bacteremia, discharged 05/21/17 with PICC on outpatient IV Televancin infusion; returns now after outpatient f/up with Dr. Palafox, sent back to the hospital for worsening infection. Left Ankle Cellulitis/Septic Joint/Osteomyelitis: Failed outpatient treatment with televancin. - continue IV Vancomycin with pharmacy consultation for assistance with therapeutic dosing and monitoring - LLE MRI showed Extensive marrow edema suggesting osteomyelitis; deep soft tissue abscesses stable with cortical erosive changes; diffuse cellulitis. - Orthopedics consulted, pt underwent repeat I&D 05/31 - Consulted infectious disease for assistance with antibiotics - Changed pain meds from [place] to Percocet - Switch Morphine to Dilaudid 1mg Q3hrs PRN for breakthrough pain. MRSA Bacteremia: received IV vanco on previous admission, discharged on IV televancin as above - Continue IV Vanco for now, monitor renal function - Infectious disease following, appreciate recommendations Oral Thrush - Nystatin swish and swallow QID - ID added Fluconazole 100mg daily Acute Kidney Injury: secondary to IV televancin. BUN 23, creatinine 1.78, eGFR 43 - Give IVF hydration with NS at 100 cc/hr - Avoid nephrotoxins - Monitor Strict ins and outs. - Cr 1.78 --> 1.39 --> 1.57. Continue to monitor. - Possible IVDU - PICC line abuse suspected - We will wean off IV pain medications in the coming days. DVT prophylaxis- Lovenox. Fady Mercado DO Jun 01, 2017 6:36 pm
--- NOTE | 2017-06-01 19:15 | HHI.PR ---
Addendum to Inpatient Note Additional Information Worsening renal fnx noted - will have to stop vancomycin and start on dapto - previously developped GOLDIE while on televancin Johanna Cooper MD Jun 01, 2017 19:15
[2017-06-01 21:45] VITALS: BP 138/65; PULSE 101; RESP 20; TEMP 98.6; O2SAT 100
[2017-06-01] MEDS: DOCUSATE SODIUM 50 MG/SENNA 8.6 MG TAB PO SCH (22:16)
[2017-06-01] MEDS: DAPTOmycin INJ 900 MG in SODIUM CHLORIDE 0.9% INJ 100 ML IV SCH (22:17)
[2017-06-02] MEDS: LACTATED RINGER'S 1000 ML INJ 1,000 ML IV SCH ×3 (02:43→22:43)
[2017-06-02 02:47] VITALS: BP 140/63; PULSE 101; RESP 18; TEMP 98.6; O2SAT 100
[2017-06-02] MEDS: oxyCODONE/ACETAMINOPHEN 10 MG/325 MG TAB PO PRN ×4 (04:12→21:59)
[2017-06-02 04:52] VITALS: BP 139/69; PULSE 101; RESP 20; TEMP 98.7; O2SAT 100
[2017-06-02] MEDS: HYDROmorphone HCL PF 1 MG/ML VIAL IV PUSH PRN ×5 (05:49→23:43)
[2017-06-02 08:00] VITALS: BP 119/58; PULSE 88; RESP 18; TEMP 98.5; O2SAT 96
[2017-06-02 08:10] LABS: HEMATOCRIT 26.8 % (39.0-51.0); REVIEW FLAG FINAL
[2017-06-02] MEDS: NYSTATIN SUSP 500,000 U/5 ML CUP SWISH-SWAL SCH ×4 (08:23→20:31)
[2017-06-02] MEDS: clonazePAM 0.5 MG TAB PO SCH ×2 (08:23→20:31)
[2017-06-02] MEDS: FLUCONAZOLE 100 MG TAB PO SCH (08:23)
[2017-06-02] MEDS: DOCUSATE SODIUM 50 MG/SENNA 8.6 MG TAB PO SCH ×2 (08:23→20:31)
[2017-06-02] MEDS: ENOXAPARIN SODIUM 40 MG/0.4 ML SYRINGE SQ SCH (09:01)
[2017-06-02 12:00] VITALS: BP 117/57; PULSE 86; RESP 20; TEMP 98.9; O2SAT 97
[2017-06-02 16:00] VITALS: BP 120/61; PULSE 100; RESP 20; TEMP 98.6; O2SAT 98
--- NOTE | 2017-06-02 18:02 | HHI.IDPN ---
Subjective Subjective Remarks Doing OK No fever sp I+D. Op report reviewed Purulence noted during surgery P co sever L foot pain Also co difficulty voiding Creatinine went up yday vanco was changed to daptomycin Antibiotics daptomycin fluconazole Allergies: Coded Allergies: Cat Dander (Verified Allergy, Severe, WHEEZING ITCHING, 05/28/17) Dog Dander (Verified Allergy, Unknown, 05/28/17) *MDRO Multi-Drug Resistant Organism (Verified Adverse Reaction, Unknown, MRSA, 05/28/17) MRSA (blood) - 05/02/17 Objective . Vital Signs Date Time Temp Pulse Resp B/P Pulse Ox O2 Delivery O2 Flow Rate FiO2 06/02/17 12:00 98.9 86 20 117/57 97 06/02/17 08:00 98.5 88 18 119/58 96 06/02/17 04:52 98.7 101 20 139/69 100 06/02/17 02:47 98.6 101 18 140/63 100 06/01/17 21:45 98.6 101 20 138/65 100 06/01/17 06/01/17 06/02/17 15:00 23:00 07:00 Intake Total 536 ml Output Total 1325 ml 1560 ml Balance -1325 ml -1024 ml IV Total 536 ml Output Urine Total 1325 ml 1560 ml # Bowel Movements 1 . Laboratory Tests Test 06/01/17 06/02/17 04:35 06:30 White Blood Count 7.3 TH/MM3 Red Blood Count 3.36 MIL/MM3 Hemoglobin 9.0 GM/DL 9.2 GM/DL Hematocrit 27.4 % 26.8 % Mean Corpuscular Volume 81.6 FL Mean Corpuscular Hemoglobin 26.9 PG Mean Corpuscular Hemoglobin 32.9 % Concent Red Cell Distribution Width 16.3 % Platelet Count 479 TH/MM3 Mean Platelet Volume 6.2 FL Neutrophils (%) (Auto) 65.3 % Lymphocytes (%) (Auto) 16.4 % Monocytes (%) (Auto) 13.2 % Eosinophils (%) (Auto) 4.9 % Basophils (%) (Auto) 0.2 % Neutrophils # (Auto) 4.7 TH/MM3 Lymphocytes # (Auto) 1.2 TH/MM3 Monocytes # (Auto) 1.0 TH/MM3 Eosinophils # (Auto) 0.4 TH/MM3 Basophils # (Auto) 0.0 TH/MM3 CBC Comment DIFF FINAL Differential Comment Laboratory Tests Test 06/01/17 06/02/17 04:35 06:30 Sodium Level 141 MEQ/L Potassium Level 3.8 MEQ/L Chloride Level 104 MEQ/L Carbon Dioxide Level 32.1 MEQ/L Anion Gap 5 MEQ/L Blood Urea Nitrogen 11 MG/DL Creatinine 1.57 MG/DL Estimat Glomerular Filtration 50 ML/MIN Rate Random Glucose 91 MG/DL Calcium Level 8.4 MG/DL Total Creatine Kinase 46 U/L Microbiology Date/Time Procedure Status Source Growth 05/31/17 10:04 Gram Stain - Final Resulted Wound Other 05/31/17 10:04 Wound Culture - Preliminary Resulted Wound Other NO GROWTH IN 48 HOURS. 05/31/17 10:04 Acid Fast Stain - Final Resulted Wound Other NO ACID FAST BACILLI SEEN 05/31/17 10:04 Mycobacterial Culture Resulted Wound Other Pending 05/31/17 10:04 Fungal Smear - Final Resulted Wound Other NO FUNGAL ELEMENTS SEEN. 05/31/17 10:04 Fungal Culture Resulted Wound Other Pending 05/31/17 10:04 Gram Stain - Final Resulted Wound Foot 05/31/17 10:04 Wound Culture - Preliminary Resulted Wound Foot NO GROWTH IN 48 HOURS. 05/31/17 10:04 Acid Fast Stain - Final Resulted Wound Foot NO ACID FAST BACILLI SEEN 05/31/17 10:04 Mycobacterial Culture Resulted Wound Foot Pending 05/31/17 10:04 Fungal Smear - Final Resulted Wound Foot NO FUNGAL ELEMENTS SEEN. 05/31/17 10:04 Fungal Culture Resulted Wound Foot Pending Imaging Last Impressions Ankle MRI 05/30/17 0000 Signed Impressions: Service Date/Time: Tuesday, May 30, 2017 08:15 - CONCLUSION: 1. Extensive marrow edema and enhancement involving the distal tibia, distal fibula, medial aspect of the talus, periphery of the calcaneus, navicular, cuboid and portions of the cuneiforms suggesting osteomyelitis. White blood cell scan may be helpful for confirmation if clinically indicated. 2. Persistent cortical erosion involving the medial aspect of the distal tibia. 3. Deep soft tissue abscesses are stable and are noted adjacent to the cortical erosive changes of the distal tibia medially as well as more inferiorly along the medial and lateral aspects of the calcaneus. 4. Diffuse cellulitis. Raza Winkler MD Lower Extremity Ultrasound 05/28/172031 Signed Impressions: Service Date/Time: Sunday, May 28, 2017 20:45 - CONCLUSION: No DVT. An enlarged lymph nodes left groin. Hever Espino MD Physical Exam CONSTITUTIONAL/GENERAL: This is an adequately nourished patient, in no apparent distress. TUBES/LINES/DRAINS: SKIN: No jaundice, rashes, or lesions. Ecchymoses on upper extremities. No wounds seen anteriorly. Skin temperature appropriate. Not diaphoretic. EYES: Pupils equal and round and reactive. Extraocular motions intact. No scleral icterus. No injection or drainage. Fundi not examined. CARDIOVASCULAR: Regular rate and rhythm without murmurs, gallops, or rubs. No JVD. Peripheral pulses symmetric. RESPIRATORY/CHEST: Symmetric, unlabored respirations. Clear to auscultation. Breath sounds equal bilaterally. No wheezes, rales, or rhonchi. GASTROINTESTINAL: Abdomen soft, non-tender, nondistended. No hepato-splenomegaly , or palpable masses. No guarding. Bowel sounds present. GENITOURINARY: Without palpable bladder distension. MUSCULOSKELETAL: Extremities without clubbing, cyanosis, L foot is much less edematous dressing in place NEUROLOGICAL: Awake and alert. Non focal PSYCHIATRIC:calm and cooperative Assessment & Plan Remarks MRSA L ankle infected harware and osteo, sp removal of hardware and mult debridement s; high risk for ampiutation - treatment failure with on going osteo - sp repeat I+D - clx neg @ 48 hrs MRSA sepsis Failing treament GOLDIE on televancin - worrsening creatining again ? vanco vs retention oral thrush - on fluconazole - hold vancomycin cont high dose dapto - fu CKs while on daptomycin, at least weekly - anticipate 6 weeks of post op abx followed by months of oral abx - fu ESR - add teflaro dose adjusted : CrCl >50 mL/minute: 600 mg every 12 hours CrCl >30 to =50 mL/minute: 400 mg every 12 hours CrCl =15 to =30 mL/minute: 300 mg every 12 hours CrCl <15 mL/minute: 200 mg every 12 hours - will not use televancin in the future - diflucan for thrush x1 week chk ESR fu bl clx chk pos void residual dw Johanna Singh MD Jun 02, 2017 18:02
--- NOTE | 2017-06-02 19:18 | HHI.PR ---
Subjective Remarks Follow up for left ankle osteomyelitis/cellulitis, GOLDIE. Mr. Vasquez is doing better today. Pain is well controlled. He feels somewhat wetness around his wrapped lower extremity. No fever, chills but had some sweating in bed. Objective Vitals Vital Signs Date Time Temp Pulse Resp B/P Pulse Ox O2 Delivery O2 Flow Rate FiO2 06/02/17 16:00 98.6 100 20 120/61 98 06/02/17 12:00 98.9 86 20 117/57 97 06/02/17 08:00 98.5 88 18 119/58 96 06/02/17 04:52 98.7 101 20 139/69 100 06/02/17 02:47 98.6 101 18 140/63 100 06/01/17 21:45 98.6 101 20 138/65 100 I/O 06/01/17 06/01/17 06/01/17 06/02/17 06/02/17 06/02/17 07:00 15:00 23:00 07:00 15:00 23:00 Intake Total 965 ml 536 ml Output Total 500 ml 1325 ml 1560 ml 1325 ml Balance 465 ml -1325 ml -1024 ml -1325 ml IV Total 965 ml 536 ml Output Urine Total 500 ml 1325 ml 1560 ml 1325 ml Bladder Scan Volume Amount 20 ml # Voids 1 # Bowel Movements 1 1 Result Diagram: 06/02/17 0630 06/01/17 0435 Imaging Last Impressions Ankle MRI 05/30/17 0000 Signed Impressions: Service Date/Time: Tuesday, May 30, 2017 08:15 - CONCLUSION: 1. Extensive marrow edema and enhancement involving the distal tibia, distal fibula, medial aspect of the talus, periphery of the calcaneus, navicular, cuboid and portions of the cuneiforms suggesting osteomyelitis. White blood cell scan may be helpful for confirmation if clinically indicated. 2. Persistent cortical erosion involving the medial aspect of the distal tibia. 3. Deep soft tissue abscesses are stable and are noted adjacent to the cortical erosive changes of the distal tibia medially as well as more inferiorly along the medial and lateral aspects of the calcaneus. 4. Diffuse cellulitis. Raza Winkler MD Lower Extremity Ultrasound 05/28/172031 Signed Impressions: Service Date/Time: Sunday, May 28, 2017 20:45 - CONCLUSION: No DVT. An enlarged lymph nodes left groin. Hever Espino MD Objective Remarks GENERAL: Alert, oriented 3, NAD. SKIN: Warm and dry. HEAD: Normocephalic. EYES: No scleral icterus. No injection or drainage. NECK: Supple, trachea midline. No JVD or lymphadenopathy. CARDIOVASCULAR: Regular rate and rhythm without murmurs, gallops, or rubs. RESPIRATORY: Breath sounds equal bilaterally. No accessory muscle use. GASTROINTESTINAL: Abdomen soft, non-tender, nondistended. MUSCULOSKELETAL: No cyanosis, or edema. Status post left lower extremity I&D. BACK: Nontender without obvious deformity. No CVA tenderness. Procedures 05/31/2017 Irrigation and debridement of left tibia, left ankle arthrotomy with irrigation and debridement, irrigation and debridement of left foot abscess Date of Insertion: May 11, 2017 Line: PICC Side: Right A/P Problem List: (1) Cellulitis of ankle ICD Code: L03.119 Status: Acute (2) Oral thrush ICD Code: B37.0 Status: Acute (3) Acute renal failure (ARF) ICD Code: N17.9 Status: Acute Assessment and Plan 36-year-old male with history of recent admission 05/02/17-05/21/17 for left ankle septic joint s/p removal of hardware and multiple I&Ds by Dr. Palafox, also diagnosed with MRSA bacteremia, discharged 05/21/17 with PICC on outpatient IV Televancin infusion; returns now after outpatient f/up with Dr. Palafox, sent back to the hospital for worsening infection. - Left Ankle Cellulitis/Septic Joint/Osteomyelitis: Failed outpatient treatment with telavancin. - Continue Daptomycin and Ceftaroline. ID is following. - LLE MRI showed osteomyelitis; deep soft tissue abscesses stable with cortical erosive changes; diffuse cellulitis. - Orthopedics consulted, pt underwent repeat I&D 05/31 - Continue Percocet PRN and Dilaudid 1mg Q3hrs PRN for breakthrough pain. - Continue Bowel regimen. - Per Ortho, daily dressing change and WBAT. - Discussed with RN about helping patient move from bed to chair. - MRSA Bacteremia: received IV vanco on previous admission, discharged on IV telavancin - Continue IV Ceftaroline as well as Daptomycin. - Oral Thrush - Nystatin swish and swallow QID and Fluconazole 100mg daily - Acute Kidney Injury: secondary to IV televancin. BUN 23, creatinine 1.78, eGFR 43 - Give IVF hydration with NS at 100 cc/hr - Avoid nephrotoxins - Cr 1.78 --> 1.39 --> 1.57. CBC, BMP in the AM. - History of IVDU - PICC line abuse suspected, patient denies. - We will reduce IV pain medications in the coming days. Full code. Fady Jimenez DO Jun 02, 2017 19:18
[2017-06-02] MEDS: CEFTAROLINE INJ 400 MG in SODIUM CHLORIDE 0.9% INJ 100 ML IV SCH (20:30)
[2017-06-02] MEDS: DAPTOmycin INJ 900 MG in SODIUM CHLORIDE 0.9% INJ 100 ML IV SCH (20:30)
[2017-06-02] MEDS: SODIUM CHLORIDE 0.9% FLUSH 10 ML FLUSH IV FLUSH SCH ×2 (20:35→20:50)
[2017-06-02 21:01] VITALS: BP 129/70; PULSE 100; RESP 18; TEMP 97.9; O2SAT 100
[2017-06-03 00:42] VITALS: BP 128/62; PULSE 86; RESP 18; TEMP 97.6; O2SAT 100
[2017-06-03] MEDS: oxyCODONE/ACETAMINOPHEN 10 MG/325 MG TAB PO PRN ×6 (01:50→23:43)
[2017-06-03] MEDS ORDERED: PHARMACY ORDERED LAB ONE (02:45)
[2017-06-03] MEDS: HYDROmorphone HCL PF 1 MG/ML VIAL IV PUSH PRN ×4 (03:43→21:39)
[2017-06-03 04:00] VITALS: BP 115/60; PULSE 82; RESP 18; TEMP 97.7; O2SAT 98
[2017-06-03 06:12] LABS: AUTOMATED NEUTROPHIL # 4.5 TH/MM3 (1.8-7.7); BASOPHIL # 0.1 TH/MM3 (0-0.2); BASOPHIL % 1.1 % (0.0-2.0); EOSINOPHIL # 0.3 TH/MM3 (0-0.4); EOSINOPHIL % 4.1 % (0.0-4.0); HEMATOCRIT 28.6 % (39.0-51.0); HEMO FLAGS DIFF FINAL; LYMPH % 19.5 % (9.0-44.0); LYMPHOCYTE # 1.4 TH/MM3 (1.0-4.8); MEAN CELL VOLUME 80.1 FL (80.0-100.0); MEAN CORPUSCULAR HEMOGLOBIN 26.5 PG (27.0-34.0); MEAN CORPUSCULAR HGB CONC 33.1 % (32.0-36.0); MONO % 11.5 % (0.0-8.0); NEUT % 63.8 % (16.0-70.0); PLATELET COUNT 543 TH/MM3 (150-450); RED BLOOD COUNT 3.58 MIL/MM3 (4.50-5.90); RED CELL DISTRIBUTION WIDTH 16.4 % (11.6-17.2); WHITE BLOOD COUNT 7.1 TH/MM3 (4.0-11.0)
[2017-06-03 06:37] LABS: BICARBONATE 29.7 MEQ/L (21.0-32.0); POTASSIUM 3.6 MEQ/L (3.5-5.1)
[2017-06-03 08:00] VITALS: BP 105/59; PULSE 79; RESP 18; TEMP 97.7; O2SAT 98
[2017-06-03] MEDS: DOCUSATE SODIUM 50 MG/SENNA 8.6 MG TAB PO SCH ×2 (09:32→21:29)
[2017-06-03] MEDS: NYSTATIN SUSP 500,000 U/5 ML CUP SWISH-SWAL SCH ×4 (09:32→21:29)
[2017-06-03] MEDS: CEFTAROLINE INJ 400 MG in SODIUM CHLORIDE 0.9% INJ 100 ML IV SCH ×2 (09:32→21:30)
[2017-06-03] MEDS: clonazePAM 0.5 MG TAB PO SCH ×2 (09:32→21:29)
[2017-06-03] MEDS: ENOXAPARIN SODIUM 40 MG/0.4 ML SYRINGE SQ SCH (09:33)
[2017-06-03] MEDS: SODIUM CHLORIDE 0.9% FLUSH 10 ML FLUSH IV FLUSH SCH ×2 (09:33→21:30)
[2017-06-03] MEDS: FLUCONAZOLE 100 MG TAB PO SCH (09:33)
[2017-06-03] MEDS ORDERED: TEMAZEPAM 7.5 MG CAP PO ONE (11:30)
[2017-06-03] MEDS: ONDANSETRON HCL 4 MG/2 ML VIAL IV PUSH PRN (11:45)
[2017-06-03 12:00] VITALS: BP 108/58; PULSE 86; RESP 20; TEMP 98.2; O2SAT 97
--- NOTE | 2017-06-03 14:01 | HHI.PR ---
Subjective Remarks Follow up for left ankle osteomyelitis/cellulitis, GOLDIE. Patient complains of some nausea. Left lower extremity pain well controlled. Denies any chest pain , shortness of breath, fever or chills. Objective Vitals Vital Signs Date Time Temp Pulse Resp B/P Pulse Ox O2 Delivery O2 Flow Rate FiO2 06/03/17 12:00 98.2 86 20 108/58 97 06/03/17 08:00 97.7 79 18 105/59 98 06/03/17 04:00 97.7 82 18 115/60 98 06/03/17 00:42 97.6 86 18 128/62 100 06/02/17 21:01 97.9 100 18 129/70 100 06/02/17 16:00 98.6 100 20 120/61 98 I/O 06/02/17 06/02/17 06/02/17 06/03/17 06/03/17 06/03/17 06:59 14:59 22:59 06:59 14:59 22:59 Intake Total 536 ml 200 ml Output Total 1560 ml 1325 ml 300 ml Balance -1024 ml -1325 ml -300 ml 200 ml IV Total 536 ml 200 ml Output Urine Total 1560 ml 1325 ml 300 ml Bladder Scan Volume Amount 20 ml # Bowel Movements 1 Result Diagram: 06/03/17 0530 06/03/17 0530 Imaging Last Impressions Ankle MRI 05/30/17 0000 Signed Impressions: Service Date/Time: Tuesday, May 30, 2017 08:15 - CONCLUSION: 1. Extensive marrow edema and enhancement involving the distal tibia, distal fibula, medial aspect of the talus, periphery of the calcaneus, navicular, cuboid and portions of the cuneiforms suggesting osteomyelitis. White blood cell scan may be helpful for confirmation if clinically indicated. 2. Persistent cortical erosion involving the medial aspect of the distal tibia. 3. Deep soft tissue abscesses are stable and are noted adjacent to the cortical erosive changes of the distal tibia medially as well as more inferiorly along the medial and lateral aspects of the calcaneus. 4. Diffuse cellulitis. Raza Winkler MD Lower Extremity Ultrasound 05/28/172031 Signed Impressions: Service Date/Time: Sunday, May 28, 2017 20:45 - CONCLUSION: No DVT. An enlarged lymph nodes left groin. Hever Espino MD Objective Remarks GENERAL: Alert, oriented 3, NAD. SKIN: Warm and dry. HEAD: Normocephalic. EYES: No scleral icterus. No injection or drainage. NECK: Supple, trachea midline. No JVD or lymphadenopathy. CARDIOVASCULAR: Regular rate and rhythm without murmurs, gallops, or rubs. RESPIRATORY: Breath sounds equal bilaterally. No accessory muscle use. GASTROINTESTINAL: Abdomen soft, non-tender, nondistended. MUSCULOSKELETAL: No cyanosis, or edema. Status post left lower extremity I&D. BACK: Nontender without obvious deformity. No CVA tenderness. Procedures 05/31/2017 Irrigation and debridement of left tibia, left ankle arthrotomy with irrigation and debridement, irrigation and debridement of left foot abscess Date of Insertion: May 11, 2017 Line: PICC Side: Right A/P Problem List: (1) Cellulitis of ankle ICD Code: L03.119 Status: Acute (2) Oral thrush ICD Code: B37.0 Status: Acute (3) Acute renal failure (ARF) ICD Code: N17.9 Status: Acute Assessment and Plan 36-year-old male with history of recent admission 05/02/17-05/21/17 for left ankle septic joint s/p removal of hardware and multiple I&Ds by Dr. Palafox, also diagnosed with MRSA bacteremia, discharged 05/21/17 with PICC on outpatient IV Televancin infusion; returns now after outpatient f/up with Dr. Palafox, sent back to the hospital for worsening infection. - Left Ankle Cellulitis/Septic Joint/Osteomyelitis: Failed outpatient treatment with telavancin. - Continue Daptomycin and Ceftaroline. ID is following. - LLE MRI showed osteomyelitis; deep soft tissue abscesses stable with cortical erosive changes; diffuse cellulitis. - Orthopedics consulted, pt underwent repeat I&D 05/31 - Continue Percocet PRN and Dilaudid 1mg Q3hrs PRN for breakthrough pain. - Continue Bowel regimen. - Per Ortho, daily dressing change and WBAT. - MRSA Bacteremia: received IV vanco on previous admission, discharged on IV telavancin - Continue IV Ceftaroline as well as Daptomycin. - Oral Thrush - Nystatin swish and swallow QID and Fluconazole 100mg daily - Acute Kidney Injury: secondary to IV televancin. BUN 23, creatinine 1.78, eGFR 43 - Give IVF hydration with NS at 100 cc/hr - Avoid nephrotoxins - Cr 1.78 --> 1.39 --> 1.57. CBC, BMP in the AM. - History of IVDU - PICC line abuse suspected, patient denies. - We will reduce IV pain medications in the coming days. - Insomnia - Probably related to anxiety. - Will give Restoril 7.5 mg now and continue Restoril 15 mg daily at bedtime when necessary. Full code. Fady Jimenez DO Jun 03, 2017 2:01 pm
[2017-06-03 16:00] VITALS: BP 118/57; PULSE 90; RESP 18; TEMP 97.7; O2SAT 98
[2017-06-03] MEDS: LACTATED RINGER'S 1000 ML INJ 1,000 ML IV SCH (18:43)
[2017-06-03 20:00] VITALS: BP 126/66; PULSE 92; RESP 18; TEMP 98.1; O2SAT 98
[2017-06-03] MEDS: TEMAZEPAM 15 MG CAP PO PRN (21:29)
[2017-06-03] MEDS: DAPTOmycin INJ 900 MG in SODIUM CHLORIDE 0.9% INJ 100 ML IV SCH (21:33)
[2017-06-04] VITALS (7 sets, daily range): BP systolic 103–126; BP diastolic 51–75; PULSE 77–87; RESP 18; TEMP 97.5–98.6; O2SAT 95–98
[2017-06-04] MEDS: HYDROmorphone HCL PF 1 MG/ML VIAL IV PUSH PRN ×3 (02:20→13:28)
[2017-06-04] MEDS: LACTATED RINGER'S 1000 ML INJ 1,000 ML IV SCH ×2 (04:42→12:56)
[2017-06-04] MEDS: oxyCODONE/ACETAMINOPHEN 10 MG/325 MG TAB PO PRN ×4 (05:16→23:05)
[2017-06-04 07:13] LABS: BICARBONATE 29.5 MEQ/L (21.0-32.0); POTASSIUM 3.7 MEQ/L (3.5-5.1)
--- NOTE | 2017-06-04 07:35 | PD.ORT.PN ---
Subjective Subjective Remarks Pain controlled no new complaints Objective Vitals Vital Signs Date Time Temp Pulse Resp B/P Pulse Ox O2 Delivery O2 Flow Rate FiO2 06/04/17 06:18 18 06/04/17 04:00 98.0 82 18 126/60 98 06/04/17 02:57 18 06/04/17 00:00 98.0 87 18 123/64 98 06/03/17 20:00 98.1 92 18 126/66 98 06/03/17 16:00 97.7 90 18 118/57 98 06/03/17 12:00 98.2 86 20 108/58 97 06/03/17 08:00 97.7 79 18 105/59 98 I/O 06/03/17 06/03/17 06/03/17 06/04/17 06/04/17 06/04/17 06:59 14:59 22:59 06:59 14:59 22:59 Intake Total 200 ml 115 ml Output Total 300 ml Balance 200 ml -185 ml IV Total 200 ml 115 ml Output Urine Total 300 ml Result Diagram: 06/03/17 0530 06/04/17 0609 Imaging Last 24 hours Impressions Lower Extremity Ultrasound 05/28/172031 Signed Impressions: Service Date/Time: Sunday, May 28, 2017 20:45 - CONCLUSION: No DVT. An enlarged lymph nodes left groin. Hever Espino MD Objective Remarks LLE: dressing clean and dry. intact. NVI Assessment & Plan Assessment and Plan 1) Left Ankle Infection irrigation debridement POD 4 -daily dressing changes with xeroform/4x4/YOAV -WBAT for transfers -elevate -IV Abx per infectious disease -patient is NOT SAFE FOR DISCHARGE HOME. patient needs to remain in hospital for 6 weeks to complete IV Abx therapy. history of IV drug use and misuse of picc line as well as noncompliance. Demarcus Trimble Jr. Jun 04, 2017 07:35
[2017-06-04] MEDS: NYSTATIN SUSP 500,000 U/5 ML CUP SWISH-SWAL SCH ×4 (09:02→21:51)
[2017-06-04] MEDS: ENOXAPARIN SODIUM 40 MG/0.4 ML SYRINGE SQ SCH (09:02)
[2017-06-04] MEDS: DOCUSATE SODIUM 50 MG/SENNA 8.6 MG TAB PO SCH ×2 (09:03→21:51)
[2017-06-04] MEDS: clonazePAM 0.5 MG TAB PO SCH ×2 (09:03→21:51)
[2017-06-04] MEDS: FLUCONAZOLE 100 MG TAB PO SCH (09:03)
[2017-06-04] MEDS: CEFTAROLINE INJ 400 MG in SODIUM CHLORIDE 0.9% INJ 100 ML IV SCH ×2 (09:03→21:50)
[2017-06-04] MEDS: SODIUM CHLORIDE 0.9% FLUSH 10 ML FLUSH IV FLUSH SCH ×2 (09:05→21:00)
--- NOTE | 2017-06-04 14:17 | HHI.PR ---
Subjective Remarks Follow up for left ankle osteomyelitis/cellulitis, GOLDIE. Patient is doing well. Eating lunch sitting in his chair. Reports some occasional nausea. No other acute concerns. Wants to go to [facility] since his family is in [place]. However, due to IV pain medication use, we will not transfer to [place] today. Objective Vitals Vital Signs Date Time Temp Pulse Resp B/P Pulse Ox O2 Delivery O2 Flow Rate FiO2 06/04/17 12:54 14 06/04/17 12:33 98.0 82 18 118/59 98 06/04/17 08:43 98.6 77 18 124/63 98 06/04/17 08:19 98.6 77 18 124/63 98 06/04/17 06:18 18 06/04/17 04:00 98.0 82 18 126/60 98 06/04/17 00:00 98.0 87 18 123/64 98 06/03/17 20:00 98.1 92 18 126/66 98 06/03/17 16:00 97.7 90 18 118/57 98 I/O 06/03/17 06/03/17 06/03/17 06/04/17 06/04/17 06/04/17 07:00 15:00 23:00 07:00 15:00 23:00 Intake Total 200 ml 115 ml 480 ml Output Total 300 ml 500 ml Balance 200 ml -185 ml -20 ml Intake Oral 480 ml IV Total 200 ml 115 ml Output Urine Total 300 ml 500 ml # Bowel Movements 1 Result Diagram: 06/03/17 0530 06/04/17 0609 Objective Remarks GENERAL: Alert, oriented 3, NAD. SKIN: Warm and dry. HEAD: Normocephalic. EYES: No scleral icterus. No injection or drainage. NECK: Supple, trachea midline. No JVD or lymphadenopathy. CARDIOVASCULAR: Regular rate and rhythm without murmurs, gallops, or rubs. RESPIRATORY: Breath sounds equal bilaterally. No accessory muscle use. GASTROINTESTINAL: Abdomen soft, non-tender, nondistended. MUSCULOSKELETAL: No cyanosis, or edema. Status post left lower extremity I&D. BACK: Nontender without obvious deformity. No CVA tenderness. Procedures 05/31/2017 Irrigation and debridement of left tibia, left ankle arthrotomy with irrigation and debridement, irrigation and debridement of left foot abscess Date of Insertion: May 11, 2017 Line: PICC Side: Right A/P Problem List: (1) Cellulitis of ankle ICD Code: L03.119 Status: Acute (2) Oral thrush ICD Code: B37.0 Status: Acute (3) Acute renal failure (ARF) ICD Code: N17.9 Status: Acute Assessment and Plan 36-year-old male with history of recent admission 05/02/17-05/21/17 for left ankle septic joint s/p removal of hardware and multiple I&Ds by Dr. Moreira, also diagnosed with MRSA bacteremia, discharged 05/21/17 with PICC on outpatient IV Televancin infusion; returns now after outpatient f/up with Dr. Moreira, sent back to the hospital for worsening infection. - Left Ankle Cellulitis/Septic Joint/Osteomyelitis: Failed outpatient treatment with telavancin. - Continue Daptomycin and Ceftaroline. ID is following. - LLE MRI showed osteomyelitis; deep soft tissue abscesses stable with cortical erosive changes; diffuse cellulitis. - Orthopedics consulted, pt underwent repeat I&D 05/31 - Currently on Percocet PRN and Dilaudid 1mg Q3hrs PRN for breakthrough pain. Will start to wean off IV Dilaudid. - Continue Bowel regimen. - Per Ortho, daily dressing change and WBAT. - MRSA Bacteremia: received IV vanco on previous admission, discharged on IV telavancin - Continue IV Ceftaroline as well as Daptomycin. - Oral Thrush - Nystatin swish and swallow QID and Fluconazole 100mg daily - Acute Kidney Injury: secondary to IV televancin. BUN 23, creatinine 1.78, eGFR 43 - Give IVF hydration with LR at 100 cc/hr - Avoid nephrotoxins - Cr 1.78 --> 1.39 --> 1.57 --> 1.60. If Creatinine continues to worsen, will consider a nephrology consult. - History of IVDU - PICC line abuse suspected, patient denies. - Insomnia - Probably related to anxiety. - continue Restoril 15 mg daily at bedtime when necessary. Full code. Fady Jimenez DO Jun 04, 2017 14:17
[2017-06-04] MEDS ORDERED: HYDROmorphone HCL PF 1 MG/ML VIAL IV PUSH PRN (19:30)
[2017-06-04] MEDS: DAPTOmycin INJ 900 MG in SODIUM CHLORIDE 0.9% INJ 100 ML IV SCH (21:50)
[2017-06-04] MEDS: TEMAZEPAM 15 MG CAP PO PRN (21:51)
[2017-06-04] MEDS: SODIUM CHLORIDE 0.9% FLUSH 10 ML FLUSH IV FLUSH PRN (21:51)
[2017-06-05] VITALS: BP 127/73; PULSE 98; RESP 18; TEMP 98.1; O2SAT 98
[2017-06-05] MEDS: LACTATED RINGER'S 1000 ML INJ 1,000 ML IV SCH ×3 (00:43→20:43)
[2017-06-05 04:00] VITALS: BP 115/67; PULSE 69; RESP 18; TEMP 98.8; O2SAT 98
[2017-06-05] MEDS: oxyCODONE/ACETAMINOPHEN 10 MG/325 MG TAB PO PRN ×4 (04:47→18:09)
[2017-06-05] MEDS: clonazePAM 0.5 MG TAB PO SCH ×2 (08:07→21:00)
[2017-06-05] MEDS: FLUCONAZOLE 100 MG TAB PO SCH (08:07)
[2017-06-05] MEDS: CEFTAROLINE INJ 400 MG in SODIUM CHLORIDE 0.9% INJ 100 ML IV SCH ×2 (08:08→23:28)
[2017-06-05 08:09] VITALS: BP 116/75; PULSE 76; RESP 17; TEMP 98.4; O2SAT 98
[2017-06-05] MEDS: NYSTATIN SUSP 500,000 U/5 ML CUP SWISH-SWAL SCH ×4 (08:22→21:00)
[2017-06-05] MEDS: DOCUSATE SODIUM 50 MG/SENNA 8.6 MG TAB PO SCH ×2 (08:22→21:00)
[2017-06-05] MEDS: SODIUM CHLORIDE 0.9% FLUSH 10 ML FLUSH IV FLUSH SCH ×2 (08:23→23:29)
--- NOTE | 2017-06-05 11:57 | HHI.PR ---
Subjective Remarks Follow up for left ankle osteomyelitis/cellulitis, GOLDIE. Mr. Vasquez is doing well. No fever, chills. He is very bored being in the hospital room. He requests increased sleep medication. He also would like to be transferred to [facility] since his family is in [place]. He agrees with oral pain medications only. Objective Vitals Vital Signs Date Time Temp Pulse Resp B/P Pulse Ox O2 Delivery O2 Flow Rate FiO2 06/05/17 08:09 98.4 76 17 116/75 98 06/05/17 05:50 18 06/05/17 04:00 98.8 69 18 115/67 98 06/05/17 03:31 18 06/05/17 00:00 98.1 98 18 127/73 98 06/04/17 20:00 98.4 83 18 123/75 95 06/04/17 16:29 97.5 84 18 103/51 98 06/04/17 12:54 14 06/04/17 12:33 98.0 82 18 118/59 98 I/O 06/04/17 06/04/17 06/04/17 06/05/17 06/05/17 06/05/17 07:00 15:00 23:00 07:00 15:00 23:00 Intake Total 480 ml 500 ml Output Total 500 ml 501 ml 625 ml Balance -20 ml -501 ml -125 ml Intake Oral 480 ml IV Total 500 ml Output Urine Total 500 ml 500 ml 625 ml Stool Total 1 ml # Voids 2 # Bowel Movements 1 Result Diagram: 06/03/17 0530 06/04/17 0609 Imaging Last Impressions Ankle MRI 05/30/17 0000 Signed Impressions: Service Date/Time: Tuesday, May 30, 2017 08:15 - CONCLUSION: 1. Extensive marrow edema and enhancement involving the distal tibia, distal fibula, medial aspect of the talus, periphery of the calcaneus, navicular, cuboid and portions of the cuneiforms suggesting osteomyelitis. White blood cell scan may be helpful for confirmation if clinically indicated. 2. Persistent cortical erosion involving the medial aspect of the distal tibia. 3. Deep soft tissue abscesses are stable and are noted adjacent to the cortical erosive changes of the distal tibia medially as well as more inferiorly along the medial and lateral aspects of the calcaneus. 4. Diffuse cellulitis. Raza Winkler MD Lower Extremity Ultrasound 05/28/172031 Signed Impressions: Service Date/Time: Sunday, May 28, 2017 20:45 - CONCLUSION: No DVT. An enlarged lymph nodes left groin. Hever Espino MD Objective Remarks GENERAL: Alert, oriented 3, NAD. SKIN: Warm and dry. HEAD: Normocephalic. EYES: No scleral icterus. No injection or drainage. NECK: Supple, trachea midline. No JVD or lymphadenopathy. CARDIOVASCULAR: Regular rate and rhythm without murmurs, gallops, or rubs. RESPIRATORY: Breath sounds equal bilaterally. No accessory muscle use. GASTROINTESTINAL: Abdomen soft, non-tender, nondistended. MUSCULOSKELETAL: No cyanosis, or edema. Status post left lower extremity I&D. BACK: Nontender without obvious deformity. No CVA tenderness. Procedures 05/31/2017 Irrigation and debridement of left tibia, left ankle arthrotomy with irrigation and debridement, irrigation and debridement of left foot abscess Date of Insertion: May 11, 2017 Line: PICC Side: Right A/P Problem List: (1) Cellulitis of ankle ICD Code: L03.119 Status: Acute (2) Oral thrush ICD Code: B37.0 Status: Acute (3) Acute renal failure (ARF) ICD Code: N17.9 Status: Acute Assessment and Plan 36-year-old male with history of recent admission 05/02/17-05/21/17 for left ankle septic joint s/p removal of hardware and multiple I&Ds by Dr. Palafox, also diagnosed with MRSA bacteremia, discharged 05/21/17 with PICC on outpatient IV Televancin infusion; returns now after outpatient f/up with Dr. Palafox, sent back to the hospital for worsening infection. - Left Ankle Cellulitis/Septic Joint/Osteomyelitis: Failed outpatient treatment with telavancin. - Continue Daptomycin and Ceftaroline. ID is following. - LLE MRI showed osteomyelitis; deep soft tissue abscesses stable with cortical erosive changes; diffuse cellulitis. - Orthopedics consulted, pt underwent repeat I&D 05/31 - Discontinue IV Dilaudid. Start Percocet 10/325 for pain 5-7 and Percocet 7.5/325 two tablets for pain 8-10. - Patient understands that we will gradually wean off Opiate pain meds. - Continue Bowel regimen. - Per Ortho, daily dressing change and WBAT. - MRSA Bacteremia: received IV vanco on previous admission, discharged on IV telavancin - Continue IV Ceftaroline as well as Daptomycin. - Oral Thrush - Nystatin swish and swallow QID and Fluconazole 100mg daily - Acute Kidney Injury: secondary to IV televancin. BUN 23, creatinine 1.78, eGFR 43 - Give IVF hydration with LR at 100 cc/hr - Avoid nephrotoxins - Cr 1.78 --> 1.39 --> 1.57 --> 1.60. If Creatinine continues to worsen, will consider a nephrology consult. - BMP in the AM. - History of IVDU - PICC line abuse suspected, patient denies. - Insomnia - Probably related to anxiety. - continue Restoril 30 mg daily at bedtime when necessary. Full code. Fady Jimenez DO Jun 05, 2017 11:57
[2017-06-05] MEDS ORDERED: HYDROmorphone HCL PF 1 MG/ML VIAL IV PUSH ONE (12:00)
[2017-06-05] MEDS: ENOXAPARIN SODIUM 40 MG/0.4 ML SYRINGE SQ SCH (12:37)
[2017-06-05 12:45] VITALS: BP 119/56; PULSE 80; RESP 18; TEMP 99.1; O2SAT 98
--- NOTE | 2017-06-05 13:08 | PD.ORT.PN ---
Subjective Subjective Remarks POD 4 s/p I&D with Abx bead placement -doing well. reports pain and swelling left ankle Objective Vitals Vital Signs Date Time Temp Pulse Resp B/P Pulse Ox O2 Delivery O2 Flow Rate FiO2 06/05/17 12:45 99.1 80 18 119/56 98 06/05/17 08:09 98.4 76 17 116/75 98 06/05/17 05:50 18 06/05/17 04:00 98.8 69 18 115/67 98 06/05/17 03:31 18 06/05/17 00:00 98.1 98 18 127/73 98 06/04/17 20:00 98.4 83 18 123/75 95 06/04/17 16:29 97.5 84 18 103/51 98 I/O 06/04/17 06/04/17 06/04/17 06/05/17 06/05/17 06/05/17 07:00 15:00 23:00 07:00 15:00 23:00 Intake Total 480 ml 500 ml Output Total 500 ml 501 ml 625 ml Balance -20 ml -501 ml -125 ml Intake Oral 480 ml IV Total 500 ml Output Urine Total 500 ml 500 ml 625 ml Stool Total 1 ml # Voids 2 # Bowel Movements 1 Result Diagram: 06/03/17 0530 06/04/17 0609 Imaging Last 24 hours Impressions Lower Extremity Ultrasound 05/28/172031 Signed Impressions: Service Date/Time: Sunday, May 28, 2017 20:45 - CONCLUSION: No DVT. An enlarged lymph nodes left groin. Hever Espino MD Objective Remarks LLE: dressing clean and dry. intact. NVI Assessment & Plan Assessment and Plan 1) Left Ankle Infection irrigation debridement POD 4 -daily dressing changes with xeroform/4x4/YOAV -WBAT for transfers -elevate -IV Abx per infectious disease -patient is NOT SAFE FOR DISCHARGE HOME. patient needs to remain in hospital for 6 weeks to complete IV Abx therapy. history of IV drug use and misuse of picc line as well as noncompliance. Leonid Vivas Jun 05, 2017 13:08
[2017-06-05 16:28] VITALS: BP 102/58; PULSE 76; RESP 16; TEMP 98.7; O2SAT 98
[2017-06-05] MEDS: ONDANSETRON HCL 4 MG/2 ML VIAL IV PUSH PRN (19:37)
[2017-06-05 20:00] VITALS: BP 111/62; PULSE 71; RESP 18; TEMP 98.6; O2SAT 98
[2017-06-05] MEDS ORDERED: TEMAZEPAM 15 MG CAP PO PRN (22:45)
[2017-06-05] MEDS: DAPTOmycin INJ 900 MG in SODIUM CHLORIDE 0.9% INJ 100 ML IV SCH (23:29)
[2017-06-05] MEDS: TEMAZEPAM 15 MG CAP PO PRN (23:30)
[2017-06-05] MEDS: oxyCODONE/ACETAMINOPHEN 7.5 MG/325 MG TAB PO PRN (23:31)
[2017-06-06] VITALS: BP 119/59; PULSE 68; RESP 18; TEMP 98.3; O2SAT 99
[2017-06-06] MEDS: oxyCODONE/ACETAMINOPHEN 7.5 MG/325 MG TAB PO PRN ×4 (03:10→16:25)
[2017-06-06 04:00] VITALS: BP 113/56; PULSE 64; RESP 18; TEMP 97.9; O2SAT 90
[2017-06-06 07:26] LABS: BICARBONATE 27.4 MEQ/L (21.0-32.0); POTASSIUM 3.8 MEQ/L (3.5-5.1)
[2017-06-06] MEDS: FLUCONAZOLE 100 MG TAB PO SCH (07:57)
[2017-06-06] MEDS: DOCUSATE SODIUM 50 MG/SENNA 8.6 MG TAB PO SCH ×2 (07:57→21:00)
[2017-06-06] MEDS: clonazePAM 0.5 MG TAB PO SCH ×2 (07:57→23:18)
[2017-06-06] MEDS: NYSTATIN SUSP 500,000 U/5 ML CUP SWISH-SWAL SCH ×4 (07:57→23:17)
[2017-06-06] MEDS: CEFTAROLINE INJ 400 MG in SODIUM CHLORIDE 0.9% INJ 100 ML IV SCH (07:59)
[2017-06-06 08:12] VITALS: BP 132/74; PULSE 71; RESP 17; TEMP 97.6; O2SAT 99
[2017-06-06] MEDS: SODIUM CHLORIDE 0.9% FLUSH 10 ML FLUSH IV FLUSH SCH ×2 (08:14→23:19)
[2017-06-06] MEDS: ENOXAPARIN SODIUM 40 MG/0.4 ML SYRINGE SQ SCH (10:03)
[2017-06-06 12:10] VITALS: BP 118/61; PULSE 77; RESP 17; TEMP 97.7; O2SAT 99
[2017-06-06 16:00] VITALS: BP 115/65; PULSE 77; RESP 17; TEMP 98.3; O2SAT 99
--- NOTE | 2017-06-06 17:06 | HHI.PR ---
Subjective Remarks Follow up for left ankle osteomyelitis/cellulitis, GOLDIE. Patient is doing well. He reports sleeping much better last night. No fever, chills. Objective Vitals Vital Signs Date Time Temp Pulse Resp B/P Pulse Ox O2 Delivery O2 Flow Rate FiO2 06/06/17 16:00 98.3 77 17 115/65 99 06/06/17 12:10 97.7 77 17 118/61 99 06/06/17 08:12 97.6 71 17 132/74 99 06/06/17 04:10 18 06/06/17 04:00 97.9 64 18 113/56 90 06/06/17 00:00 98.3 68 18 119/59 99 06/05/17 20:00 98.6 71 18 111/62 98 06/05/17 19:25 16 I/O 06/05/17 06/05/17 06/05/17 06/06/17 06/06/17 06/06/17 07:00 15:00 23:00 07:00 15:00 23:00 Intake Total 500 ml 480 ml 675 ml 480 ml Output Total 625 ml 650 ml 900 ml 1075 ml Balance -125 ml -170 ml 675 ml -900 ml -595 ml Intake Oral 480 ml 375 ml 480 ml IV Total 500 ml 300 ml Output Urine Total 625 ml 650 ml 900 ml 1075 ml # Bowel Movements 0 0 Result Diagram: 06/03/17 0530 06/06/17 0628 Imaging Last Impressions Ankle MRI 05/30/17 0000 Signed Impressions: Service Date/Time: Tuesday, May 30, 2017 08:15 - CONCLUSION: 1. Extensive marrow edema and enhancement involving the distal tibia, distal fibula, medial aspect of the talus, periphery of the calcaneus, navicular, cuboid and portions of the cuneiforms suggesting osteomyelitis. White blood cell scan may be helpful for confirmation if clinically indicated. 2. Persistent cortical erosion involving the medial aspect of the distal tibia. 3. Deep soft tissue abscesses are stable and are noted adjacent to the cortical erosive changes of the distal tibia medially as well as more inferiorly along the medial and lateral aspects of the calcaneus. 4. Diffuse cellulitis. Raza Winkler MD Lower Extremity Ultrasound 05/28/172031 Signed Impressions: Service Date/Time: Sunday, May 28, 2017 20:45 - CONCLUSION: No DVT. An enlarged lymph nodes left groin. Hever Espino MD Objective Remarks GENERAL: Alert, oriented 3, NAD. SKIN: Warm and dry. HEAD: Normocephalic. EYES: No scleral icterus. No injection or drainage. NECK: Supple, trachea midline. No JVD or lymphadenopathy. CARDIOVASCULAR: Regular rate and rhythm without murmurs, gallops, or rubs. RESPIRATORY: Breath sounds equal bilaterally. No accessory muscle use. GASTROINTESTINAL: Abdomen soft, non-tender, nondistended. MUSCULOSKELETAL: No cyanosis, or edema. Status post left lower extremity I&D. BACK: Nontender without obvious deformity. No CVA tenderness. Procedures 05/31/2017 Irrigation and debridement of left tibia, left ankle arthrotomy with irrigation and debridement, irrigation and debridement of left foot abscess Date of Insertion: May 11, 2017 Line: PICC Side: Right A/P Problem List: (1) Cellulitis of ankle ICD Code: L03.119 Status: Acute (2) Oral thrush ICD Code: B37.0 Status: Acute (3) Acute renal failure (ARF) ICD Code: N17.9 Status: Acute Assessment and Plan 36-year-old male with history of recent admission 05/02/17-05/21/17 for left ankle septic joint s/p removal of hardware and multiple I&Ds by Dr. Palafox, also diagnosed with MRSA bacteremia, discharged 05/21/17 with PICC on outpatient IV Televancin infusion; returns now after outpatient f/up with Dr. Palafox, sent back to the hospital for worsening infection. - Left Ankle Cellulitis/Septic Joint/Osteomyelitis: Failed outpatient treatment with telavancin. - Continue Daptomycin and Ceftaroline. ID is following. - LLE MRI showed osteomyelitis; deep soft tissue abscesses stable with cortical erosive changes; diffuse cellulitis. - Orthopedics consulted, pt underwent repeat I&D 05/31 - Will change pain meds. Morphine SR 15mg Q8hrs along with Percocet PRN - Patient understands that we will gradually wean off Opiate pain meds. - Continue Bowel regimen. - Per Ortho, daily dressing change and WBAT. - MRSA Bacteremia: received IV vanco on previous admission, discharged on IV telavancin - Continue IV Ceftaroline as well as Daptomycin. - Oral Thrush - Nystatin swish and swallow QID and Fluconazole 100mg daily - Acute Kidney Injury: secondary to IV televancin. BUN 23, creatinine 1.78, eGFR 43 - Give IVF hydration with LR at 100 cc/hr - Avoid nephrotoxins - Cr 1.78 --> 1.39 --> 1.57 --> 1.60 --> 1.84. - Will consult Nephrology for worsening kidney function. - History of IVDU - PICC line abuse suspected, patient denies. - Insomnia - Probably related to anxiety. - continue Restoril 30 mg daily at bedtime when necessary. Full code. Fady Jimenez DO Jun 06, 2017 17:06
[2017-06-06 20:00] VITALS: BP 113/58; PULSE 78; RESP 18; TEMP 98.3; O2SAT 95
[2017-06-06] MEDS: LACTATED RINGER'S 1000 ML INJ 1,000 ML IV SCH (22:43)
[2017-06-06] MEDS: MORPHINE SULFATE 15 MG CONTROLLED RELEASE TAB PO SCH (23:18)
[2017-06-06] MEDS: DAPTOmycin INJ 900 MG in SODIUM CHLORIDE 0.9% INJ 100 ML IV SCH (23:19)
[2017-06-06] MEDS: TEMAZEPAM 15 MG CAP PO PRN (23:27)
[2017-06-07] VITALS: BP 121/70; PULSE 84; RESP 20; TEMP 97.2; O2SAT 97
[2017-06-07] MEDS: oxyCODONE/ACETAMINOPHEN 10 MG/325 MG TAB PO PRN ×5 (00:30→19:40)
[2017-06-07 04:00] VITALS: BP 131/60; PULSE 93; RESP 18; TEMP 98.4; O2SAT 97
[2017-06-07] MEDS: MORPHINE SULFATE 15 MG CONTROLLED RELEASE TAB PO SCH ×3 (05:18→22:12)
[2017-06-07 08:00] VITALS: BP 126/65; PULSE 80; RESP 17; TEMP 98; O2SAT 98
[2017-06-07] MEDS: NYSTATIN SUSP 500,000 U/5 ML CUP SWISH-SWAL SCH ×4 (08:23→21:04)
[2017-06-07] MEDS: FLUCONAZOLE 100 MG TAB PO SCH (08:23)
[2017-06-07] MEDS: clonazePAM 0.5 MG TAB PO SCH ×2 (08:24→21:06)
[2017-06-07] MEDS: DOCUSATE SODIUM 50 MG/SENNA 8.6 MG TAB PO SCH ×2 (08:25→21:05)
[2017-06-07] MEDS: SODIUM CHLORIDE 0.9% FLUSH 10 ML FLUSH IV FLUSH SCH ×2 (08:26→21:13)
[2017-06-07] MEDS: ENOXAPARIN SODIUM 40 MG/0.4 ML SYRINGE SQ SCH (10:18)
[2017-06-07 12:00] VITALS: BP 114/59; PULSE 81; RESP 17; TEMP 98.4; O2SAT 99
[2017-06-07] MEDS: SODIUM CHLORIDE 0.9% FLUSH 10 ML FLUSH IV FLUSH PRN (14:42)
[2017-06-07 16:45] VITALS: BP 119/61; PULSE 72; RESP 18; TEMP 97.1; O2SAT 97
--- NOTE | 2017-06-07 17:37 | HHI.NPPN ---
Subjective History of Present Illness Attempted to see the patient in consult 06/07/17 at 1732 a [facility] main, but he was transferred to [facility]. We were not notified. Will see the patient 06/08 Objective Data Data 06/06/17 06/07/17 19:00 07:00 Intake Total 480 ml Output Total 1075 ml Balance -595 ml Intake Oral 480 ml Output Urine Total 1075 ml # Voids 6 # Bowel Movements 0 Vital Signs Date Time Temp Pulse Resp B/P Pulse Ox O2 Delivery O2 Flow Rate FiO2 06/07/17 12:00 98.4 81 17 114/59 99 06/07/17 08:00 98.0 80 17 126/65 98 06/07/17 04:00 98.4 93 18 131/60 97 06/07/17 00:00 97.2 84 20 121/70 97 06/06/17 20:00 98.3 78 18 113/58 95 -: 06/03/17 0530 06/06/17 0628 Elidia Freedman Jun 07, 2017 17:37
[2017-06-07 19:36] LABS: HEMATOCRIT 31.7 % (39.0-51.0); MEAN CORPUSCULAR HEMOGLOBIN 26.4 PG (27.0-34.0); MEAN CORPUSCULAR HGB CONC 33.5 % (32.0-36.0); PLATELET COUNT 708 TH/MM3 (150-450); RED BLOOD COUNT 4.01 MIL/MM3 (4.50-5.90); RED CELL DISTRIBUTION WIDTH 15.3 % (11.6-17.2); WHITE BLOOD COUNT 7.2 TH/MM3 (4.0-11.0)
[2017-06-07 19:37] LABS: REVIEW FLAG FINAL
[2017-06-07 20:00] VITALS: BP 117/82; PULSE 73; RESP 18; TEMP 98.3; O2SAT 99
[2017-06-07] MEDS: DAPTOmycin INJ 900 MG in SODIUM CHLORIDE 0.9% INJ 100 ML IV SCH (21:07)
[2017-06-07 21:57] LABS: BLOOD, URINE NEG (NEG); GLUCOSE,URINE NEG (NEG); KETONE, URINE NEG (NEG); NITRITE,URINE NEG (NEG)
[2017-06-07 22:02] LABS: RBC, URINE 0-2 /hpf (0-3); URINE COLOR YELLOW (YELLW/STRAW); WBC, URINE 0-2 /hpf (0-5)
[2017-06-07 22:03] LABS: COMMENT (UR) CULT NOT INDICATED; CULTURE IF INDICATED CULT NOT INDICATED; SQUAMOUS EPITHELIAL CELL URINE 0-5 /hpf (0-5)
[2017-06-07] MEDS: TEMAZEPAM 15 MG CAP PO PRN (22:12)
[2017-06-07 23:14] LABS: TRANSFERRIN IRON PROFILE 220 MG/DL (200-360)
[2017-06-07 23:17] LABS: FERRITIN 302 NG/ML (26-388)
[2017-06-08] VITALS: BP 110/63; PULSE 71; RESP 18; TEMP 97.2; O2SAT 100
--- NOTE | 2017-06-08 00:13 | HHI.PR ---
Subjective Remarks Late entry for 06/07/2017 Follow up for left ankle osteomyelitis/cellulitis, GOLDIE. Patient is doing well. Pain is well controlled with current oral regimen. He denies any fever, chills. Per RN, he does not like IV fluid since it restricts his ambulation. He also reports not drinking enough fluid. He is interested to go to [place]. Objective Vitals Vital Signs Date Time Temp Pulse Resp B/P Pulse Ox O2 Delivery O2 Flow Rate FiO2 06/08/17 00:00 97.2 71 18 110/63 100 06/07/17 23:12 16 06/07/17 20:40 16 06/07/17 20:40 16 06/07/17 20:00 98.3 73 18 117/82 99 06/07/17 12:00 98.4 81 17 114/59 99 06/07/17 08:00 98.0 80 17 126/65 98 06/07/17 04:00 98.4 93 18 131/60 97 I/O 06/07/17 06/07/17 06/07/17 06/08/17 06/08/17 06/08/17 07:00 15:00 23:00 07:00 15:00 23:00 Intake Total 480 ml Output Total 1100 ml Balance -620 ml Intake Oral 480 ml Output Urine Total 1100 ml # Voids 6 # Bowel Movements 0 Result Diagram: 06/07/17 1855 06/06/17 0628 Imaging Last Impressions Ankle MRI 05/30/17 0000 Signed Impressions: Service Date/Time: Tuesday, May 30, 2017 08:15 - CONCLUSION: 1. Extensive marrow edema and enhancement involving the distal tibia, distal fibula, medial aspect of the talus, periphery of the calcaneus, navicular, cuboid and portions of the cuneiforms suggesting osteomyelitis. White blood cell scan may be helpful for confirmation if clinically indicated. 2. Persistent cortical erosion involving the medial aspect of the distal tibia. 3. Deep soft tissue abscesses are stable and are noted adjacent to the cortical erosive changes of the distal tibia medially as well as more inferiorly along the medial and lateral aspects of the calcaneus. 4. Diffuse cellulitis. Raza Winkler MD Lower Extremity Ultrasound 05/28/172031 Signed Impressions: Service Date/Time: Sunday, May 28, 2017 20:45 - CONCLUSION: No DVT. An enlarged lymph nodes left groin. Hever Espino MD Objective Remarks GENERAL: Alert, oriented 3, NAD. SKIN: Warm and dry. HEAD: Normocephalic. EYES: No scleral icterus. No injection or drainage. NECK: Supple, trachea midline. No JVD or lymphadenopathy. CARDIOVASCULAR: Regular rate and rhythm without murmurs, gallops, or rubs. RESPIRATORY: Breath sounds equal bilaterally. No accessory muscle use. GASTROINTESTINAL: Abdomen soft, non-tender, nondistended. MUSCULOSKELETAL: No cyanosis, or edema. Status post left lower extremity I&D. BACK: Nontender without obvious deformity. No CVA tenderness. Procedures 05/31/2017 Irrigation and debridement of left tibia, left ankle arthrotomy with irrigation and debridement, irrigation and debridement of left foot abscess Date of Insertion: May 11, 2017 Line: PICC Side: Right A/P Problem List: (1) Cellulitis of ankle ICD Code: L03.119 Status: Acute (2) Oral thrush ICD Code: B37.0 Status: Acute (3) Acute renal failure (ARF) ICD Code: N17.9 Status: Acute Assessment and Plan 36-year-old male with history of recent admission 05/02/17-05/21/17 for left ankle septic joint s/p removal of hardware and multiple I&Ds by Dr. Palafox, also diagnosed with MRSA bacteremia, discharged 05/21/17 with PICC on outpatient IV Televancin infusion; returns now after outpatient f/up with Dr. Palafox, sent back to the hospital for worsening infection. - Left Ankle Cellulitis/Septic Joint/Osteomyelitis: Failed outpatient treatment with telavancin. - Continue Daptomycin and Ceftaroline. ID is following. - LLE MRI showed osteomyelitis; deep soft tissue abscesses stable with cortical erosive changes; diffuse cellulitis. - Orthopedics consulted, pt underwent repeat I&D 05/31 - Continue Morphine SR 15mg Q8hrs along with Percocet PRN - Patient understands that we will gradually wean off Opiate pain meds. - Continue Bowel regimen. - Per Ortho, daily dressing change and WBAT. - MRSA Bacteremia: received IV vanco on previous admission, discharged on IV telavancin - Continue IV Ceftaroline as well as Daptomycin. - Oral Thrush - Nystatin swish and swallow QID and Fluconazole 100mg daily - Acute Kidney Injury: secondary to IV televancin. BUN 23, creatinine 1.78, eGFR 43 - Give IVF hydration with LR at 100 cc/hr - Avoid nephrotoxins - Cr 1.78 --> 1.39 --> 1.57 --> 1.60 --> 1.84. - Nephrology consult pending. Patient was transferred prior to nephrology eval. They will see patient on 06/08/2017. - History of IVDU - PICC line abuse suspected, patient denies. - Insomnia - Probably related to anxiety. - continue Restoril 30 mg daily at bedtime when necessary. Full code. Fady Jimenez DO Jun 08, 2017 00:13
[2017-06-08] MEDS: oxyCODONE/ACETAMINOPHEN 10 MG/325 MG TAB PO PRN ×5 (01:22→21:37)
[2017-06-08 04:00] VITALS: BP 116/63; PULSE 67; RESP 18; TEMP 96.8; O2SAT 99
[2017-06-08] MEDS: MORPHINE SULFATE 15 MG CONTROLLED RELEASE TAB PO SCH ×3 (05:17→21:37)
[2017-06-08 07:03] LABS: POTASSIUM 3.1 MEQ/L (3.5-5.1)
[2017-06-08 07:18] LABS: BICARBONATE 24.2 MEQ/L (21.0-32.0)
[2017-06-08] MEDS ORDERED: POTASSIUM CHLORIDE 20 MEQ CONTROLLED RELEASE TAB PO ONE (07:45)
[2017-06-08 08:00] VITALS: BP 107/65; PULSE 71; RESP 18; TEMP 98; O2SAT 98
[2017-06-08 08:16] LABS: CALCIUM-PROTEIN CORRECTED 7.6 MG/DL (8.5-10.1)
[2017-06-08] MEDS: ENOXAPARIN SODIUM 40 MG/0.4 ML SYRINGE SQ SCH (08:44)
[2017-06-08] MEDS: FLUCONAZOLE 100 MG TAB PO SCH (08:44)
[2017-06-08] MEDS: NYSTATIN SUSP 500,000 U/5 ML CUP SWISH-SWAL SCH ×4 (08:44→21:36)
[2017-06-08] MEDS: clonazePAM 0.5 MG TAB PO SCH ×2 (08:45→21:37)
[2017-06-08] MEDS: DOCUSATE SODIUM 50 MG/SENNA 8.6 MG TAB PO SCH ×2 (08:45→21:36)
[2017-06-08] MEDS: SODIUM CHLORIDE 0.9% FLUSH 10 ML FLUSH IV FLUSH SCH ×2 (08:46→21:00)
--- NOTE | 2017-06-08 09:07 | RADRPT ---
EXAM DATE/TIME: 06/08/2017 08:20 [facility] COMPARISON: No previous studies available for comparison. INDICATIONS : Increased BUN/Creatinine. MEDICAL HISTORY : Depression. Anxiety. Alcohol use. Substance use. MRSA. SURGICAL HISTORY : Left fibula/tibia irrigation debridement. Right wrist ORIF. Left ankle ORIF. ENCOUNTER: Initial ACUITY: 2 days PAIN SCORE: 0/10 LOCATION: Bilateral flank MEASUREMENTS: RIGHT KIDNEY: 12.9 x 6.0 x 5.0 cm LEFT KIDNEY: 12.7 x 5.5 x 6.5 cm FINDINGS: RIGHT KIDNEY: There is no hydronephrosis. Mild cortical echogenicity is evident. LEFT KIDNEY: No hydronephrosis. Mildly echogenic cortex. BLADDER: Within normal limits given the degree of distension. There is an apparent prominent prostate. I hav e no other studies the pelvis for comparison. CONCLUSION: Negative for hydronephrosis. Probable mild renal disease. Apparent prominent prostate. Jack Schreiber MD FACR on June 08, 2017 at 9:02 Board Certified Radiologist. This report was verified electronically.
[2017-06-08 11:01] LABS: HEPATITIS B SURFACE ANTIBODY 114 mIU/mL
--- NOTE | 2017-06-08 11:41 | PD.CONS ---
HPI Service Nephrology Consult Requested By Dr. Mercado Reason for Consult GOLDIE Primary Care Physician No Primary Care Physician History of Present Illness The patient is a 36 yo [place] male who presented to [facility] on 05/28 after he failed outpatient antibiotic therapy for L ankle osteomyelitis. Was admitted for prolonged period in May for the same and was discharged with PICC line for IV Telavancin therapy. As he failed this, he was changed to IV Vancomycin on and underwent I&D on 05/31 with antibiotic bead placement. Vancomycin was changed to Daptomycin on 06/02. Review of labs from previous admissions show baseline SCr of 0.8-1.2. Underwent CTA on 05/25 and SCr that day was 0.91. Next lab was drawn on 05/28 that was elevated at 1.85. Labs subsequently improved slightly, but nava again to 1.84 on day of consult. He has improved to 1.30 today. (Elidia Freedman) Review of Systems Constitutional: COMPLAINS OF: Fatigue Musculoskeletal: COMPLAINS OF: Joint pain, Joint Swelling (Elidia Freedman ) Past Family Social History Allergies: Coded Allergies: Cat Dander (Verified Allergy, Severe, WHEEZING ITCHING, 05/28/17) Dog Dander (Verified Allergy, Unknown, 05/28/17) *MDRO Multi-Drug Resistant Organism (Verified Adverse Reaction, Unknown, MRSA, 05/28/17) MRSA (blood) - 05/02/17 Past Medical History Denies except for L ankle injury requiring plates that became infected. Past Surgical History L ankle R arm fracture repair Reported Medications Naproxen Sodium DS (Naproxen Sodium) 550 Mg Tab 550 Mg PO BID Vibativ Inj (Telavancin) 750 Mg Inj 750 Mg IV Q24H 35 Days Percocet (Oxycodone-Acetaminophen) 10-325 mg Tab 1 Tab PO Q4H PRN Active Ordered Medications Current Medications Medications (Trade) Dose Ordered Sig/Dennis Route Start Time Stop Time Status Last Admin (NS Flush) 2 ml UNSCH PRN IV FLUSH 05/28/17 22:15 06/07/17 14:42 (NS Flush) 2 ml BID IV FLUSH 05/29/17 09:00 06/08/17 08:46 (Narcan Inj) 0.4 mg UNSCH PRN IV 05/28/17 22:15 (Mycostatin Liq) 5 ml QID SWISH-SWAL 05/29/17 09:00 06/08/17 08:44 (Lovenox Inj) 40 mg Q24H SQ 05/29/17 10:00 06/08/17 08:44 (Diflucan) 100 mg DAILY PO 05/29/17 16:30 06/08/17 08:44 Oxycodone/ Acetaminophen 1 tab 1 tab Q4H PRN PO 05/31/17 09:15 06/08/17 10:56 (Lr 1000 ml Inj) 1,000 ml @ 100 mls/hr Q10H IV 05/31/17 10:43 05/31/17 11:23 (KlonoPIN) 0.5 mg BID PO 05/31/17 21:00 06/08/17 08:45 (Amarilis-Colace) 1 tab BID PO 06/01/17 21:00 06/08/17 08:45 (Milk Of Magnesia Liq) 30 ml Q12H PRN PO 06/01/17 16:30 06/01/17 18:07 (Senokot) 17.2 mg Q12H PRN PO 06/01/17 16:30 Bisacodyl 10 mg 10 mg DAILY PRN RECTAL 06/01/17 16:30 (Cubicin Inj/NS Inj) 100 ml @ 200 mls/hr Q24H IV 06/01/17 21:00 06/07/17 21:07 (Zofran Inj) 4 mg Q6H PRN IV PUSH 06/03/17 11:30 06/05/17 19:37 (Heparin Central Flush) 100 units DAILY PRN IV FLUSH 06/05/17 12:15 06/07/17 14:42 (Restoril) 30 mg HS PRN PO 06/05/17 22:45 06/07/17 22:12 (Oramorph Sr) 15 mg Q8HR PO 06/06/17 22:00 06/08/17 05:17 Family History Grandmother with diabetes Otherwise [place] Social History Single Works construction Chews tobacco EtOH on weekends Hx of IV drug use (cocaine & dilaudid as per charts) Admits he used to use anabolic steroids and creatine for weight lifting (Elidia Freedman) Physical Exam Vital Signs Vital Signs Date Time Temp Pulse Resp B/P Pulse Ox O2 Delivery O2 Flow Rate FiO2 06/08/17 08:00 98.0 71 18 107/65 98 06/08/17 06:17 16 06/08/17 04:00 96.8 67 18 116/63 99 06/08/17 02:22 16 06/08/17 00:00 97.2 71 18 110/63 100 06/07/17 20:40 16 06/07/17 20:00 98.3 73 18 117/82 99 06/07/17 16:45 97.1 72 18 119/61 97 06/07/17 12:00 98.4 81 17 114/59 99 Physical Exam GENERAL: Pt laying comfortably in bed. NAD SKIN: Warm and dry. HEAD: Atraumatic. Normocephalic. EYES: Pupils equal and round. No scleral icterus. No injection or drainage. ENT: No nasal bleeding or discharge. Mucous membranes pink and moist. NECK: Trachea midline. No JVD. CARDIOVASCULAR: Regular rate and rhythm. RESPIRATORY: No accessory muscle use. Clear to auscultation. Breath sounds equal bilaterally. GASTROINTESTINAL: Abdomen soft, non-tender, nondistended. Hepatic and splenic margins not palpable. MUSCULOSKELETAL: Extremities without clubbing, cyanosis, or edema. L ankle wrapped in sterile gauze. NEUROLOGICAL: Awake and alert. Normal speech. PSYCHIATRIC: Appropriate mood and affect; insight and judgment normal. Laboratory Laboratory Tests Test 06/07/17 06/07/17 06/08/17 18:55 20:57 06:48 White Blood Count 7.2 Red Blood Count 4.01 Hemoglobin 10.6 Hematocrit 31.7 Mean Corpuscular Volume 79.0 Mean Corpuscular Hemoglobin 26.4 Mean Corpuscular Hemoglobin 33.5 Concent Red Cell Distribution Width 15.3 Platelet Count 708 Mean Platelet Volume 6.4 Iron Level 26 Total Iron Binding Capacity 308 Percent Iron Saturation 8.4 Ferritin 302 Random Vancomycin Level LESS THAN 0.8 Complement C3 156 Complement C4 45 Urine Color YELLOW Urine Turbidity CLEAR Urine pH 6.0 Urine Specific [place] 1.012 Urine Protein NEG Urine Glucose (UA) NEG Urine Ketones NEG Urine Occult Blood NEG Urine Nitrite NEG Urine Bilirubin NEG Urine Leukocyte Esterase NEG Urine RBC 0-2 Urine WBC 0-2 Urine Squamous Epithelial 0-5 Cells Urine Bacteria NONE Microscopic Urinalysis Comment CULT NOT INDICATED Urine Eosinophils NONE SEEN Sodium Level 143 Potassium Level 3.1 Chloride Level 113 Carbon Dioxide Level 24.2 Anion Gap 6 Blood Urea Nitrogen 14 Creatinine 1.30 Estimat Glomerular Filtration 62 Rate Random Glucose 70 Calcium Level 7.2 Protein Corrected Calcium 7.6 Phosphorus Level 3.0 Total Protein 6.3 Albumin 2.3 (Elidia Freedman) Result Diagram: 06/07/17 1855 06/08/17 0648 Imaging Last Impressions Renal Ultrasound 06/08/17 0000 Signed Impressions: Service Date/Time: Thursday, June 08, 2017 08:20 - CONCLUSION: Negative for hydronephrosis. Probable mild renal disease. Apparent prominent prostate. Jack Schreiber MD FACR Ankle MRI 05/30/17 0000 Signed Impressions: Service Date/Time: Tuesday, May 30, 2017 08:15 - CONCLUSION: 1. Extensive marrow edema and enhancement involving the distal tibia, distal fibula, medial aspect of the talus, periphery of the calcaneus, navicular, cuboid and portions of the cuneiforms suggesting osteomyelitis. White blood cell scan may be helpful for confirmation if clinically indicated. 2. Persistent cortical erosion involving the medial aspect of the distal tibia. 3. Deep soft tissue abscesses are stable and are noted adjacent to the cortical erosive changes of the distal tibia medially as well as more inferiorly along the medial and lateral aspects of the calcaneus. 4. Diffuse cellulitis. Raza Winkler MD Lower Extremity Ultrasound 05/28/172031 Signed Impressions: Service Date/Time: Sunday, May 28, 2017 20:45 - CONCLUSION: No DVT. An enlarged lymph nodes left groin. Hever Espino MD (Elidia Freedman) Assessment and Plan Problem List: (1) Acute renal insufficiency Plan: Renal functions likely impaired related to medication exposure, namely Telavancin, as well as potential Vancomycin toxicity. Review of renal US showed increased echogenicity which can be seen with chronic renal dysfunction. He admits that he was previously using supplements such a creatine and HGH for weight lifting as well as NSAIDs at home. Advised not to use these supplements in the future and importance of following up with his renal functions periodically as outpatient. IVF has been D/C'd, but may need to be restarted if he can keep up with fluid intake given his continued nausea. We will continue to follow labs and see the patient intermittently. If there are any questions, to please call. Medications should be adjusted for the patient's renal insufficiency. Avoid nephrotoxic agents such as iodinated contrast dyes and NSAIDs. Avoid gadolinium when eGFR <30. (2) Hypokalemia Plan: Supplemented this AM by primary (3) Hypocalcemia Plan: Os-Yuri started (4) Anemia Plan: Hgb improved. Fe stores low. Added po Fe. (5) Sepsis Plan: Resolved. On abx as per ID (6) Septic joint (7) Prostatic enlargement Plan: As detected on US. States he was previously using testosterone supplements and may have contributed. Does not appear obstructed. Advised to f /u with urology as outpatient. (Elidia Freedman) Assessment and Plan The exam, history, and the medical decision-making described in the above note were completed with the assistance of the PA-C. I reviewed and agree with the findings presented. I attest that I had a [id number] encounter with the patient on the same day, and personally performed and documented my assessment and findings in the medical record. (Artur Quinn MD) Elidia Freedman Jun 08, 2017 11:41 Artur Qiunn MD Jun 08, 2017 16:08
[2017-06-08] MEDS: CALCIUM CARBONATE 1.25 GM (CA 500 MG) TAB PO SCH (11:45)
[2017-06-08 12:00] VITALS: BP 117/67; PULSE 75; RESP 18; TEMP 98.2; O2SAT 97
[2017-06-08] MEDS: FERROUS SULFATE 325 MG (65 MG ELEMENTAL IRON) TAB PO SCH (12:37)
[2017-06-08 13:03] LABS: HEMATOCRIT 32.3 % (39.0-51.0); MEAN CELL VOLUME 78.2 FL (80.0-100.0); MEAN CORPUSCULAR HEMOGLOBIN 26.3 PG (27.0-34.0); MEAN CORPUSCULAR HGB CONC 33.7 % (32.0-36.0); PLATELET COUNT 696 TH/MM3 (150-450); RED BLOOD COUNT 4.13 MIL/MM3 (4.50-5.90); RED CELL DISTRIBUTION WIDTH 15.4 % (11.6-17.2); WHITE BLOOD COUNT 7.2 TH/MM3 (4.0-11.0)
[2017-06-08 13:06] LABS: REVIEW FLAG FINAL
--- NOTE | 2017-06-08 15:16 | HHI.PR ---
Subjective Remarks 36 year-old male who originally presented to the hospital on 05/28/17 because of pain and swelling in the left lower extremity. Destiny is experiencing 2 days of pain and failed outpatient IV therapy with Telvancin. During his previous hospitalization the patient was found to have bacteremia secondary to MRSA from IV drug use. Patient was found to have septic arthritis and underwent multiple incision and drainages per Dr. Palafox. Orthopedic was consulted again at this time. Patient has undergone I&D of the left tibia, left ankle arthrotomy with irrigation and debridement as well as debridement of the left foot abscess. Patient was started on vancomycin and subsequently switched to daptomycin and Teflaro. Patient started developing renal function elevation and nephrology was consulted for recommendations. However patient was transferred to [place] prior to nephrology evaluated the patient. Today 's labs does show significant improvement of his renal function. Patient was transferred to [place] for completion of his IV antibiotics. At the time evaluating the patient he is resting comfortably in chair. Does not indicate that his pain is not controlled. Objective Vitals Vital Signs Date Time Temp Pulse Resp B/P Pulse Ox O2 Delivery O2 Flow Rate FiO2 06/08/17 12:00 98.2 75 18 117/67 97 06/08/17 08:00 98.0 71 18 107/65 98 06/08/17 06:17 16 06/08/17 04:00 96.8 67 18 116/63 99 06/08/17 02:22 16 06/08/17 00:00 97.2 71 18 110/63 100 06/07/17 20:40 16 06/07/17 20:00 98.3 73 18 117/82 99 06/07/17 16:45 97.1 72 18 119/61 97 I/O 06/07/17 06/07/17 06/07/17 06/08/17 06/08/17 06/08/17 07:00 15:00 23:00 07:00 15:00 23:00 Intake Total 480 ml 870 ml Output Total 1100 ml 1915 ml 600 ml Balance -620 ml -1045 ml -600 ml Intake Oral 480 ml 870 ml Output Urine Total 1100 ml 1915 ml 600 ml # Voids 6 1 # Bowel Movements 0 0 Result Diagram: 06/08/17 1245 06/08/17 0648 Objective Remarks GENERAL: Well-developed, well-nourished, in no acute distress. alert and orientated HEENT: Head is normocephalic without any lesions or masses noted. Facial features are symmetric. Eyesextraocular muscles are intact. Conjunctivae were clear. NECK: Supple without any masses. Trachea midline no deviation. No JVD, CARDIAC: Regular rhythm, regular rate. S1/S2 are heard. No murmurs gallops or rubs. LUNGS: Clear to auscultation bilaterally. No wheeze, rhonchi or rales. No use of accessory muscles on inspiration or expiration. ABDOMEN: Soft, nontender. Nondistended. Bowel sounds heard in all 4 quadrants. No organomegaly or masses. Negative rebound, negative guarding EXTREMITIES: No edema, pulses are equal bilaterally. No cyanosis or clubbing NEUROLOGY: Mood and affect appear appropriate. Cranial nerves II through XII grossly intact. Moving all extremities, speech is clear LEFT FOOT: Bandage noted no signs of purulence Procedures 05/31/2017 Irrigation and debridement of left tibia, left ankle arthrotomy with irrigation and debridement, irrigation and debridement of left foot abscess Urinary Catheter: No Vascular Central Line Catheter: Yes Assessment to: Continue Date of Insertion: May 11, 2017 Line: PICC Side: Right A/P Assessment and Plan Left Ankle Cellulitis/Septic Joint/Osteomyelitis: LLE MRI showed osteomyelitis; deep soft tissue abscesses stable with cortical erosive changes; diffuse cellulitis. Failed outpatient treatment with telavancin. Status post surgical intervention with hardware removal, multiple incision and drainage Orthopedic indicates weightbearing as tolerated Continue Daptomycin and Ceftaroline. ID is following. Anticipating 6 weeks of antibiotics, awaiting end date per ID Pain control Morphine SR 15 mg every 8 hours Percocet 10 every 4 hours as needed for pain 510 MRSA Bacteremia on previous admission: received IV vanco on previous admission, discharged on IV telavancin Continue IV Ceftaroline, Daptomycin per infectious disease Acute Kidney Injury: Improving Possible secondary to televancin, vancomycin. Renal ultrasound is unremarkable Nephrology consulted who has evaluated the patient avoid nephrotoxins History of IV drug use, narcotic dependency, When planning to wean patient off opiate will need to monitor patient closely and tried medication for withdrawals Patient on Klonopin 0.5 mg twice daily for anxiety Patient on Restoril 30 mg as needed for insomnia DVT prevention Subcutaneous Lovenox Discharge Planning Patient likely remain in hospital until completion of his IV antibiotics. Ravi Dubon Jun 08, 2017 15:16
[2017-06-08 20:00] VITALS: BP 116/63; PULSE 82; RESP 18; TEMP 98.1; O2SAT 98
[2017-06-08] MEDS: DAPTOmycin INJ 900 MG in SODIUM CHLORIDE 0.9% INJ 100 ML IV SCH (21:38)
[2017-06-09] MEDS: oxyCODONE/ACETAMINOPHEN 10 MG/325 MG TAB PO PRN ×4 (02:43→20:38)
[2017-06-09] MEDS: MORPHINE SULFATE 15 MG CONTROLLED RELEASE TAB PO SCH ×3 (06:33→20:38)
[2017-06-09 07:24] LABS: BASOPHIL # 0.1 TH/MM3 (0-0.2); BASOPHIL % 0.9 % (0.0-2.0); EOSINOPHIL # 0.3 TH/MM3 (0-0.4); EOSINOPHIL % 4.1 % (0.0-4.0); HEMATOCRIT 31.5 % (39.0-51.0); HEMO FLAGS DIFF FINAL; LYMPH % 25.5 % (9.0-44.0); LYMPHOCYTE # 1.8 TH/MM3 (1.0-4.8); MEAN CELL VOLUME 80.9 FL (80.0-100.0); MEAN CORPUSCULAR HEMOGLOBIN 26.9 PG (27.0-34.0); MEAN CORPUSCULAR HGB CONC 33.3 % (32.0-36.0); MONO % 10.2 % (0.0-8.0); NEUT % 59.3 % (16.0-70.0); PLATELET COUNT 610 TH/MM3 (150-450); RED CELL DISTRIBUTION WIDTH 15.6 % (11.6-17.2); WHITE BLOOD COUNT 6.9 TH/MM3 (4.0-11.0)
[2017-06-09 07:33] LABS: POTASSIUM 3.9 MEQ/L (3.5-5.1)
[2017-06-09 07:38] LABS: BICARBONATE 28.4 MEQ/L (21.0-32.0)
[2017-06-09 07:45] LABS: WESTERGREN SEDIMENTATION RATE 56 mm/hr (0-15)
[2017-06-09] MEDS: NYSTATIN SUSP 500,000 U/5 ML CUP SWISH-SWAL SCH (09:09)
[2017-06-09] MEDS: clonazePAM 0.5 MG TAB PO SCH ×2 (09:10→20:38)
[2017-06-09] MEDS: ENOXAPARIN SODIUM 40 MG/0.4 ML SYRINGE SQ SCH (09:10)
[2017-06-09] MEDS: DOCUSATE SODIUM 50 MG/SENNA 8.6 MG TAB PO SCH ×2 (09:10→20:38)
[2017-06-09] MEDS: FLUCONAZOLE 100 MG TAB PO SCH (09:10)
[2017-06-09] MEDS: FERROUS SULFATE 325 MG (65 MG ELEMENTAL IRON) TAB PO SCH (09:11)
[2017-06-09] MEDS: SODIUM CHLORIDE 0.9% FLUSH 10 ML FLUSH IV FLUSH SCH ×2 (09:12→20:39)
[2017-06-09] MEDS: CALCIUM CARBONATE 1.25 GM (CA 500 MG) TAB PO SCH (09:30)
[2017-06-09 10:16] VITALS: BP 114/55; PULSE 78; RESP 14; TEMP 98.4; O2SAT 99
--- NOTE | 2017-06-09 11:25 | HHI.PR ---
Subjective Remarks Patient seen and examined today for follow-up on osteomyelitis, patient sitting in chair resting Sleep. States he still having pain in the foot. He has been drinking more fluids. Objective Vitals Vital Signs Date Time Temp Pulse Resp B/P Pulse Ox O2 Delivery O2 Flow Rate FiO2 06/09/17 10:16 98.4 78 14 114/55 99 06/09/17 09:12 14 06/08/17 20:00 98.1 82 18 116/63 98 06/08/17 12:00 98.2 75 18 117/67 97 I/O 06/08/17 06/08/17 06/08/17 06/09/17 06/09/17 06/09/17 07:00 15:00 23:00 07:00 15:00 23:00 Intake Total 870 ml 760 ml 420 ml 240 ml Output Total 1915 ml 600 ml 500 ml 1000 ml Balance -1045 ml 160 ml -80 ml -760 ml Intake Oral 870 ml 760 ml 420 ml 240 ml Output Urine Total 1915 ml 600 ml 500 ml 1000 ml # Voids 1 3 1 # Bowel Movements 0 1 1 Result Diagram: 06/09/17 0650 06/09/17 0650 Objective Remarks GENERAL: Well-developed, well-nourished, in no acute distress. alert and orientated HEENT: Head is normocephalic without any lesions or masses noted. Facial features are symmetric. Eyesextraocular muscles are intact. Conjunctivae were clear. NECK: Supple without any masses. Trachea midline no deviation. No JVD, CARDIAC: Regular rhythm, regular rate. S1/S2 are heard. No murmurs gallops or rubs. LUNGS: Clear to auscultation bilaterally. No wheeze, rhonchi or rales. No use of accessory muscles on inspiration or expiration. ABDOMEN: Soft, nontender. Nondistended. Bowel sounds heard in all 4 quadrants. No organomegaly or masses. Negative rebound, negative guarding EXTREMITIES: No edema, pulses are equal bilaterally. No cyanosis or clubbing NEUROLOGY: Mood and affect appear appropriate. Cranial nerves II through XII grossly intact. Moving all extremities, speech is clear LEFT FOOT: Bandage noted no signs of purulence Procedures 05/31/2017 Irrigation and debridement of left tibia, left ankle arthrotomy with irrigation and debridement, irrigation and debridement of left foot abscess Urinary Catheter: No Vascular Central Line Catheter: Yes Assessment to: Continue Date of Insertion: May 11, 2017 Line: PICC Side: Right A/P Assessment and Plan Left Ankle Cellulitis/Septic Joint/Osteomyelitis: LLE MRI showed osteomyelitis; deep soft tissue abscesses stable with cortical erosive changes; diffuse cellulitis. Failed outpatient treatment with telavancin. Status post surgical intervention with hardware removal, multiple incision and drainage Orthopedic indicates weightbearing as tolerated Continue Daptomycin and Ceftaroline. ID is following. Anticipating 6 weeks of antibiotics, awaiting end date per ID Pain control Morphine SR 15 mg every 8 hours Percocet 10 every 4 hours as needed for pain 510 MRSA Bacteremia on previous admission: received IV vanco on previous admission, discharged on IV telavancin Continue IV Ceftaroline, Daptomycin per infectious disease Acute Kidney Injury: Possible secondary to televancin, vancomycin. Renal ultrasound is unremarkable Nephrology consulted who has evaluated the patient avoid nephrotoxins History of IV drug use, narcotic dependency, When planning to wean patient off opiate will need to monitor patient closely and tried medication for withdrawals Patient on Klonopin 0.5 mg twice daily for anxiety Patient on Restoril 30 mg as needed for insomnia DVT prevention Subcutaneous Lovenox Discharge Planning Patient likely remain in hospital until completion of his IV antibiotics. Ravi Dubon Jun 09, 2017 11:25
[2017-06-09] MEDS ORDERED: ONDANSETRON ODT 4 MG TAB PO PRN (11:30)
--- NOTE | 2017-06-09 17:27 | HHI.NPPN ---
Subjective History of Present Illness Attempted to see the patient in consult 06/07/17 at 1732 a [facility] [place] main, but he was transferred to [facility]. We were not notified. Will see the patient 06/08 Interval History Patient with no verbal complaints. His nausea has improved and he is trying to increase his fluid intake. Mother and aunt in room and patient gave permission to discuss his medical issues in front of her Objective Data Data 06/08/17 06/09/17 19:00 07:00 Intake Total 760 ml 660 ml Output Total 600 ml 1500 ml Balance 160 ml -840 ml Intake Oral 760 ml 660 ml Output Urine Total 600 ml 1500 ml # Voids 1 3 # Bowel Movements 2 Vital Signs Date Time Temp Pulse Resp B/P Pulse Ox O2 Delivery O2 Flow Rate FiO2 06/09/17 10:16 98.4 78 14 114/55 99 06/09/17 09:12 14 06/08/17 20:00 98.1 82 18 116/63 98 -: 06/09/17 0650 06/09/17 0650 Physical Exam General Appearance: Well Nourished, No Acute Distress Eyes Eye Exam: Sclera White Pulmonary Resp Exam: Clear Bilaterally, Breath Sounds Equal, No Distress Cardiology CV Exam: Regular, Normal Sinus Rhythm, Good Perfusion Gastrointestinal/Abdomen GI Exam: Soft, Non-Tender Extremeties Extremities Exam: No Edema Neurologic Neuro Exam: Alert, Awake Assessment/Plan Discussed Condition With: Patient, Parent Problem List: (1) Acute renal insufficiency Plan: Renal functions likely impaired related to medication exposure, namely Telavancin, as well as potential Vancomycin toxicity. Review of renal US showed increased echogenicity which can be seen with chronic renal dysfunction. He admits that he was previously using supplements such a creatine and HGH for weight lifting as well as NSAIDs at home. Advised not to use these supplements in the future and importance of following up with his renal functions periodically as outpatient. Patient's creatinine level was improved yesterday deteriorated slightly today. This may have been related to reduced oral fluid intake. He was encouraged to increase his fluid intake again now that his nausea has resolved His renal insufficiency is most likely related to nephrotoxicity secondary to one of the previous antibiotics is taking. There is no specific treatment except avoidance of the offending agent. Currently on daptomycin which is not an issue from a renal point of view. It is noted that he has a positive hepatitis C antibody test. I do not believe that the patient has hepatitis C related glomerulonephritis as his urinalysis is bland without evidence of proteinuria or hematuria. His PCR test is currently pending. If positive I will would recommend GI consultation as discussed with patient. We'll defer this decision to primary care physician however. It is noted that the patient's prostate was prominent on the ultrasound with apparent previous use of testosterone. We'll defer further evaluation to primary care physician also. We will continue to follow labs and see the patient intermittently. If there are any questions, to please call. Medications should be adjusted for the patient's renal insufficiency. Avoid nephrotoxic agents such as iodinated contrast dyes and NSAIDs. Avoid gadolinium when eGFR <30. (2) Hypocalcemia Plan: Os-Yuri started (3) Anemia Plan: Hgb improved. Fe stores low. Added po Fe. (4) Sepsis Plan: Resolved. On abx as per ID (5) Septic joint (6) Prostatic enlargement Plan: As detected on US. States he was previously using testosterone supplements and may have contributed. Does not appear obstructed. Advised to f /u with urology as outpatient. Artur Quinn MD Jun 09, 2017 17:27
[2017-06-09] MEDS: DAPTOmycin INJ 900 MG in SODIUM CHLORIDE 0.9% INJ 100 ML IV SCH (20:39)
[2017-06-09 20:46] VITALS: BP 120/61; PULSE 85; RESP 20; TEMP 98.5; O2SAT 99
[2017-06-09] MEDS: TEMAZEPAM 15 MG CAP PO PRN (22:06)
[2017-06-10] MEDS: oxyCODONE/ACETAMINOPHEN 10 MG/325 MG TAB PO PRN ×5 (02:07→21:11)
[2017-06-10] MEDS: MORPHINE SULFATE 15 MG CONTROLLED RELEASE TAB PO SCH ×3 (06:07→21:11)
[2017-06-10 07:26] LABS: POTASSIUM 3.5 MEQ/L (3.5-5.1)
[2017-06-10 07:30] LABS: BICARBONATE 26.8 MEQ/L (21.0-32.0)
[2017-06-10] MEDS: DOCUSATE SODIUM 50 MG/SENNA 8.6 MG TAB PO SCH ×2 (08:16→21:11)
[2017-06-10] MEDS: ENOXAPARIN SODIUM 40 MG/0.4 ML SYRINGE SQ SCH (08:16)
[2017-06-10] MEDS: SODIUM CHLORIDE 0.9% FLUSH 10 ML FLUSH IV FLUSH SCH ×2 (08:17→21:12)
[2017-06-10] MEDS: clonazePAM 0.5 MG TAB PO SCH ×2 (08:17→21:11)
[2017-06-10] MEDS: FERROUS SULFATE 325 MG (65 MG ELEMENTAL IRON) TAB PO SCH (08:17)
[2017-06-10] MEDS: CALCIUM CARBONATE 1.25 GM (CA 500 MG) TAB PO SCH (08:20)
[2017-06-10 10:14] VITALS: BP 110/47; PULSE 80; RESP 14; TEMP 97.3; O2SAT 99
--- NOTE | 2017-06-10 10:21 | HHI.PR ---
Subjective Remarks Patient seen and examined today for follow-up on osteomyelitis. Patient sitting in a recliner, denies any new complaints. Asking if he could ambulate in the hallways. Orthopedist note indicates patient weightbearing as tolerated. Patient does have crutches at bedside. Notify him he can use the crutches to ambulate Objective Vitals Vital Signs Date Time Temp Pulse Resp B/P Pulse Ox O2 Delivery O2 Flow Rate FiO2 06/10/17 10:14 97.3 80 14 110/47 99 06/09/17 20:46 98.5 85 20 120/61 99 I/O 06/09/17 06/09/17 06/09/17 06/10/17 06/10/17 06/10/17 06:59 14:59 22:59 06:59 14:59 22:59 Intake Total 240 ml Output Total 1000 ml 400 ml Balance -760 ml -400 ml Intake Oral 240 ml Output Urine Total 1000 ml 400 ml # Voids 1 # Bowel Movements 1 Result Diagram: 06/09/17 0650 06/10/17 0635 Objective Remarks GENERAL: Well-developed, well-nourished, in no acute distress. alert and orientated HEENT: Head is normocephalic without any lesions or masses noted. Facial features are symmetric. Eyesextraocular muscles are intact. Conjunctivae were clear. NECK: Supple without any masses. Trachea midline no deviation. No JVD, CARDIAC: Regular rhythm, regular rate. S1/S2 are heard. No murmurs gallops or rubs. LUNGS: Clear to auscultation bilaterally. No wheeze, rhonchi or rales. No use of accessory muscles on inspiration or expiration. ABDOMEN: Soft, nontender. Nondistended. Bowel sounds heard in all 4 quadrants. No organomegaly or masses. Negative rebound, negative guarding EXTREMITIES: No edema, pulses are equal bilaterally. No cyanosis or clubbing NEUROLOGY: Mood and affect appear appropriate. Cranial nerves II through XII grossly intact. Moving all extremities, speech is clear LEFT FOOT: Bandage noted no signs of purulence Procedures 05/31/2017 Irrigation and debridement of left tibia, left ankle arthrotomy with irrigation and debridement, irrigation and debridement of left foot abscess Urinary Catheter: No Vascular Central Line Catheter: No Date of Insertion: May 11, 2017 Line: PICC Side: Right A/P Assessment and Plan Left Ankle Cellulitis/Septic Joint/Osteomyelitis: LLE MRI showed osteomyelitis; deep soft tissue abscesses stable with cortical erosive changes; diffuse cellulitis. Failed outpatient treatment with telavancin. Status post surgical intervention with hardware removal, multiple incision and drainage Orthopedic indicates weightbearing as tolerated Continue Daptomycin. ID is following. Anticipating 6 weeks of antibiotics, awaiting end date per ID Pain control Morphine SR 15 mg every 8 hours Percocet 10 every 4 hours as needed for pain 510 MRSA Bacteremia on previous admission: received IV vanco on previous admission, discharged on IV telavancin Continue IV Daptomycin per infectious disease Acute Kidney Injury: Improving Possible secondary to televancin, vancomycin. Renal ultrasound is unremarkable Nephrology consulted who has evaluated the patient avoid nephrotoxins History of IV drug use, narcotic dependency, When planning to wean patient off opiate will need to monitor patient closely and tried medication for withdrawals Patient on Klonopin 0.5 mg twice daily for anxiety Patient on Restoril 30 mg as needed for insomnia DVT prevention Subcutaneous Lovenox Discharge Planning Patient likely remain in hospital until completion of his IV antibiotics. Ravi Dubon Jun 10, 2017 10:20
[2017-06-10 19:06] VITALS: BP 112/57; PULSE 76; RESP 16; TEMP 98.6; O2SAT 99
[2017-06-10 19:53] LABS: MYELOPEROXIDASE LESS THAN 1.0 AI (<1.0); PROTEINASE-3 LESS THAN 1.0 AI (<1.0)
[2017-06-10 20:00] VITALS: BP 112/57; PULSE 76; RESP 16; TEMP 98.6; O2SAT 99
[2017-06-10] MEDS: TEMAZEPAM 15 MG CAP PO PRN (21:12)
[2017-06-10] MEDS: DAPTOmycin INJ 900 MG in SODIUM CHLORIDE 0.9% INJ 100 ML IV SCH (21:12)
[2017-06-11] MEDS: oxyCODONE/ACETAMINOPHEN 10 MG/325 MG TAB PO PRN ×5 (01:24→20:01)
[2017-06-11] MEDS: MORPHINE SULFATE 15 MG CONTROLLED RELEASE TAB PO SCH ×3 (06:03→21:11)
[2017-06-11] MEDS: clonazePAM 0.5 MG TAB PO SCH ×2 (07:27→20:01)
[2017-06-11] MEDS: FERROUS SULFATE 325 MG (65 MG ELEMENTAL IRON) TAB PO SCH (07:27)
[2017-06-11] MEDS: ENOXAPARIN SODIUM 40 MG/0.4 ML SYRINGE SQ SCH (07:27)
[2017-06-11] MEDS: DOCUSATE SODIUM 50 MG/SENNA 8.6 MG TAB PO SCH ×2 (07:27→20:01)
[2017-06-11] MEDS: SODIUM CHLORIDE 0.9% FLUSH 10 ML FLUSH IV FLUSH SCH ×2 (07:28→20:01)
[2017-06-11] MEDS: CALCIUM CARBONATE 1.25 GM (CA 500 MG) TAB PO SCH (07:28)
--- NOTE | 2017-06-11 08:01 | HHI.PR ---
Subjective Remarks Patient seen and examined today for follow-up on osteomyelitis. Patient did get up and ambulate with crutches yesterday. States that his upper body is sore from doing so. Otherwise patient is doing well. Remains afebrile, vitals are stable Objective Vitals Vital Signs Date Time Temp Pulse Resp B/P Pulse Ox O2 Delivery O2 Flow Rate FiO2 06/10/17 20:00 98.6 76 16 112/57 99 06/10/17 19:06 98.6 76 16 112/57 99 06/10/17 10:14 97.3 80 14 110/47 99 I/O 06/10/17 06/10/17 06/10/17 06/11/17 06/11/17 06/11/17 07:00 15:00 23:00 07:00 15:00 23:00 Intake Total 100 ml 2360 ml Output Total 750 ml Balance 100 ml 1610 ml Intake Oral 100 ml 2360 ml Output Urine Total 750 ml # Voids 4 # Bowel Movements 1 Result Diagram: 06/09/17 0650 06/10/17 0635 Objective Remarks GENERAL: Well-developed, well-nourished, in no acute distress. alert and orientated HEENT: Head is normocephalic without any lesions or masses noted. Facial features are symmetric. Eyes: extraocular muscles are intact. Conjunctivae were clear. NECK: Trachea midline no deviation. No JVD, CARDIAC: Regular rhythm, regular rate. S1/S2 are heard. No murmurs gallops or rubs. LUNGS: Clear to auscultation bilaterally. No wheeze, rhonchi or rales. No use of accessory muscles on inspiration or expiration. ABDOMEN: Soft, nontender. Nondistended. Bowel sounds heard in all 4 quadrants. No organomegaly or masses. Negative rebound, negative guarding EXTREMITIES: No edema, pulses are equal bilaterally. No cyanosis or clubbing NEUROLOGY: Mood and affect appear appropriate. Cranial nerves II through XII grossly intact. Moving all extremities, speech is clear LEFT FOOT: Bandage noted no signs of purulence Procedures 05/31/2017 Irrigation and debridement of left tibia, left ankle arthrotomy with irrigation and debridement, irrigation and debridement of left foot abscess Urinary Catheter: No Vascular Central Line Catheter: Yes Assessment to: Continue Date of Insertion: May 11, 2017 Line: PICC Side: Right A/P Assessment and Plan Left Ankle Cellulitis/Septic Joint/Osteomyelitis: LLE MRI showed osteomyelitis; deep soft tissue abscesses stable with cortical erosive changes; diffuse cellulitis. Failed outpatient treatment with telavancin. Status post surgical intervention with hardware removal, multiple incision and drainage Orthopedic indicates weightbearing as tolerated Continue Daptomycin. ID is following. Anticipating 6 weeks of antibiotics, awaiting end date per ID Pain control Morphine SR 15 mg every 8 hours Percocet 10 every 4 hours as needed for pain 510 MRSA Bacteremia on previous admission: received IV vanco on previous admission, discharged on IV telavancin Continue IV Daptomycin per infectious disease Acute Kidney Injury: Improving Possible secondary to televancin, vancomycin. Renal ultrasound is unremarkable Nephrology consulted who has evaluated the patient avoid nephrotoxins History of IV drug use, narcotic dependency, When planning to wean patient off opiate will need to monitor patient closely and tried medication for withdrawals Patient on Klonopin 0.5 mg twice daily for anxiety Patient on Restoril 30 mg as needed for insomnia DVT prevention Subcutaneous Lovenox Discharge Planning Patient likely remain in hospital until completion of his IV antibiotics. Ravi Dubon Jun 11, 2017 08:01
[2017-06-11 08:45] VITALS: BP 103/56; PULSE 72; RESP 16; TEMP 97.7; O2SAT 99
[2017-06-11 20:00] VITALS: BP 104/59; PULSE 79; RESP 20; TEMP 98.3; O2SAT 99
[2017-06-11] MEDS: DAPTOmycin INJ 900 MG in SODIUM CHLORIDE 0.9% INJ 100 ML IV SCH (20:00)
[2017-06-11] MEDS: TEMAZEPAM 15 MG CAP PO PRN (21:11)
[2017-06-12] MEDS: oxyCODONE/ACETAMINOPHEN 10 MG/325 MG TAB PO PRN ×5 (00:38→21:22)
[2017-06-12] MEDS: MORPHINE SULFATE 15 MG CONTROLLED RELEASE TAB PO SCH ×3 (05:26→21:22)
[2017-06-12 06:25] LABS: POTASSIUM 4.1 MEQ/L (3.5-5.1)
[2017-06-12 06:28] LABS: BICARBONATE 27.8 MEQ/L (21.0-32.0)
[2017-06-12] MEDS: ENOXAPARIN SODIUM 40 MG/0.4 ML SYRINGE SQ SCH (07:24)
[2017-06-12] MEDS: FERROUS SULFATE 325 MG (65 MG ELEMENTAL IRON) TAB PO SCH (07:24)
[2017-06-12] MEDS: clonazePAM 0.5 MG TAB PO SCH ×2 (07:24→21:22)
[2017-06-12] MEDS: DOCUSATE SODIUM 50 MG/SENNA 8.6 MG TAB PO SCH ×2 (07:24→21:22)
[2017-06-12] MEDS: SODIUM CHLORIDE 0.9% FLUSH 10 ML FLUSH IV FLUSH SCH ×2 (07:25→21:23)
[2017-06-12] MEDS: CALCIUM CARBONATE 1.25 GM (CA 500 MG) TAB PO SCH (07:27)
[2017-06-12 08:00] VITALS: BP 103/60; PULSE 70; RESP 16; TEMP 97.8; O2SAT 99
--- NOTE | 2017-06-12 11:02 | HHI.PR ---
Subjective Remarks Follow-up for osteomyelitis of the left ankle and foot. Patient complains of some new drainage from the medial incision site stating it was white yesterday. Admits to pain, but denies any fevers or chills. Denies any vomiting or diarrhea. Objective Vitals Vital Signs Date Time Temp Pulse Resp B/P Pulse Ox O2 Delivery O2 Flow Rate FiO2 06/12/17 06:36 18 06/12/17 01:46 18 06/11/17 20:00 98.3 79 20 104/59 99 I/O 06/11/17 06/11/17 06/11/17 06/12/17 06/12/17 06/12/17 07:00 15:00 23:00 07:00 15:00 23:00 Intake Total 100 ml 985 ml 100 ml Output Total 850 ml Balance 100 ml 985 ml -850 ml 100 ml Intake Oral 100 ml 850 ml 100 ml IV Total 135 ml Output Urine Total 850 ml # Voids 4 # Bowel Movements 1 Result Diagram: 06/09/17 0650 06/12/17 0605 Objective Remarks GENERAL: Well nourished, well developed patient in no apparent distress sitting in recliner. SKIN: Multiple incision sites noted to the medial and lateral L ankle/foot. There is an opening over the posterior medial incision with yellow drainage evident. There is some blanching pink discoloration around the site. CARDIOVASCULAR: Regular rate and rhythm. RESPIRATORY: No accessory muscle use. Clear to auscultation. Breath sounds equal bilaterally. GASTROINTESTINAL: Abdomen soft, non-tender, nondistended. MUSCULOSKELETAL: 2+ L DP pulse. NEUROLOGICAL: Awake and alert. Normal speech. Sensation grossly decreased over the left toes; patient states there is tingling. PSYCHIATRIC: Appropriate mood and affect; insight and judgment normal. Procedures 05/31/2017 Irrigation and debridement of left tibia, left ankle arthrotomy with irrigation and debridement, irrigation and debridement of left foot abscess Urinary Catheter: No Vascular Central Line Catheter: Yes Assessment to: Continue Date of Insertion: May 11, 2017 Line: PICC Side: Right A/P Assessment and Plan Left Ankle Cellulitis/Septic Joint/Osteomyelitis: LLE MRI showed osteomyelitis; deep soft tissue abscesses stable with cortical erosive changes; diffuse cellulitis. Failed outpatient treatment with telavancin. Status post surgical intervention with hardware removal, multiple incision and drainages Orthopedic indicates weightbearing as tolerated Continue Daptomycin. ID is following. Anticipating 6 weeks of antibiotics, awaiting end date per ID. Monitor labs weekly. Pain control Morphine SR 15 mg every 8 hours Percocet 10 every 4 hours as needed for pain 510. Will decrease frequency of Percocet as it has been almost 2 weeks at q4h. Change to q6h. 06/12: Drainage from posterior medial incision site to L foot which was cultured ; very light erythema around site. Patient afebrile. Obtain am CBC w/ diff. I have made malik Ulloa PA, aware. He will come and see the patient tomorrow. MRSA Bacteremia on previous admission: Received IV vanco on previous admission, discharged on IV telavancin Blood cultures 05/28 without growth Continue IV Daptomycin per infectious disease Acute Kidney Injury: Improving. Possible secondary to televancin, vancomycin. Renal ultrasound indicates probable mild renal disease Nephrology consulted who has evaluated the patient Avoid nephrotoxins 06/12: Cr decreased to 1.40. BUN increased at 24 though. Encourage oral fluids. Recheck am BMP. History of IV drug use, narcotic dependency, When planning to wean patient off opiate will need to monitor patient closely and try medication for withdrawals Patient on Klonopin 0.5 mg twice daily for anxiety Patient on Restoril 30 mg as needed for insomnia DVT prevention Subcutaneous Lovenox Discharge Planning Patient to remain in hospital until completion of his IV antibiotics. Yina Lopez Jun 12, 2017 11:02
[2017-06-12 20:00] VITALS: BP 122/67; PULSE 75; RESP 20; TEMP 97.5; O2SAT 99
[2017-06-12] MEDS: TEMAZEPAM 15 MG CAP PO PRN (21:22)
[2017-06-12] MEDS: DAPTOmycin INJ 900 MG in SODIUM CHLORIDE 0.9% INJ 100 ML IV SCH (21:23)
[2017-06-13] MEDS: oxyCODONE/ACETAMINOPHEN 10 MG/325 MG TAB PO PRN ×4 (03:42→23:05)
[2017-06-13] MEDS: MORPHINE SULFATE 15 MG CONTROLLED RELEASE TAB PO SCH ×3 (05:45→21:38)
[2017-06-13 07:22] LABS: AUTOMATED NEUTROPHIL # 5.2 TH/MM3 (1.8-7.7); BASOPHIL # 0.2 TH/MM3 (0-0.2); EOSINOPHIL # 0.3 TH/MM3 (0-0.4); EOSINOPHIL % 3.5 % (0.0-4.0); HEMATOCRIT 33.2 % (39.0-51.0); HEMO FLAGS DIFF FINAL; LYMPHOCYTE # 1.6 TH/MM3 (1.0-4.8); MEAN CELL VOLUME 80.4 FL (80.0-100.0); MEAN CORPUSCULAR HEMOGLOBIN 26.5 PG (27.0-34.0); MEAN CORPUSCULAR HGB CONC 32.9 % (32.0-36.0); MONO % 8.7 % (0.0-8.0); NEUT % 65.8 % (16.0-70.0); PLATELET COUNT 553 TH/MM3 (150-450); RED BLOOD COUNT 4.13 MIL/MM3 (4.50-5.90); RED CELL DISTRIBUTION WIDTH 16.1 % (11.6-17.2)
[2017-06-13 07:32] LABS: POTASSIUM 3.5 MEQ/L (3.5-5.1)
[2017-06-13 07:35] LABS: BICARBONATE 27.2 MEQ/L (21.0-32.0)
[2017-06-13] MEDS: ENOXAPARIN SODIUM 40 MG/0.4 ML SYRINGE SQ SCH (07:42)
[2017-06-13] MEDS: clonazePAM 0.5 MG TAB PO SCH ×2 (07:43→21:11)
[2017-06-13] MEDS: DOCUSATE SODIUM 50 MG/SENNA 8.6 MG TAB PO SCH ×2 (07:43→21:39)
[2017-06-13] MEDS: FERROUS SULFATE 325 MG (65 MG ELEMENTAL IRON) TAB PO SCH (07:43)
[2017-06-13] MEDS: CALCIUM CARBONATE 1.25 GM (CA 500 MG) TAB PO SCH (07:43)
[2017-06-13] MEDS: SODIUM CHLORIDE 0.9% FLUSH 10 ML FLUSH IV FLUSH SCH ×2 (07:43→21:11)
[2017-06-13 08:00] VITALS: BP 131/76; PULSE 65; RESP 16; TEMP 98.8; O2SAT 99
--- NOTE | 2017-06-13 11:56 | HHI.PR ---
Subjective Remarks Follow-up for osteomyelitis of the left ankle and foot. Patient complains of pain in the foot but denies any fevers or chills. He also admits to pleuritic pain over the right ribs and states he is a little short of breath. He states this started 2 weeks ago. Denies cough. He states a chest x-ray had been performed and was told he had fluid there. According to the EMR the patient presented to the ED on 05/25/17, after being discharged initially on IV antibiotics, with same right sided pleuritic pain. He had a chest x-ray and CT pulmonary angiogram performed at that time which showed trace R pleural effusion and atelectasis and scattered nodules in the lungs, possibly post- inflammatory. Objective Vitals Vital Signs Date Time Temp Pulse Resp B/P Pulse Ox O2 Delivery O2 Flow Rate FiO2 06/12/17 20:00 97.5 75 20 122/67 99 I/O 06/12/17 06/12/17 06/12/17 06/13/17 06/13/17 06/13/17 07:00 15:00 23:00 07:00 15:00 23:00 Intake Total 100 ml 1080 ml 100 ml Output Total 850 ml 750 ml Balance -850 ml 100 ml 1080 ml -650 ml Intake Oral 100 ml 1080 ml IV Total 100 ml Output Urine Total 850 ml 750 ml # Voids 5 # Bowel Movements 0 Result Diagram: 06/13/17 0545 06/13/17 0545 Objective Remarks GENERAL: Well nourished, well developed patient in no apparent distress sitting in recliner. SKIN: Dressing to L foot. CHEST: No reproducible tenderness over R ribs. CARDIOVASCULAR: Regular rate and rhythm. RESPIRATORY: No accessory muscle use. Clear to auscultation. Breath sounds equal bilaterally. GASTROINTESTINAL: Abdomen soft, non-tender, nondistended. MUSCULOSKELETAL: Capillary refill normal in toes of Left foot. NEUROLOGICAL: Awake and alert. Normal speech. PSYCHIATRIC: Appropriate mood and affect. Procedures 05/31/2017 Irrigation and debridement of left tibia, left ankle arthrotomy with irrigation and debridement, irrigation and debridement of left foot abscess Urinary Catheter: No Vascular Central Line Catheter: Yes Assessment to: Continue Date of Insertion: May 11, 2017 Line: PICC Side: Right Reason for Continuation group home antibiotics A/P Problem List: (1) Cellulitis of ankle ICD Code: L03.119 Status: Acute (2) Oral thrush ICD Code: B37.0 Status: Acute (3) Acute renal failure (ARF) ICD Code: N17.9 Status: Acute Assessment and Plan Left Ankle Cellulitis/Septic Joint/Osteomyelitis: LLE MRI showed osteomyelitis; deep soft tissue abscesses stable with cortical erosive changes; diffuse cellulitis. Failed outpatient treatment with telavancin. Status post surgical intervention with hardware removal, multiple incision and drainages Orthopedic indicates weightbearing as tolerated Continue Daptomycin. ID is following. Anticipating 6 weeks of antibiotics, awaiting end date per ID. Monitor labs weekly. Pain control Morphine SR 15 mg every 8 hours Percocet 10 every 6 hours as needed for pain 510. 06/12: Drainage from posterior medial incision site to L foot which was cultured ; very light erythema around site. I have made Palomo Trimble, ortho PA, aware. He will come and see the patient tomorrow. 06/13: Left foot wound culture with no growth in 24 hours. Patient remains afebrile. WBC normal at 8.0. Patient only on once daily dosing of Daptomycin. Will need to discuss stop date with ID and determine if patient can go to infusion clinic as he did this previously. MRSA Bacteremia on previous admission: Received IV vanco on previous admission, discharged on IV telavancin Blood cultures 05/28 without growth Continue IV Daptomycin per infectious disease Acute Kidney Injury: Improving. Possible secondary to televancin, vancomycin. Renal ultrasound indicates probable mild renal disease Nephrology consulted who has evaluated the patient. Advised to follow up outpatient with urology for enlarged prostate. Avoid nephrotoxins 06/13: BUN/Cr stable at 24/1.40. Encourage oral fluids. Recheck am BMP. Anemia: Stable. -Continue ferrous sulfate History of IV drug use, narcotic dependency, When planning to wean patient off opiate will need to monitor patient closely and try medication for withdrawals Patient on Klonopin 0.5 mg twice daily for anxiety Patient on Restoril 30 mg as needed for insomnia Pleuritic pain: R sided ongoing for several weeks. HR and O2 saturation good. Lung exam benign. Already had workup with chest x-ray and CT pulmonary angiogram. -Patient advised to continue incentive spirometry DVT prevention Subcutaneous Lovenox Discharge Planning Patient likely to remain in hospital until completion of his IV antibiotics. Need to discuss possibility of infusion clinic with ID and case work aide. Yina Lopez Jun 13, 2017 11:56
--- NOTE | 2017-06-13 17:10 | PD.ORT.PN ---
Subjective Subjective Remarks Pain controlled no new complaints Objective Vitals Vital Signs Date Time Temp Pulse Resp B/P Pulse Ox O2 Delivery O2 Flow Rate FiO2 06/13/17 08:00 98.8 65 16 131/76 99 06/12/17 20:00 97.5 75 20 122/67 99 I/O 06/12/17 06/12/17 06/12/17 06/13/17 06/13/17 06/13/17 07:00 15:00 23:00 07:00 15:00 23:00 Intake Total 100 ml 1080 ml 100 ml Output Total 850 ml 750 ml Balance -850 ml 100 ml 1080 ml -650 ml Intake Oral 100 ml 1080 ml IV Total 100 ml Output Urine Total 850 ml 750 ml # Voids 5 # Bowel Movements 0 Result Diagram: 06/13/17 0545 06/13/17 0545 Imaging Last 24 hours Impressions Lower Extremity Ultrasound 05/28/172031 Signed Impressions: Service Date/Time: Sunday, May 28, 2017 20:45 - CONCLUSION: No DVT. An enlarged lymph nodes left groin. Hever Espino MD Objective Remarks Left lower extremity: Dressings taken down. Both medial incisions are well approximated with sutures in position. Posterior incision does have mild drainage. Lateral incision is continuing to heal in well. The most distal portion of the incision that was unable to be closed due to necrosis of skin is continuing to granulate in well. He has intact sensation distally in all his toes and is able to move all his toes appropriately. Ankle range of motion is from 5 of dorsiflexion to 30 of plantarflexion Assessment & Plan Assessment and Plan 1) Left Ankle Infection irrigation debridement 05/31/2017 -daily dressing changes with xeroform/4x4/YOAV -WBAT for transfers -elevate -IV Abx per infectious disease 6 weeks from surgery - Physical therapy for ankle range of motion Demarcus Trimble Jr. Jun 13, 2017 17:10
[2017-06-13 20:00] VITALS: BP 114/59; PULSE 67; RESP 16; TEMP 98; O2SAT 99
[2017-06-13] MEDS: DAPTOmycin INJ 900 MG in SODIUM CHLORIDE 0.9% INJ 100 ML IV SCH (21:11)
[2017-06-13] MEDS: TEMAZEPAM 15 MG CAP PO PRN (21:40)
[2017-06-13 23:52] LABS: HCV RNA PCR LOGIU/ML 3.48 (())
[2017-06-14] MEDS: MORPHINE SULFATE 15 MG CONTROLLED RELEASE TAB PO SCH ×3 (05:44→21:19)
[2017-06-14] MEDS: oxyCODONE/ACETAMINOPHEN 10 MG/325 MG TAB PO PRN ×4 (05:45→23:10)
[2017-06-14 07:37] LABS: BICARBONATE 23.6 MEQ/L (21.0-32.0)
[2017-06-14 07:56] LABS: CALCIUM-PROTEIN CORRECTED 7.6 MG/DL (8.5-10.1)
[2017-06-14 08:00] VITALS: BP 116/64; PULSE 77; RESP 20; TEMP 97.5; O2SAT 99
[2017-06-14] MEDS: CALCIUM CARBONATE 1.25 GM (CA 500 MG) TAB PO SCH ×3 (09:00→17:39)
[2017-06-14] MEDS ORDERED: POTASSIUM CHLORIDE 20 MEQ CONTROLLED RELEASE TAB PO ONE (09:00)
[2017-06-14] MEDS: ENOXAPARIN SODIUM 40 MG/0.4 ML SYRINGE SQ SCH (09:50)
[2017-06-14] MEDS: DOCUSATE SODIUM 50 MG/SENNA 8.6 MG TAB PO SCH ×2 (09:50→21:20)
[2017-06-14] MEDS: FERROUS SULFATE 325 MG (65 MG ELEMENTAL IRON) TAB PO SCH (09:50)
[2017-06-14] MEDS: clonazePAM 0.5 MG TAB PO SCH ×2 (09:50→21:20)
[2017-06-14] MEDS: SODIUM CHLORIDE 0.9% FLUSH 10 ML FLUSH IV FLUSH SCH ×2 (09:51→21:20)
--- NOTE | 2017-06-14 10:28 | HHI.PR ---
Subjective Remarks Follow-up for osteomyelitis of the left ankle/foot. Denies any fevers or chills , abdominal pain, vomiting, or diarrhea. Patient has improved right sided pleuritic pain stating he is trying not to lie on that side. Objective Vitals Vital Signs Date Time Temp Pulse Resp B/P Pulse Ox O2 Delivery O2 Flow Rate FiO2 06/14/17 08:00 97.5 77 20 116/64 99 06/14/17 00:05 16 06/13/17 22:38 16 06/13/17 20:00 98.0 67 16 114/59 99 I/O 06/13/17 06/13/17 06/13/17 06/14/17 06/14/17 06/14/17 07:00 15:00 23:00 07:00 15:00 23:00 Intake Total 100 ml 480 ml 580 ml Output Total 750 ml 250 ml 1100 ml Balance -650 ml 230 ml -520 ml Intake Oral 480 ml 580 ml IV Total 100 ml Output Urine Total 750 ml 250 ml 1100 ml # Voids 2 # Bowel Movements 0 0 Result Diagram: 06/13/17 0545 06/14/17 0550 Objective Remarks GENERAL: Well nourished, well developed patient in no apparent distress sleeping when I enter the room. SKIN: Dressing to L ankle/foot. CARDIOVASCULAR: Regular rate and rhythm. RESPIRATORY: No accessory muscle use. Clear to auscultation. Breath sounds equal bilaterally. GASTROINTESTINAL: Active bowel sounds. Abdomen soft, non-tender, nondistended. MUSCULOSKELETAL: Capillary refill normal in toes of Left foot. NEUROLOGICAL: Awake and alert. Decreased sensation over toes of left foot. Normal speech. PSYCHIATRIC: Appropriate mood and affect. Procedures 05/31/2017 Irrigation and debridement of left tibia, left ankle arthrotomy with irrigation and debridement, irrigation and debridement of left foot abscess Urinary Catheter: No Vascular Central Line Catheter: Yes Assessment to: Continue Date of Insertion: May 11, 2017 Line: PICC Side: Right A/P Problem List: (1) Cellulitis of ankle ICD Code: L03.119 Status: Acute (2) Oral thrush ICD Code: B37.0 Status: Acute (3) Acute renal failure (ARF) ICD Code: N17.9 Status: Acute Assessment and Plan Left Ankle Cellulitis/Septic Joint/Osteomyelitis: Stable LLE MRI showed osteomyelitis; deep soft tissue abscesses stable with cortical erosive changes; diffuse cellulitis. Failed outpatient treatment with telavancin. Status post surgical intervention with hardware removal, multiple incision and drainages Continue Daptomycin. ID is following. Anticipating 6 weeks of post-op antibiotics, awaiting end date per ID. Monitor labs weekly. Pain control Morphine SR 15 mg every 8 hours Percocet 10 every 6 hours as needed for pain 510. 06/12: Drainage from posterior medial incision site to L foot which was cultured ; very light erythema around site. Orthopedics following patient. Advises: -Daily dressing changes with xeroform/4x4/YOAV -WBAT for transfers -Elevate -Physical therapy for ankle range of motion 06/14: Left foot wound culture with no growth in 48 hours. Patient inquires again about receiving remaining abx at infusion clinic, but ID, upon consultation, documented non compliance reported by infusion clinic and suspicion of misuse of PICC for IV drug use. It is likely that patient will need to remain hospitalized for duration of antibiotics. MRSA Bacteremia on previous admission: Received IV vanco on previous admission, discharged on IV telavancin Blood cultures 05/28 without growth Continue IV Daptomycin per infectious disease Acute Kidney Injury: Resolved. Possible secondary to televancin, vancomycin. Renal ultrasound indicates probable mild renal disease Nephrology consulted who has evaluated the patient. Advised to follow up outpatient with urology for enlarged prostate. Avoid nephrotoxins 06/14: BUN/Cr 24/1.40-->17/1.0. Hypokalemia: Acute. 3.0. -60 mEq po KCl ordered. -Recheck level this afternoon Hyperchloremia: Acute. Cl 104-->114. This seems odd as nothing has changed treatment hewitt. Questioning whether BMP is accurate this morning as renal function drastically improved and patient also newly hypokalemic without new symptoms or med changes. -Repeat afternoon BMP Hypocalcemia: Acute. Protein corrected calcium 7.6. -Patient currently in Os-Yuri only 500 mg by mouth daily. Will increase to 1000 mg po 3 times a day. Anemia: Stable. -Continue ferrous sulfate History of IV drug use, narcotic dependency, When planning to wean patient off opiate will need to monitor patient closely and try medication for withdrawals Patient on Klonopin 0.5 mg twice daily for anxiety Patient on Restoril 30 mg as needed for insomnia Pleuritic pain: Improved. R sided ongoing for several weeks. HR and O2 saturation good. Lung exam benign. Already had workup with chest x-ray and CT pulmonary angiogram. -Continue incentive spirometry DVT prevention Subcutaneous Lovenox Discharge Planning Patient likely to remain in hospital until completion of his IV antibiotics. Need to discuss possibility of infusion clinic with ID and supportive employment case manager. Yina Lopez Jun 14, 2017 10:28
[2017-06-14 18:11] LABS: POTASSIUM 4.3 MEQ/L (3.5-5.1)
[2017-06-14 20:00] VITALS: BP 108/58; PULSE 77; RESP 18; TEMP 97.4; O2SAT 98
[2017-06-14] MEDS: DAPTOmycin INJ 900 MG in SODIUM CHLORIDE 0.9% INJ 100 ML IV SCH (21:19)
[2017-06-14] MEDS: TEMAZEPAM 15 MG CAP PO PRN (21:20)
[2017-06-15] MEDS: oxyCODONE/ACETAMINOPHEN 10 MG/325 MG TAB PO PRN ×3 (05:36→18:01)
[2017-06-15] MEDS: MORPHINE SULFATE 15 MG CONTROLLED RELEASE TAB PO SCH ×3 (05:36→21:16)
[2017-06-15 08:00] VITALS: BP 105/55; PULSE 70; RESP 16; TEMP 97.8; O2SAT 99
[2017-06-15] MEDS: ENOXAPARIN SODIUM 40 MG/0.4 ML SYRINGE SQ SCH (09:58)
[2017-06-15] MEDS: clonazePAM 0.5 MG TAB PO SCH ×2 (09:58→21:15)
[2017-06-15] MEDS: SODIUM CHLORIDE 0.9% FLUSH 10 ML FLUSH IV FLUSH SCH ×2 (09:58→21:17)
[2017-06-15] MEDS: DOCUSATE SODIUM 50 MG/SENNA 8.6 MG TAB PO SCH ×2 (09:59→21:15)
[2017-06-15] MEDS: CALCIUM CARBONATE 1.25 GM (CA 500 MG) TAB PO SCH (09:59)
[2017-06-15] MEDS: FERROUS SULFATE 325 MG (65 MG ELEMENTAL IRON) TAB PO SCH (09:59)
--- NOTE | 2017-06-15 10:32 | MB ---
cc: PARIS RIZZO DATE OF CONSULTATION 06/15/2017 DATE OF 1980 REASON FOR REFERRAL Elevated liver function tests, hepatitis C. Thank you for this consultation for this 36-year-old male who presented to [facility] after he had ankle osteomyelitis. The patient has placement five years ago, since then, he has had a few surgeries. The patient was admitted for a prolonged period of time in May. He was discharged with a PICC line, but he failed the therapy and this was changed to vancomycin. While he was in the hospital, he had elevated liver function tests and found to have hepatitis C. The patient denied any GI complaints. No abdominal pain, no jaundice. He has multiple risk factors to hepatitis C including multiple sexual partners and tattoos and steroid use. REVIEW OF SYSTEMS All 12-points negative except HPI and pain in his knee. PAST SURGICAL HISTORY 1. Left knee surgery 2. Right arm fracture MEDICATIONS Reviewed in the chart. PAST MEDICAL HISTORY Negative FAMILY HISTORY Significant for diabetes in his grandma. SOCIAL HISTORY He chews tobacco. Occasional alcohol on the weekend. History of IV drug abuse including cocaine and Dilaudid. PHYSICAL EXAMINATION Alert and oriented no acute distress. VITAL SIGNS: Stable. HEENT: Pupils are round and reactive to light. NECK: Supple. CHEST: Clear to auscultation and percussion. CARDIAC: Regular rate and rhythm. ABDOMEN: Soft and nondistended. Positive bowel sounds. EXTREMITIES: No edema, clubbing or cyanosis except there is a dressing on the left ankle which is tender. NEUROLOGIC: Alert and oriented. PSYCHOLOGIC: Appropriate. LABORATORY DATA White count 8.0, hemoglobin 10.9, platelet 553. Liver function tests are normal. Sodium 139, potassium 4.3, total bilirubin 0.3, AST 33, ALT 34, alk phos 75. Serology hepatitis C antibody reactive and Hep-C MATA positive at 2990 and 3.48 international units. ASSESSMENT/PLAN A pleasant 37-year-old male who is here for long-term antibiotics treatment for osteomyelitis. The patient also has hepatitis C positive. I do not have a genotype. We will order that, but this needs to be treated as an outpatient once he is discharged, so please follow with GI of choice once he is discharged for outpatient treatment. We will sign off at this point. MD JAIRO Holloway /9:08 AM /10:21 AM
--- NOTE | 2017-06-15 13:00 | HHI.PR ---
Subjective Remarks Follow-up for osteomyelitis of left foot/ankle. Denies any fevers or chills. He admits to some abdominal discomfort but states it may have been from the food that he ate yesterday that his friend brought him for his birthday. He denies any vomiting or diarrhea. His last bowel movement was this morning, nonbloody. Patient had asked about going to the infusion clinic again since he is only on once daily dosing of antibiotics. He was informed that per infectious disease consultation it was documented that there was noncompliance and suspicion of misuse of the PICC line reported. Patient states this is not true. He states his aunt brought him to the infusion clinic and he did not miss any doses. He denies injecting any drugs through his PICC line during that time stating he has the same PICC line in. He desires to stay clean. Objective Vitals Vital Signs Date Time Temp Pulse Resp B/P Pulse Ox O2 Delivery O2 Flow Rate FiO2 06/15/17 12:53 18 06/15/17 08:00 97.8 70 16 105/55 99 06/14/17 20:00 97.4 77 18 108/58 98 I/O 06/14/17 06/14/17 06/14/17 06/15/17 06/15/17 06/15/17 06:59 14:59 22:59 06:59 14:59 22:59 Intake Total 580 ml 1060 ml 580 ml 680 ml Output Total 1100 ml 900 ml Balance -520 ml 1060 ml 580 ml -220 ml Intake Oral 580 ml 1060 ml 580 ml 580 ml IV Total 100 ml Output Urine Total 1100 ml 900 ml # Voids 2 1 # Bowel Movements 0 0 0 0 Result Diagram: 06/13/17 0545 06/14/17 1705 Objective Remarks GENERAL: Well nourished, well developed patient in no apparent distress. SKIN: PICC R arm. Dressing to L ankle/foot. CARDIOVASCULAR: Regular rate and rhythm. RESPIRATORY: No accessory muscle use. Clear to auscultation. Breath sounds equal bilaterally. GASTROINTESTINAL: Abdomen soft, non-tender, nondistended. MUSCULOSKELETAL: Capillary refill normal in toes of Left foot. Patient is able to moves toes all together but not individually. NEUROLOGICAL: Awake and alert. Normal speech. PSYCHIATRIC: Appropriate mood and affect. Procedures 05/31/2017 Irrigation and debridement of left tibia, left ankle arthrotomy with irrigation and debridement, irrigation and debridement of left foot abscess Urinary Catheter: No Vascular Central Line Catheter: Yes Assessment to: Continue Date of Insertion: May 11, 2017 Line: PICC Side: Right A/P Problem List: (1) Cellulitis of ankle ICD Code: L03.119 Status: Acute (2) Oral thrush ICD Code: B37.0 Status: Acute (3) Acute renal failure (ARF) ICD Code: N17.9 Status: Acute Assessment and Plan Left Ankle Cellulitis/Septic Joint/Osteomyelitis: Stable LLE MRI showed osteomyelitis; deep soft tissue abscesses stable with cortical erosive changes; diffuse cellulitis. Failed outpatient treatment with telavancin. Status post surgical intervention with hardware removal, multiple incision and drainages Continue Daptomycin. ID is following. Anticipating 6 weeks of post-op antibiotics, awaiting end date per ID. Monitor labs weekly. Pain control Morphine SR 15 mg every 8 hours Percocet 10 every 6 hours as needed for pain 510. 06/12: Drainage from posterior medial incision site to L foot which was cultured ; very light erythema around site. Orthopedics following patient. Advises: -Daily dressing changes with xeroform/4x4/YOAV -WBAT for transfers -Elevate -Physical therapy for ankle range of motion Left foot wound culture with no growth in 48 hours. 06/15: Patient inquired about returning to the infusion clinic as his antibiotics are only once daily. I informed him today that ID had documented noncompliance and suspected misuse of PICC reported by infusion clinic, but patient states this is untrue. I spoke with Dr. Cooper, ID, who is familiar with the patient and inquired about the infusion clinic. She states this may be possible but she would need to speak with him. I also asked for a stop date on antibiotics which she will take care of on Sunday. Will need to discuss further with case management as well on Sunday. MRSA Bacteremia on previous admission: Received IV vanco on previous admission, discharged on IV telavancin Blood cultures 05/28 without growth Continue IV Daptomycin per infectious disease Acute Kidney Injury: Resolved. Possible secondary to televancin, vancomycin. Renal ultrasound indicates probable mild renal disease Nephrology consulted who has evaluated the patient. Advised to follow up outpatient with urology for enlarged prostate. Avoid nephrotoxins 06/14: Mild azotemia, but Cr improved to 1.30. Hypokalemia: Resolved s/p repletion. Hyperchloremia: Resolved. I think there was an error on lab indicating this in the first place. Hypocalcemia: Resolved. I think there was an error on lab indicating this in the first place. -Patient was switched back to Os-emily 500 mg po daily, no need for higher dose. Anemia: Stable. -Continue ferrous sulfate History of IV drug use, narcotic dependency, When planning to wean patient off opiate will need to monitor patient closely and try medication for withdrawals Patient on Klonopin 0.5 mg twice daily for anxiety Patient on Restoril 30 mg as needed for insomnia Pleuritic pain: Improved. R sided ongoing for several weeks. HR and O2 saturation good. Lung exam benign. Already had workup with chest x-ray and CT pulmonary angiogram. -Continue incentive spirometry Hepatitis C: -06/15: Nephrology consulted GI who evaluated patient and recommends outpatient follow up. Genotype was ordered. DVT prevention Subcutaneous Lovenox Discharge Planning Need to discuss possibility of infusion clinic with ID and case mgr. Yina Lopez Jun 15, 2017 13:00
[2017-06-15 20:00] VITALS: BP 122/66; PULSE 76; RESP 20; TEMP 97.9; O2SAT 99
[2017-06-15] MEDS: TEMAZEPAM 15 MG CAP PO PRN (21:15)
[2017-06-15] MEDS: DAPTOmycin INJ 900 MG in SODIUM CHLORIDE 0.9% INJ 100 ML IV SCH (21:17)
[2017-06-16] MEDS: oxyCODONE/ACETAMINOPHEN 10 MG/325 MG TAB PO PRN ×4 (00:10→18:10)
[2017-06-16] MEDS: MORPHINE SULFATE 15 MG CONTROLLED RELEASE TAB PO SCH ×3 (05:53→21:44)
[2017-06-16 07:38] LABS: AUTOMATED NEUTROPHIL # 4.8 TH/MM3 (1.8-7.7); BASOPHIL # 0.1 TH/MM3 (0-0.2); BASOPHIL % 1.6 % (0.0-2.0); EOSINOPHIL # 0.3 TH/MM3 (0-0.4); EOSINOPHIL % 3.7 % (0.0-4.0); HEMATOCRIT 32.5 % (39.0-51.0); HEMO FLAGS DIFF FINAL; LYMPH % 21.7 % (9.0-44.0); LYMPHOCYTE # 1.6 TH/MM3 (1.0-4.8); MEAN CELL VOLUME 79.3 FL (80.0-100.0); MEAN CORPUSCULAR HEMOGLOBIN 26.7 PG (27.0-34.0); MEAN CORPUSCULAR HGB CONC 33.7 % (32.0-36.0); MONO % 10.4 % (0.0-8.0); NEUT % 62.6 % (16.0-70.0); PLATELET COUNT 467 TH/MM3 (150-450); RED CELL DISTRIBUTION WIDTH 15.8 % (11.6-17.2); WHITE BLOOD COUNT 7.6 TH/MM3 (4.0-11.0)
[2017-06-16 08:00] VITALS: BP 103/59; PULSE 72; RESP 18; TEMP 97.5; O2SAT 99
[2017-06-16 08:00] LABS: CHLORIDE 105 MEQ/L (98-107); POTASSIUM 3.6 MEQ/L (3.5-5.1); SODIUM (NA) 140 MEQ/L (136-145)
[2017-06-16 08:04] LABS: ANION GAP 7 MEQ/L (5-15); BICARBONATE 28.3 MEQ/L (21.0-32.0); BLOOD UREA NITROGEN 24 MG/DL (7-18)
[2017-06-16 08:06] LABS: WESTERGREN SEDIMENTATION RATE 45 mm/hr (0-15)
[2017-06-16 08:07] LABS: ALT (GPT) 24 U/L (12-78); AST (GOT) 15 U/L (15-37); GLOMERULAR FILTRATION RATE 57 ML/MIN (>89)
[2017-06-16 08:09] LABS: TOTAL BILIRUBIN ADULT 0.2 MG/DL (0.2-1.0)
[2017-06-16 08:10] LABS: ALKALINE PHOSPHATASE 82 U/L (45-117)
[2017-06-16 08:26] LABS: CREATINE KINASE 73 U/L (39-308)
[2017-06-16] MEDS: CALCIUM CARBONATE 1.25 GM (CA 500 MG) TAB PO SCH (09:41)
[2017-06-16] MEDS: clonazePAM 0.5 MG TAB PO SCH ×2 (09:41→21:44)
[2017-06-16] MEDS: FERROUS SULFATE 325 MG (65 MG ELEMENTAL IRON) TAB PO SCH (09:41)
[2017-06-16] MEDS: SODIUM CHLORIDE 0.9% FLUSH 10 ML FLUSH IV FLUSH SCH ×2 (09:41→21:42)
[2017-06-16] MEDS: DOCUSATE SODIUM 50 MG/SENNA 8.6 MG TAB PO SCH ×2 (09:41→21:44)
[2017-06-16] MEDS: ENOXAPARIN SODIUM 40 MG/0.4 ML SYRINGE SQ SCH (09:41)
--- NOTE | 2017-06-16 12:23 | HHI.PR ---
Subjective Remarks Follow-up for osteomyelitis of left foot/ankle. Patient admits to stomach upset again and pain on both sides of the abdomen. States it is worse after eating. He admits to flatus. He states he had 2 bowel movements this morning but they were small and slightly hard and disproportionate to amount of food he has ingested. He states his friend brought him food and he ate pizza the day before yesterday and rhona yesterday. Denies nausea or vomiting. Denies hematochezia or melena. He denies any fevers or chills. Denies any shortness of breath. Objective Vitals Vital Signs Date Time Temp Pulse Resp B/P Pulse Ox O2 Delivery O2 Flow Rate FiO2 06/16/17 08:00 97.5 72 18 103/59 99 06/15/17 20:00 97.9 76 20 122/66 99 06/15/17 15:12 18 06/15/17 12:53 18 I/O 06/15/17 06/15/17 06/15/17 06/16/17 06/16/17 06/16/17 06:59 14:59 22:59 06:59 14:59 22:59 Intake Total 680 ml 900 ml 240 ml Output Total 900 ml 700 ml Balance -220 ml 900 ml -460 ml Intake Oral 580 ml 900 ml 240 ml IV Total 100 ml Output Urine Total 900 ml 700 ml # Voids 3 # Bowel Movements 0 1 Result Diagram: 06/16/17 0600 06/16/17 0600 Objective Remarks GENERAL: Well nourished, well developed patient in no apparent distress. SKIN: PICC R arm. Dressing to L ankle/foot. CARDIOVASCULAR: Regular rate and rhythm. RESPIRATORY: No accessory muscle use. Clear to auscultation. Breath sounds equal bilaterally. GASTROINTESTINAL: Normoactive bowel sounds. Abdomen soft, non-tender, nondistended. Negative Sharpe's sign. MUSCULOSKELETAL: Capillary refill normal in toes of Left foot. NEUROLOGICAL: Awake and alert. Normal speech. PSYCHIATRIC: Appropriate mood and affect. Procedures 05/31/2017 Irrigation and debridement of left tibia, left ankle arthrotomy with irrigation and debridement, irrigation and debridement of left foot abscess Urinary Catheter: No Vascular Central Line Catheter: Yes Assessment to: Continue Date of Insertion: May 11, 2017 Line: PICC Side: Right Reason for Continuation antibiotics keno terminal operator A/P Problem List: (1) Cellulitis of ankle ICD Code: L03.119 Status: Acute (2) Acute renal failure (ARF) ICD Code: N17.9 Status: Acute (3) Anemia ICD Code: D64.9 Status: Acute (4) Upset stomach ICD Code: K30 Status: Acute Assessment and Plan Stomach upset: Started yesterday. Likely related to too much unhealthy outside food patient recently consumed. Abdominal exam is benign. Afebrile. -Pepto-Bismol dose ordered now. -Patient had 2 BMs this morning but small and hard. Currently on Amarilis-colace. Advised nurse to administer milk of magnesia to assist with constipation. Left Ankle Cellulitis/Septic Joint/Osteomyelitis: Stable LLE MRI showed osteomyelitis; deep soft tissue abscesses stable with cortical erosive changes; diffuse cellulitis. Failed outpatient treatment with telavancin. Status post surgical intervention with hardware removal, multiple incision and drainages Continue Daptomycin. ID is following. Anticipating 6 weeks of post-op antibiotics, awaiting end date per ID. Monitor labs weekly. Pain control Morphine SR 15 mg every 8 hours Percocet 10 every 6 hours as needed for pain 510. Orthopedics following patient. Advises: -Daily dressing changes with xeroform/4x4/YOAV -WBAT for transfers -Elevate -Physical therapy for ankle range of motion 06/15: Patient inquired about returning to the infusion clinic as his antibiotics are only once daily. I informed him today that ID had documented noncompliance and suspected misuse of PICC reported by infusion clinic, but patient states this is untrue. I spoke with Dr. Cooper, ID, who is familiar with the patient and inquired about the infusion clinic. She states this may be possible but she would need to speak with him. I also asked for a stop date on antibiotics which she will take care of on Sunday. Will need to discuss further with case management as well on Sunday. 06/16: WBC normal. LFTs and CPK normal. Improved ESR and CRP. MRSA Bacteremia on previous admission: Received IV vanco on previous admission, discharged on IV telavancin Blood cultures 05/28 without growth Continue IV Daptomycin per infectious disease Acute Kidney Injury: Stable Possible secondary to televancin, vancomycin. Renal ultrasound indicates probable mild renal disease Nephrology consulted who has evaluated the patient. Advised to follow up outpatient with urology for enlarged prostate. Avoid nephrotoxins 06/16: Although GOLDIE transiently resolved on 06/14, BUN/Cr mildly elevated but stable at 24/1.40 similar to labs on 06/12 and 06/13. Continue to monitor. Hypokalemia: Resolved s/p repletion. Hyperchloremia: Resolved. I think there was an error on lab indicating this in the first place. Hypocalcemia: Resolved. I think there was an error on lab indicating this in the first place. -Patient was switched back to Os-emily 500 mg po daily, no need for higher dose. Anemia: Stable. -Continue ferrous sulfate History of IV drug use, narcotic dependency, When planning to wean patient off opiate will need to monitor patient closely and try medication for withdrawals Patient on Klonopin 0.5 mg twice daily for anxiety Patient on Restoril 30 mg as needed for insomnia Pleuritic pain: Improved. R sided ongoing for several weeks. HR and O2 saturation good. Lung exam benign. Already had workup with chest x-ray and CT pulmonary angiogram. -Continue incentive spirometry Hepatitis C: -GI evaluated patient and recommends outpatient follow up. Genotype pending. DVT prevention Subcutaneous Lovenox Discharge Planning Need to discuss possibility of infusion clinic with ID and case finisher. Yina Lopez Jun 16, 2017 12:23
[2017-06-16] MEDS ORDERED: BISMUTH SUBSALICYLATE 240 ML BTL PO ONE (13:00)
[2017-06-16] MEDS: MAGNESIUM HYDROXIDE SUSP 30 ML CUP PO PRN (13:04)
[2017-06-16 20:00] VITALS: BP 95/52; PULSE 71; RESP 18; TEMP 97.5; O2SAT 97
[2017-06-16] MEDS: DAPTOmycin INJ 900 MG in SODIUM CHLORIDE 0.9% INJ 100 ML IV SCH (21:42)
[2017-06-16] MEDS: TEMAZEPAM 15 MG CAP PO PRN (21:44)
[2017-06-17] MEDS: oxyCODONE/ACETAMINOPHEN 10 MG/325 MG TAB PO PRN ×4 (00:29→18:08)
[2017-06-17] MEDS: MORPHINE SULFATE 15 MG CONTROLLED RELEASE TAB PO SCH ×3 (05:38→21:35)
[2017-06-17] MEDS: clonazePAM 0.5 MG TAB PO SCH ×2 (07:43→21:35)
[2017-06-17] MEDS: DOCUSATE SODIUM 50 MG/SENNA 8.6 MG TAB PO SCH ×2 (07:44→21:34)
[2017-06-17] MEDS: SODIUM CHLORIDE 0.9% FLUSH 10 ML FLUSH IV FLUSH SCH ×2 (07:44→21:35)
[2017-06-17] MEDS: ENOXAPARIN SODIUM 40 MG/0.4 ML SYRINGE SQ SCH (07:44)
[2017-06-17] MEDS: CALCIUM CARBONATE 1.25 GM (CA 500 MG) TAB PO SCH (07:44)
[2017-06-17] MEDS: FERROUS SULFATE 325 MG (65 MG ELEMENTAL IRON) TAB PO SCH (07:44)
[2017-06-17 08:00] VITALS: BP 103/66; PULSE 68; RESP 18; TEMP 97.2; O2SAT 98
--- NOTE | 2017-06-17 10:19 | HHI.PR ---
Subjective Remarks Follow-up for osteomyelitis left foot/ankle, stomach upset. Patient still admits to stomach upset, but states his abdominal pain is "alright" currently. He states it's worse after eating. He additionally states he's had a lot of gas and bloating. He states the Pepto-Bismol yesterday didn't help, but he did have 3 bowel movements after the milk of magnesia, and the third one was softer. He denies any nausea or vomiting. Denies any fevers or chills. Objective Vitals Vital Signs Date Time Temp Pulse Resp B/P Pulse Ox O2 Delivery O2 Flow Rate FiO2 06/17/17 08:00 97.2 68 18 103/66 98 06/16/17 20:00 97.5 71 18 95/52 97 06/16/17 15:13 18 06/16/17 12:56 18 I/O 06/16/17 06/16/17 06/16/17 06/17/17 06/17/17 06/17/17 06:59 14:59 22:59 06:59 14:59 22:59 Intake Total 240 ml 720 ml 240 ml Output Total 700 ml 700 ml Balance -460 ml 720 ml -460 ml Intake Oral 240 ml 720 ml 240 ml Output Urine Total 700 ml 700 ml # Voids 3 Result Diagram: 06/16/17 0600 06/16/17 0600 Objective Remarks GENERAL: Well nourished, well developed patient in no apparent distress. SKIN: PICC R arm. Dressing to L ankle/foot. CARDIOVASCULAR: Regular rate and rhythm. RESPIRATORY: No accessory muscle use. Clear to auscultation. Breath sounds equal bilaterally. GASTROINTESTINAL: Abdomen soft, non-tender, nondistended. MUSCULOSKELETAL: Capillary refill normal in toes of Left foot. NEUROLOGICAL: Awake and alert. Normal speech. PSYCHIATRIC: Appropriate mood and affect. Procedures 05/31/2017 Irrigation and debridement of left tibia, left ankle arthrotomy with irrigation and debridement, irrigation and debridement of left foot abscess Urinary Catheter: No Vascular Central Line Catheter: Yes Assessment to: Continue Date of Insertion: May 11, 2017 Line: PICC Side: Right A/P Problem List: (1) Cellulitis of ankle ICD Code: L03.119 Status: Acute (2) Acute renal failure (ARF) ICD Code: N17.9 Status: Acute (3) Anemia ICD Code: D64.9 Status: Acute (4) Upset stomach ICD Code: K30 Status: Acute Assessment and Plan Stomach upset: Started 06/15, persistent. Likely related to too much unhealthy outside food patient recently consumed and possibly some constipation. Abdominal exam is benign. Afebrile. -Given Pepto-Bismol without relief -Already on Amarilis-colace but was given MOM with improvement in BMs. -06/17: Patient complains of excessive gas. Will order dose of Simethicone now and as needed. -Monitor clinically. Left Ankle Cellulitis/Septic Joint/Osteomyelitis: Stable LLE MRI showed osteomyelitis; deep soft tissue abscesses stable with cortical erosive changes; diffuse cellulitis. Failed outpatient treatment with telavancin. Status post surgical intervention with hardware removal, multiple incision and drainages Continue Daptomycin. ID is following. Anticipating 6 weeks of post-op antibiotics, awaiting end date per ID. Monitor labs weekly. Pain control Morphine SR 15 mg every 8 hours Percocet 10 every 6 hours as needed for pain 510. Orthopedics following patient. Advises: -Daily dressing changes with xeroform/4x4/YOAV -WBAT for transfers -Elevate -Physical therapy for ankle range of motion 06/15: Patient inquired about returning to the infusion clinic as his antibiotics are only once daily. I informed him today that ID had documented noncompliance and suspected misuse of PICC reported by infusion clinic, but patient states this is untrue. I spoke with Dr. Cooper, ID, who is familiar with the patient and inquired about the infusion clinic. She states this may be possible but she would need to speak with him. I also asked for a stop date on antibiotics which she will take care of on Sunday. Will need to discuss further with case management as well on Sunday. 06/16: WBC normal. LFTs and CPK normal. Improved ESR and CRP. MRSA Bacteremia on previous admission: Received IV vanco on previous admission, discharged on IV telavancin Blood cultures 05/28 without growth Continue IV Daptomycin per infectious disease Acute Kidney Injury: Stable Possible secondary to televancin, vancomycin. Renal ultrasound indicates probable mild renal disease Nephrology consulted who has evaluated the patient. Advised to follow up outpatient with urology for enlarged prostate. Avoid nephrotoxins 06/16: Although GOLDIE transiently resolved on 06/14, BUN/Cr mildly elevated but stable at 24/1.40 similar to labs on 06/12 and 06/13. 06/17: Repeat am BMP. Hypokalemia: Resolved s/p repletion. Hyperchloremia: Resolved. I think there was an error on lab indicating this in the first place. Hypocalcemia: Resolved. I think there was an error on lab indicating this in the first place. -Patient was switched back to Os-emily 500 mg po daily, no need for higher dose. Anemia: Stable. -Continue ferrous sulfate History of IV drug use, narcotic dependency, When planning to wean patient off opiate will need to monitor patient closely and try medication for withdrawals Patient on Klonopin 0.5 mg twice daily for anxiety Patient on Restoril 30 mg as needed for insomnia Pleuritic pain: Improved. R sided ongoing for several weeks. HR and O2 saturation good. Lung exam benign. Already had workup with chest x-ray and CT pulmonary angiogram. -Continue incentive spirometry Hepatitis C: -GI evaluated patient and recommends outpatient follow up. Genotype pending. DVT prevention Subcutaneous Lovenox Discharge Planning Need to discuss possibility of infusion clinic with ID and case resource manager. Yina Lopez Jun 17, 2017 10:19
[2017-06-17] MEDS ORDERED: SIMETHICONE 80 MG CHEWABLE TAB CHEW ONE (11:15)
[2017-06-17] MEDS ORDERED: SIMETHICONE 80 MG CHEWABLE TAB CHEW PRN (11:15)
[2017-06-17 20:00] VITALS: BP 109/59; PULSE 79; RESP 20; TEMP 96.5; O2SAT 99
[2017-06-17] MEDS: DAPTOmycin INJ 900 MG in SODIUM CHLORIDE 0.9% INJ 100 ML IV SCH (21:33)
[2017-06-17] MEDS: TEMAZEPAM 15 MG CAP PO PRN (21:34)
[2017-06-18] MEDS: oxyCODONE/ACETAMINOPHEN 10 MG/325 MG TAB PO PRN ×3 (00:10→12:04)
[2017-06-18] MEDS: MORPHINE SULFATE 15 MG CONTROLLED RELEASE TAB PO SCH ×3 (06:13→22:00)
[2017-06-18 07:22] LABS: POTASSIUM 3.8 MEQ/L (3.5-5.1)
[2017-06-18 07:25] LABS: BICARBONATE 28.1 MEQ/L (21.0-32.0)
[2017-06-18 08:00] VITALS: BP 130/77; PULSE 81; RESP 16; TEMP 97.9; O2SAT 96
[2017-06-18] MEDS: FERROUS SULFATE 325 MG (65 MG ELEMENTAL IRON) TAB PO SCH (09:53)
[2017-06-18] MEDS: SODIUM CHLORIDE 0.9% FLUSH 10 ML FLUSH IV FLUSH SCH ×2 (09:53→22:21)
[2017-06-18] MEDS: CALCIUM CARBONATE 1.25 GM (CA 500 MG) TAB PO SCH (09:53)
[2017-06-18] MEDS: clonazePAM 0.5 MG TAB PO SCH ×2 (09:53→21:00)
[2017-06-18] MEDS: ENOXAPARIN SODIUM 40 MG/0.4 ML SYRINGE SQ SCH (09:53)
[2017-06-18] MEDS: DOCUSATE SODIUM 50 MG/SENNA 8.6 MG TAB PO SCH ×2 (09:53→21:00)
--- NOTE | 2017-06-18 10:23 | HHI.PR ---
Subjective Remarks Follow up for osteomyelitis left foot/ankle, stomach upset. Patient admits to bilateral gaseous abdominal pain. Admits to flatus. He is having normal bowel movements which are not hard. He denies any fevers or chills, nausea, vomiting , diarrhea, hematochezia, or melena. Objective Vitals Vital Signs Date Time Temp Pulse Resp B/P Pulse Ox O2 Delivery O2 Flow Rate FiO2 06/18/17 08:00 97.9 81 16 130/77 96 06/18/17 07:13 19 06/18/17 07:13 19 06/17/17 20:00 96.5 79 20 109/59 99 I/O 06/17/17 06/17/17 06/17/17 06/18/17 06/18/17 06/18/17 07:00 15:00 23:00 07:00 15:00 23:00 Intake Total 240 ml 100 ml 1320 ml Output Total 700 ml 500 ml Balance -460 ml 100 ml 1320 ml -500 ml Intake Oral 240 ml 100 ml 1320 ml Output Urine Total 700 ml 500 ml # Voids 5 # Bowel Movements 1 Result Diagram: 06/16/17 0600 06/18/17 0615 Objective Remarks GENERAL: Well nourished, well developed patient in no apparent distress. SKIN: PICC R arm. Dressing to L ankle/foot. CARDIOVASCULAR: Regular rate and rhythm. RESPIRATORY: No accessory muscle use. Clear to auscultation. Breath sounds equal bilaterally. GASTROINTESTINAL: Normoactive bowel sounds. Abdomen soft, non-tender, nondistended. MUSCULOSKELETAL: Capillary refill normal in toes of Left foot. NEUROLOGICAL: Awake and alert. Normal speech. PSYCHIATRIC: Appropriate mood and affect. Procedures 05/31/2017 Irrigation and debridement of left tibia, left ankle arthrotomy with irrigation and debridement, irrigation and debridement of left foot abscess Urinary Catheter: No Vascular Central Line Catheter: Yes Assessment to: Continue Date of Insertion: May 11, 2017 Line: PICC Side: Right A/P Problem List: (1) Cellulitis of ankle ICD Code: L03.119 Status: Acute (2) Acute renal failure (ARF) ICD Code: N17.9 Status: Acute (3) Anemia ICD Code: D64.9 Status: Acute (4) Upset stomach ICD Code: K30 Status: Acute Assessment and Plan Stomach upset: Started 06/15, persistent. Likely related to too much unhealthy outside food patient recently consumed and possibly some constipation. Abdominal exam is benign. Afebrile. -Given Pepto-Bismol without relief -Already on scheduled Amarilis-colace but was given MOM with improvement in BMs. -Continue Simethicone. -06/18 Lactinex packet started bid since patient is on antibiotics. Patient advised to decrease the amount of food he is ingesting as he tends to eat a lot , avoid dairy and greasy foods, as well as gas producing vegetables. -Monitor clinically. Left Ankle Cellulitis/Septic Joint/Osteomyelitis: Stable LLE MRI showed osteomyelitis; deep soft tissue abscesses stable with cortical erosive changes; diffuse cellulitis. Failed outpatient treatment with telavancin. Status post surgical intervention with hardware removal, multiple incision and drainages Continue Daptomycin. ID is following. Anticipating 6 weeks of post-op antibiotics, awaiting end date per ID. Monitor labs weekly. Pain control: Morphine SR 15 mg every 8 hours Percocet 10 every 6 hours as needed for pain 510. 06/18: Decrease Percocet to 7.5 mg q6h as needed for pain 5-10. Orthopedics following patient. Advises: -Daily dressing changes with xeroform/4x4/YOAV -WBAT for transfers -Elevate -Physical therapy for ankle range of motion 06/15: Patient inquired about returning to the infusion clinic as his antibiotics are only once daily. I informed him today that ID had documented noncompliance and suspected misuse of PICC reported by infusion clinic, but patient states this is untrue. I spoke with Dr. Cooper, ID, who is familiar with the patient and inquired about the infusion clinic. She states this may be possible but she would need to speak with him. I also asked for a stop date on antibiotics which she states she will take care of on Sunday, 06/18. 06/16: WBC normal. LFTs and CPK normal. Improved ESR and CRP. 06/18; Reconsulted ID to follow up on patient regarding above. MRSA Bacteremia on previous admission: Received IV vanco on previous admission, discharged on IV telavancin Blood cultures 05/28 without growth Continue IV Daptomycin per infectious disease Acute Kidney Injury: Improved. Possible secondary to televancin, vancomycin. Renal ultrasound indicates probable mild renal disease Nephrology consulted who has evaluated the patient. Advised to follow up outpatient with urology for enlarged prostate. Avoid nephrotoxins 06/18: Cr improved to 1.30. BUN minimally elevated from prior lab at 25. Monitor renal function periodically. Hypokalemia: Resolved s/p repletion. Hyperchloremia: Resolved. I think there was an error on lab indicating this in the first place. Hypocalcemia: Resolved. I think there was an error on lab indicating this in the first place. -Patient was switched back to Os-emily 500 mg po daily, no need for higher dose. Anemia: Stable. -Continue ferrous sulfate History of IV drug use, narcotic dependency, When planning to wean patient off opiate will need to monitor patient closely and try medication for withdrawals Patient on Klonopin 0.5 mg twice daily for anxiety Patient on Restoril 30 mg as needed for insomnia Pleuritic pain: Improved. R sided ongoing for several weeks. HR and O2 saturation good. Lung exam benign. Already had workup with chest x-ray and CT pulmonary angiogram. -Continue incentive spirometry Hepatitis C: -GI evaluated patient and recommends outpatient follow up. Genotype 2b. DVT prevention Subcutaneous Lovenox Discharge Planning Need to discuss possibility of infusion clinic with ID and family service caseworker. Yina Lopez Jun 18, 2017 10:22
[2017-06-18] MEDS: oxyCODONE/ACETAMINOPHEN 7.5 MG/325 MG TAB PO PRN (18:05)
[2017-06-18 20:00] VITALS: BP 116/71; PULSE 69; RESP 18; TEMP 97.9; O2SAT 96
[2017-06-18] MEDS: LACTOBACILLUS ACIDOPHILUS 1 GM PACKET PO SCH (21:00)
[2017-06-18] MEDS: TEMAZEPAM 15 MG CAP PO PRN (22:20)
[2017-06-18] MEDS: DAPTOmycin INJ 900 MG in SODIUM CHLORIDE 0.9% INJ 100 ML IV SCH (22:21)
[2017-06-19] MEDS: oxyCODONE/ACETAMINOPHEN 7.5 MG/325 MG TAB PO PRN ×2 (00:09→08:47)
[2017-06-19] MEDS: MORPHINE SULFATE 15 MG CONTROLLED RELEASE TAB PO SCH ×2 (05:56→13:35)
[2017-06-19] MEDS: LACTOBACILLUS ACIDOPHILUS 1 GM PACKET PO SCH (08:45)
[2017-06-19] MEDS: clonazePAM 0.5 MG TAB PO SCH (08:45)
[2017-06-19] MEDS: SODIUM CHLORIDE 0.9% FLUSH 10 ML FLUSH IV FLUSH SCH (08:45)
[2017-06-19] MEDS: FERROUS SULFATE 325 MG (65 MG ELEMENTAL IRON) TAB PO SCH (08:45)
[2017-06-19] MEDS: ENOXAPARIN SODIUM 40 MG/0.4 ML SYRINGE SQ SCH (08:46)
[2017-06-19] MEDS: CALCIUM CARBONATE 1.25 GM (CA 500 MG) TAB PO SCH (08:46)
[2017-06-19] MEDS: DOCUSATE SODIUM 50 MG/SENNA 8.6 MG TAB PO SCH (08:46)
[2017-06-19 09:20] VITALS: BP 103/64; PULSE 70; RESP 20; TEMP 96; O2SAT 100
[2017-06-19] MEDS ORDERED: PERC10TA27 PO (11:39)
[2017-06-19] MEDS ORDERED: NAPR550T3 PO (11:39)
--- NOTE | 2017-06-19 13:24 | HHI.IDPN ---
Subjective Subjective Remarks Doing OK No fever states his ankle is better, still some tatiana with ROM, o/w no new co Antibiotics daptomycin fluconazole Allergies: Coded Allergies: cat dander (Unverified Allergy, Severe, WHEEZING ITCHING, 06/19/17) dog dander (Unverified Allergy, Unknown, 06/19/17) *MDRO Multi-Drug Resistant Organism (Verified Adverse Reaction, Unknown, MRSA, 05/28/17) MRSA (blood) - 05/02/17 Objective . Vital Signs Date Time Temp Pulse Resp B/P Pulse Ox O2 Delivery O2 Flow Rate FiO2 06/19/17 09:51 18 06/19/17 09:20 96.0 70 20 103/64 100 06/19/17 06:56 16 06/18/17 20:00 97.9 69 18 116/71 96 06/18/17 06/18/17 06/19/17 14:59 22:59 06:59 Intake Total 1500 ml 120 ml Output Total 1350 ml 300 ml Balance 150 ml -180 ml Intake Oral 1500 ml 120 ml Output Urine Total 1350 ml 300 ml # Bowel Movements 1 . Laboratory Tests Test 06/18/17 06:15 Sodium Level 139 MEQ/L Potassium Level 3.8 MEQ/L Chloride Level 105 MEQ/L Carbon Dioxide Level 28.1 MEQ/L Anion Gap 6 MEQ/L Blood Urea Nitrogen 25 MG/DL Creatinine 1.30 MG/DL Estimat Glomerular Filtration 62 ML/MIN Rate Random Glucose 82 MG/DL Calcium Level 9.5 MG/DL Imaging Last Impressions Renal Ultrasound 06/08/17 0000 Signed Impressions: Service Date/Time: Thursday, June 08, 2017 08:20 - CONCLUSION: Negative for hydronephrosis. Probable mild renal disease. Apparent prominent prostate. Jack Schreiber MD FACR Ankle MRI 05/30/17 0000 Signed Impressions: Service Date/Time: Tuesday, May 30, 2017 08:15 - CONCLUSION: 1. Extensive marrow edema and enhancement involving the distal tibia, distal fibula, medial aspect of the talus, periphery of the calcaneus, navicular, cuboid and portions of the cuneiforms suggesting osteomyelitis. White blood cell scan may be helpful for confirmation if clinically indicated. 2. Persistent cortical erosion involving the medial aspect of the distal tibia. 3. Deep soft tissue abscesses are stable and are noted adjacent to the cortical erosive changes of the distal tibia medially as well as more inferiorly along the medial and lateral aspects of the calcaneus. 4. Diffuse cellulitis. Raza Winkler MD Lower Extremity Ultrasound 05/28/172031 Signed Impressions: Service Date/Time: Sunday, May 28, 2017 20:45 - CONCLUSION: No DVT. An enlarged lymph nodes left groin. Hever Espino MD Physical Exam CONSTITUTIONAL/GENERAL: This is an adequately nourished patient, in no apparent distress. TUBES/LINES/DRAINS: SKIN: No jaundice, rashes, or lesions. Ecchymoses on upper extremities. No wounds seen anteriorly. Skin temperature appropriate. Not diaphoretic. EYES: Pupils equal and round and reactive. Extraocular motions intact. No scleral icterus. No injection or drainage. Fundi not examined. CARDIOVASCULAR: Regular rate and rhythm without murmurs, gallops, or rubs. No JVD. Peripheral pulses symmetric. RESPIRATORY/CHEST: Symmetric, unlabored respirations. Clear to auscultation. Breath sounds equal bilaterally. No wheezes, rales, or rhonchi. GASTROINTESTINAL: Abdomen soft, non-tender, nondistended. No hepato-splenomegaly , or palpable masses. No guarding. Bowel sounds present. GENITOURINARY: Without palpable bladder distension. MUSCULOSKELETAL: Extremities without clubbing, cyanosis, L foot iwith near complete resolution of edema incisions dry and clean minimal dc was noted on the dressing s by RN NEUROLOGICAL: Awake and alert. Non focal PSYCHIATRIC:calm and cooperative Assessment & Plan Remarks MRSA L ankle infected harware and osteo, sp removal of hardware and mult debridement s; high risk for ampiutation - treatment failure with on going osteo - sp repeat I+D - clx neg @ 48 hrs MRSA sepsis Failing treament GOLDIE on televancin - worrsening creatining while on vanco - no e/o retention on US US showed probable mild renal disease. oral thrush - on fluconazole cont high dose dapto - fu CKs while on daptomycin, at least weekly - anticipate 6 weeks of post op abx followed by months of oral abx - fu ESR; if ESR is high will need to cont abx (orals can be used for 2 more weeks after daptomycin is completed ) dc diflucan fu ESR OPAT forms filled out - pt can be discharged after abx OPAT arranged dw RN dw case mngr dw Johanna Lowry MD Jun 19, 2017 13:24
--- NOTE | 2017-06-19 13:28 | HHI.FF ---
Infusion Therapy Location of Infusion Therapy: Ambulatory Infusion Therapy Order Patient Information Patient Weight 72.7 kg Diagnosis: (1) Osteomyelitis Coded Allergies: cat dander (Unverified Allergy, Severe, WHEEZING ITCHING, 06/19/17) dog dander (Unverified Allergy, Unknown, 06/19/17) *MDRO Multi-Drug Resistant Organism (Verified Adverse Reaction, Unknown, MRSA, 05/28/17) MRSA (blood) - 05/02/17 Administer Medication Daptomycin 750 mg IV daily Additional Information Venous access: PICC Line Additional Instructions [x] Peripheral flush and dressing changes per protocol [x] Implanted port and central on line csr: * Implanted port: 10 ml Normal Saline followed by 5 ml Heparin 100 units/ml Heparin flush after each use and monthly to maintain. [] May leave port accessed during therapy. [] May leave peripheral site accessed for duration of therapy. [x] If patient has SOB or respiratory distress, check oxygen saturation. If less than 90% or clinical signs of respiratory distress, administer oxygen at 2 L/min. via nasal cannula and notify physician. [x] Anaphylaxis/Reaction orders: * Stop infusion. * Keep IV line open with saline flush. * Notify physician. * Monitor vital signs every 15 minutes until symptoms resolve. * Check Oxygen saturation; Oxygen at 2 L/min. via nasal cannula if less than 90% or clinical signs of respiratory distress. * Administer diphenhydramine (Benadryl) 25 mg IV STAT, (unless patient has received as pre-med). May repeat once, if necessary. * Solu-Cortef 250 mg IVP over 30-60 seconds, use 100 mg vials for each dissolution. * Epinephrine (1mg/1 ml) 0.3 mg subcutaneously or IVP now with any signs of respiratory distress. * Check with physician for new additional pre-med orders if patient is re- challenged or re-treated. [x] May remove PICC line when treatment complete, after confirming with Physician. [x] If the patient is admitted to the hospital, the ED, or transferred via [facility] , complete transfer form including medication reconciliation order sheet. Laboratory Tests Weekly Labs: CBC w/diff, Creatinine, LFT's (Hepatic function test), SED Rate Johanna Cooper MD Jun 19, 2017 13:28
--- NOTE | 2017-06-19 13:32 | HHI.FF ---
Infusion Therapy Location of Infusion Therapy: Ambulatory Infusion Therapy Order Patient Information Patient Weight 72.7 kg Diagnosis: (1) Osteomyelitis Coded Allergies: cat dander (Unverified Allergy, Severe, WHEEZING ITCHING, 06/19/17) dog dander (Unverified Allergy, Unknown, 06/19/17) *MDRO Multi-Drug Resistant Organism (Verified Adverse Reaction, Unknown, MRSA, 05/28/17) MRSA (blood) - 05/02/17 Administer Medication Daptomycin q 24 hours 750 mg IV Start Treatment: Jun 19, 2017 Stop Treatment: Jul 17, 2017 Additional Information Venous access: PICC Line Additional Instructions [x] Peripheral flush and dressing changes per protocol [x] Implanted port and central lineman: * Implanted port: 10 ml Normal Saline followed by 5 ml Heparin 100 units/ml Heparin flush after each use and monthly to maintain. [] May leave port accessed during therapy. [] May leave peripheral site accessed for duration of therapy. [x] If patient has SOB or respiratory distress, check oxygen saturation. If less than 90% or clinical signs of respiratory distress, administer oxygen at 2 L/min. via nasal cannula and notify physician. [x] Anaphylaxis/Reaction orders: * Stop infusion. * Keep IV line open with saline flush. * Notify physician. * Monitor vital signs every 15 minutes until symptoms resolve. * Check Oxygen saturation; Oxygen at 2 L/min. via nasal cannula if less than 90% or clinical signs of respiratory distress. * Administer diphenhydramine (Benadryl) 25 mg IV STAT, (unless patient has received as pre-med). May repeat once, if necessary. * Solu-Cortef 250 mg IVP over 30-60 seconds, use 100 mg vials for each dissolution. * Epinephrine (1mg/1 ml) 0.3 mg subcutaneously or IVP now with any signs of respiratory distress. * Check with physician for new additional pre-med orders if patient is re- challenged or re-treated. [x] May remove PICC line when treatment complete, after confirming with Physician. [x] If the patient is admitted to the hospital, the ED, or transferred via [facility] , complete transfer form including medication reconciliation order sheet. Laboratory Tests Weekly Labs: CBC w/diff, Creatinine, LFT's (Hepatic function test), SED Rate, Serum CK Levels Johanna Cooper MD Jun 19, 2017 13:32
[2017-06-19] MEDS ORDERED: DAPT500P IV (13:34)
[2017-06-19] MEDS ORDERED: EPIN1INJ21 IV PUSH (13:34)
[2017-06-19] MEDS ORDERED: EPIN1INJ21 SQ (13:34)
[2017-06-19] MEDS ORDERED: SOLU250I IV PUSH (13:34)
[2017-06-19 14:35] VITALS: RESP 18
--- NOTE | 2017-06-19 15:30 | HHI.DCPOC ---
Discharge Care Plan Diagnosis: (1) Osteomyelitis (2) Cellulitis of ankle (3) Septic joint Goals to Promote Your Health * To prevent worsening of your condition and complications * To maintain your health at the optimal level Directions to Meet Your Goals Take your medications as prescribed Follow your dietary instruction Follow activity as directed Keep your appointments as scheduled Take your immunizations and boosters as scheduled If your symptoms worsen call your PCP, if no PCP go to Urgent Care Center or Emergency Room Smoking is Dangerous to Your Health. Avoid second hand smoke Call the 24-hour hour crisis hotline for domestic abuse at Ravi Dubon Jun 19, 2017 15:30
--- NOTE | 2017-06-19 15:33 | HHI.DS ---
Discharge Summary Admission Date May 28, 2017 at 22:05 Discharge Date: Jun 19, 2017 Admitting Diagnosis cellulitis left ankle, acute kidney injury, thrush (1) Cellulitis of ankle ICD Code: L03.119 (2) Acute renal failure (ARF) ICD Code: N17.9 (3) Anemia ICD Code: D64.9 (4) Upset stomach ICD Code: K30 Procedures 05/31/2017 Irrigation and debridement of left tibia, left ankle arthrotomy with irrigation and debridement, irrigation and debridement of left foot abscess Brief History - From Admission HPI from the admitting physician. The patient is seen in the CDU. He complains of worsening pain and swelling in the left lower extremity. Duration of symptoms was 2 days. He has failed outpatient IV antibiotic therapy with Televancin. During previous hospitalization, he had wound cultures and blood cultures positive for MRSA. Denies n/v/d, black stool, red streaks seen on toilet tissue but not oj bleeding He is also complaining of thrush in his mouth. s/p multiple left ankle I and D by Dr. Palafox for septic arthritis. He was d/c from the hospital on Televancin 05/21/17 CBC/BMP: 06/16/17 0600 06/18/17 0615 Significant Findings Laboratory Tests Test 06/18/17 06:15 Blood Urea Nitrogen 25 MG/DL (7-18) Estimat Glomerular Filtration 62 ML/MIN (>89) Rate PE at Discharge GENERAL: Well nourished, well developed patient in no apparent distress. SKIN: PICC R arm. Dressing to L ankle/foot. CARDIOVASCULAR: Regular rate and rhythm. RESPIRATORY: No accessory muscle use. Clear to auscultation. Breath sounds equal bilaterally. GASTROINTESTINAL: Normoactive bowel sounds. Abdomen soft, non-tender, nondistended. MUSCULOSKELETAL: Capillary refill normal in toes of Left foot. NEUROLOGICAL: Awake and alert. Normal speech. PSYCHIATRIC: Appropriate mood and affect. Hospital Course 36 year-old male who originally presented to the hospital on 05/28/17 because of pain and swelling in the left lower extremity. Destiny is experiencing 2 days of pain and failed outpatient IV therapy with Telvancin. During his previous hospitalization the patient was found to have bacteremia secondary to MRSA from IV drug use. Patient was found to have septic arthritis and underwent multiple incision and drainages per Dr. Palafox. Orthopedic was consulted again at this time. Patient has undergone I&D of the left tibia, left ankle arthrotomy with irrigation and debridement as well as debridement of the left foot abscess. Patient was started on vancomycin and subsequently switched to daptomycin and Teflaro. Patient started developing renal function elevation and nephrology was consulted for recommendations. However patient was transferred to [place] prior to nephrology evaluated the patient. Today 's labs does show significant improvement of his renal function. Patient was transferred to [place] for completion of his IV antibiotics. At the time evaluating the patient he is resting comfortably in chair. Does not indicate that his pain is not controlled. Patient continued treatment in [place]. Repeat cultures remain negative. Infectious disease following along and indicate that they can arrange outpatient IV therapy. Dr. Cooper is making arrangements. Patient's renal functions did improve significantly. He did have workup which did show hepatitis C. Gastroenterology was consulted who recommended outpatient follow-up to possibly start treatment. Patient clinically stable this time. Will arrange outpatient IV therapy. Patient should follow-up with orthopedist, infectious disease and color artist upon discharge. Pt Condition on Discharge: Stable Discharge Disposition: Discharge Home Discharge Time: > 30 minutes Discharge Instructions DIET: Follow Instructions for: As Tolerated, No Restrictions Activities you can perform: Non Weight Bearing Follow up Referrals: Infectious Disease Orthopedics - 2 Weeks with Dillon Palafox MD PCP Follow-up - 1 Week New Medications: Daptomycin Inj (Cubicin Inj) 500 Mg Bag 750 MG IV Q24H Must dilute in appropriate IV Fluid prior to administration Infection #28 Ref 0 BAG Epinephrine Inj (Epinephrine Inj) 1 Mg/Ml Inj 0.3 MG IV PUSH ONCE PRN ALLERGIC REACTION #1 VIAL Epinephrine Inj (Epinephrine Inj) 1 Mg/Ml Inj 0.3 MG SQ ONCE Give with any signs of respiratory distress. PRN ALLERGIC REACTION #1 VIAL Hydrocortisone Inj (Solu-Cortef Inj) 250 Mg Inj 250 MG IV PUSH ONCE Give over 30-60 seconds. PRN ALLERGIC REACTION #1 Ref 0 VIAL Continued Medications: Naproxen Sodium DS (Naproxen Sodium DS) 550 Mg Tab 550 MG PO BID #20 Ref 0 TAB (This prescription has been renewed) Oxycodone-Acetaminophen (Percocet) 10-325 mg Tab 1 TAB PO Q4H PRN PAIN #20 Ref 0 TAB (This prescription has been renewed) Discontinued Medications: Telavancin Inj (Vibativ Inj) 750 Mg Inj 750 MG IV Q24H Infection Days 35 Ref 0 BAG Additional Information Written by Ravi Dubon, acting as scribe for Dr. Tipton on 06/19/17 at 15: 31. This note was transcribed by scribe [Ravi Dubon]. I, Dr. Cal Titpon personally performed the history, physical exam, and medical decision making; and confirmed the accuracy of the information in the transcribed note. Authenticated by Dr. Cal Tipton on 06/19/17 at 1540. Ravi Dubon Jun 19, 2017 15:33 Cal Tipton MD Jun 19, 2017 17:10
== END 2017-06-19 16:37 | disposition home or self-care (01) | DRG 580 ==
LOC: NEPE 19:46 → NEDA 22:05 → NEPFCDU 05-29 00:07 → N07B 05-31 09:17 → N05B 05-31 14:16 → PH5A 06-07 16:50
PROVIDERS: ADMIT Internal Medicine; ATTEND Family Medicine
PROC: 0S9G0ZZ Drainage of Left Ankle Joint, Open Approach (ICD-10-PCS; 2017-05-31)
PROC: 0JDR0ZZ Extraction of Left Foot Subcutaneous Tissue and Fascia, Open Approach (ICD-10-PCS; 2017-05-31)
PROC: 0JDP0ZZ Extraction of Left Lower Leg Subcutaneous Tissue and Fascia, Open Approach (ICD-10-PCS; principal; 2017-05-31 09:40)
DX: L03.116 Cellulitis of left lower limb (principal); N17.9 Acute kidney failure, unspecified; E87.8 Other disorders of electrolyte and fluid balance, not elsewhere classified; M00.9 Pyogenic arthritis, unspecified; B37.0 Candidal stomatitis; E83.51 Hypocalcemia; M86.9 Osteomyelitis, unspecified; L02.612 Cutaneous abscess of left foot; D64.9 Anemia, unspecified; N40.0 Benign prostatic hyperplasia without lower urinary tract symptoms; K30 Functional dyspepsia; E87.6 Hypokalemia; R07.81 Pleurodynia; B19.20 Unspecified viral hepatitis C without hepatic coma; Z86.14 Personal history of Methicillin resistant Staphylococcus aureus infection; E86.0 Dehydration; F41.9 Anxiety disorder, unspecified; G47.00 Insomnia, unspecified; K59.00 Constipation, unspecified; Z91.19 Patient's noncompliance with other medical treatment and regimen; Z91.14 Patient's other noncompliance with medication regimen; Z72.0 Tobacco use; T36.8X5A Adverse effect of other systemic antibiotics, initial encounter; F11.10 Opioid abuse, uncomplicated; Z79.2 Long term (current) use of antibiotics
CPT/HCPCS: 73723; 76775; 76937; 80048; 80053; 80069; 80202; 81001; 82306; 82550; 82728; 83540; 83550; 83605; 83735; 84155; 85014; 85018; 85025; 85027; 85652; 86021; 86140; 86160; 86317; 86803; 87015; 87040; 87070; 87102; 87116; 87205; 87206; 87340; 87522; 87902; 93971; 94150; 96361; 96374; 96375; A9579; J0690; J0712; J0878; J1170; J1200; J1580; J1642; J1650; J2175; J2250; J2270; J2405; J3010; J3370; J7030; J7050; J7120

== ENCOUNTER 2017-06-24 17:23 | Emergency (ER) | payer OTHER ==
[~2017-06-24] VITALS: Ht 170.2 cm; Wt 70.0 kg
[~2017-06-24 17:23] MED LIST changes: +DAPT500P IV; +EPIN1INJ21 SQ; -PERC10TA27 PO; -VIBA750I IV
[2017-06-24 17:26] VITALS: BP 128/69; PULSE 97; RESP 18; TEMP 98.4; O2SAT 98
--- NOTE | 2017-06-24 17:54 | PD ---
HPI Chief Complaint: Edema Time Seen by Provider: 17:53 Travel History International Travel<30 days: No Contact w/Intl Traveler<30days: No Traveled to known affect area: No History of Present Illness HPI 37 YO M with PMH of IVDA, septic ankle joint status post multiple I&D's presents to the ED for evaluation of pain and swelling of the left foot. Patient was discharged from the hospital on 06/19/17. He's been receiving IV daptomycin through a PICC line daily since. States that over the last few days the swelling, pain and redness of the leg has increased. Denies fever, chills, nausea, vomiting. States follow-up with Dr. Palafox is 07/03. [facility] Past Medical History Anxiety: Yes Depression: Yes Cancer: No Cardiovascular Problems: No Diabetes: No Diminished Hearing: No Endocrine: No Glaucoma: No Genitourinary: No Hepatitis: No Hiatal Hernia: No Hypertension: No Immune Disorder: No Implanted Vascular Access Dvce: Yes Musculoskeletal: Yes (LEFT TIB/FIB OSTEOMYELITIS 05/09/17) Neurologic: No Psychiatric: Yes Reproductive: No Respiratory: No Thyroid Disease: No Past Surgical History Body Medical Devices: ORTHO- LLE Pacemaker: No Other Surgery: Yes (LEFT FIBULA/TIBIA IRRIGATION DEBRIDEMENT 05/09/17 JUDI) Social History Alcohol Use: Yes (OCCASIONALLY) Tobacco Use: No (CHEWING TOBACCO FORMERLY) Substance Use: Yes (IVDU) Allergies-Medications (Allergen,Severity, Reaction): Coded Allergies: cat dander (Unverified Allergy, Severe, WHEEZING ITCHING, 06/23/17) dog dander (Unverified Allergy, Unknown, 06/23/17) *MDRO Multi-Drug Resistant Organism (Verified Adverse Reaction, Unknown, MRSA, 06/23/17) MRSA (blood) - 05/02/17 Reported Meds & Prescriptions Reported Meds & Active Scripts Active Epinephrine Inj 1 Mg/Ml Inj 0.3 Mg SQ ONCE PRN Give with any signs of respiratory distress. Cubicin Inj (Daptomycin) 500 Mg Bag 750 Mg IV Q24H Must dilute in appropriate IV Fluid prior to administration Naproxen Sodium DS (Naproxen Sodium) 550 Mg Tab 550 Mg PO BID Review of Systems Except as stated in HPI: all other systems reviewed are Neg Physical Exam Narrative GENERAL: Well-nourished, well-developed white male in no acute distress. SKIN: Focused skin assessment warm/dry. Multiple tattoos. HEAD: Normocephalic. EYES: No scleral icterus. No injection or drainage. NECK: Supple, trachea midline. No JVD or lymphadenopathy. CARDIOVASCULAR: Regular rate and rhythm without murmurs, gallops, or rubs. RESPIRATORY: Breath sounds equal bilaterally. No accessory muscle use. GASTROINTESTINAL: Abdomen soft, non-tender, nondistended. MUSCULOSKELETAL: No cyanosis. Focused left lower extremity exam: 2+ DP pulse. Bimalleolar incisions with sutures in place. The foot is erythematous, warm, edematous to the mid oneil. Patient can wiggle the toes. Sensation intact to light touch distally. BACK: Nontender without obvious deformity. No CVA tenderness. Data Data Last Documented VS Vital Signs Date Time Temp Pulse Resp B/P (MAP) Pulse Ox O2 Delivery O2 Flow Rate FiO2 06/24/17 21:38 70 18 120/65 (83) 98 06/24/17 17:45 Room Air 06/24/17 17:26 98.4 Orders Orders Complete Blood Count With Diff (06/24/17 17:53) Basic Metabolic Panel (Bmp) (06/24/17 17:53) Iv Access Insert/Monitor (06/24/17 17:53) Ketorolac Inj (Toradol Inj) (06/24/17 18:30) Ice/Cold Pack (06/24/17 18:17) Sodium Chlor 0.9% 1000 Ml Inj (Ns 1000 M (06/24/17 20:00) Labs Laboratory Tests Test 06/24/17 18:40 White Blood Count 6.0 TH/MM3 Red Blood Count 3.58 MIL/MM3 Hemoglobin 10.1 GM/DL Hematocrit 28.5 % Mean Corpuscular Volume 79.7 FL Mean Corpuscular Hemoglobin 28.1 PG Mean Corpuscular Hemoglobin Concent 35.3 % Red Cell Distribution Width 16.8 % Platelet Count 333 TH/MM3 Mean Platelet Volume 6.9 FL Neutrophils (%) (Auto) 61.4 % Lymphocytes (%) (Auto) 17.8 % Monocytes (%) (Auto) 9.8 % Eosinophils (%) (Auto) 9.1 % Basophils (%) (Auto) 1.9 % Neutrophils # (Auto) 3.7 TH/MM3 Lymphocytes # (Auto) 1.1 TH/MM3 Monocytes # (Auto) 0.6 TH/MM3 Eosinophils # (Auto) 0.5 TH/MM3 Basophils # (Auto) 0.1 TH/MM3 CBC Comment DIFF FINAL Differential Comment Blood Urea Nitrogen 28 MG/DL Creatinine 1.41 MG/DL Random Glucose 103 MG/DL Calcium Level 8.8 MG/DL Sodium Level 139 MEQ/L Potassium Level 4.1 MEQ/L Chloride Level 104 MEQ/L Carbon Dioxide Level 28.8 MEQ/L Anion Gap 6 MEQ/L Estimat Glomerular Filtration Rate 57 ML/MIN MDM Medical Decision Making Medical Screen Exam Complete: Yes Emergency Medical Condition: Yes Differential Diagnosis suture abscess versus dependent edema versus cellulitis versus other Narrative Course 37 YO M with PMH of IVDA, septic ankle joint status post multiple I&D's presents to the ED for evaluation of pain and swelling of the left foot. Patient was discharged from the hospital on 06/19/17. He's been receiving IV daptomycin through a PICC line daily since. States that over the last few days the swelling, pain and redness of the leg has increased. Denies fever, chills, nausea, vomiting. States follow-up with Dr. Palafox is 07/03. Patient is afebrile on presentation. Focused left lower extremity exam reveals sutures intact in bimalleolar suture lines. The foot is erythematous, edematous and tender to the mid oneil. IV was established. Patient was administered a liter fluids. No elevation of the white count. Evidence of dehydration on BMP. I spoke with Dr. Mayes who recommends removing the patient's sutures, discharged with symptomatic care and follow-up in the office tomorrow. I discussed this plan of care with the patient who is agreeable. Sutures were removed without incident. Patient's instructed to rest, ice, elevate the extremity, avoid weightbearing, called Dr. Palafox's office for follow-up on Sunday. He is stable discharged home. Procedures Procedure Narrative Suture removal procedure: Sutures were removed from 3 incisions of the left ankle without incident. Patient tolerated procedure well. Diagnosis Primary Impression: Encounter for removal of sutures Referrals: Dillon Palafox MD Patient Instructions: Chronic Wounds (ED), General Instructions Additional Instructions: Rest, ice, elevate the extremity. Apply ice no longer than 10-15 minutes per hour a few times a day. You may wash the wound gently with soap and water. Do not submerge the wounds. Pat the wounds dry and allow to air dry completely before re-covering. Continue with naproxen as previously prescribed. No weightbearing until cleared by orthopedist. Call Dr. Palafox's office tomorrow for an appointment on Sunday. Return to the ED for any urgent or emergent medical condition. Disposition: 01 DISCHARGE HOME Condition: Stable Sapphire Fink Jun 24, 2017 17:54
[2017-06-24] MEDS ORDERED: KETOROLAC TROMETHAMINE 30 MG/ML (IVP) VIAL IV PUSH ONE (18:30)
[2017-06-24 19:23] LABS: AUTOMATED NEUTROPHIL # 3.7 TH/MM3 (1.8-7.7); BASOPHIL # 0.1 TH/MM3 (0-0.2); BASOPHIL % 1.9 % (0.0-2.0); EOSINOPHIL # 0.5 TH/MM3 (0-0.4); EOSINOPHIL % 9.1 % (0.0-4.0); HEMATOCRIT 28.5 % (39.0-51.0); HEMO FLAGS DIFF FINAL; LYMPH % 17.8 % (9.0-44.0); LYMPHOCYTE # 1.1 TH/MM3 (1.0-4.8); MEAN CELL VOLUME 79.7 FL (80.0-100.0); MEAN CORPUSCULAR HEMOGLOBIN 28.1 PG (27.0-34.0); MEAN CORPUSCULAR HGB CONC 35.3 % (32.0-36.0); MONO % 9.8 % (0.0-8.0); NEUT % 61.4 % (16.0-70.0); PLATELET COUNT 333 TH/MM3 (150-450); RED BLOOD COUNT 3.58 MIL/MM3 (4.50-5.90); RED CELL DISTRIBUTION WIDTH 16.8 % (11.6-17.2)
[2017-06-24 19:41] LABS: BICARBONATE 28.8 MEQ/L (21.0-32.0); POTASSIUM 4.1 MEQ/L (3.5-5.1)
[2017-06-24] MEDS ORDERED: SODIUM CHLOR 0.9% 1000 ML INJ 1,000 ML IV ONE (20:00)
[2017-06-24 21:38] VITALS: BP 120/65
[2017-08-10] MEDS ORDERED: IBUP200C17 PO (13:34)
== END 2017-06-24 21:51 | disposition home or self-care (01) ==
LOC: NEPC 17:23
DX: Z48.89 Encounter for other specified surgical aftercare (principal); Z48.01 Encounter for change or removal of surgical wound dressing; Z48.02 Encounter for removal of sutures; Z98.890 Other specified postprocedural states
CPT/HCPCS: 80048; 85025; 96360; 96372; J1885; J7030; 99281

== ENCOUNTER 2017-07-31 17:44 | Emergency (ER) | payer OTHER ==
[~2017-07-31] VITALS: Ht 180.3 cm; Wt 76.0 kg
[~2017-07-31 17:44] MED LIST changes: -DAPT500P IV
[2017-07-31 17:45] VITALS: BP 128/82; PULSE 131; RESP 18; TEMP 98.4; O2SAT 96
[2017-07-31] MEDS ORDERED: VANCOMYCIN INJ 1,500 MG in SODIUM CHLORID 0.9% 500 ML INJ 500 ML IV STA (17:59)
[2017-07-31] MEDS ORDERED: SODIUM CHLOR 0.9% 1000 ML INJ 1,000 ML IV ONE ×2 (17:59)
[2017-07-31] MEDS ORDERED: SODIUM CHLOR 0.9% 1000 ML INJ 400 ML IV ONE (17:59)
[2017-07-31] MEDS ORDERED: PERC10TA27 PO (18:03)
[2017-07-31] MEDS ORDERED: CLON1 PO (18:03)
[2017-07-31 18:28] VITALS: BP 132/74; PULSE 119; RESP 19; TEMP 99.1; O2SAT 98
--- NOTE | 2017-07-31 18:36 | PD ---
HPI Chief Complaint: Skin Problem Time Seen by Provider: 17:57 Travel History International Travel<30 days: No Contact w/Intl Traveler<30days: No Traveled to known affect area: No History of Present Illness HPI 37 yo M c/o pain/swelling/erythema about L ankle x 1 day. hx ORIF followed by IV abx for MRSA infection of hardware. pt denies fever. pain constant and worse with ambulation and pressure. onset gradual. timing constant. PFSH Past Medical History Anxiety: Yes Depression: Yes Cancer: No Cardiovascular Problems: No Diabetes: No Diminished Hearing: No Endocrine: No Glaucoma: No Genitourinary: No Hepatitis: No Hiatal Hernia: No Hypertension: No Immune Disorder: No Implanted Vascular Access Dvce: Yes Musculoskeletal: Yes (LEFT TIB/FIB OSTEOMYELITIS 05/09/17) Neurologic: No Psychiatric: Yes Reproductive: No Respiratory: No Thyroid Disease: No ?: Not Past Surgical History Body Medical Devices: ORTHO- LLE Pacemaker: No Other Surgery: Yes (LEFT FIBULA/TIBIA IRRIGATION DEBRIDEMENT 05/09/17 JUDI) Social History Alcohol Use: Yes (OCCASIONALLY) Tobacco Use: No (nicotine gum) Substance Use: No (former IVDU) Allergies-Medications (Allergen,Severity, Reaction): Coded Allergies: cat dander (Verified Allergy, Severe, WHEEZING ITCHING, 07/31/17) dog dander (Verified Allergy, Unknown, 07/31/17) *MDRO Multi-Drug Resistant Organism (Verified Adverse Reaction, Unknown, MRSA, 07/31/17) MRSA (blood) - 05/02/17 Reported Meds & Prescriptions Reported Meds & Active Scripts Active Reported Percocet (Oxycodone-Acetaminophen) 10-325 mg Tab 1 Tab PO Q4H PRN Klonopin (Clonazepam) 1 Mg Tab 1 Mg PO TID Review of Systems Except as stated in HPI: all other systems reviewed are Neg General / Constitutional: No: Fever Physical Exam Narrative GENERAL: 37 yo M, WNWD SKIN: Warm and dry. Swelling/erythema/tenderness about L ankle. No fluctuance. 2 + DP bilaterally. HEAD: Atraumatic. Normocephalic. EYES: Pupils equal and round. No scleral icterus. No injection or drainage. ENT: No nasal bleeding or discharge. Mucous membranes pink and moist. NECK: Trachea midline. No JVD. CARDIOVASCULAR: Regular rate and rhythm. RESPIRATORY: No accessory muscle use. Clear to auscultation. Breath sounds equal bilaterally. GASTROINTESTINAL: Abdomen soft, non-tender, nondistended. Hepatic and splenic margins not palpable. MUSCULOSKELETAL: Extremities without clubbing, cyanosis, or edema. No obvious deformities. NEUROLOGICAL: Awake and alert. No obvious cranial nerve deficits. Motor grossly within normal limits. Five out of 5 muscle strength in the arms and legs. Normal speech. PSYCHIATRIC: Appropriate mood and affect; insight and judgment normal. Data Data Last Documented VS Vital Signs Date Time Temp Pulse Resp B/P (MAP) Pulse Ox O2 Delivery O2 Flow Rate FiO2 07/31/17 18:28 98 Room Air 07/31/17 18:28 99.1 119 19 132/74 (93) VS reviewed Orders Orders Complete Blood Count With Diff (07/31/17 17:59) Comprehensive Metabolic Panel (07/31/17 17:59) Lactic Acid Sepsis Protocol (07/31/17 17:59) Blood Culture (07/31/17 17:59) Blood Glucose (07/31/17 17:59) Ecg Monitoring (07/31/17 17:59) Iv Access Insert/Monitor (07/31/17 17:59) Oximetry (07/31/17 17:59) Oxygen Administration (07/31/17 17:59) Vancomycin Inj (Vancomycin Inj) (07/31/17 17:59) Sodium Chlor 0.9% 1000 Ml Inj (Ns 1000 M (07/31/17 17:59) Sodium Chlor 0.9% 1000 Ml Inj (Ns 1000 M (07/31/17 17:59) Sodium Chlor 0.9% 1000 Ml Inj (Ns 1000 M (07/31/17 17:59) Ankle, Complete ([id number]) (07/31/17 ) Labs Laboratory Tests Test 07/31/17 16:25 White Blood Count 5.7 TH/MM3 Red Blood Count 4.59 MIL/MM3 Hemoglobin 12.5 GM/DL Hematocrit 36.6 % Mean Corpuscular Volume 79.7 FL Mean Corpuscular Hemoglobin 27.1 PG Mean Corpuscular Hemoglobin Concent 34.0 % Red Cell Distribution Width 16.1 % Platelet Count 288 TH/MM3 Mean Platelet Volume 7.7 FL Neutrophils (%) (Auto) 60.7 % Lymphocytes (%) (Auto) 21.7 % Monocytes (%) (Auto) 12.7 % Eosinophils (%) (Auto) 3.8 % Basophils (%) (Auto) 1.1 % Neutrophils # (Auto) 3.5 TH/MM3 Lymphocytes # (Auto) 1.2 TH/MM3 Monocytes # (Auto) 0.7 TH/MM3 Eosinophils # (Auto) 0.2 TH/MM3 Basophils # (Auto) 0.1 TH/MM3 CBC Comment AUTO DIFF Blood Urea Nitrogen 31 MG/DL Creatinine 1.41 MG/DL Random Glucose 84 MG/DL Total Protein 8.7 GM/DL Albumin 4.0 GM/DL Calcium Level 10.0 MG/DL Alkaline Phosphatase 93 U/L Aspartate Amino Transf (AST/SGOT) 68 U/L Alanine Aminotransferase (ALT/SGPT) 92 U/L Total Bilirubin 0.5 MG/DL Sodium Level 138 MEQ/L Potassium Level 3.8 MEQ/L Chloride Level 103 MEQ/L Carbon Dioxide Level 26.5 MEQ/L Anion Gap 9 MEQ/L Estimat Glomerular Filtration Rate 57 ML/MIN Lactic Acid Level 0.9 mmol/L MDM Medical Decision Making Medical Screen Exam Complete: Yes Emergency Medical Condition: Yes Medical Record Reviewed: Yes Differential Diagnosis sepsis, cellulitis, abscess, infection of hardware, fracture Narrative Course Vanco started Labwork and imaging pending at time of dictation. Oncoming provider to follow up and disposition. Jack Garcia MD Jul 31, 2017 18:36
[2017-07-31 19:17] LABS: AUTOMATED NEUTROPHIL # 3.5 TH/MM3 (1.8-7.7); BASOPHIL # 0.1 TH/MM3 (0-0.2); BASOPHIL % 1.1 % (0.0-2.0); EOSINOPHIL # 0.2 TH/MM3 (0-0.4); EOSINOPHIL % 3.8 % (0.0-4.0); HEMATOCRIT 36.6 % (39.0-51.0); LYMPH % 21.7 % (9.0-44.0); LYMPHOCYTE # 1.2 TH/MM3 (1.0-4.8); MEAN CELL VOLUME 79.7 FL (80.0-100.0); MEAN CORPUSCULAR HEMOGLOBIN 27.1 PG (27.0-34.0); MONO % 12.7 % (0.0-8.0); NEUT % 60.7 % (16.0-70.0); PLATELET COUNT 288 TH/MM3 (150-450); RED BLOOD COUNT 4.59 MIL/MM3 (4.50-5.90); RED CELL DISTRIBUTION WIDTH 16.1 % (11.6-17.2); WHITE BLOOD COUNT 5.7 TH/MM3 (4.0-11.0)
--- NOTE | 2017-07-31 19:20 | RADRPT ---
EXAM DATE/TIME: 07/31/2017 18:52 [facility] COMPARISON: ANKLE LEFT (1 VW), May 03, 2017, 12:29. INDICATIONS : Swelling through left ankle medial and lateral sides. MEDICAL HISTORY : None. SURGICAL HISTORY : None. ENCOUNTER: Initial ACUITY: 1 day PAIN SCORE: 0/10 LOCATION: Left ankle FINDINGS: There is diffuse soft tissue swelling. Patient has had previous fracture and fixation with subsequent hardware removal of the distal tibia and fibula. Some micro-metallic debris persists of the distal t ibia. Distal tibia and fibula are mildly heterogeneous but without a focal area of bone destruction. I believe there is an ulcer of the soft tissues overlying the medial malleolus. 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 CONCLUSION: Evidence of remote trauma and surgery of the distal left tibia and fibula. No definite acute bony abn ormality. Soft tissues are swollen and probably some ulceration medially. Sky Reyes MD on July 31, 2017 at 19:17 Board Certified Radiologist. This report was verified electronically.
[2017-07-31 19:25] LABS: HEMO FLAGS AUTO DIFF
[2017-07-31 19:37] LABS: ALKALINE PHOSPHATASE 93 U/L (45-117); ALT (GPT) 92 U/L (12-78); TOTAL BILIRUBIN ADULT 0.5 MG/DL (0.2-1.0)
[2017-07-31 19:38] LABS: ANION GAP 9 MEQ/L (5-15); AST (GOT) 68 U/L (15-37); BICARBONATE 26.5 MEQ/L (21.0-32.0); BLOOD UREA NITROGEN 31 MG/DL (7-18); CHLORIDE 103 MEQ/L (98-107); GLOMERULAR FILTRATION RATE 57 ML/MIN (>89); POTASSIUM 3.8 MEQ/L (3.5-5.1); SODIUM (NA) 138 MEQ/L (136-145)
--- NOTE | 2017-07-31 20:11 | PD ---
Physical Exam Date Seen by Provider: Jul 31, 2017 Data Data Last Documented VS Vital Signs Date Time Temp Pulse Resp B/P (MAP) Pulse Ox O2 Delivery O2 Flow Rate FiO2 07/31/17 18:28 98 Room Air 07/31/17 18:28 99.1 119 19 132/74 (93) Orders Orders Complete Blood Count With Diff (07/31/17 17:59) Comprehensive Metabolic Panel (07/31/17 17:59) Lactic Acid Sepsis Protocol (07/31/17 17:59) Blood Culture (07/31/17 17:59) Blood Glucose (07/31/17 17:59) Ecg Monitoring (07/31/17 17:59) Iv Access Insert/Monitor (07/31/17 17:59) Oximetry (07/31/17 17:59) Oxygen Administration (07/31/17 17:59) Vancomycin Inj (Vancomycin Inj) (07/31/17 17:59) Sodium Chlor 0.9% 1000 Ml Inj (Ns 1000 M (07/31/17 17:59) Sodium Chlor 0.9% 1000 Ml Inj (Ns 1000 M (07/31/17 17:59) Sodium Chlor 0.9% 1000 Ml Inj (Ns 1000 M (07/31/17 17:59) Ankle, Complete ([id number]) (07/31/17 ) Labs Laboratory Tests Test 07/31/17 16:25 White Blood Count 5.7 TH/MM3 Red Blood Count 4.59 MIL/MM3 Hemoglobin 12.5 GM/DL Hematocrit 36.6 % Mean Corpuscular Volume 79.7 FL Mean Corpuscular Hemoglobin 27.1 PG Mean Corpuscular Hemoglobin Concent 34.0 % Red Cell Distribution Width 16.1 % Platelet Count 288 TH/MM3 Mean Platelet Volume 7.7 FL Neutrophils (%) (Auto) 60.7 % Lymphocytes (%) (Auto) 21.7 % Monocytes (%) (Auto) 12.7 % Eosinophils (%) (Auto) 3.8 % Basophils (%) (Auto) 1.1 % Neutrophils # (Auto) 3.5 TH/MM3 Lymphocytes # (Auto) 1.2 TH/MM3 Monocytes # (Auto) 0.7 TH/MM3 Eosinophils # (Auto) 0.2 TH/MM3 Basophils # (Auto) 0.1 TH/MM3 CBC Comment AUTO DIFF Blood Urea Nitrogen 31 MG/DL Creatinine 1.41 MG/DL Random Glucose 84 MG/DL Total Protein 8.7 GM/DL Albumin 4.0 GM/DL Calcium Level 10.0 MG/DL Alkaline Phosphatase 93 U/L Aspartate Amino Transf (AST/SGOT) 68 U/L Alanine Aminotransferase (ALT/SGPT) 92 U/L Total Bilirubin 0.5 MG/DL Sodium Level 138 MEQ/L Potassium Level 3.8 MEQ/L Chloride Level 103 MEQ/L Carbon Dioxide Level 26.5 MEQ/L Anion Gap 9 MEQ/L Estimat Glomerular Filtration Rate 57 ML/MIN Lactic Acid Level 0.9 mmol/L MDM Medical Record Reviewed: Yes Supervised Visit with JA: No Narrative Course upon just introducing myself, patient started to be verbally abusive, stating that he's angry that this keeps happening, i made patient aware that he has been receiving care for this post op since early may, by a battery of doctors and healthcare workers (renal, orthopedist,primary, infectious disease, emergency department), and that today i'm trying to have him admitted for further restarting iv abx (he no longer has a picc line). readdressing patient , making him aware of our efforts to care for him adequately but patient just continues to yell however is not making any aggressive physical gestures. finally patient agreed to stay for iv antibiotic... as i was speaking with admitting physician dr billy, patient decided to sign out ama, admission was discontinued.. Diagnosis Primary Impression: AMA Admitting Information Admitting Physician Requests: Observation Disposition: 07 AGAINST MEDICAL ADVICE Condition: Jason Mcdonnell MD Jul 31, 2017 20:11
[2017-07-31 21:06] LABS: PLATELET ESTIMATE SMEAR NORMAL (NORMAL); PLATELET MORPHOLOGY NORMAL (NORMAL); SCAN/DIFF AUTO DIFF CONFIRMED
[2017-08-10] MEDS ORDERED: IBUP200C17 PO (13:34)
== END 2017-07-31 21:05 | disposition left against medical advice (07) ==
LOC: NEPC 17:44
DX: M25.572 Pain in left ankle and joints of left foot (principal); M86.9 Osteomyelitis, unspecified; Z86.14 Personal history of Methicillin resistant Staphylococcus aureus infection; Z79.2 Long term (current) use of antibiotics
CPT/HCPCS: 73610; 80053; 83605; 85025; 87040; 96360; 96361; 99284; J7030

== ENCOUNTER 2017-08-03 23:55 | Inpatient (IN) | payer SELFPAY ==
[~2017-08-03] VITALS: Ht 170.2 cm; Wt 70.0 kg
[~2017-08-03 23:55] MED LIST changes: +CLON1 PO; -EPIN1INJ21 SQ; -NAPR550T3 PO; +PERC10TA27 PO
[2017-08-04] VITALS (8 sets, daily range): BP systolic 105–135; BP diastolic 53–81; PULSE 71–118; RESP 16–20; TEMP 97.4–98.5; O2SAT 95–100
--- NOTE | 2017-08-04 00:39 | PD ---
HPI Chief Complaint: Skin Problem Time Seen by Provider: 00:33 Travel History International Travel<30 days: No Contact w/Intl Traveler<30days: No Traveled to known affect area: No History of Present Illness HPI The patient is a 37-year-old male with a history of alcohol, cocaine, benzodiazepine and amphetamine abuse who has a red, swollen left ankle for 4 days. 3 days ago, July 31, he went into [facility] emergency department but left AMA after he received vancomycin. The patient has a history of osteomyelitis and septic joint in that ankle. His ankle is been operated on 5 times according to the patient. His last surgery was about 2 months ago. PFSH Past Medical History Anxiety: Yes Depression: Yes Cancer: No Cardiovascular Problems: No Diabetes: No Diminished Hearing: No Endocrine: No Glaucoma: No Genitourinary: No Hepatitis: No Hiatal Hernia: No Hypertension: No Immune Disorder: No Implanted Vascular Access Dvce: Yes Musculoskeletal: Yes (LEFT TIB/FIB OSTEOMYELITIS 05/09/17) Neurologic: No Psychiatric: Yes Reproductive: No Respiratory: No Thyroid Disease: No Tetanus Vaccination: < 5 Years Influenza Vaccination: No ?: Not Past Surgical History Body Medical Devices: ORTHO- LLE Pacemaker: No Other Surgery: Yes (LEFT FIBULA/TIBIA IRRIGATION DEBRIDEMENT 05/09/17 JUDI) Social History Alcohol Use: Yes (occassionally) Tobacco Use: No Substance Use: No Allergies-Medications (Allergen,Severity, Reaction): Coded Allergies: cat dander (Verified Allergy, Severe, WHEEZING ITCHING, 08/04/17) dog dander (Verified Allergy, Unknown, 08/04/17) *MDRO Multi-Drug Resistant Organism (Verified Adverse Reaction, Unknown, MRSA, 08/04/17) MRSA (blood) - 05/02/17 Reported Meds & Prescriptions Reported Meds & Active Scripts Active Reported Percocet (Oxycodone-Acetaminophen) 10-325 mg Tab 1 Tab PO Q4H PRN Klonopin (Clonazepam) 1 Mg Tab 1 Mg PO TID Review of Systems Except as stated in HPI: all other systems reviewed are Neg Physical Exam Narrative GENERAL: The patient is alert, oriented 3 and slight apparent distress with his left ankle discomfort. His heart rate is 118 but the rest of his vital signs are normal. SKIN: Focused skin assessment warm/dry. HEAD: Atraumatic. Normocephalic. EYES: Pupils equal and round. No scleral icterus. No injection or drainage. ENT: No nasal bleeding or discharge. Mucous membranes pink and moist. NECK: Trachea midline. No JVD. CARDIOVASCULAR: Regular rate and rhythm. No murmur appreciated. RESPIRATORY: No accessory muscle use. Clear to auscultation. Breath sounds equal bilaterally. GASTROINTESTINAL: Abdomen soft, non-tender, nondistended. Hepatic and splenic margins not palpable. MUSCULOSKELETAL: No obvious deformities. No clubbing. No cyanosis. There is considerable swelling around the left ankle. There is erythema and warmth across the left ankle. The areas of erythema is about 25 cm in length and circumferential centering around the left ankle. NEUROLOGICAL: Awake and alert. No obvious cranial nerve deficits. Motor grossly within normal limits. Normal speech. PSYCHIATRIC: Appropriate mood and affect; insight and judgment normal. Data Data Last Documented VS Vital Signs Date Time Temp Pulse Resp B/P (MAP) Pulse Ox O2 Delivery O2 Flow Rate FiO2 08/04/17 02:35 106 16 118/73 (88) 97 Room Air 08/04/17 00:01 98.5 Orders Orders Ankle, Complete ([id number]) (08/04/17 00:47) Complete Blood Count With Diff (08/04/17 00:49) Comprehensive Metabolic Panel (08/04/17 00:49) Prothrombin Time / Inr (Pt) (08/04/17 00:49) Act Partial Throm Time (Ptt) (08/04/17 00:49) Urinalysis - C+S If Indicated (08/04/17 00:49) Drug Screen, Random Urine (08/04/17 00:49) Alcohol (Ethanol) (08/04/17 00:49) Blood Culture (08/04/17 00:56) Labs Laboratory Tests Test 08/04/17 01:00 08/04/17 01:30 White Blood Count 5.8 TH/MM3 Red Blood Count 4.21 MIL/MM3 Hemoglobin 10.8 GM/DL Hematocrit 32.9 % Mean Corpuscular Volume 78.1 FL Mean Corpuscular Hemoglobin 25.5 PG Mean Corpuscular Hemoglobin Concent 32.7 % Red Cell Distribution Width 14.7 % Platelet Count 348 TH/MM3 Mean Platelet Volume 6.7 FL Neutrophils (%) (Auto) 66.4 % Lymphocytes (%) (Auto) 16.9 % Monocytes (%) (Auto) 13.8 % Eosinophils (%) (Auto) 2.0 % Basophils (%) (Auto) 0.9 % Neutrophils # (Auto) 3.8 TH/MM3 Lymphocytes # (Auto) 1.0 TH/MM3 Monocytes # (Auto) 0.8 TH/MM3 Eosinophils # (Auto) 0.1 TH/MM3 Basophils # (Auto) 0.1 TH/MM3 CBC Comment DIFF FINAL Differential Comment Prothrombin Time 12.4 SEC Prothromb Time International Ratio 1.1 RATIO Activated Partial Thromboplast Time 31.3 SEC Blood Urea Nitrogen 21 MG/DL Creatinine 1.20 MG/DL Random Glucose 83 MG/DL Total Protein 7.8 GM/DL Albumin 3.6 GM/DL Calcium Level 9.8 MG/DL Alkaline Phosphatase 82 U/L Aspartate Amino Transf (AST/SGOT) 64 U/L Alanine Aminotransferase (ALT/SGPT) 85 U/L Total Bilirubin 0.4 MG/DL Sodium Level 138 MEQ/L Potassium Level 3.6 MEQ/L Chloride Level 103 MEQ/L Carbon Dioxide Level 26.9 MEQ/L Anion Gap 8 MEQ/L Estimat Glomerular Filtration Rate 68 ML/MIN Ethyl Alcohol Level LESS THAN 3 MG/DL Urine Color YELLOW Urine Turbidity CLEAR Urine pH 5.5 Urine Specific [place] 1.026 Urine Protein 30 mg/dL Urine Glucose (UA) NEG mg/dL Urine Ketones 40 mg/dL Urine Occult Blood SMALL Urine Nitrite NEG Urine Bilirubin NEG Urine Leukocyte Esterase NEG Urine RBC 0-3 /hpf Urine WBC 0-2 /hpf Urine Squamous Epithelial Cells 0-5 /hpf Urine Bacteria NONE /hpf Microscopic Urinalysis Comment CULT NOT INDICATED Urine Opiates Screen NEG Urine Barbiturates Screen NEG Urine Amphetamines Screen POS Urine Benzodiazepines Screen POS Urine Cocaine Screen NEG Urine Cannabinoids Screen NEG MDM Medical Decision Making Medical Screen Exam Complete: Yes Emergency Medical Condition: Yes Medical Record Reviewed: Yes Interpretation(s) The complete metabolic profile shows a BUN of 21, GFR of 68, AST of 64 and ALT of 85. The rest of the complete metabolic profile is normal. The ProTime is 12.4 with an INR 1.1 and a PTT of 31.3. The ankle x-ray shows no acute fracture but there is soft tissue swelling. Abnormal periosteal reaction of the distal tibia and fibular likely from chronic inflammatory change related cellulitis and passively chronic osteomyelitis. The CBC shows a hemoglobin of 10.8 and hematocrit of 32.9. Differential Diagnosis Cellulitis, osteomyelitis, abscess, joint space infection Narrative Course The patient clearly has cellulitis. He may have osteomyelitis on the x-ray. His toxicology screen is positive for benzodiazepines and amphetamines. He states that Dr. Geiger prescribes him Xanax but this is the only medication he is on. Apparently, the amphetamines are abused medicine. Physician Communication Physician Communication I discussed the patient with Dr. Claudio, the patient will be admitted to her. Diagnosis Primary Impression: Cellulitis of ankle Additional Impression: Amphetamine abuse Admitting Information Admitting Physician Requests: Admit Morgan Dubon MD Aug 04, 2017 00:39
[2017-08-04 01:15] LABS: AUTOMATED NEUTROPHIL # 3.8 TH/MM3 (1.8-7.7); BASOPHIL # 0.1 TH/MM3 (0-0.2); BASOPHIL % 0.9 % (0.0-2.0); EOSINOPHIL # 0.1 TH/MM3 (0-0.4); HEMATOCRIT 32.9 % (39.0-51.0); HEMO FLAGS DIFF FINAL; LYMPH % 16.9 % (9.0-44.0); MEAN CELL VOLUME 78.1 FL (80.0-100.0); MEAN CORPUSCULAR HEMOGLOBIN 25.5 PG (27.0-34.0); MEAN CORPUSCULAR HGB CONC 32.7 % (32.0-36.0); MONO % 13.8 % (0.0-8.0); NEUT % 66.4 % (16.0-70.0); PLATELET COUNT 348 TH/MM3 (150-450); RED BLOOD COUNT 4.21 MIL/MM3 (4.50-5.90); RED CELL DISTRIBUTION WIDTH 14.7 % (11.6-17.2); WHITE BLOOD COUNT 5.8 TH/MM3 (4.0-11.0)
[2017-08-04 01:23] LABS: CHLORIDE 103 MEQ/L (98-107); POTASSIUM 3.6 MEQ/L (3.5-5.1); SODIUM (NA) 138 MEQ/L (136-145)
--- NOTE | 2017-08-04 01:23 | RADRPT ---
EXAM DATE/TIME: 08/04/2017 00:54 [facility] COMPARISON: ANKLE LEFT COMPLETE ([id number]), July 31, 2017, 18:52. MRI ANKLE LEFT W & W/O CONTRAST, May 30, 2017, 8:15. INDICATIONS : Left ankle swelling and redness. MEDICAL HISTORY : Hypertension. SURGICAL HISTORY : Left ankle surgery ENCOUNTER: Initial ACUITY: 4 - 6 days PAIN SCORE: 9/10 LOCATION: Left ankle FINDINGS: There is soft tissue swelling at the left ankle. There is severe arthritic change of the ankle joints . Remote fractures of the distal tibia and fibula are noted. There is some chronic periosteal reaction the distal tibia and fibula. This could be related to chron ic cellulitis or possibly osteomyelitis as was suggested on a MRI from May 30. CONCLUSION: 1. No acute fracture. Soft tissue swelling of the left ankle. Abnormal periosteal reaction the distal tibia and fibula likely from chronic inflammatory change related to cellulitis and possibly chronic osteomyelitis. See recent prior MRI ankle report. Nasim Thompson MD on August 04, 2017 at 1:18 Board Certified Radiologist. This report was verified electronically.
[2017-08-04 01:26] LABS: ANION GAP 8 MEQ/L (5-15); BICARBONATE 26.9 MEQ/L (21.0-32.0); BLOOD UREA NITROGEN 21 MG/DL (7-18)
[2017-08-04 01:27] LABS: APTT (PATIENT) 31.3 SEC (24.3-30.1); INTERNATIONAL NORMALIZED RATIO 1.1 RATIO; PROTHROMBIN TIME - PATIENT 12.4 SEC (9.8-11.6)
[2017-08-04 01:29] LABS: ALT (GPT) 85 U/L (12-78); AST (GOT) 64 U/L (15-37); GLOMERULAR FILTRATION RATE 68 ML/MIN (>89)
[2017-08-04 01:31] LABS: TOTAL BILIRUBIN ADULT 0.4 MG/DL (0.2-1.0)
[2017-08-04 01:32] LABS: ALKALINE PHOSPHATASE 82 U/L (45-117)
[2017-08-04 01:36] LABS: ALCOHOL LESS THAN 3 MG/DL (0-5)
[2017-08-04 02:00] LABS: BLOOD, URINE SMALL (NEG); GLUCOSE,URINE NEG (NEG); KETONE, URINE 40 mg/dL (NEG); NITRITE,URINE NEG (NEG); PH, URINE 5.5 (5.0-8.5)
[2017-08-04 02:03] LABS: URINE COLOR YELLOW (YELLW/STRAW)
[2017-08-04 02:06] LABS: COMMENT (UR) CULT NOT INDICATED; CULTURE IF INDICATED CULT NOT INDICATED; RBC, URINE 0-3 /hpf (0-3); SQUAMOUS EPITHELIAL CELL URINE 0-5 /hpf (0-5); WBC, URINE 0-2 /hpf (0-5)
[2017-08-04] MEDS: SODIUM CHLOR 0.9% 1000 ML INJ 1,000 ML IV SCH ×2 (02:44→13:55)
[2017-08-04] MEDS ORDERED: ACETAMINOPHEN 325 MG TAB PO PRN (02:45)
[2017-08-04] MEDS ORDERED: LACTULOSE SYRUP 20 GM/30 ML CUP PO PRN (02:45)
[2017-08-04] MEDS ORDERED: MAGNESIUM HYDROXIDE SUSP 30 ML CUP PO PRN (02:45)
[2017-08-04] MEDS ORDERED: SODIUM CHLORIDE 0.9% FLUSH 10 ML FLUSH IV FLUSH PRN (02:45)
[2017-08-04] MEDS ORDERED: SENNOSIDES 8.6 MG TAB PO PRN (02:45)
[2017-08-04] MEDS ORDERED: ONDANSETRON HCL 4 MG/2 ML VIAL IVP PRN (02:45)
[2017-08-04] MEDS ORDERED: BISACODYL 10 MG SUPP RECTAL PRN (02:45)
[2017-08-04] MEDS: DAPTOmycin INJ 750 MG in SODIUM CHLORIDE 0.9% INJ 100 ML IV SCH (05:26)
[2017-08-04] MEDS: SODIUM CHLORIDE 0.9% FLUSH 10 ML FLUSH IV FLUSH SCH ×2 (08:31→20:33)
[2017-08-04] MEDS: DOCUSATE SODIUM 50 MG/SENNA 8.6 MG TAB PO SCH ×2 (08:32→20:33)
--- NOTE | 2017-08-04 10:10 | PD.ID.CON ---
History of Present Illness Service ID Consult Requested By Dr Claudio Reason for Consult ptic ankle joint, tx failure Primary Care Physician No Primary Care Physician Diagnoses: History of Present Illness Pt is a 37 y.o. male well know to me from multiple prior admissions He is an IVDUer, initially presented at the end of April when he developped MRSA bacteremia and infected LLE hardware and osteo 2/2 MRSA He required removal of hardware and multiple denbridements and was discharged on televancion Non compliance was reported by infusion clinic [facility] staff was suspecting that pt misused his PICC for IV drugs as well His creatinine went up on televancin and vancomycin and he was switched to daptomycin over concernes of nephrotoxicity He was readmitted again in the end of May and underwent debridement He was discharged on IV abx and presented back with few days of worsening swelling pain and redness Ankle Xray showed Abnormal periosteal reaction the distal tibia and fibula likely from chronic inflammatory change related to cellulitis and possibly chronic osteomyelitis. Pt completed his abx about 2 weeks ago and was doing well He was seen by orthopedist on 07/25 and was told he is doing good However about 5-7 days ago he started to notice returning of pain, swelling and redness and came back He was placed on Daptomycin and noticed already improvement Review of Systems Neurologic: COMPLAINS OF: Abnormal gait (2/2 foot pain) Except as stated in HPI: all other systems reviewed are Neg Past Family Social History Allergies: Coded Allergies: cat dander (Verified Allergy, Severe, WHEEZING ITCHING, 08/04/17) dog dander (Verified Allergy, Unknown, 08/04/17) *MDRO Multi-Drug Resistant Organism (Verified Adverse Reaction, Unknown, MRSA, 08/04/17) MRSA (blood) - 05/02/17 Active Ordered Medications Medications where reviewed in EMR Antibiotics Include: daptoomycin Physical Exam Vital Signs Vital Signs Date Time Temp Pulse Resp B/P (MAP) Pulse Ox O2 Delivery O2 Flow Rate FiO2 08/04/17 08:14 97.4 88 18 112/59 (76) 96 08/04/17 04:39 97.8 97 16 119/58 (78) 96 08/04/17 03:58 18 08/04/17 03:57 105 18 130/74 (92) 97 08/04/17 02:35 106 16 118/73 (88) 97 Room Air 08/04/17 00:01 98.5 118 18 135/81 (99) 95 Physical Exam CONSTITUTIONAL/GENERAL: This is an adequately nourished patient, in no apparent distress. TUBES/LINES/DRAINS: SKIN: No jaundice, rashes, or lesions. . Skin temperature appropriate. Not diaphoretic. HEAD: Atraumatic. Normocephalic. EYES: Pupils equal and round and reactive. Extraocular motions intact. No scleral icterus. No injection or drainage. Fundi not examined. ENT: Hearing grossly normal. Nose without bleeding or purulent drainage. Oral mucosae with whitish lesions. cw thrush NECK: Trachea midline. Supple, nontender. CARDIOVASCULAR: Regular rate and rhythm without murmurs, gallops, or rubs. No JVD. Peripheral pulses symmetric. RESPIRATORY/CHEST: Symmetric, unlabored respirations. Clear to auscultation. Breath sounds equal bilaterally. No wheezes, rales, or rhonchi. GASTROINTESTINAL: Abdomen soft, non-tender, nondistended. No hepato-splenomegaly , or palpable masses. No guarding. Bowel sounds present. GENITOURINARY: Without palpable bladder distension. MUSCULOSKELETAL: Extremities without clubbing, cyanosis, L foot is edematous, erythematous, full Incisins are well healed no fluctuance or drainage No ascending lymphangitis, but enlarged 3-3.5 cm L inguinal lymph nodules No mottling or clubbing. LYMPHATICS: No palpable cervical or supraclavicular adenopathy. NEUROLOGICAL: Awake and alert. Motor and sensory grossly within normal limits. Follows commands. Clear speech. Moves all extremities. PSYCHIATRIC: No obvious anxiety/depression. no apparent hallucinations or other psychotic thought process. Laboratory Laboratory Tests Test 08/04/17 01:00 08/04/17 01:30 White Blood Count 5.8 Red Blood Count 4.21 Hemoglobin 10.8 Hematocrit 32.9 Mean Corpuscular Volume 78.1 Mean Corpuscular Hemoglobin 25.5 Mean Corpuscular Hemoglobin Concent 32.7 Red Cell Distribution Width 14.7 Platelet Count 348 Mean Platelet Volume 6.7 Neutrophils (%) (Auto) 66.4 Lymphocytes (%) (Auto) 16.9 Monocytes (%) (Auto) 13.8 Eosinophils (%) (Auto) 2.0 Basophils (%) (Auto) 0.9 Neutrophils # (Auto) 3.8 Lymphocytes # (Auto) 1.0 Monocytes # (Auto) 0.8 Eosinophils # (Auto) 0.1 Basophils # (Auto) 0.1 CBC Comment DIFF FINAL Differential Comment Prothrombin Time 12.4 Prothromb Time International Ratio 1.1 Activated Partial Thromboplast Time 31.3 Blood Urea Nitrogen 21 Creatinine 1.20 Random Glucose 83 Total Protein 7.8 Albumin 3.6 Calcium Level 9.8 Alkaline Phosphatase 82 Aspartate Amino Transf (AST/SGOT) 64 Alanine Aminotransferase (ALT/SGPT) 85 Total Bilirubin 0.4 Sodium Level 138 Potassium Level 3.6 Chloride Level 103 Carbon Dioxide Level 26.9 Anion Gap 8 Estimat Glomerular Filtration Rate 68 Ethyl Alcohol Level LESS THAN 3 Urine Color YELLOW Urine Turbidity CLEAR Urine pH 5.5 Urine Specific [place] 1.026 Urine Protein 30 Urine Glucose (UA) NEG Urine Ketones 40 Urine Occult Blood SMALL Urine Nitrite NEG Urine Bilirubin NEG Urine Leukocyte Esterase NEG Urine RBC 0-3 Urine WBC 0-2 Urine Squamous Epithelial Cells 0-5 Urine Bacteria NONE Microscopic Urinalysis Comment CULT NOT INDICATED Urine Opiates Screen NEG Urine Barbiturates Screen NEG Urine Amphetamines Screen POS Urine Benzodiazepines Screen POS Urine Cocaine Screen NEG Urine Cannabinoids Screen NEG Date/Time Source Procedure Growth Status 08/04/17 01:05 Blood Peripheral Aerobic Blood Culture Pending Received 08/04/17 01:05 Blood Peripheral Anaerobic Blood Culture Pending Received Result Diagram: 08/04/179908/04/1799 Imaging Last Impressions Ankle X-Ray 08/04/17 0047 Signed Impressions: Service Date/Time: Friday, August 04, 2017 00:54 - CONCLUSION: 1. No acute fracture. Soft tissue swelling of the left ankle. Abnormal periosteal reaction the distal tibia and fibula likely from chronic inflammatory change related to cellulitis and possibly chronic osteomyelitis. See recent prior MRI ankle report. Nasim Thompson MD Assessment and Plan Assessment and Plan MRSA L ankle infected harware and osteo, sp removal of hardware andf mult debridements Treatment failure, recurrent h/o GOLDIE on televancin cont daptomcyin 8-12 mg/kg Fu CKs weekly MRI of the foot Consult Dr Vivienne Cooper,Johanna Bobby MD Aug 04, 2017 10:10
--- NOTE | 2017-08-04 13:09 | HHI.PR ---
Addendum to Inpatient Note Additional Information Pt ween around 1100 Full note to follow - On exam, swollen red L ankle, foot cont dapto ortho eval for surgery Johanna Cooper MD Aug 04, 2017 13:09
[2017-08-04] MEDS ORDERED: GADODIAMIDE PF 287 MG/ML 20 ML VIAL (for RAD MRI) IVCONTRAST ONE (17:59)
[2017-08-04] MEDS: LORazepam 2 MG/ML VIAL IV PUSH PRN (18:41)
--- NOTE | 2017-08-04 19:01 | RADRPT ---
EXAM DATE/TIME: 08/04/2017 17:12 [facility] COMPARISON: MRI ANKLE LEFT W & W/O CONTRAST, May 30, 2017, 8:15. ANKLE LEFT COMPLETE ([id number]), August 04, 017, 0:54. INDICATIONS : Osteomyelitis. Left ankle pain and swelling. CONTRAST: 14 cc Omniscan (gadodiamide) IV MEDICAL HISTORY : Osteomyelitis. SURGICAL HISTORY : Right humeral head repair. ORIF left tib/fib and ankle. ENCOUNTER: Sequela ACUITY: 2 months PAIN SCORE: 4/10 LOCATION: Left ankle. TECHNIQUE: Multiplanar, multisequence MRI examination was performed without contrast and after the intravenous a dministration of gadolinium. FINDINGS: MRI of the left ankle with and without contrast was performed on May 30, 2017 demonstrating multifoc al osteomyelitis involving tibia, fibula, talus, calcaneus, navicular, cuboid and cuneiforms as well as deep soft tissue cellulitis about the calcaneus. On today's examination, there is evidence of some healing of the osteomyelitis involving the calcaneu s with a significant reduction in the area of non-enhancement with in the superior body of the calcan eus and talus. Persistent peripheral enhancement is present characteristic of residual osteomyelitis and cellulitis. In the midfoot, there is some evidence of healing of the osteomyelitis involving the 1st cuneiform hill ne with residual smaller area of non-enhancement. There is persistent enhancement in the soft tissues about the midfoot and hindfoot are characteristic of residual cellulitis. No enhancement within the substance of the dorsal or posterior ankle tendon s. There is loss of the tibiotalar joint space with signal abnormality in the dome of the talus brad acteristic of aseptic necrosis. No collapse of the head however. Field distortion artifact within t he medial malleolus correlates with small metallic fragment seen on conventional radiographs. CONCLUSION: There is persistent osteomyelitis and cellulitis involving the hindfoot and midfoot. When compared t o prior MRI in May 2017, however, the size of the involved areas has decreased. Westley Briones MD on August 04, 2017 at 18:50 Board Certified Radiologist. This report was verified electronically.
[2017-08-05 01:19] VITALS: BP 99/55; PULSE 79; RESP 20; TEMP 97.8; O2SAT 97
[2017-08-05] MEDS: DAPTOmycin INJ 750 MG in SODIUM CHLORIDE 0.9% INJ 100 ML IV SCH (05:03)
[2017-08-05 05:27] VITALS: BP 97/54; PULSE 65; RESP 20; TEMP 97.5; O2SAT 98
[2017-08-05 07:47] VITALS: BP 106/54; PULSE 68; RESP 18; TEMP 97.4; O2SAT 98
[2017-08-05] MEDS: SODIUM CHLOR 0.9% 1000 ML INJ 1,000 ML IV SCH ×3 (08:44→22:15)
[2017-08-05] MEDS: DOCUSATE SODIUM 50 MG/SENNA 8.6 MG TAB PO SCH ×2 (08:52→21:09)
[2017-08-05] MEDS: SODIUM CHLORIDE 0.9% FLUSH 10 ML FLUSH IV FLUSH SCH ×2 (08:57→21:11)
[2017-08-05 09:55] LABS: AUTOMATED NEUTROPHIL # 1.7 TH/MM3 (1.8-7.7); BASOPHIL % 1.3 % (0.0-2.0); EOSINOPHIL # 0.3 TH/MM3 (0-0.4); EOSINOPHIL % 9.3 % (0.0-4.0); HEMO FLAGS DIFF FINAL; LYMPH % 29.1 % (9.0-44.0); LYMPHOCYTE # 1.1 TH/MM3 (1.0-4.8); MEAN CELL VOLUME 80.6 FL (80.0-100.0); MEAN CORPUSCULAR HEMOGLOBIN 26.6 PG (27.0-34.0); MEAN CORPUSCULAR HGB CONC 32.9 % (32.0-36.0); MONO % 12.6 % (0.0-8.0); NEUT % 47.7 % (16.0-70.0); PLATELET COUNT 266 TH/MM3 (150-450); RED BLOOD COUNT 4.22 MIL/MM3 (4.50-5.90); WHITE BLOOD COUNT 3.6 TH/MM3 (4.0-11.0)
[2017-08-05 10:16] LABS: ANION GAP 6 MEQ/L (5-15); AST (GOT) 40 U/L (15-37); BICARBONATE 29.2 MEQ/L (21.0-32.0); BLOOD UREA NITROGEN 7 MG/DL (7-18); CHLORIDE 108 MEQ/L (98-107); GLOMERULAR FILTRATION RATE 91 ML/MIN (>89); POTASSIUM 3.5 MEQ/L (3.5-5.1); SODIUM (NA) 143 MEQ/L (136-145)
[2017-08-05 10:19] LABS: ALKALINE PHOSPHATASE 73 U/L (45-117); ALT (GPT) 64 U/L (12-78); TOTAL BILIRUBIN ADULT 0.3 MG/DL (0.2-1.0)
--- NOTE | 2017-08-05 10:52 | HHI.HP ---
HPI Service [facility] Hospitalists Primary Care Physician No Primary Care Physician Admission Diagnosis cellulitis left ankle, amphetamine abuse Diagnoses: Chief Complaint: SWELLING LEFT ANKLE Travel History International Travel<30 Days: No Contact w/Intl Traveler <30 Da: No Traveled to Known Affected Are: No History of Present Illness The patient is a 37-year-old male with a history of alcohol, cocaine, benzodiazepine and amphetamine abuse who has a red, swollen left ankle for 4 days. 3 days ago, July 31, he went into [facility] emergency department but left AMA after he received vancomycin. The patient has a history of osteomyelitis and septic joint in that ankle. His ankle is been operated on 5 times according to the patient. His last surgery was about 2 months ago. HAS BEEN SEEN BY INFECTIOUS DISEASE LEFT AMA PREVIOUSLY WAS AT [facility] AND TRANSFERRED HERE FOR ID AND ORTHO EVALUATIONS Pt is a 37 y.o. male well know to me from multiple prior admissions He is an IVDUer, initially presented at the end of April when he developped MRSA bacteremia and infected LLE hardware and osteo 2/2 MRSA He required removal of hardware and multiple denbridements and was discharged on televancion Non compliance was reported by infusion clinic [facility] staff was suspecting that pt misused his PICC for IV drugs as well His creatinine went up on televancin and vancomycin and he was switched to daptomycin over concernes of nephrotoxicity He was readmitted again in the end of May and underwent debridement He was discharged on IV abx and presented back with few days of worsening swelling pain and redness Ankle Xray showed Abnormal periosteal reaction the distal tibia and fibula likely from chronic inflammatory change related to cellulitis and possibly chronic osteomyelitis. Pt completed his abx about 2 weeks ago and was doing well He was seen by orthopedist on 07/25 and was told he is doing good However about 5-7 days ago he started to notice returning of pain, swelling and redness and came back He was placed on Daptomycin and noticed already improvement Review of Systems Constitutional: COMPLAINS OF: Fever, Chills, DENIES: Diaphoretic episodes, Fatigue, Weight gain, Weight loss, Dizziness, Change in appetite Endocrine: DENIES: Heat/cold intolerance, Polydipsia, Polyuria, Polyphagia Eyes: DENIES: Blurred vision, Diplopia, Eye inflammation, Photosensitivity, Double Vision Ears, nose, mouth, throat: DENIES: Tinnitus, Hearing loss, Vertigo, Nasal discharge, Throat pain, Hoarseness, Ear Pain, Toothache, Odynophagia Respiratory: DENIES: Apneas, Cough, Snoring, Wheezing, Shortness of breath Cardiovascular: COMPLAINS OF: Lower Extremity Edema, DENIES: Chest pain, Palpitations, Syncope, Dyspnea on Exertion Gastrointestinal: DENIES: Abdominal pain, Black stools, Nausea, Vomiting, Difficulty Swallowing Genitourinary: DENIES: Sexual dysfunction, Urinary frequency, Hematuria, Dysuria Musculoskeletal: COMPLAINS OF: Joint pain, Joint Swelling, DENIES: Muscle aches Integumentary: COMPLAINS OF: Abnormal pigmentation, DENIES: Nail changes Hematologic/lymphatic: DENIES: Bruising, Lymphadenopathy Immunologic/allergic: DENIES: Eczema, Urticaria Neurologic: COMPLAINS OF: Abnormal gait, DENIES: Headache, Localized weakness, Paresthesias, Seizures, Speech Problems, Tremor, Poor Balance Psychiatric: DENIES: Anxiety, Confusion, Mood changes, Depression, Suicidal Ideation, Homicidal Ideation Past Family Social History Past Medical History Depression Anxiety Substance abuse Gait issues Alcohol abuse Cocaine abuse History of right arm repair elbow as well as left ankle repair and removal of hardware secondary to osteomyelitis and infection History of MRSA History of left fibula tibia irrigation debridement on 05/09/17 Left tib-fib osteomyelitis Past Surgical History Left fibula/tibia irrigation debridement 05/09/17 History of right humerus repair in 2007 History of left ankle repair in 2017 Left tib-fib osteomyelitis Reported Medications Reported Meds & Active Scripts Active Reported Percocet (Oxycodone-Acetaminophen) 10-325 mg Tab 1 Tab PO Q4H PRN Klonopin (Clonazepam) 1 Mg Tab 1 Mg PO TID Allergies: Coded Allergies: cat dander (Verified Allergy, Severe, WHEEZING ITCHING, 08/04/17) dog dander (Verified Allergy, Unknown, 08/04/17) *MDRO Multi-Drug Resistant Organism (Verified Adverse Reaction, Unknown, MRSA, 08/04/17) MRSA (blood) - 05/02/17 Active Ordered Medications Current Medications Daptomycin 750 mg/ Sodium Chloride 100 ml @ 200 mls/hr Q24H IV Last administered on 08/05/17 05:03; Start 08/04/17 at 05:00 Lorazepam (Ativan Inj) 1 mg Q2H PRN IV PUSH WITHDRAWAL/AGITATION Last administered on 08/04/17 18:41; Start 08/04/17 at 02:45 Sodium Chloride 1,000 ml @ 100 mls/hr Q10H IV Last administered on 08/05/17 08:44; Start 08/04/17 at 02:44 Sodium Chloride (NS Flush) 2 ml UNSCH PRN IV FLUSH FLUSH AFTER USING IV ACCESS ; Start 08/04/17 at 02:45 Sodium Chloride (NS Flush) 2 ml BID IV FLUSH ; Start 08/04/17 at 09:00 Ondansetron HCl (Zofran Inj) 4 mg Q6H PRN IVP NAUSEA OR VOMITING; Start at 02:45 Acetaminophen (Tylenol) 650 mg Q6H PRN PO FEVER/PAIN SCALE 1 TO 2; Start at 02:45 Oxycodone HCl (Roxicodone) 10 mg Q4H PRN PO PAIN SCALE 6 TO 10 Last administered on 08/05/17 08:53; Start 08/04/17 at 02:45 Oxycodone HCl (Roxicodone) 5 mg Q4H PRN PO PAIN SCALE 3 TO 5; Start 08/04/17 at 02:45 Senna/Docusate Sodium (Amarilis-Colace) 1 tab BID PO Last administered on 08:52; Start 08/04/17 at 09:00 Magnesium Hydroxide (Milk Of Magnesia Liq) 30 ml Q12H PRN PO MILD - MODERATE CONSTIPATION; Start 08/04/17 at 02:45 Sennosides (Senokot) 17.2 mg Q12H PRN PO MODERATE - SEVERE CONSTIPATION; Start 08/04/17 at 02:45 Bisacodyl (Dulcolax Supp) 10 mg DAILY PRN RECTAL SEVERE CONSITIPATION; Start at 02:45 Lactulose (Lactulose Liq) 30 ml DAILY PRN PO SEVERE CONSITIPATION; Start at 02:45 Gadodiamide (Omniscan Pf Inj) 14 ml STK-MED ONCE IVCONTRAST Last administered on 08/04/17t 17:59; Start 08/04/17 at 17:59; Stop 08/04/17 at 18:00; Status DC Family History Possibly some hypertension tobacco and alcohol abuse Social History Tobacco abuse Alcohol abuse on occasion History of cocaine and history of amphetamines and methamphetamines drug abuse history of IV drug abuse Hepatitis C Physical Exam Vital Signs Vital Signs Date Time Temp Pulse Resp B/P (MAP) Pulse Ox O2 Delivery O2 Flow Rate FiO2 08/05/17 10:10 16 08/05/17 07:47 97.4 68 18 106/54 (71) 98 08/05/17 05:27 97.5 65 20 97/54 (68) 98 08/05/17 01:19 97.8 79 20 99/55 (70) 97 08/04/17 21:11 98.1 71 20 105/53 (70) 96 08/04/17 16:03 97.7 77 18 108/57 (74) 98 08/04/17 12:06 97.6 85 20 120/66 (84) 100 Physical Exam GENERAL: AWAKE ALERT AND ORIENTED x3 SKIN: Warm and dry. LEFT LEG FOOT LESS ERYTHEMA AND SWELLING HEAD: Atraumatic. Normocephalic. EYES: Pupils equal and round. No scleral icterus. No injection or drainage. EOMI ENT: No nasal bleeding or discharge. Mucous membranes pink and moist. TONGUE MIDLINE NECK: Trachea midline. No JVD. SUPPLE CARDIOVASCULAR: Regular rate and rhythm. S1,S2 NO S3 OR S4 NO HEAVE OR THRILL OR RUB OR GALLOP RESPIRATORY: No accessory muscle use. Clear to auscultation. Breath sounds equal bilaterally. GASTROINTESTINAL: Abdomen soft, non-tender, nondistended. Hepatic and splenic margins not palpable. MUSCULOSKELETAL: Extremities without clubbing, cyanosis, or edema. No obvious deformities. LEFT FOOT/ANKLE LESS ERYTHEMA AND LESS SWELLING RIGHT UE LARGE OLD WOUND FROM ELBOW REPAIR THAT IS HEALED NEUROLOGICAL: Awake and alert. No obvious cranial nerve deficits. Motor grossly within normal limits. Five out of 5 muscle strength in the arms and legs. Normal speech. PSYCHIATRIC: Appropriate mood and affect; insight and judgment normal. Medications and IVs Laboratory Laboratory Tests Test 08/05/17 08:22 White Blood Count 3.6 Red Blood Count 4.22 Hemoglobin 11.2 Hematocrit 34.0 Mean Corpuscular Volume 80.6 Mean Corpuscular Hemoglobin 26.6 Mean Corpuscular Hemoglobin Concent 32.9 Red Cell Distribution Width 16.0 Platelet Count 266 Mean Platelet Volume 7.1 Neutrophils (%) (Auto) 47.7 Lymphocytes (%) (Auto) 29.1 Monocytes (%) (Auto) 12.6 Eosinophils (%) (Auto) 9.3 Basophils (%) (Auto) 1.3 Neutrophils # (Auto) 1.7 Lymphocytes # (Auto) 1.1 Monocytes # (Auto) 0.5 Eosinophils # (Auto) 0.3 Basophils # (Auto) 0.0 CBC Comment DIFF FINAL Differential Comment Blood Urea Nitrogen 7 Creatinine 0.93 Random Glucose 85 Total Protein 6.5 Albumin 2.8 Calcium Level 8.6 Alkaline Phosphatase 73 Aspartate Amino Transf (AST/SGOT) 40 Alanine Aminotransferase (ALT/SGPT) 64 Total Bilirubin 0.3 Sodium Level 143 Potassium Level 3.5 Chloride Level 108 Carbon Dioxide Level 29.2 Anion Gap 6 Estimat Glomerular Filtration Rate 91 Date/Time Source Procedure Growth Status 08/04/17 01:05 Blood Peripheral Aerobic Blood Culture Pending Received 08/04/17 01:05 Blood Peripheral Anaerobic Blood Culture Pending Received Result Diagram: 08/05/17 0822 08/05/17 0822 Imaging Last Impressions Ankle X-Ray 08/04/17 0047 Signed Impressions: Service Date/Time: Friday, August 04, 2017 00:54 - CONCLUSION: 1. No acute fracture. Soft tissue swelling of the left ankle. Abnormal periosteal reaction the distal tibia and fibula likely from chronic inflammatory change related to cellulitis and possibly chronic osteomyelitis. See recent prior MRI ankle report. Nasim Thompson MD Foot MRI 08/04/17 0000 Signed Impressions: Service Date/Time: Friday, August 04, 2017 17:12 - CONCLUSION: There is persistent osteomyelitis and cellulitis involving the hindfoot and midfoot. When compared to prior MRI in May 2017, however, the size of the involved areas has decreased. MD Vladislav Carrillo VTE Risk Assessment Vladislav VTE Risk Assessment: Mod/High Risk (score >= 2) Caprini Risk Assessment Model Point Value = 1 Point Value = 2 Point Value = 3 Point Value = 5 Age 41-60 Minor surgery BMI > 25 kg/m2 Swollen legs Varicose veins or History of unexplained or recurrent spontaneous Oral contraceptives or hormone replacement Sepsis (< 1 month) Serious lung disease, including pneumonia (< 1 month) Abnormal pulmonary function Acute myocardial infarction Congestive heart failure (< 1 month) History of inflammatory bowel disease Medical patient at bed rest Age 61-74 Arthroscopic surgery Major open surgery (> 45 min) Laparoscopic surgery (> 45 min) Malignancy Confined to bed (> 72 hours) Immobilizing plaster cast Central venous access Age >= 75 History of VTE Family history of VTE Factor V Leiden Prothrombin [id number] Lupus anticoagulant Anticardiolipin antibodies Elevated serum homocysteine Heparin-induced thrombocytopenia Other congenital or acquired thrombophilia Stroke (< 1 month) Elective arthroplasty Hip, pelvis, or leg fracture Acute spinal cord injury (< 1 month) Prophylaxis Regimen Total Risk Factor Score Risk Level Prophylaxis Regimen 0-1 Low Early ambulation 2 Moderate Order ONE of the following: *Sequential Compression Device (SCD) *Heparin 5000 units SQ BID 3-4 Higher Order ONE of the following medications: *Heparin 5000 units SQ TID *Enoxaparin/Lovenox 40 mg SQ daily (WT < 150 kg, CrCl > 30 mL/min) *Enoxaparin/Lovenox 30 mg SQ daily (WT < 150 kg, CrCl > 10-29 mL/min) *Enoxaparin/Lovenox 30 mg SQ BID (WT < 150 kg, CrCl > 30 mL/min) AND/OR *Sequential Compression Device (SCD) 5 or more Highest Order ONE of the following medications: *Heparin 5000 units SQ TID (Preferred with Epidurals) *Enoxaparin/Lovenox 40 mg SQ daily (WT < 150 kg, CrCl > 30 mL/min) *Enoxaparin/Lovenox 30 mg SQ daily (WT < 150 kg, CrCl > 10-29 mL/min) *Enoxaparin/Lovenox 30 mg SQ BID (WT < 150 kg, CrCl > 30 mL/min) AND *Sequential Compression Device (SCD) Assessment and Plan Problem List: (1) IV drug abuse ICD Code: F19.10 - Other psychoactive substance abuse, uncomplicated Status: Chronic (2) Cellulitis of ankle ICD Code: L03.119 - Cellulitis of unspecified part of limb Status: Acute (3) Amphetamine abuse ICD Code: F15.10 - Other stimulant abuse, uncomplicated Status: Acute (4) Hepatitis C ICD Code: B19.20 - Unspecified viral hepatitis C without hepatic coma Status: Acute (5) Septic joint ICD Code: M00.9 - Pyogenic arthritis, unspecified Status: Acute (6) Osteomyelitis ICD Code: M86.9 - Osteomyelitis, unspecified Status: Acute (7) Acute renal insufficiency ICD Code: N28.9 - Disorder of kidney and ureter, unspecified Status: Acute (8) Substance induced mood disorder ICD Code: F19.94 - Other psychoactive substance use, unspecified with psychoactive substance-induced mood disorder Status: Acute Assessment and Plan MRSA L ankle infected harware and osteo, sp removal of hardware and MULTIPLE dbridements Treatment failure, recurrent h/o GOLDIE on televancin cont daptomcyin 8-12 mg/kg FOLLOW CKs weekly MRI of the foot IVDA RECOMMEND CESSATION NONCOMPLIANCE- RECOMMEND STAY IN HOSPITAL UNTIL TREATMENT PLAN SET UP AND COMPLETED TOBACCO- DOES NOT WANT A PATCH History of hepatitis C DW RN AND PT Consult Dr Palafox Continue current antibiotics per infectious disease A.m. labs Code Status Full code Discussed Condition With Discussed with patient and RN and infectious disease Physician Certification 2 Midnight Certification Type: Admission for Inpatient Services Order for Inpatient Services The services are ordered in accordance with Medicare regulations or non- Medicare payer requirements, as applicable. In the case of services not specified as inpatient-only, they are appropriately provided as inpatient services in accordance with the 2-midnight benchmark. Estimated LOS (days): 4 4 days is the estimated time the patient will need to remain in the hospital, assuming treatment plan goals are met and no additional complications. Post-Hospital Plan: Not yet determined Jack Joaquin DO Aug 05, 2017 10:52
[2017-08-05 11:55] VITALS: BP 121/65; PULSE 90; RESP 18; TEMP 98; O2SAT 99
[2017-08-05] MEDS: FAMOTIDINE 20 MG TAB PO SCH ×2 (12:09→21:09)
[2017-08-05] MEDS: ENOXAPARIN SODIUM 40 MG/0.4 ML SYRINGE SQ SCH (12:09)
[2017-08-05] MEDS: LORazepam 2 MG/ML VIAL IV PUSH PRN (12:10)
[2017-08-05 15:28] VITALS: BP 118/65; PULSE 80; RESP 18; TEMP 97.7; O2SAT 98
--- NOTE | 2017-08-05 19:13 | MB ---
cc: JOCELYNE VALENZUELA M.D. DATE OF CONSULTATION 08/05/2017 REASON FOR CONSULTATION Recurrent osteomyelitis left ankle. HISTORY OF PRESENT ILLNESS Suly Vasquez is a 37-year-old male who has had multiple operations on his left ankle and hind foot for initially a fracture and then subsequently an infectious process. He has had prior hardware removal and debridement to the left ankle multiple times. He just finished his course of antibiotic treatment and was seen by Dr. Palafox in the office less than a week ago. At that point the swelling had gone down and the patient was returning to work and he did go back to work. 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 He is having increasing pain and swelling, it became quite enlarged and therefore he presented to [facility]. His white blood cell count was 5.8 but with the degree of swelling this appeared to be a recurrent infectious process. He was admitted and placed on IV antibiotics Daptomycin and he states that the swelling has been going down. I tried to evaluate him yesterday but he was in the CT scan and I discussed the case with the nurse at that time. PAST MEDICAL HISTORY Significant for: 1. Anxiety and depression. 2. Past history of IV drug use. 3. Multiple surgeries to the left ankle. SOCIAL HISTORY Positive for tobacco occasionally. Denies current tobacco and drug use. ALLERGIES HE REPORTS ALLERGY TO CAT AND DOG DANDER. MEDICATIONS His other medications include: 1. Percocet. 2. Klonopin. PHYSICAL EXAMINATION EXTREMITIES: Physical examination shows marked limitation of the left ankle joint with only about 10 degrees of motion, 10 degrees plantar flexion in neutral and supination and pronation / inversion eversion is minimal. He has some mild diffuse erythema of the ankle. His pulse is intact. NEUROLOGIC: Examination is intact. IMAGING MRI scan is reviewed which reveals abnormal signal in the ankle and subtalar joint and in the surrounding bone. There is a comparative MRI, the radiologist read is persistent osteomyelitis and cellulitis involving the hindfoot and midfoot but does report that it has decreased in size. ASSESSMENT Recurrent osteomyelitis, left ankle. MEDICAL DECISION MAKING His condition was discussed. Options of treatment were discussed. 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 He does appear to be responding to not having weight on it and being on the IV antibiotics. The patient is known well to my partner Dr. Dillon Palafox and I will request that he take over the management. In the meantime we will continue with the current IV antibiotic management which had been initiated. All discussed with the patient and all of his questions were answered. MD NEY Pacheco/KK /3:29 PM /7:00 PM
[2017-08-05 20:11] VITALS: BP 107/63; PULSE 74; RESP 16; TEMP 98; O2SAT 97
[2017-08-06] MEDS: LORazepam 2 MG/ML VIAL IV PUSH PRN (00:33)
[2017-08-06 01:08] VITALS: BP 117/66; PULSE 50; RESP 16; TEMP 98; O2SAT 99
[2017-08-06] MEDS: DAPTOmycin INJ 750 MG in SODIUM CHLORIDE 0.9% INJ 100 ML IV SCH (04:54)
--- NOTE | 2017-08-06 07:19 | PD.ORT.PN ---
Subjective Subjective Remarks s/p left ankle infection with removal of HW and serial I&Ds patient was at work for 2 days and reported significant swelling and redness reports that has improved over weekend and is doing better currently. had completed Abx therapy approx 1-2wks prior to flare up Objective Vitals Vital Signs Date Time Temp Pulse Resp B/P (MAP) Pulse Ox O2 Delivery O2 Flow Rate FiO2 08/06/17 01:08 98.0 50 16 117/66 (83) 99 08/05/17 20:11 98.0 74 16 107/63 (78) 97 08/05/17 15:28 97.7 80 18 118/65 (82) 98 08/05/17 11:55 98.0 90 18 121/65 (83) 99 08/05/17 10:10 16 08/05/17 07:47 97.4 68 18 106/54 (71) 98 I/O 08/05/17 08/05/17 08/05/17 08/06/17 08/06/17 08/06/17 07:00 15:00 23:00 07:00 15:00 23:00 Intake Total 1960 ml 1160 ml Output Total 1400 ml 1100 ml 400 ml 1300 ml Balance -1400 ml 860 ml -400 ml -140 ml Intake Oral 1960 ml 480 ml IV Total 680 ml Output Urine Total 1400 ml 1100 ml 400 ml 1300 ml Result Diagram: 08/05/1782108/05/17821 Objective Remarks LLE: moderately swollen. no significant erythema. limited motion of ankle due to stiffness. nvi. Assessment & Plan Assessment and Plan 1) Left Ankle infection -WBAT -MRI reviewed. no abscess present. infection appears to be residual osteomyelitis deep within midfoot and hindfoot bones -would not recommend surgical intervention at this point -continue Abx therapy per Infectious Dz Leonid Vivas Aug 06, 2017 07:19
[2017-08-06 08:00] VITALS: BP 113/69; PULSE 62; RESP 20; TEMP 98.3; O2SAT 92
[2017-08-06] MEDS: SODIUM CHLORIDE 0.9% FLUSH 10 ML FLUSH IV FLUSH SCH ×2 (09:00→21:00)
[2017-08-06 09:16] LABS: AUTOMATED NEUTROPHIL # 2.6 TH/MM3 (1.8-7.7); BASOPHIL # 0.1 TH/MM3 (0-0.2); BASOPHIL % 1.1 % (0.0-2.0); EOSINOPHIL # 0.3 TH/MM3 (0-0.4); HEMATOCRIT 34.7 % (39.0-51.0); HEMO FLAGS DIFF FINAL; LYMPHOCYTE # 1.4 TH/MM3 (1.0-4.8); MEAN CELL VOLUME 80.9 FL (80.0-100.0); MEAN CORPUSCULAR HEMOGLOBIN 26.8 PG (27.0-34.0); MEAN CORPUSCULAR HGB CONC 33.2 % (32.0-36.0); MONO % 11.7 % (0.0-8.0); NEUT % 52.2 % (16.0-70.0); PLATELET COUNT 320 TH/MM3 (150-450); RED BLOOD COUNT 4.29 MIL/MM3 (4.50-5.90); RED CELL DISTRIBUTION WIDTH 16.3 % (11.6-17.2); WHITE BLOOD COUNT 4.9 TH/MM3 (4.0-11.0)
[2017-08-06] MEDS: DOCUSATE SODIUM 50 MG/SENNA 8.6 MG TAB PO SCH ×2 (09:33→21:00)
[2017-08-06] MEDS: FAMOTIDINE 20 MG TAB PO SCH ×2 (09:33→23:17)
[2017-08-06 09:36] LABS: ANION GAP 5 MEQ/L (5-15); BICARBONATE 31.9 MEQ/L (21.0-32.0); BLOOD UREA NITROGEN 6 MG/DL (7-18); CHLORIDE 107 MEQ/L (98-107); GLOMERULAR FILTRATION RATE 85 ML/MIN (>89); MAGNESIUM 1.7 MG/DL (1.5-2.5); POTASSIUM 3.9 MEQ/L (3.5-5.1); SODIUM (NA) 144 MEQ/L (136-145)
[2017-08-06 09:37] LABS: AST (GOT) 28 U/L (15-37)
[2017-08-06 09:47] LABS: ALKALINE PHOSPHATASE 72 U/L (45-117); ALT (GPT) 57 U/L (12-78); FREE T4 1.02 NG/DL (0.76-1.46); TOTAL BILIRUBIN ADULT 0.2 MG/DL (0.2-1.0)
[2017-08-06] MEDS: SODIUM CHLOR 0.9% 1000 ML INJ 1,000 ML IV SCH ×2 (09:58→23:17)
--- NOTE | 2017-08-06 11:43 | HHI.PR ---
Subjective Remarks Follow up osteomyelitis. Patient states that his left ankle feels much better today. Swelling has improved. Still painful, but less today. Objective Vitals Vital Signs Date Time Temp Pulse Resp B/P (MAP) Pulse Ox O2 Delivery O2 Flow Rate FiO2 08/06/17 08:00 98.3 62 20 113/69 (84) 92 08/06/17 01:08 98.0 50 16 117/66 (83) 99 08/05/17 20:11 98.0 74 16 107/63 (78) 97 08/05/17 15:28 97.7 80 18 118/65 (82) 98 08/05/17 11:55 98.0 90 18 121/65 (83) 99 I/O 08/05/17 08/05/17 08/05/17 08/06/17 08/06/17 08/06/17 07:00 15:00 23:00 07:00 15:00 23:00 Intake Total 1960 ml 1160 ml Output Total 1400 ml 1100 ml 400 ml 1300 ml 800 ml Balance -1400 ml 860 ml -400 ml -140 ml -800 ml Intake Oral 1960 ml 480 ml IV Total 680 ml Output Urine Total 1400 ml 1100 ml 400 ml 1300 ml 800 ml Result Diagram: 08/06/17 0818 08/06/1718 Imaging Last Impressions Ankle X-Ray 08/04/17 0047 Signed Impressions: Service Date/Time: Friday, August 04, 2017 00:54 - CONCLUSION: 1. No acute fracture. Soft tissue swelling of the left ankle. Abnormal periosteal reaction the distal tibia and fibula likely from chronic inflammatory change related to cellulitis and possibly chronic osteomyelitis. See recent prior MRI ankle report. Nasim Thompson MD Foot MRI 08/04/17 0000 Signed Impressions: Service Date/Time: Friday, August 04, 2017 17:12 - CONCLUSION: There is persistent osteomyelitis and cellulitis involving the hindfoot and midfoot. When compared to prior MRI in May 2017, however, the size of the involved areas has decreased. Westley Briones MD Objective Remarks General: No acute distress. Heart: Regular rate and rhythm. No murmur. Lungs: Clear to auscultation bilaterally. No wheezes, rales, or rhonchi. Breathing is nonlabored. Abdomen: Soft, nontender, nondistended. Extremities: Left ankle swollen. Psych: Alert and oriented. Procedures None Urinary Catheter: No Vascular Central Line Catheter: No A/P Problem List: (1) IV drug abuse ICD Code: F19.10 - Other psychoactive substance abuse, uncomplicated Status: Chronic (2) Cellulitis of ankle ICD Code: L03.119 - Cellulitis of unspecified part of limb Status: Acute (3) Amphetamine abuse ICD Code: F15.10 - Other stimulant abuse, uncomplicated Status: Acute (4) Hepatitis C ICD Code: B19.20 - Unspecified viral hepatitis C without hepatic coma Status: Acute (5) Septic joint ICD Code: M00.9 - Pyogenic arthritis, unspecified Status: Acute (6) Osteomyelitis ICD Code: M86.9 - Osteomyelitis, unspecified Status: Acute (7) Acute renal insufficiency ICD Code: N28.9 - Disorder of kidney and ureter, unspecified Status: Acute (8) Substance induced mood disorder ICD Code: F19.94 - Other psychoactive substance use, unspecified with psychoactive substance-induced mood disorder Status: Acute Assessment and Plan 1. Osteomyelitis, left ankle: History of infected hardware and osteomyelitis. Status post removal of hardware and multiple debridements. Culture has previously grown MRSA. Continue antibiotics. Appreciate infectious disease recommendations. On daptomycin. 2. IV drug abuse: Counseled to quit. 3. Tobacco abuse: Counseled. Does not nicotine patch at this time. 4. DVT prophylaxis: Lovenox. Ravi Zavala MD Aug 06, 2017 11:43
[2017-08-06 12:00] VITALS: BP 108/58; PULSE 61; RESP 20; TEMP 97.9; O2SAT 98
[2017-08-06] MEDS: ENOXAPARIN SODIUM 40 MG/0.4 ML SYRINGE SQ SCH (15:31)
[2017-08-06 16:00] VITALS: BP 108/63; PULSE 73; RESP 20; TEMP 98; O2SAT 98
[2017-08-06 16:44] LABS: HEMOGLOBIN A1b 1.5 %; HEMOGLOBIN Ao 85.5 %; HEMOGLOBIN LA1C 2.1 %; HEMOGLOBIN P3 5.4 %
[2017-08-06 20:00] VITALS: BP 123/61; PULSE 75; RESP 18; TEMP 98.9; O2SAT 100
[2017-08-07] VITALS: BP 112/64; PULSE 60; RESP 18; TEMP 98.2; O2SAT 98
[2017-08-07 04:00] VITALS: BP 107/61; PULSE 52; RESP 18; TEMP 97.7; O2SAT 99
[2017-08-07] MEDS: DAPTOmycin INJ 750 MG in SODIUM CHLORIDE 0.9% INJ 100 ML IV SCH (05:29)
[2017-08-07 08:00] VITALS: BP 102/59; PULSE 62; RESP 18; TEMP 97.7; O2SAT 97
[2017-08-07] MEDS: FAMOTIDINE 20 MG TAB PO SCH ×2 (09:01→21:18)
[2017-08-07] MEDS: SODIUM CHLORIDE 0.9% FLUSH 10 ML FLUSH IV FLUSH SCH ×2 (09:01→21:00)
[2017-08-07] MEDS: DOCUSATE SODIUM 50 MG/SENNA 8.6 MG TAB PO SCH ×2 (09:03→21:18)
--- NOTE | 2017-08-07 10:01 | HHI.PR ---
Subjective Remarks Follow up left ankle infection. Patient states that the ankle feels "about the same". Still painful, but swelling improved since admission. Objective Vitals Vital Signs Date Time Temp Pulse Resp B/P (MAP) Pulse Ox O2 Delivery O2 Flow Rate FiO2 08/07/17 08:00 97.7 62 18 102/59 (73) 97 08/07/17 04:00 97.7 52 18 107/61 (76) 99 08/07/17 00:00 98.2 60 18 112/64 (80) 98 08/06/17 20:00 98.9 75 18 123/61 (81) 100 08/06/17 16:00 98.0 73 20 108/63 (78) 98 08/06/17 12:00 97.9 61 20 108/58 (75) 98 I/O 08/06/17 08/06/17 08/06/17 08/07/17 08/07/17 08/07/17 07:00 15:00 23:00 07:00 15:00 23:00 Intake Total 1160 ml 100 ml Output Total 1300 ml 800 ml Balance -140 ml -800 ml 100 ml Intake Oral 480 ml IV Total 680 ml 100 ml Output Urine Total 1300 ml 800 ml Result Diagram: 08/06/1718 08/06/1718 Imaging Last Impressions Ankle X-Ray 08/04/17 0047 Signed Impressions: Service Date/Time: Friday, August 04, 2017 00:54 - CONCLUSION: 1. No acute fracture. Soft tissue swelling of the left ankle. Abnormal periosteal reaction the distal tibia and fibula likely from chronic inflammatory change related to cellulitis and possibly chronic osteomyelitis. See recent prior MRI ankle report. Nasim Thompson MD Foot MRI 08/04/17 0000 Signed Impressions: Service Date/Time: Friday, August 04, 2017 17:12 - CONCLUSION: There is persistent osteomyelitis and cellulitis involving the hindfoot and midfoot. When compared to prior MRI in May 2017, however, the size of the involved areas has decreased. Westley Briones MD Objective Remarks General: No acute distress. Heart: Regular rate and rhythm. No murmur. Lungs: Clear to auscultation bilaterally. No wheezes, rales, or rhonchi. Breathing is nonlabored. Abdomen: Soft, nontender, nondistended. Extremities: Left ankle swollen. Psych: Alert and oriented. Procedures None Urinary Catheter: No Vascular Central Line Catheter: No A/P Problem List: (1) IV drug abuse ICD Code: F19.10 - Other psychoactive substance abuse, uncomplicated Status: Chronic (2) Cellulitis of ankle ICD Code: L03.119 - Cellulitis of unspecified part of limb Status: Acute (3) Amphetamine abuse ICD Code: F15.10 - Other stimulant abuse, uncomplicated Status: Acute (4) Hepatitis C ICD Code: B19.20 - Unspecified viral hepatitis C without hepatic coma Status: Acute (5) Septic joint ICD Code: M00.9 - Pyogenic arthritis, unspecified Status: Acute (6) Osteomyelitis ICD Code: M86.9 - Osteomyelitis, unspecified Status: Acute (7) Acute renal insufficiency ICD Code: N28.9 - Disorder of kidney and ureter, unspecified Status: Acute (8) Substance induced mood disorder ICD Code: F19.94 - Other psychoactive substance use, unspecified with psychoactive substance-induced mood disorder Status: Acute Assessment and Plan 08/07/17: No change. Continue antibiotics. No surgery at this time per Orthopedics. Awaiting further recommendations from infectious disease. 1. Osteomyelitis, left ankle: History of infected hardware and osteomyelitis. Status post removal of hardware and multiple debridements. Culture has previously grown MRSA. Continue antibiotics. Appreciate infectious disease recommendations. On daptomycin. 2. IV drug abuse: Counseled to quit. 3. Tobacco abuse: Counseled. Does not nicotine patch at this time. 4. DVT prophylaxis: Lovenox. Ravi Zavala MD Aug 07, 2017 10:01
[2017-08-07] MEDS: ENOXAPARIN SODIUM 40 MG/0.4 ML SYRINGE SQ SCH (11:57)
[2017-08-07 12:00] VITALS: BP 124/62; PULSE 57; RESP 18; TEMP 97.9; O2SAT 98
[2017-08-07] MEDS: LORazepam 2 MG/ML VIAL IV PUSH PRN (12:09)
[2017-08-07] MEDS ORDERED: CRUTMIS26 (13:57)
[2017-08-07 16:00] VITALS: BP 105/60; PULSE 66; RESP 18; TEMP 98.1; O2SAT 98
[2017-08-07 20:00] VITALS: BP 105/53; PULSE 57; RESP 18; TEMP 98.1; O2SAT 99
[2017-08-08] VITALS: BP 103/56; PULSE 55; RESP 18; TEMP 98; O2SAT 97
[2017-08-08 04:00] VITALS: BP 101/59; PULSE 54; RESP 18; TEMP 98; O2SAT 98
[2017-08-08] MEDS: DAPTOmycin INJ 750 MG in SODIUM CHLORIDE 0.9% INJ 100 ML IV SCH (04:53)
--- NOTE | 2017-08-08 07:05 | PD.ORT.PN ---
Subjective Subjective Remarks s/p left ankle infection with removal of HW and serial I&Ds patient reports that ankle slightly improved. states still sore but not getting worse. has started Abx Objective Vitals Vital Signs Date Time Temp Pulse Resp B/P (MAP) Pulse Ox O2 Delivery O2 Flow Rate FiO2 08/08/17 04:00 98.0 54 18 101/59 (73) 98 08/08/17 00:00 98.0 55 18 103/56 (72) 97 08/07/17 20:00 98.1 57 18 105/53 (70) 99 08/07/17 16:00 98.1 66 18 105/60 (75) 98 08/07/17 12:00 97.9 57 18 124/62 (82) 98 08/07/17 08:00 97.7 62 18 102/59 (73) 97 I/O 08/07/17 08/07/17 08/07/17 08/08/17 08/08/17 08/08/17 07:00 15:00 23:00 07:00 15:00 23:00 Intake Total 100 ml 720 ml Output Total 1500 ml Balance 100 ml -780 ml Intake Oral 720 ml IV Total 100 ml Output Urine Total 1500 ml # Voids 3 1 Result Diagram: 08/06/1781708/06/17817 Objective Remarks LLE: moderately swollen. no significant erythema. limited motion of ankle due to stiffness. nvi. Assessment & Plan Assessment and Plan 1) Left Ankle infection -WBAT -continue medical management -would not recommend surgical intervention at this point -continue Abx therapy per Infectious Dz -as long as ankle not worsening, would not anticipate any surgical intervention Leonid Vivas Aug 08, 2017 07:05
[2017-08-08 08:44] VITALS: BP 106/61; PULSE 58; RESP 18; TEMP 97.8; O2SAT 98
[2017-08-08] MEDS: LORazepam 2 MG/ML VIAL IV PUSH PRN (09:31)
[2017-08-08] MEDS: SODIUM CHLORIDE 0.9% FLUSH 10 ML FLUSH IV FLUSH SCH ×2 (09:33→22:43)
[2017-08-08] MEDS: FAMOTIDINE 20 MG TAB PO SCH ×2 (09:33→22:16)
[2017-08-08] MEDS: DOCUSATE SODIUM 50 MG/SENNA 8.6 MG TAB PO SCH ×2 (09:33→22:16)
[2017-08-08 12:25] VITALS: BP 98/55; PULSE 60; RESP 18; TEMP 98; O2SAT 97
--- NOTE | 2017-08-08 14:51 | HHI.PR ---
Subjective Remarks Follow-up left ankle infection. Patient reports that the swelling continues to improve. Less pain today. No cough, dyspnea, chest pain. Objective Vitals Vital Signs Date Time Temp Pulse Resp B/P (MAP) Pulse Ox O2 Delivery O2 Flow Rate FiO2 08/08/17 12:25 98.0 60 18 98/55 (69) 97 08/08/17 08:44 97.8 58 18 106/61 (76) 98 08/08/17 04:00 98.0 54 18 101/59 (73) 98 08/08/17 00:00 98.0 55 18 103/56 (72) 97 08/07/17 20:00 98.1 57 18 105/53 (70) 99 08/07/17 16:00 98.1 66 18 105/60 (75) 98 I/O 08/07/17 08/07/17 08/07/17 08/08/17 08/08/17 08/08/17 07:00 15:00 23:00 07:00 15:00 23:00 Intake Total 100 ml 720 ml 240 ml Output Total 1500 ml 200 ml Balance 100 ml -780 ml 40 ml Intake Oral 720 ml 240 ml IV Total 100 ml Output Urine Total 1500 ml 200 ml # Voids 3 1 Result Diagram: 08/06/1781708/06/17817 Imaging Last Impressions Ankle X-Ray 08/04/17 0047 Signed Impressions: Service Date/Time: Friday, August 04, 2017 00:54 - CONCLUSION: 1. No acute fracture. Soft tissue swelling of the left ankle. Abnormal periosteal reaction the distal tibia and fibula likely from chronic inflammatory change related to cellulitis and possibly chronic osteomyelitis. See recent prior MRI ankle report. Nasim Thompson MD Foot MRI 08/04/17 0000 Signed Impressions: Service Date/Time: Friday, August 04, 2017 17:12 - CONCLUSION: There is persistent osteomyelitis and cellulitis involving the hindfoot and midfoot. When compared to prior MRI in May 2017, however, the size of the involved areas has decreased. Westley Briones MD Objective Remarks General: No acute distress. Heart: Regular rate and rhythm. No murmur. Lungs: Clear to auscultation bilaterally. No wheezes, rales, or rhonchi. Breathing is nonlabored. Abdomen: Soft, nontender, nondistended. Extremities: Left ankle slightly less swollen. Psych: Alert and oriented. Procedures None Urinary Catheter: No Vascular Central Line Catheter: No A/P Problem List: (1) IV drug abuse ICD Code: F19.10 - Other psychoactive substance abuse, uncomplicated Status: Chronic (2) Cellulitis of ankle ICD Code: L03.119 - Cellulitis of unspecified part of limb Status: Acute (3) Amphetamine abuse ICD Code: F15.10 - Other stimulant abuse, uncomplicated Status: Acute (4) Hepatitis C ICD Code: B19.20 - Unspecified viral hepatitis C without hepatic coma Status: Acute (5) Septic joint ICD Code: M00.9 - Pyogenic arthritis, unspecified Status: Acute (6) Osteomyelitis ICD Code: M86.9 - Osteomyelitis, unspecified Status: Acute (7) Acute renal insufficiency ICD Code: N28.9 - Disorder of kidney and ureter, unspecified Status: Acute (8) Substance induced mood disorder ICD Code: F19.94 - Other psychoactive substance use, unspecified with psychoactive substance-induced mood disorder Status: Acute Assessment and Plan 08/08/17: Slight improvement in swelling and pain. Continue antibiotics. No surgery at this time per Orthopedics. Awaiting further recommendations from infectious disease. Will likely need long-term antibiotics. 1. Osteomyelitis, left ankle: History of infected hardware and osteomyelitis. Status post removal of hardware and multiple debridements. Culture has previously grown MRSA. Continue antibiotics. Appreciate infectious disease recommendations. On daptomycin. 2. IV drug abuse: Counseled to quit. 3. Tobacco abuse: Counseled. Does not nicotine patch at this time. 4. DVT prophylaxis: Lovenox. Problem Qualifiers (1) Osteomyelitis: Qualified Codes: M86.9 - Osteomyelitis, unspecified Ravi Zavala MD Aug 08, 2017 14:51
--- NOTE | 2017-08-08 14:53 | HHI.IDPN ---
Subjective Subjective Remarks doing better pain, redness and swelling improved no fever ortho not planning any surgical intervention Antibiotics daptomcin Allergies: Coded Allergies: cat dander (Verified Allergy, Severe, WHEEZING ITCHING, 08/04/17) dog dander (Verified Allergy, Unknown, 08/04/17) *MDRO Multi-Drug Resistant Organism (Verified Adverse Reaction, Unknown, MRSA, 08/04/17) MRSA (blood) - 05/02/17 Objective . Vital Signs Date Time Temp Pulse Resp B/P (MAP) Pulse Ox O2 Delivery O2 Flow Rate FiO2 08/08/17 12:25 98.0 60 18 98/55 (69) 97 08/08/17 08:44 97.8 58 18 106/61 (76) 98 08/08/17 04:00 98.0 54 18 101/59 (73) 98 08/08/17 00:00 98.0 55 18 103/56 (72) 97 08/07/17 20:00 98.1 57 18 105/53 (70) 99 08/07/17 16:00 98.1 66 18 105/60 (75) 98 08/08/17 08/08/17 08/09/17 15:00 23:00 07:00 Intake Total 240 ml Output Total 200 ml Balance 40 ml Intake Oral 240 ml Output Urine Total 200 ml . Laboratory Tests Test 08/07/17 10:40 Erythrocyte Sedimentation Rate 21 mm/hr Imaging Last Impressions Ankle X-Ray 08/04/17 0047 Signed Impressions: Service Date/Time: Friday, August 04, 2017 00:54 - CONCLUSION: 1. No acute fracture. Soft tissue swelling of the left ankle. Abnormal periosteal reaction the distal tibia and fibula likely from chronic inflammatory change related to cellulitis and possibly chronic osteomyelitis. See recent prior MRI ankle report. Nasim Thompson MD Foot MRI 08/04/17 0000 Signed Impressions: Service Date/Time: Friday, August 04, 2017 17:12 - CONCLUSION: There is persistent osteomyelitis and cellulitis involving the hindfoot and midfoot. When compared to prior MRI in May 2017, however, the size of the involved areas has decreased. Westley Briones MD Physical Exam CONSTITUTIONAL/GENERAL: This is an adequately nourished patient, in no apparent distress. TUBES/LINES/DRAINS: SKIN: No jaundice, rashes, or lesions. CARDIOVASCULAR: Regular rate and rhythm without murmurs, gallops, or rubs. No JVD. Peripheral pulses symmetric. GASTROINTESTINAL: Abdomen soft, non-tender, nondistended. MUSCULOSKELETAL: Extremities without clubbing, cyanosis, L foot is much less edematous, not erythematous, some fullness still present Incisins are well healed no fluctuance or drainage not tender NEUROLOGICAL: Awake and alert.non focal PSYCHIATRIC: No obvious anxiety/depression. no apparent hallucinations or other psychotic thought process. Assessment & Plan Remarks Chronic osteomyelitis MRSA L ankle infected harware and osteo, sp removal of hardware andf mult debridements recurrent h/o GOLDIE on televancin cont daptomcyin 8-12 mg/kg x 6 weeks, then chronic suppression with oral abx Will need fu at [facility] clinic, blue card Fu CKs weekly PICC OPAT forms Johanna Cooper MD Aug 08, 2017 14:53
--- NOTE | 2017-08-08 14:54 | HHI.FF ---
Infusion Therapy Location of Infusion Therapy: Ambulatory Infusion Therapy Order Patient Information Patient Weight 72.9 kg Diagnosis: Diagnosis chronic osteo, L foot Coded Allergies: cat dander (Verified Allergy, Severe, WHEEZING ITCHING, 08/04/17) dog dander (Verified Allergy, Unknown, 08/04/17) *MDRO Multi-Drug Resistant Organism (Verified Adverse Reaction, Unknown, MRSA, 08/04/17) MRSA (blood) - 05/02/17 Administer Medication Daptomycin q 24 hours 750 mg IV Start Treatment: Aug 08, 2017 Stop Treatment: Sep 17, 2017 Additional Information Venous access: PICC Line Additional Instructions [x] Peripheral flush and dressing changes per protocol [x] Implanted port and central supervisor line department: * Implanted port: 10 ml Normal Saline followed by 5 ml Heparin 100 units/ml Heparin flush after each use and monthly to maintain. [] May leave port accessed during therapy. [] May leave peripheral site accessed for duration of therapy. [x] If patient has SOB or respiratory distress, check oxygen saturation. If less than 90% or clinical signs of respiratory distress, administer oxygen at 2 L/min. via nasal cannula and notify physician. [x] Anaphylaxis/Reaction orders: * Stop infusion. * Keep IV line open with saline flush. * Notify physician. * Monitor vital signs every 15 minutes until symptoms resolve. * Check Oxygen saturation; Oxygen at 2 L/min. via nasal cannula if less than 90% or clinical signs of respiratory distress. * Administer diphenhydramine (Benadryl) 25 mg IV STAT, (unless patient has received as pre-med). May repeat once, if necessary. * Solu-Cortef 250 mg IVP over 30-60 seconds, use 100 mg vials for each dissolution. * Epinephrine (1mg/1 ml) 0.3 mg subcutaneously or IVP now with any signs of respiratory distress. * Check with physician for new additional pre-med orders if patient is re- challenged or re-treated. [x] May remove PICC line when treatment complete, after confirming with Physician. [x] If the patient is admitted to the hospital, the ED, or transferred via [facility] , complete transfer form including medication reconciliation order sheet. Laboratory Tests Weekly Labs: CBC w/diff, Creatinine, LFT's (Hepatic function test), SED Rate, Serum CK Levels Johanna Cooper MD Aug 08, 2017 14:54
[2017-08-08] MEDS: ENOXAPARIN SODIUM 40 MG/0.4 ML SYRINGE SQ SCH (14:56)
[2017-08-08 17:06] VITALS: BP 110/67; PULSE 63; RESP 18; TEMP 97.8; O2SAT 98
[2017-08-08 20:00] VITALS: BP 108/53; PULSE 57; RESP 20; TEMP 98.4; O2SAT 98
[2017-08-09] VITALS: BP 105/58; PULSE 55; RESP 20; TEMP 98.1; O2SAT 99
[2017-08-09 04:00] VITALS: BP 105/63; PULSE 56; RESP 20; TEMP 98.2; O2SAT 98
[2017-08-09] MEDS: DAPTOmycin INJ 750 MG in SODIUM CHLORIDE 0.9% INJ 100 ML IV SCH (04:33)
[2017-08-09 08:51] VITALS: BP 100/63; PULSE 56; RESP 18; TEMP 98.3; O2SAT 99
[2017-08-09] MEDS: DOCUSATE SODIUM 50 MG/SENNA 8.6 MG TAB PO SCH (09:00)
[2017-08-09] MEDS: FAMOTIDINE 20 MG TAB PO SCH (09:31)
[2017-08-09] MEDS: SODIUM CHLORIDE 0.9% FLUSH 10 ML FLUSH IV FLUSH SCH (09:33)
[2017-08-09] MEDS ORDERED: DAPT500P IV (11:19)
[2017-08-09] MEDS ORDERED: CLIN1CAP6 PO (11:19)
[2017-08-09] MEDS ORDERED: DOXY100C PO (11:19)
[2017-08-09] MEDS ORDERED: SOLU250I IV PUSH (11:19)
[2017-08-09] MEDS ORDERED: EPIN1INJ21 SQ (11:19)
[2017-08-09] MEDS ORDERED: EPIN1INJ21 IV PUSH (11:19)
--- NOTE | 2017-08-09 11:31 | HHI.PR ---
Addendum to Inpatient Note Additional Information will cont daptomycin x 6 weeks IV followed by clindamycin 600 po mg tid x 4 weeks (fu CBC weekly while on clinda) After that he need to be on doxycyline 100 mg PO BID chronic suppresive therapy for several months, maximally up to 6 mos. He will need to be followed on a regular basis with PCP and ortho untill treatment is completed In case of failure during or after tx pt will need to have more surgeries Risk for recurrence is high Also pt needs to have REGULAR blood work and PCP visits to monitor for treatment side effects and progress OK to dc home after treatment and follow up ([facility] ?) arranged dw Johanna Christianson MD Aug 09, 2017 11:12
[2017-08-09] MEDS: ENOXAPARIN SODIUM 40 MG/0.4 ML SYRINGE SQ SCH (11:40)
--- NOTE | 2017-08-09 12:19 | RADRPT ---
EXAM DATE/TIME: 08/09/2017 11:42 [facility] COMPARISON: CHEST SINGLE AP, May 25, 2017, 9:59. INDICATIONS : PICC line placement. MEDICAL HISTORY : Osteomyelitis. SURGICAL HISTORY : Right humeral head repair. ORIF left tib/fib and ankle. ENCOUNTER: Initial ACUITY: 1 day PAIN SCORE: 0/10 LOCATION: Bilateral chest FINDINGS: A single view of the chest demonstrates the lungs to be symmetrically aerated without evidence of mas s, infiltrate or effusion. The cardiomediastinal contours are unremarkable. Osseous structures are intact. PICC line tip in the proximal superior vena cava. CONCLUSION: The lungs are clear. Westley Briones MD on August 09, 2017 at 12:17 Board Certified Radiologist. This report was verified electronically.
[2017-08-09] MEDS ORDERED: SODIUM CHLORIDE 0.9% FLUSH 10 ML FLUSH IV FLUSH PRN (12:45)
--- NOTE | 2017-08-09 13:22 | HHI.DCPOC ---
Discharge Care Plan Diagnosis: (1) Osteomyelitis Goals to Promote Your Health * To prevent worsening of your condition and complications * To maintain your health at the optimal level Directions to Meet Your Goals Take your medications as prescribed Follow your dietary instruction Follow activity as directed Keep your appointments as scheduled Take your immunizations and boosters as scheduled If your symptoms worsen call your PCP, if no PCP go to Urgent Care Center or Emergency Room Smoking is Dangerous to Your Health. Avoid second hand smoke Call the 24-hour hour crisis hotline for domestic abuse at Ravi Zavala MD Aug 09, 2017 13:22
--- NOTE | 2017-08-09 13:24 | HHI.DS ---
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 - Other stimulant abuse, uncomplicated Status: Acute (4) Hepatitis C ICD Code: B19.20 - Unspecified viral hepatitis C without hepatic coma Status: Acute (5) Septic joint ICD Code: M00.9 - Pyogenic arthritis, unspecified Status: Acute (6) Osteomyelitis ICD Code: M86.9 - Osteomyelitis, unspecified Status: Acute (7) Acute renal insufficiency ICD Code: N28.9 - Disorder of kidney and ureter, unspecified Status: Acute (8) Substance induced mood disorder ICD Code: F19.94 - Other psychoactive substance use, unspecified with psychoactive substance-induced mood disorder Status: Acute Procedures None Brief History - From Admission The patient is a 37-year-old male with a history of alcohol, cocaine, benzodiazepine and amphetamine abuse who has a red, swollen left ankle for 4 days. 3 days ago, July 31, he went into [facility] emergency department but left AMA after he received vancomycin. The patient has a history of osteomyelitis and septic joint in that ankle. His ankle is been operated on 5 times according to the patient. His last surgery was about 2 months ago. HAS BEEN SEEN BY INFECTIOUS DISEASE LEFT AMA PREVIOUSLY WAS [facility] AND TRANSFERRED HERE FOR ID AND ORTHO EVALUATIONS Pt is a 37 y.o. male well know to me from multiple prior admissions He is an IVDUer, initially presented at the end of April when he developped MRSA bacteremia and infected LLE hardware and osteo 2/2 MRSA He required removal of hardware and multiple denbridements and was discharged on televancion Non compliance was reported by infusion clinic [facility] Infusion clinic staff was suspecting that pt misused his PICC for IV drugs as well His creatinine went up on televancin and vancomycin and he was switched to daptomycin over concernes of nephrotoxicity He was readmitted again in the end of May and underwent debridement He was discharged on IV abx and presented back with few days of worsening swelling pain and redness Ankle Xray showed Abnormal periosteal reaction the distal tibia and fibula likely from chronic inflammatory change related to cellulitis and possibly chronic osteomyelitis. Pt completed his abx about 2 weeks ago and was doing well He was seen by orthopedist on 07/25 and was told he is doing good However about 5-7 days ago he started to notice returning of pain, swelling and redness and came back He was placed on Daptomycin and noticed already improvement CBC/BMP: 08/06/17 0818 08/06/17 0818 Significant Findings Laboratory Tests Test 08/07/17 10:40 Erythrocyte Sedimentation Rate 21 mm/hr (0-15) Imaging Last Impressions Chest X-Ray 08/09/17 0000 Signed Impressions: Service Date/Time: August 11:42 - CONCLUSION: The lungs are clear. Westley Briones MD Ankle X-Ray 08/04/17 0047 Signed Impressions: Service Date/Time: Friday, August 04, 2017 00:54 - CONCLUSION: 1. No acute fracture. Soft tissue swelling of the left ankle. Abnormal periosteal reaction the distal tibia and fibula likely from chronic inflammatory change related to cellulitis and possibly chronic osteomyelitis. See recent prior MRI ankle report. Nasim Thompson MD Foot MRI 08/04/17 0000 Signed Impressions: Service Date/Time: Friday, August 04, 2017 17:12 - CONCLUSION: There is persistent osteomyelitis and cellulitis involving the hindfoot and midfoot. When compared to prior MRI in May 2017, however, the size of the involved areas has decreased. Westley Briones MD PE at Discharge General: No acute distress. Heart: Regular rate and rhythm. No murmur. Lungs: Clear to auscultation bilaterally. No wheezes, rales, or rhonchi. Breathing is nonlabored. Abdomen: Soft, nontender, nondistended. Extremities: Left ankle slightly less swollen. Psych: Alert and oriented. Pt update on day of discharge The patient has no complaints at this time. He is ready to go home. Left ankle pain improving. Less swelling today as well. PICC line placed. Cleared for discharge by infectious disease, orthopedic surgery. Hospital Course The patient was admitted for management of left ankle osteomyelitis. Orthopedic surgery and infectious disease were consulted. Orthopedic surgery recommended nonsurgical treatment at this time. The patient's antibiotics were adjusted. His symptoms improved throughout the hospitalization. He was cleared for discharge by orthopedics and infectious disease. Arrangements were made for outpatient IV antibiotics at the infusion center. Case management assisted with discharge planning, including follow-up at the community clinic for referral to infectious disease for outpatient follow-up. Pt Condition on Discharge: Stable Discharge Disposition: Discharge Home Discharge Time: > 30 minutes Discharge Instructions DIET: Follow Instructions for: As Tolerated, No Restrictions Activities you can perform: Regular-No Restrictions Follow up Referrals: Infectious Disease - 1 Week Orthopedics - 2 Weeks PCP Follow-up - 1 Week New Medications: Clindamycin (Clindamycin) 300 Mg Cap 600 MG PO Q8H for Infection for 30 Days, #180 CAP 0 Refills Start AFTER IV daptomycin completed Crutch/Aluminum/Youth (Crutch/Aluminum/Youth) 1 Mis Mis EA .ROUTE DIRECTED, #1 Daptomycin Inj (Cubicin Inj) 500 Mg Bag 750 MG IV Q24H for Infection for 40 Days, BAG 0 Refills Must dilute in appropriate IV Fluid prior to administration Doxycycline Hyclate (Doxycycline Hyclate) 100 Mg Cap 100 MG PO BID for Infection for 90 Days, #180 CAP 0 Refills Start AFTER clindamycin completed Epinephrine Inj (Epinephrine Inj) 1 Mg/Ml (1 Ml) Inj 0.3 MG IV PUSH ONCE PRN for ALLERGIC REACTION, #1 VIAL Epinephrine Inj (Epinephrine Inj) 1 Mg/Ml (1 Ml) Inj 0.3 MG SQ ONCE PRN for ALLERGIC REACTION, #1 VIAL Give with any signs of respiratory distress. Hydrocortisone Inj (Solu-Cortef Inj) 250 Mg/2 Ml Inj 250 MG IV PUSH ONCE PRN for ALLERGIC REACTION, #1 VIAL 0 Refills Give over 30-60 seconds. Continued Medications: Oxycodone-Acetaminophen (Percocet) 10-325 mg Tab 1 TAB PO Q4H PRN for PAIN, TAB 0 Refills Discontinued Medications: Clonazepam (Klonopin) 1 Mg Tab 1 MG PO TID, #90 TAB 0 Refills Ravi Zavala MD Aug 09, 2017 13:24
--- NOTE | 2017-08-09 15:03 | RADRPT ---
EXAM DATE/TIME: 08/09/2017 14:34 [place] COMPARISON: CHEST SINGLE AP, August 09, 2017, 11:42. INDICATIONS : PICC line placement. PICC line was adjusted. MEDICAL HISTORY : Osteomyelitis. SURGICAL HISTORY : Right humeral head repair. ORIF left tib/fib and ankle. ENCOUNTER: Subsequent ACUITY: 1 day PAIN SCORE: 0/10 LOCATION: Bilateral chest FINDINGS: A single view of the chest demonstrates the lungs to be symmetrically aerated without evidence of mas s, infiltrate or effusion. The cardiomediastinal contours are unremarkable. Osseous structures are intact. The patient is mildly rotated to the left. The right-sided PICC line remains in place with th e tip now projected over the junction of the superior vena cava and right atrium on image #2. CONCLUSION: 1. The right PICC line remains in place with the tip now projected over the junction of the superior vena cava and right atrium. 2. No acute cardiopulmonary disease. Demarcus Hickey MD on August 09, 2017 at 14:59 Board Certified Radiologist. This report was verified electronically.
[2017-08-10] MEDS ORDERED: SODIUM CHLORIDE 0.9% FLUSH 10 ML FLUSH IV FLUSH SCH (09:00)
[2017-08-10] MEDS ORDERED: IBUP200C17 PO (13:34)
== END 2017-08-09 15:26 | disposition home or self-care (01) | DRG 540 ==
LOC: PHED 23:55 → PHEDA 08-04 02:51 → N05B 08-04 04:19
PROVIDERS: ADMIT Family Medicine; ATTEND Family Medicine
PROC: 02HV33Z Insertion of Infusion Device into Superior Vena Cava, Percutaneous Approach (ICD-10-PCS; principal; 2017-08-09)
PROC: B548ZZA Ultrasonography of Superior Vena Cava, Guidance (ICD-10-PCS; 2017-08-09)
DX: M86.672 Other chronic osteomyelitis, left ankle and foot (principal); M00.9 Pyogenic arthritis, unspecified; Z91.19 Patient's noncompliance with other medical treatment and regimen; F19.10 Other psychoactive substance abuse, uncomplicated; F15.10 Other stimulant abuse, uncomplicated; B19.20 Unspecified viral hepatitis C without hepatic coma; N28.9 Disorder of kidney and ureter, unspecified; F19.94 Other psychoactive substance use, unspecified with psychoactive substance-induced mood disorder; Z72.0 Tobacco use
CPT/HCPCS: 36569; 71010; 73610; 73720; 76937; 80053; 80307; 81001; 83036; 83735; 84100; 84439; 84443; 85025; 85610; 85652; 85730; 87040; A9579; E0113; J0878; J1650; J2060; J7030